=== PATIENT | male | born 1960 | race Caucasian/White ===

== ENCOUNTER 2017-01-23 11:17 | Inpatient (IN) | payer MEDICAID ==
[~2017-01-23] VITALS: Ht 175.3 cm; Wt 60.3 kg
[~2017-01-23 11:17] MED LIST: ALBU.5I NEB; AMLO10TA2 PO; HYDR2TAB PO; JEVILIQ12; LORA-373 PO; MIRT1TAB PO; NICO7DIS2 T-DERMAL; ONDA1TAB16; SENN8.6T15 PO; TRAM50TA PO
[2017-01-23 11:21] VITALS: BP 140/75; PULSE 117; RESP 13; TEMP 98.2; O2SAT 100
--- NOTE | 2017-01-23 11:25 | PD ---
Physical Exam Date Seen by Provider: Jan 23, 2017 Time Seen by Provider: 11:23 Data Data Last Documented VS Vital Signs Date Time Temp Pulse Resp B/P Pulse Ox O2 Delivery O2 Flow Rate FiO2 01/23/17 11:21 98.2 117 13 140/75 100 MDM Supervised Visit with HOLLIE: No Narrative Course 56 YO M with complaint of 8/10 right arm pain and swelling x 3 days. PCP sent with concern of DVT. Currently receiving chemo for stage IV lung CA. Vitals reviewed. Seen in triage, awaiting bed placement. Char Tucker Jan 23, 2017 11:25
--- NOTE | 2017-01-23 11:44 | PD ---
HPI Chief Complaint: Medical Clearance Time Seen by Provider: 11:30 Travel History International Travel<30 days: No Contact w/Intl Traveler<30days: No Traveled to known affect area: No History of Present Illness HPI This is a 56-year-old gentleman with unfortunate history of stage IV non-small cell lung cancer, undergoing chemotherapy, who presents here with right upper extremity swelling and redness. He was seen by his PCP today who was concerned about a blood clot and sent him here for further evaluation. The patient reports that it become red and swollen over the last 24 hours. There is no reported fevers. He does have 6 week history of right shoulder pain for which she is being worked up for. The patient is weak. He receives feeding through G -tube. is at the bedside state that he has had progressive weakness. PFSH Past Medical History Arthritis: No Asthma: No Autoimmune Disease: No Heart Rhythm Problems: No Cancer: Yes (lung) Cardiovascular Problems: Yes (HTN) High Cholesterol: No Chemotherapy: Yes Chest Pain: No Congestive Heart Failure: No COPD: No Cerebrovascular Accident: No Diabetes: No Endocrine: No GERD: No Genitourinary: No Hiatal Hernia: No Immune Disorder: No Kidney Stones: No Musculoskeletal: No Neurologic: Yes (HYDROCEPHALUS) Psychiatric: No Reproductive: No Respiratory: Yes (COPD,STAGE 4 LUNG CA) Migraines: No Renal Failure: No Seizures: No Sleep Apnea: No Thyroid Disease: No Ulcer: No Past Surgical History Abdominal Surgery: No AICD: No Cardiac Surgery: No Ear Surgery: No Endocrine Surgery: No Eye Surgery: No Genitourinary Surgery: No Gynecologic Surgery: No Joint Replacement: No Neurologic Surgery: Yes (REEL WINDER SHUNT) Oral Surgery: Yes Pacemaker: No Thoracic Surgery: No Social History Alcohol Use: Yes (2 BEERS PER DAY) Tobacco Use: Yes (1 1/2 PPD) Substance Use: No Allergies-Medications (Allergen,Severity, Reaction): Coded Allergies: Contrast Media (Verified Allergy, Severe, Hives, 01/23/17) Paraplatin (Verified Allergy, Mild, Itching, 01/23/17) Reported Meds & Prescriptions Reported Meds & Active Scripts Active Reported Mirtazapine 7.5 Mg Tab 7.5 Mg PO HS Amlodipine (Amlodipine Besylate) 10 Mg Tab 10 Mg PO DAILY Lorazepam 0.5 Mg Tab 0.5 Mg PO HS PRN Hydromorphone (Hydromorphone HCl) 2 Mg Tab 2 Mg PO Q4H PRN Albuterol Neb (Albuterol Sulfate) 2.5 Mg/0.5 Ml Neb 2.5 Mg NEB Q4HR NEB Note: The Albuterol Sulfate Inhalation Solution is concentrated and must be diluted. Read complete instructions carefully before using. Review of Systems Except as stated in HPI: all other systems reviewed are Neg General / Constitutional: No: Fever HENT: No: Headaches, Lightheadedness Cardiovascular: No: Chest Pain or Discomfort, Palpitations Respiratory: Positive: Cough, Shortness of Breath, Wheezing Gastrointestinal: No: Nausea, Vomiting, Abdominal Pain Musculoskeletal: Positive: Edema (right upper extremity), Pain (and redness of the right upper extremity), Other (patient also has shoulder pain from an injury 6 weeks.) Neurologic: Positive: Weakness, No: Headache, Change in Mentation Physical Exam Narrative GENERAL: Ill appearing gentleman in no acute respiratory distress. SKIN: Focused skin assessment warm/dry. HEAD: Atraumatic. Normocephalic. EYES: No scleral icterus. No injection or drainage. ENT: No nasal bleeding or discharge. Mucous membranes pink and dry. NECK: Trachea midline. Supple. CARDIOVASCULAR: Regular rate and rhythm. No murmur appreciated. RESPIRATORY: Breath sounds equal bilaterally. Decreased respiratory effort. GASTROINTESTINAL: Abdomen soft, thin, cachectic, non-tender, nondistended. Hepatic and splenic margins not palpable. MUSCULOSKELETAL: No obvious deformities. There is edema and redness and warmth to the right upper extremity medial. No obvious palpable cords. NEUROLOGICAL: Awake and alert. No obvious cranial nerve deficits. Motor grossly within normal limits. Normal speech. Very weak appearing. Data Data Last Documented VS Vital Signs Date Time Temp Pulse Resp B/P Pulse Ox O2 Delivery O2 Flow Rate FiO2 01/23/17 13:35 97.8 104 18 104/75 99 Room Air Orders Us Arm Venous Doppler (01/23/17 11:46) Complete Blood Count With Diff (01/23/17 11:46) Comprehensive Metabolic Panel (01/23/17 11:46) Blood Culture (01/23/17 11:46) Urinalysis - C+S If Indicated (01/23/17 11:46) Chest, Single Ap (01/23/17 11:46) Iv Access Insert/Monitor (01/23/17 11:46) Ecg Monitoring (01/23/17 11:46) Oximetry (01/23/17 11:46) Lactic Acid Sepsis Protocol (01/23/17 11:46) Ondansetron Inj (Zofran Inj) (01/23/17 12:00) Hydromorphone Pf Inj (Dilaudid Pf Inj) (01/23/17 12:00) Vancomycin Inj (Vancomycin Inj) (01/23/17 13:30) Lactic Acid (01/23/17 13:41) Admit Order (Ed Use Only) (01/23/17 14:11) Labs Laboratory Tests Test 01/23/17 01/23/17 01/23/17 11:44 13:30 13:41 White Blood Count 4.1 TH/MM3 Red Blood Count 3.32 MIL/MM3 Hemoglobin 9.8 GM/DL Hematocrit 30.5 % Mean Corpuscular Volume 91.9 FL Mean Corpuscular Hemoglobin 29.4 PG Mean Corpuscular Hemoglobin 32.0 % Concent Red Cell Distribution Width 19.0 % Platelet Count 388 TH/MM3 Mean Platelet Volume 7.1 FL Neutrophils (%) (Auto) 91.7 % Lymphocytes (%) (Auto) 3.5 % Monocytes (%) (Auto) 4.0 % Eosinophils (%) (Auto) 0.7 % Basophils (%) (Auto) 0.1 % Neutrophils # (Auto) 3.8 TH/MM3 Lymphocytes # (Auto) 0.1 TH/MM3 Monocytes # (Auto) 0.2 TH/MM3 Eosinophils # (Auto) 0.0 TH/MM3 Basophils # (Auto) 0.0 TH/MM3 CBC Comment DIFF FINAL Differential Comment Sodium Level 135 MEQ/L Potassium Level 3.9 MEQ/L Chloride Level 99 MEQ/L Carbon Dioxide Level 29.2 MEQ/L Anion Gap 7 MEQ/L Blood Urea Nitrogen 19 MG/DL Creatinine 0.63 MG/DL Estimat Glomerular Filtration 132 ML/MIN Rate Random Glucose 94 MG/DL Lactic Acid Level 2.1 mmol/L 1.0 mmol/L Calcium Level 9.1 MG/DL Total Bilirubin 0.6 MG/DL Aspartate Amino Transf 49 U/L (AST/SGOT) Alanine Aminotransferase 75 U/L (ALT/SGPT) Alkaline Phosphatase 88 U/L Total Protein 7.3 GM/DL Albumin 2.6 GM/DL Urine Color YELLOW Urine Turbidity CLEAR Urine pH 6.5 Urine Specific [place] 1.025 Urine Protein TRACE mg/dL Urine Glucose (UA) NEG mg/dL Urine Ketones NEG mg/dL Urine Occult Blood NEG Urine Nitrite NEG Urine Bilirubin NEG Urine Urobilinogen 4.0 MG/DL Urine Leukocyte Esterase NEG Urine RBC 1 /hpf Urine WBC 1 /hpf Urine Mucus FEW /lpf Microscopic Urinalysis Comment CULT NOT INDICATED MDM Medical Decision Making Medical Screen Exam Complete: Yes Emergency Medical Condition: Yes Differential Diagnosis Cellulitis versus DVT versus metabolic derangement Narrative Course 56-year-old male presents here with complaints of right upper extremity redness and warmth and swelling. He was sent here by his primary care doctor to rule out DVT. There is no evidence of DVT. The concern here is that this patient has cellulitis. He's been started on vancomycin. Given his immune compromised state and currently receiving chemotherapy, I feel he needs to be admitted. Was discussed with Dr. Diehl, senior resident working with Dr. Rodriguez, who agreed for the admission. Diagnosis Primary Impression: Right arm cellulitis Additional Impressions: Anemia stage IV lung cancer Admitting Information Admitting Physician Requests: Admit Matthew Up MD Jan 23, 2017 11:44
[2017-01-23 11:50] VITALS: RESP 18; O2SAT 100
[2017-01-23] MEDS ORDERED: ONDANSETRON HCL 4 MG/2 ML VIAL IVP ONE (12:00)
[2017-01-23] MEDS ORDERED: HYDROmorphone HCL PF 1 MG/ML VIAL IVS ONE (12:00)
[2017-01-23 12:06] LABS: AUTOMATED NEUTROPHIL # 3.8 TH/MM3 (1.8-7.7); BASOPHIL % 0.1 % (0.0-2.0); EOSINOPHIL % 0.7 % (0.0-4.0); HEMATOCRIT 30.5 % (39.0-51.0); HEMO FLAGS DIFF FINAL; LYMPH % 3.5 % (9.0-44.0); LYMPHOCYTE # 0.1 TH/MM3 (1.0-4.8); MEAN CELL VOLUME 91.9 FL (80.0-100.0); MEAN CORPUSCULAR HEMOGLOBIN 29.4 PG (27.0-34.0); NEUT % 91.7 % (16.0-70.0); PLATELET COUNT 388 TH/MM3 (150-450); RED BLOOD COUNT 3.32 MIL/MM3 (4.50-5.90); WHITE BLOOD COUNT 4.1 TH/MM3 (4.0-11.0)
[2017-01-23 12:19] LABS: ALT (GPT) 75 U/L (12-78); ANION GAP 7 MEQ/L (5-15); AST (GOT) 49 U/L (15-37); BICARBONATE 29.2 MEQ/L (21.0-32.0); BLOOD UREA NITROGEN 19 MG/DL (7-18); CHLORIDE 99 MEQ/L (98-107); GLOMERULAR FILTRATION RATE 132 ML/MIN (>89); POTASSIUM 3.9 MEQ/L (3.5-5.1); SODIUM (NA) 135 MEQ/L (136-145)
[2017-01-23 12:21] LABS: ALKALINE PHOSPHATASE 88 U/L (45-117); TOTAL BILIRUBIN ADULT 0.6 MG/DL (0.2-1.0)
--- NOTE | 2017-01-23 12:47 | RADRPT ---
EXAM DATE/TIME: 01/23/2017 12:24 [facility] COMPARISON: No previous studies available for comparison. INDICATIONS : Right arm pain and swelling. MEDICAL HISTORY : Chronic obstructive pulmonary disease. Hydrocephalus. Hypertension. Lung cancer, stage 4. Chemother apy. SURGICAL HISTORY : [employer] shunt. ENCOUNTER: Initial ACUITY: 2 day PAIN SCORE: 5/10 LOCATION: Right arm. FINDINGS: There is spontaneous flow documented in the brachial, basilic, cephalic, axillary, and subclavian vei ns. The vessels are compressible and augmentation response is documented. No filling defects are se en. The flow is phasic with respiration. Direction of flow in the jugular vein is caudal. CONCLUSION: 1. No sonographic evidence for right upper extremity DVT. Dereje Allred MD on January 23, 2017 at 12:43 Board Certified Radiologist. This report was verified electronically.
--- NOTE | 2017-01-23 12:54 | RADRPT ---
EXAM DATE/TIME: 01/23/2017 11:51 [facility] COMPARISON: CT SOFT TISSUE NECK W CONTRAST, December 28, 2014, 10:04. CT ABDOMEN & PELVIS W/O CONTRAST, May 08, 016, 21:04. CHEST SINGLE AP, July 11, 2016, 11:25. INDICATIONS : Short of breath. MEDICAL HISTORY : Carcinoma, lung. Chronic obstructive pulmonary disease. Having chemo, had radiation. SURGICAL HISTORY : None. ENCOUNTER: Initial ACUITY: 1 day PAIN SCORE: 0/10 LOCATION: Bilateral chest FINDINGS: There is a CT compatible [id number] in place from the left subclavian approach with the tip overly ing the SVC. The heart size is normal. The lungs are clear. No effusions are seen. There is a nicole e seen over the right neck and extending over the right chest towards the upper abdomen likely relate d to shunt tubing. The patient does appear to have a G-tube in place. CONCLUSION: No acute abnormality is seen. Chas Amaya MD on January 23, 2017 at 12:21 Board Certified Radiologist. This report was verified electronically.
[2017-01-23] MEDS ORDERED: VANCOMYCIN INJ 1,000 MG in SODIUM CHLOR 0.9% 250 ML INJ 250 ML IV ONE (13:30)
[2017-01-23 13:35] VITALS: BP 104/75; PULSE 104; RESP 18; TEMP 97.8; O2SAT 99
[2017-01-23 14:00] LABS: LACTIC ACID GHOST NOT REPORTABLE
[2017-01-23 14:06] LABS: BLOOD, URINE NEG (NEG); COMMENT (UR) CULT NOT INDICATED; CULTURE IF INDICATED CULT NOT INDICATED; GLUCOSE,URINE NEG (NEG); KETONE, URINE NEG (NEG); MUCUS URINE FEW /lpf (OCC); NITRITE,URINE NEG (NEG); PH, URINE 6.5 (5.0-8.5); URINE COLOR YELLOW (YELLW/STRAW)
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
[2017-01-23] MEDS ORDERED: HYDROmorphone HCL 2 MG TAB PO PRN (14:45)
[2017-01-23] MEDS ORDERED: SODIUM CHLORIDE 0.9% FLUSH 10 ML FLUSH IV FLUSH PRN (14:45)
[2017-01-23 16:00] VITALS: BP 135/72; PULSE 102; RESP 17; TEMP 97.9; O2SAT 99
[2017-01-23] MEDS: SODIUM CHLOR 0.9% 1000 ML INJ 1,000 ML IV SCH (16:48)
[2017-01-23 17:00] VITALS: BP 121/61; PULSE 106; RESP 18; TEMP 98.5; O2SAT 100
[2017-01-23] MEDS ORDERED: HYDROmorphone HCL PF 1 MG/ML VIAL IV PUSH ONE (18:15)
[2017-01-23] MEDS: SODIUM CHLORIDE 0.9% FLUSH 10 ML FLUSH IV FLUSH SCH (19:07)
[2017-01-23] MEDS: ENOXAPARIN SODIUM 40 MG/0.4 ML SYRINGE SQ SCH (19:07)
[2017-01-23 20:00] VITALS: BP 114/56; PULSE 112; RESP 18; TEMP 99.1; O2SAT 98
--- NOTE | 2017-01-23 21:21 | RADRPT ---
EXAM DATE/TIME: 01/23/2017 20:29 [facility] COMPARISON: No previous studies available for comparison. INDICATIONS : Right shoulder pain with no known trauma MEDICAL HISTORY : None. SURGICAL HISTORY : None. ENCOUNTER: Initial ACUITY: 1 day PAIN SCORE: 10/10 LOCATION: Right entire shoulder FINDINGS: 4 views of the right shoulder demonstrate no fracture or dislocation. The acromioclavicular joint is intact but demonstrates mild osteoarthritis change. The visualized soft tissues demonstrate no abnorm ality. Visualized portions of the right lung are clear. No displaced rib fracture is seen. CONCLUSION: No acute abnormality is identified. Chas Sher MD on January 23, 2017 at 21:07 Board Certified Radiologist. This report was verified electronically.
--- NOTE | 2017-01-23 21:36 | MB ---
cc: HAILEE DIEHL MD, RUBY ANNE E. M.D. DATE OF CONSULTATION 01/23/2017 DATE OF [address] Hailee Diehl CHIEF COMPLAINT Dr. Diehl requested consultation for Mr. Cohen regarding right arm cellulitis. HISTORY OF PRESENT ILLNESS Mr. Nieto is a 56-year-old man with metastatic krh-qrfqk-gger lung cancer on palliative chemotherapy with Alimta. He has had stable disease. His course was complicated by adhesive capsulitis of the right shoulder. He has a rotator cuff tear. He worsened this by recent fall. He was referred to orthopedic surgery on outpatient basis. Apparently, there are problems with the referral that has to go through to his primary care physician. He was feeling unwell 2 days prior to his presentation. The day prior to his presentation he was very ill. They noticed redness in the upper inner arm. He denies any injury. He has been unable to lift up that arm due to the shoulder capsulitis and rotator cuff injury. He went to his primary physician who then referred him to the emergency room for evaluation to rule out a deep vein thromboses. He is assessed to have a cellulitis and thus was admitted for IV antibiotic therapy. His blood cultures were obtained, that are pending. 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 He has normal white count. No neutropenia, anemia and normal platelet count. His lactic acid initially was elevated, decreased to 1. His AST is mildly elevated at 49. Mr. Nieto denies any sick contact. He was extremely nauseous. He is having a lot more pain in the right shoulder. He has progressive swelling that has worsened over the last 24 hours. The rest of his review of systems is negative. PAST MEDICAL HISTORY 1. Metastatic zrn-ahxkm-hwjq lung cancer. 2. Cancer cachexia. 3. Hoarseness. 4. Anxiety. 5. COPD/emphysema. 6. 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 7. Right shoulder capsulitis and rotator cuff tear. PAST SURGICAL HISTORY 1. Lung and neck biopsy. 2. INSURANCE CUSTOMER SERVICE SPECIALIST shunt placement. 3. Port placement. 4. Supraclavicular lymph node biopsy. 5. Cerebral aneurysm repair. ALLERGIES ALLERGIES TO CONTRAST MEDIA. MEDICATIONS Current medication include: 1. Vancomycin. 2. Remeron. 3. Hydromorphone. 4. Enoxaparin. 5. Sodium chloride. FAMILY HISTORY Mother has history of skin cancer. Father is cancer free. 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 He has 80 pack-year smoking history. Denies any alcohol or illicit drug use. PHYSICAL EXAMINATION VITAL SIGNS: Temperature 98.6, heart rate 106, respiratory rate 18, blood pressure 121/61, saturation 100%. GENERAL: Mr. Nieto is well-developed slender man who looks older than stated age. HEENT: His pupils are round, reactive to light and accommodation. Oropharynx is dry. NECK: Supple. Chronic radiation changes of the right neck. DIRECTED EXAMINATION: He has swelling and immobility of the right shoulder. He has inflammation and capsulitis. He has got a dry. skin in the right axilla. There is no obvious lesion. There is diffuse erythema of the inner aspect of the right arm and most swelling in the dependent portion. LUNGS: Lungs are clear anteriorly. CARDIOVASCULAR: Exam reveals a tachycardia. ABDOMEN: Abdomen is benign. PEG tube is in place. LOWER EXTREMITIES: lower extremities with no edema. Right arm is more swollen than the left. LABORATORY DATA Hemoglobin of 9.8, albumin 2.6. ASSESSMENT/PLAN Mr. Arroyo is a 56-year-old man with metastatic rir-foiuk-pvwn lung cancer with stable disease on Alimta. His course was complicated by a right shoulder capsulitis and is pending outpatient evaluation by orthopedic surgery. He comes in with cellulitis in the right inner arm, would suspect point of entry of bacteria from his right axilla. Blood cultures were obtained. We discussed consultation with orthopedic surgery for evaluation. He has been unable to see orthopedic surgery on outpatient basis. The pain in the right shoulder and right axilla has worsened since his last evaluation. We will continue vancomycin for now. Infectious disease consultation is deferred pending results of the cultures. Will obtain cultures through his MediPort. His MediPort otherwise functions well. The DVT prophylaxis as per primary team. We will optimize his pain medication 1 milligram of Dilaudid every 4 hours p.r.n. basis. His questions were answered to his satisfaction. La Billingsley MD RAD/EO /6:15 PM /9:21 PM
[2017-01-23] MEDS: HYDROmorphone HCL PF 1 MG/ML VIAL IV PUSH PRN (23:08)
[2017-01-23] MEDS: MIRTAZAPINE 15 MG TAB PO SCH (23:08)
--- NOTE | 2017-01-23 23:36 | MB ---
cc: MICHAELGEORGINAWAYNE DATE OF CONSULTATION 01/23/17 REASON FOR CONSULTATION Right upper extremity cellulitis. HISTORY OF PRESENT ILLNESS The patient is a 56-year-old male with past history of jrz-saksp-azyo stage IV lung cancer who is on chemotherapy, last received 01/17/2017. He developed increasing pain, swelling, redness to the right arm over the last 24 hours. He saw his primary care physician, was instructed to go to [facility]. He is admitted to the medical service and he is currently on antibiotic therapy. He does have redness and swelling of his arm. He is unable to have an MRI because he has a shunt in his brain after a bleed in 1995. He states he has been having some subjective fevers and chills as well as nausea. PAST MEDICAL HISTORY Positive for brain bleed 1995, stage IV lung cancer, COPD, pneumothorax. He has a port in his chest, brain aneurysm clip, PEG tube. ALLERGIES CONTRAST. SOCIAL HISTORY He smokes half a pack a day and has smoked since the age of 15. He has history of prior alcohol. Did not use drugs. FAMILY HISTORY Reviewed, noncontributory. MEDICATIONS Include: 1. Mirtazapine. 2. Amlodipine. 3. Lorazepam. 4. Hydromorphone. 5. Albuterol. PHYSICAL EXAMINATION GENERAL: The patient is awake, alert, lying in bed, no acute distress. HEENT: Normocephalic, atraumatic. Pupils are round. No scleral icterus. NECK: Neck is supple. LUNGS: Clear. HEART: Regular rate and rhythm. ABDOMEN: Soft, nontender. G-tube intact. EXTREMITIES: The right upper extremity does have swelling, cellulitis mostly in the region of the lower arm, elbow and proximal forearm. There is slight induration. The compartments are soft. He can flex and extend his digits. Brisk capillary refill, sensation intact. LABORATORY DATA White blood cell count 4.1, hemoglobin 9, hematocrit 30, glucose 94, creatinine 0.6. IMPRESSION A 56-year-old male, right upper extremity cellulitis, immunocompromised from chemotherapy, stage IV lung cancer. PLAN I recommend IV antibiotic therapy. He may benefit from infectious disease consultation for treatment recommendations in regards to antibiotic dosing and ideal usage. He is on vancomycin which is appropriate but he may benefit also for broad-spectrum coverage. I do not feel as though surgical intervention will be indicated at this time. MD SHEREE Olsen/CHERIE /10:19 PM /11:29 PM
[2017-01-24] VITALS: BP 123/67; PULSE 109; RESP 17; TEMP 98.5; O2SAT 100
[2017-01-24] MEDS: VANCOMYCIN INJ 1,000 MG in SODIUM CHLOR 0.9% 250 ML INJ 250 ML IV SCH ×2 (00:59→13:25)
[2017-01-24] MEDS: SODIUM CHLOR 0.9% 1000 ML INJ 1,000 ML IV SCH ×3 (02:48→22:48)
[2017-01-24 04:00] VITALS: BP 107/59; PULSE 92; RESP 17; TEMP 98.6; O2SAT 93
[2017-01-24] MEDS: HYDROmorphone HCL PF 1 MG/ML VIAL IV PUSH PRN ×4 (04:40→21:30)
[2017-01-24] MEDS: SODIUM CHLORIDE 0.9% FLUSH 10 ML FLUSH IV FLUSH SCH ×2 (08:32→21:00)
[2017-01-24 08:35] VITALS: BP 133/71; PULSE 110; RESP 18; TEMP 97.9; O2SAT 98
--- NOTE | 2017-01-24 10:44 | HHI.FPPN ---
Subjective Remarks No acute events overnight. Afebrile, tachycardic to 112. Patient states he feels approximately the same as yesterday. Has significant pain in his right upper extremity when he attempts to lift his arm. Does not have pain with palpation. Denies fever/chills. (Tatianna Karimi MD R3) Objective Vitals Vital Signs Date Time Temp Pulse Resp B/P Pulse Ox O2 Delivery O2 Flow Rate FiO2 01/24/17 08:35 97.9 110 18 133/71 98 01/24/17 06:04 16 01/24/17 04:00 98.6 92 17 107/59 93 01/24/17 00:00 98.5 109 17 123/67 100 01/23/17 20:00 99.1 112 18 114/56 98 01/23/17 19:37 16 01/23/17 17:00 98.5 106 18 121/61 100 01/23/17 16:00 97.9 102 17 135/72 99 Room Air 01/23/17 13:35 97.8 104 18 104/75 99 Room Air 01/23/17 12:29 17 01/23/17 11:50 18 100 Room Air 01/23/17 11:40 109 18 01/23/17 11:21 98.2 117 13 140/75 100 I/O 01/23/17 01/23/17 01/23/17 01/24/17 01/24/17 01/24/17 07:00 15:00 23:00 07:00 15:00 23:00 Output Total 500 ml 600 ml Balance -500 ml -600 ml Output Urine Total 500 ml 300 ml Autotransfusion 300 ml # Voids 1 # Bowel Movements 0 (Tatianna Karimi MD R3) Result Diagram: 01/23/17 1144 01/23/17 1144 Objective Remarks GENERAL: Cachectic appearing. Reading comfortably, speaking in full sentences. SKIN: Right arm with a 6-8 cm round area of erythema, nondraining, no fluctuance or induration, non-tender to palpation. Improved from yesterday. Pulses +2 radial on the same side. HEAD: Atraumatic. EYES: Pupils equal round and reactive. Extraocular motions intact. ENT: Nose without bleeding, purulent drainage or septal hematoma. Dry mucous membranes NECK: Trachea midline. No JVD or lymphadenopathy. CARDIOVASCULAR: Distant heart sounds, regular rate and rhythm, without any obvious murmurs. RESPIRATORY: Clear to auscultation. GASTROINTESTINAL: G-tube at midline, clean dry and intact, no drainage. MUSCULOSKELETAL: No edema in his lower extremities. NEUROLOGICAL: Awake and alert. Cranial nerves II through XII intact. Motor and sensory grossly within normal limits. (Tatianna Karimi MD R3) A/P Assessment and Plan 56-year-old pleasant male, with a past medical history of brain aneurysm in 1995, stage IV non-small cell lung carcinoma, and COPD, presenting with worsening right arm redness, swelling, and pain, after an injury 6 weeks prior. Currently being treated for cellulitis with IV vancomycin. (Tatianna Karimi MD R3) Attending Attestation Patient seen and examined with the resident team. Case reviewed and discussed Agree with plan of care as discussed with me and documented in the resident note. (Tonya Rodriguez MD) Problem List: (1) Cellulitis Status: Acute Plan: Right arm redness, swelling, suggestive of a cellulitis. Will treat with vancomycin 1 g every 12 hours. Given patient's immunosuppression, consult infectious disease CT scan ordered to rule out abscess or soft tissue infection (2) Right shoulder pain Status: Acute Plan: Patient with right shoulder pain likely to be secondary to his cellulitis. Orthopedic surgery consulted, recommended infectious disease consult. No surgical interventions at this time. Treatment as above. (3) COPD (chronic obstructive pulmonary disease) Status: Acute Plan: Reading comfortably on room air. Continue albuterol nebulizers every 4 hours when necessary shortness of breath. (4) Malignant cachexia Status: Acute Plan: Severe cachexia on exam, dietary consulted for PEG tube feedings, nursing bedside swallow eval prior to regular diet, continue mirtazapine for appetite enhancement, consider ensure shakes. Continue patient's home regimen of Jevity 3 cans in the morning and 2 cans in the evening via feeding tube (5) Non-small cell lung cancer (NSCLC) Status: Chronic Plan: Patient with a history of stage IV non-small cell lung cancer, being treated by Dr. Billingsley. We appreciate her assistance. We will consult her to follow along during the hospitalization. He is next due for chemotherapy on 02/07. (6) Tobacco abuse Status: Acute Plan: Nicotine patches when necessary. (7) Nutrition, metabolism, and development symptoms Status: Acute Plan: DVT: Lovenox 40 units sq q 24 hrs. Nutrition: Reg diet after swallow eval, Jevity as above IVF: Maintenance at 75 ml / hr (Tatianna Karimi MD R3) Tatianna Karimi MD R3 Jan 24, 2017 10:43 Tonya Rodriguez MD Jan 28, 2017 13:11
--- NOTE | 2017-01-24 12:44 | PD.ONC.PN ---
Subjective Subjective Remarks Afebrile overnight. "My arm still hurts but the pain medicine helps" Denies chills or Chest pain Endorses occasional SOB "I have COPD, breathing treatments have helped before" Objective Data Date Time Temp Pulse Resp B/P Pulse Ox O2 Delivery O2 Flow Rate FiO2 01/24/17 08:35 97.9 110 18 133/71 98 01/24/17 06:04 16 01/24/17 04:00 98.6 92 17 107/59 93 01/24/17 00:00 98.5 109 17 123/67 100 01/23/17 20:00 99.1 112 18 114/56 98 01/23/17 19:37 16 01/23/17 17:00 98.5 106 18 121/61 100 01/23/17 16:00 97.9 102 17 135/72 99 Room Air 01/23/17 13:35 97.8 104 18 104/75 99 Room Air Result Diagram: 01/23/17 1144 01/23/17 1144 Laboratory Results Laboratory Tests Test 01/23/17 01/23/17 01/23/17 13:30 13:41 20:10 Urine Color YELLOW Urine Turbidity CLEAR Urine pH 6.5 Urine Specific [place] 1.025 Urine Protein TRACE mg/dL Urine Glucose (UA) NEG mg/dL Urine Ketones NEG mg/dL Urine Occult Blood NEG Urine Nitrite NEG Urine Bilirubin NEG Urine Urobilinogen 4.0 MG/DL Urine Leukocyte Esterase NEG Urine RBC 1 /hpf Urine WBC 1 /hpf Urine Mucus FEW /lpf Microscopic Urinalysis Comment CULT NOT INDICATED Lactic Acid Level 1.0 mmol/L 1.2 mmol/L Culture Results Microbiology Date/Time Procedure Status Source Growth 01/23/17 11:44 Aerobic Blood Culture - Preliminary Resulted Blood Peripheral NO GROWTH IN 1 DAY 01/23/17 11:44 Anaerobic Blood Culture - Preliminary Resulted Blood Peripheral NO GROWTH IN 1 DAY 01/23/17 11:55 Aerobic Blood Culture - Preliminary Resulted Blood Peripheral NO GROWTH IN 1 DAY 01/23/17 11:55 Anaerobic Blood Culture - Preliminary Resulted Blood Peripheral NO GROWTH IN 1 DAY 01/23/17 20:00 Aerobic Blood Culture - Preliminary Resulted Blood Line NO GROWTH IN 1 DAY 01/23/17 20:00 Anaerobic Blood Culture - Preliminary Resulted Blood Line NO GROWTH IN 1 DAY 01/23/17 20:11 Aerobic Blood Culture - Preliminary Resulted Blood Line NO GROWTH IN 1 DAY 01/23/17 20:11 Anaerobic Blood Culture - Preliminary Resulted Blood Line NO GROWTH IN 1 DAY Administered Medications Medications (Trade) Dose Ordered Sig/Franny Route PRN Reason Start Time Stop Time Status Last Admin Dose Admin Mirtazapine (Remeron) 7.5 mg HS PO 01/23/17 21:00 01/23/17 23:08 Sodium Chloride 2 ml 2 ml BID IV FLUSH 01/23/17 21:00 01/23/17 19:07 Vancomycin HCl/ Sodium Chloride (Vancomycin Inj/ NS 250 ml Inj) 250 ml @ 250 mls/hr Q12H IV 01/24/17 01:00 01/24/17 00:59 Enoxaparin Sodium (Lovenox Inj) 40 mg Q24H SQ 01/23/17 18:00 01/23/17 19:07 Hydromorphone HCl (Dilaudid Pf Inj) 1 mg Q4H PRN IV PUSH PAIN, SEVERE 5-10 ON SCALE 01/23/17 18:15 01/24/17 08:42 Objective Remarks GENERAL: Older male, lying in bed with R arm propped up on a pillow in no distress. SKIN: Warm and dry. Erythema to RUE. HEAD: Normocephalic. EYES: No injection or drainage. NECK: Supple, trachea midline. CARDIOVASCULAR: +S1/S2. RESPIRATORY: Clear, diminished anteriorly. GASTROINTESTINAL: Abdomen soft, non-tender, nondistended. EXTREMITIES: No cyanosis, or edema. NEUROLOGICAL: Normal speech, moving all extremities. Assessment/Plan Problem List: (1) Cellulitis Status: Acute Plan: -- R upper arm erythema -- Current BC show no growth x 1 day -- On Vancomycin -- ID consult ordered. (2) Non-small cell lung cancer (NSCLC) Status: Chronic Plan: -- Currently on palliative chemotherapy with Alimta as outpatient -- Stable disease Assessment 56 y/o male with non small cell lung ca admitted with cellulitis of the R arm Plan 1. Will start pt on Neupogen once daily as his white count dropped 2. Await ID consult and recommendations 3. Will add on duonebs prn for occasional SOB 4. Will continue palliative chemo with Alimta as outpatient once acute issues are resolved Attending Statement The exam, history, and the medical decision-making described in the above note were completed with the assistance of the mid-level provider. I reviewed and agree with the findings presented. I attest that I had a [id number]-[id number] encounter with the patient on the same day, and personally performed and documented my assessment and findings in the medical record. Discussed with ID, cultures negative so far. Support continue with GCSF. Chemo will be on hold until resolution of infection. Pending ortho evaluation of R shoulder. Kanchan Kc Jan 24, 2017 12:43 La Billingsley MD Jan 24, 2017 17:00
[2017-01-24 12:49] LABS: HEMATOCRIT 23.1 % (39.0-51.0); MEAN CORPUSCULAR HEMOGLOBIN 30.4 PG (27.0-34.0); MEAN CORPUSCULAR HGB CONC 32.7 % (32.0-36.0); PLATELET COUNT 241 TH/MM3 (150-450); RED BLOOD COUNT 2.49 MIL/MM3 (4.50-5.90); RED CELL DISTRIBUTION WIDTH 18.9 % (11.6-17.2); WHITE BLOOD COUNT 1.5 TH/MM3 (4.0-11.0)
[2017-01-24 12:54] VITALS: BP 123/57; PULSE 102; RESP 18; TEMP 98.2; O2SAT 99
[2017-01-24 13:01] LABS: HEMO FLAGS AUTO DIFF
[2017-01-24 14:10] LABS: BICARBONATE 25.4 MEQ/L (21.0-32.0)
[2017-01-24 14:14] LABS: BANDS 5 % (0-6); BASOPHILS 1 % (0-2); EOSINOPHILS 4 % (0-4); NEUTROPHIL # MANUAL DIFF 1.2 TH/MM3 (1.8-7.7); PLATELET ESTIMATE SMEAR NORMAL (NORMAL); PLATELET MORPHOLOGY NORMAL (NORMAL); POLYS (SEG NEUTROPHILS) 74 % (16-70); SCAN/DIFF FINAL DIFF MANUAL; WBC DIFF SAMPLE 100
--- NOTE | 2017-01-24 14:35 | RADRPT ---
EXAM DATE/TIME: 01/24/2017 13:47 [facility] COMPARISON: No previous studies available for comparison. INDICATIONS : Right arm pain, possible cellulitis. RADIATION DOSE: 39.44 CTDIvol (mGy) MEDICAL HISTORY : Hypertension. Carcinoma, lung. SURGICAL HISTORY : None. ENCOUNTER: Initial ACUITY: 1 day PAIN SCALE: 10/10 LOCATION: Right upper extremity TECHNIQUE: Volumetric scanning of the humerus was performed. Using automated exposure control and adjustment of the mA and/or kV according to patient size, radiation dose was kept as low as reasonably achievable to obtain optimal diagnostic quality images. FINDINGS: There is extensive subcutaneous edema in the right arm, especially distally extending over the extens or surface of the elbow. No loculated fluid is seen to suggest a focal abscess collection. No bony de structive changes are identified. No acute fracture or dislocation. CONCLUSION: 1. Extensive cellulitis of the arm especially the distal arm and extending over the extensor surface of the elbow into the proximal forearm without loculated fluid to suggest discrete or drainable absce ss. Deep Gtz MD on January 24, 2017 at 14:26 Board Certified Radiologist. This report was verified electronically.
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
[2017-01-24] MEDS: CEFEPIME INJ 2,000 MG in SODIUM CHLORIDE 0.9% INJ 100 ML IV SCH ×2 (15:15→21:26)
[2017-01-24] MEDS ORDERED: RESP: ALBUTEROL 2.5 MG/IPRATROPIUM 0.5 MG NEB (PRN) NEB (16:30)
[2017-01-24 16:32] VITALS: BP 121/59; PULSE 105; RESP 18; TEMP 98.5; O2SAT 99
[2017-01-24] MEDS: FILGRASTIM 300 MCG/ML VIAL SQ SCH (17:37)
[2017-01-24] MEDS: ENOXAPARIN SODIUM 40 MG/0.4 ML SYRINGE SQ SCH (17:37)
[2017-01-24 20:00] VITALS: BP 118/58; PULSE 117; RESP 18; TEMP 99.7; O2SAT 98
[2017-01-24] MEDS: MIRTAZAPINE 15 MG TAB PO SCH (21:08)
[2017-01-25] VITALS (8 sets, daily range): BP systolic 96–114; BP diastolic 52–62; PULSE 107–113; RESP 17–18; TEMP 98.3–99.8; O2SAT 93–100
[2017-01-25] MEDS: SODIUM CHLOR 0.9% 1000 ML INJ 1,000 ML IV SCH ×2 (00:41→18:19)
[2017-01-25] MEDS: VANCOMYCIN INJ 1,000 MG in SODIUM CHLOR 0.9% 250 ML INJ 250 ML IV SCH ×2 (00:41→13:25)
[2017-01-25] MEDS: CEFEPIME INJ 2,000 MG in SODIUM CHLORIDE 0.9% INJ 100 ML IV SCH ×3 (05:47→21:24)
[2017-01-25] MEDS: HYDROmorphone HCL PF 1 MG/ML VIAL IV PUSH PRN ×5 (05:47→22:33)
[2017-01-25 06:24] LABS: HEMATOCRIT 22.8 % (39.0-51.0); MEAN CELL VOLUME 92.6 FL (80.0-100.0); MEAN CORPUSCULAR HEMOGLOBIN 30.4 PG (27.0-34.0); MEAN CORPUSCULAR HGB CONC 32.9 % (32.0-36.0); PLATELET COUNT 221 TH/MM3 (150-450); RED BLOOD COUNT 2.46 MIL/MM3 (4.50-5.90); RED CELL DISTRIBUTION WIDTH 18.3 % (11.6-17.2); WHITE BLOOD COUNT 3.5 TH/MM3 (4.0-11.0)
[2017-01-25 06:26] LABS: HEMO FLAGS AUTO DIFF
[2017-01-25 06:31] LABS: BICARBONATE 23.9 MEQ/L (21.0-32.0); POTASSIUM 3.5 MEQ/L (3.5-5.1)
[2017-01-25 08:08] LABS: BANDS 7 % (0-6); CORRECTED NUCLEATED RBC 1 /100 WBC (0-0); EOSINOPHILS 1 % (0-4); NEUTROPHIL # MANUAL DIFF 2.9 TH/MM3 (1.8-7.7); POLYS (SEG NEUTROPHILS) 77 % (16-70); WBC DIFF SAMPLE 100
[2017-01-25 08:09] LABS: PLATELET ESTIMATE SMEAR NORMAL (NORMAL); PLATELET MORPHOLOGY NORMAL (NORMAL); SCAN/DIFF FINAL DIFF MANUAL
[2017-01-25] MEDS: SODIUM CHLORIDE 0.9% FLUSH 10 ML FLUSH IV FLUSH SCH ×2 (08:22→21:00)
--- NOTE | 2017-01-25 09:19 | HHI.FPPN ---
Subjective Remarks Patient still with persistent right arm pain, not much improved since yesterday. Pain is reported as 6 out of 10. Has noticed some reduced redness and swelling. Breathing at his baseline, reports not getting any DuoNeb's. Denies any fevers or chills over the past 24 hours. Tolerating by mouth diet, and Jevity feeds without nausea or vomiting. (Jacques Diehl MD R2) Objective Vitals Vital Signs Date Time Temp Pulse Resp B/P Pulse Ox O2 Delivery O2 Flow Rate FiO2 01/25/17 08:00 98.6 109 18 114/57 98 01/25/17 06:17 18 01/25/17 04:00 98.8 110 17 100/62 100 01/25/17 00:00 99.8 113 17 96/55 99 01/24/17 20:00 99.7 117 18 118/58 98 01/24/17 16:32 98.5 105 18 121/59 99 01/24/17 12:54 98.2 102 18 123/57 99 I/O 01/24/17 01/24/17 01/24/17 01/25/17 01/25/17 01/25/17 07:00 15:00 23:00 07:00 15:00 23:00 Intake Total 1575 ml 1080 ml 2266 ml Output Total 600 ml 450 ml 300 ml 790 ml Balance -600 ml 1125 ml 780 ml 1476 ml Intake Oral 600 ml 480 ml 240 ml IV Total 975 ml 2026 ml Tube Feeding 480 ml Other 120 ml Output Urine Total 300 ml 450 ml 300 ml 790 ml Autotransfusion 300 ml (Jacques Diehl MD R2) Result Diagram: 01/25/17 0555 01/25/17 0555 Objective Remarks GENERAL: Cachectic appearing. Reading comfortably, speaking in full sentences. SKIN: Right arm with a 6-8 cm round area of erythema, nondraining, no fluctuance or induration, non-tender to palpation. Improved from yesterday. Pulses +2 radial on the same side. HEAD: Atraumatic. EYES: Pupils equal round and reactive. Extraocular motions intact. ENT: Nose without bleeding, purulent drainage or septal hematoma. Dry mucous membranes NECK: Trachea midline. No JVD or lymphadenopathy. CARDIOVASCULAR: Distant heart sounds, regular rate and rhythm, without any obvious murmurs. RESPIRATORY: Clear to auscultation. GASTROINTESTINAL: G-tube at midline, clean dry and intact, no drainage. MUSCULOSKELETAL: No edema in his lower extremities. NEUROLOGICAL: Awake and alert. Cranial nerves II through XII intact. Motor and sensory grossly within normal limits. (Jacques Diehl MD R2) A/P Assessment and Plan 56-year-old pleasant male, with a past medical history of brain aneurysm in 1995, stage IV non-small cell lung carcinoma, and COPD, presenting with worsening right arm redness, swelling, and pain, after an injury 6 weeks prior. Currently being treated for cellulitis with IV vancomycin. (Jacques Diehl MD R2) Attending Attestation Patient seen and examined with the resident team. Case reviewed and discussed Agree with plan of care as discussed with me and documented in the resident note. (Tonya Rodriguez MD) Problem List: (1) Cellulitis Status: Acute Plan: Right arm redness, swelling, suggestive of a cellulitis. CT scan did not show any drainable abscess, but was consistent with a cellulitis. Will treat with vancomycin 1 g every 12 hours. Infectious disease added cefepime (01/24) given his neutropenia. Cultures have been negative 24 HRS days. Left-sided port, clean dry and intact. No surrounding erythema or drainage. Appreciate recommendations on transition to by mouth medications, when clinically improved. We appreciate their recommendations. (2) Right shoulder pain Status: Acute Plan: Patient with right shoulder pain likely to be secondary to his cellulitis. Orthopedic surgery consulted -- No surgical interventions at this time. Treatment as above. (3) COPD (chronic obstructive pulmonary disease) Status: Acute Plan: Reading comfortably on room air. Continue albuterol nebulizers every 4 hours. (4) Malignant cachexia Status: Acute Plan: Severe cachexia on exam, dietary consulted for PEG tube feedings, nursing bedside swallow eval prior to regular diet, continue mirtazapine for appetite enhancement, consider ensure shakes. Continue patient's home regimen of Jevity 3 cans in the morning and 2 cans in the evening via feeding tube (5) Non-small cell lung cancer (NSCLC) Status: Chronic Plan: Patient with a history of stage IV non-small cell lung cancer, being treated by Dr. Billingsley. We appreciate her assistance. We will consult her to follow along during the hospitalization. He is next due for chemotherapy on 7/6 /2017. (6) Tobacco abuse Status: Acute Plan: Nicotine patches when necessary. (7) Nutrition, metabolism, and development symptoms Status: Acute Plan: DVT: Lovenox 40 units sq q 24 hrs. Nutrition: Reg diet after swallow eval, Jevity as above IVF: Maintenance at 75 ml / hr Disposition: Pending resolution of right arm cellulitis and pain control. (Jacques Diehl MD R2) Jacques Diehl MD R2 Jan 25, 2017 09:19 Tonya Rodriguez MD Jan 28, 2017 13:13
[2017-01-25] MEDS: RESP: ALBUTEROL 2.5 MG/IPRATROPIUM 0.5 MG NEB (SCH) NEB ×3 (10:00→20:21)
--- NOTE | 2017-01-25 11:21 | PD.ONC.PN ---
Subjective Subjective Remarks Tmax 99.8 overnight. Still with significant pain in right elbow/arm. Otherwise feeling okay. With two female friends at bedside. In good spirits. Objective Data Date Time Temp Pulse Resp B/P Pulse Ox O2 Delivery O2 Flow Rate FiO2 01/25/17 10:58 100 01/25/17 08:00 98.6 109 18 114/57 98 01/25/17 06:17 18 01/25/17 04:00 98.8 110 17 100/62 100 01/25/17 00:00 99.8 113 17 96/55 99 01/24/17 20:00 99.7 117 18 118/58 98 01/24/17 16:32 98.5 105 18 121/59 99 01/24/17 12:54 98.2 102 18 123/57 99 01/25/17 01/25/17 01/25/17 06:59 14:59 22:59 Intake Total 2266 ml Output Total 790 ml 200 ml Balance 1476 ml -200 ml Result Diagram: 01/25/17 0555 01/25/17 0555 Laboratory Results Laboratory Tests Test 01/24/17 01/25/17 12:10 05:55 White Blood Count 1.5 TH/MM3 3.5 TH/MM3 Red Blood Count 2.49 MIL/MM3 2.46 MIL/MM3 Hemoglobin 7.6 GM/DL 7.5 GM/DL Hematocrit 23.1 % 22.8 % Mean Corpuscular Volume 93.0 FL 92.6 FL Mean Corpuscular Hemoglobin 30.4 PG 30.4 PG Mean Corpuscular Hemoglobin 32.7 % 32.9 % Concent Red Cell Distribution Width 18.9 % 18.3 % Platelet Count 241 TH/MM3 221 TH/MM3 Mean Platelet Volume 6.8 FL 7.2 FL Neutrophils (%) (Auto) % % Lymphocytes (%) (Auto) % % Monocytes (%) (Auto) % % Eosinophils (%) (Auto) % % Basophils (%) (Auto) % % Neutrophils # (Auto) TH/MM3 TH/MM3 Lymphocytes # (Auto) TH/MM3 TH/MM3 Monocytes # (Auto) TH/MM3 TH/MM3 Eosinophils # (Auto) TH/MM3 TH/MM3 Basophils # (Auto) TH/MM3 TH/MM3 CBC Comment AUTO DIFF AUTO DIFF Differential Total Cells 100 100 Counted Neutrophils % (Manual) 74 % 77 % Band Neutrophils % 5 % 7 % Lymphocytes % 7 % 7 % Monocytes % 9 % 8 % Eosinophils % 4 % 1 % Basophils % 1 % Neutrophils # (Manual) 1.2 TH/MM3 2.9 TH/MM3 Differential Comment FINAL DIFF FINAL DIFF MANUAL MANUAL Platelet Estimate NORMAL NORMAL Platelet Morphology Comment NORMAL NORMAL Hematology Comments Sodium Level 138 MEQ/L 139 MEQ/L Potassium Level 4.0 MEQ/L 3.5 MEQ/L Chloride Level 104 MEQ/L 107 MEQ/L Carbon Dioxide Level 25.4 MEQ/L 23.9 MEQ/L Anion Gap 9 MEQ/L 8 MEQ/L Blood Urea Nitrogen 14 MG/DL 11 MG/DL Creatinine 0.39 MG/DL 0.44 MG/DL Estimat Glomerular Filtration 229 ML/MIN 199 ML/MIN Rate Random Glucose 81 MG/DL 89 MG/DL Calcium Level 8.3 MG/DL 8.2 MG/DL Nucleated Red Blood Cells 1 /100 WBC Culture Results Microbiology Date/Time Procedure Status Source Growth 01/23/17 11:44 Aerobic Blood Culture - Preliminary Resulted Blood Peripheral NO GROWTH IN 2 DAYS 01/23/17 11:44 Anaerobic Blood Culture - Preliminary Resulted Blood Peripheral NO GROWTH IN 2 DAYS 01/23/17 11:55 Aerobic Blood Culture - Preliminary Resulted Blood Peripheral NO GROWTH IN 2 DAYS 01/23/17 11:55 Anaerobic Blood Culture - Preliminary Resulted Blood Peripheral NO GROWTH IN 2 DAYS 01/23/17 20:00 Aerobic Blood Culture - Preliminary Resulted Blood Line NO GROWTH IN 2 DAYS 01/23/17 20:00 Anaerobic Blood Culture - Preliminary Resulted Blood Line NO GROWTH IN 2 DAYS 01/23/17 20:11 Aerobic Blood Culture - Preliminary Resulted Blood Line NO GROWTH IN 2 DAYS 01/23/17 20:11 Anaerobic Blood Culture - Preliminary Resulted Blood Line NO GROWTH IN 2 DAYS Imaging Studies Last Impressions Upper Extremity CT 01/24/17 0000 Signed Impressions: Service Date/Time: January 13:47 - CONCLUSION: 1. Extensive cellulitis of the arm especially the distal arm and extending over the extensor surface of the elbow into the proximal forearm without loculated fluid to suggest discrete or drainable abscess. Deep Gtz MD Upper Extremity Ultrasound 01/23/17 1146 Signed Impressions: Service Date/Time: Monday, January 23, 2017 12:24 - CONCLUSION: 1. No sonographic evidence for right upper extremity DVT. Dereje Allred MD Chest X-Ray 01/23/17 1146 Signed Impressions: Service Date/Time: Monday, January 23, 2017 11:51 - CONCLUSION: No acute abnormality is seen. Chas Amaya MD Shoulder X-Ray 01/23/17 0000 Signed Impressions: Service Date/Time: Monday, January 23, 2017 20:29 - CONCLUSION: No acute abnormality is identified. Chas Sher MD Administered Medications Medications (Trade) Dose Ordered Sig/Franny Route PRN Reason Start Time Stop Time Status Last Admin Dose Admin Mirtazapine (Remeron) 7.5 mg HS PO 01/23/17 21:00 01/24/17 21:08 Sodium Chloride 2 ml 2 ml BID IV FLUSH 01/23/17 21:00 01/23/17 19:07 Vancomycin HCl/ Sodium Chloride (Vancomycin Inj/ NS 250 ml Inj) 250 ml @ 250 mls/hr Q12H IV 01/24/17 01:00 01/25/17 00:41 Enoxaparin Sodium 40 mg 40 mg Q24H SQ 01/23/17 18:00 01/24/17 17:37 Sodium Chloride (NS 1000 ml Inj) 1,000 ml @ 100 mls/hr Q10H IV 01/23/17 16:48 01/25/17 00:41 Hydromorphone HCl 1 mg 1 mg Q4H PRN IV PUSH PAIN, SEVERE 5-10 ON SCALE 01/23/17 18:15 01/25/17 09:58 Cefepime HCl/ Sodium Chloride (Maxipime Inj/NS Inj) 100 ml @ 200 mls/hr Q8H IV 01/24/17 14:00 01/25/17 05:47 Filgrastim (Neupogen Inj) 300 mcg DAILY@14 SQ 01/24/17 16:30 01/28/17 16:29 01/24/17 17:37 Objective Remarks GENERAL: Middle aged male, upright in bed in nad. SKIN: Warm and dry. HEAD: Normocephalic. EYES: No injection or drainage. NECK: Supple, trachea midline. CARDIOVASCULAR: Regular rate and rhythm RESPIRATORY: diminished at bases. anterior nguyen with occasional rhonchi. GASTROINTESTINAL: Abdomen soft, non-tender, nondistended. EXTREMITIES: No cyanosis. RUE is significantly swollen with erythema along the medial portion. tender to palpation. MUSCULOSKELETAL: Adequate muscle tone. NEUROLOGICAL: No obvious focal deficit. Awake, alert, and oriented x3. Assessment/Plan Problem List: (1) Cellulitis Status: Acute Plan: -- R upper arm erythema -- Current BC show no growth x 2 days -- On Vancomycin -- ID following (2) Non-small cell lung cancer (NSCLC) Status: Chronic Plan: -- Currently on palliative chemotherapy with Alimta as outpatient -- Stable disease (3) Neutropenia Status: Acute Plan: --on Neupogen Assessment 56 y/o male with non small cell lung ca admitted with cellulitis of the R arm Plan 1. continue Neupogen 2. continue antibiotics per ID recommendations 3. monitor blood cultures 4. consult physical therapy Attending Statement The exam, history, and the medical decision-making described in the above note were completed with the assistance of the mid-level provider. I reviewed and agree with the findings presented. I attest that I had a gawg-[id number] encounter with the patient on the same day, and personally performed and documented my assessment and findings in the medical record. No longer neutropenic. Noted swelling in the dependent portion of R arm. Still unable to abduct R arm. Discussed w/ Dr. No, best recommendation for physical therapy to stretch and mobilize the shoulder capsulitis. Physical therapy consulted. Abx per ID. Problem Qualifiers (1) Neutropenia: Qualified Code: D70.1 - Chemotherapy-induced neutropenia Oly Maldonado Jan 25, 2017 11:21 La Billingsley MD Jan 25, 2017 20:18
[2017-01-25] MEDS: FILGRASTIM 300 MCG/ML VIAL SQ SCH (14:25)
--- NOTE | 2017-01-25 14:57 | HHI.IDPN ---
Note Infectious Disease Note Patient notes pain 4/10 in r. arm. Feels okay otherwise. Afebrile. No chills. Blood cultures have no growth. PAST MEDICAL HISTORY 1. Lung cancer stage IV [id number]. 2. COPD. 3. Pneumothorax July 2016. 4. INSURANCE EXAMINER shunt for AV malformation. 5. Port placement 6. cerebral aneurysm repair. ALLERGIES CONTRAST MEDIA PARAPLATIN MEDICINE. MEDICATIONS 1. Vancomycin. 2. Cefepime. SOCIAL HISTORY Smokes a pack and half of cigarettes a day. No alcohol use. No illicit drugs. OBJECTIVE: Vital Signs Date Time Temp Pulse Resp B/P Pulse Ox O2 Delivery O2 Flow Rate FiO2 01/25/17 12:00 98.3 107 18 102/52 98 01/25/17 10:58 100 01/25/17 08:00 98.6 109 18 114/57 98 01/25/17 06:17 18 01/25/17 04:00 98.8 110 17 100/62 100 01/25/17 00:00 99.8 113 17 96/55 99 01/24/17 20:00 99.7 117 18 118/58 98 01/24/17 16:32 98.5 105 18 121/59 99 01/24/17 01/24/17 01/25/17 15:00 23:00 07:00 Intake Total 1575 ml 1080 ml 2266 ml Output Total 450 ml 300 ml 790 ml Balance 1125 ml 780 ml 1476 ml Intake Oral 600 ml 480 ml 240 ml IV Total 975 ml 2026 ml Tube Feeding 480 ml Other 120 ml Output Urine Total 450 ml 300 ml 790 ml Laboratory Tests Test 01/24/17 01/25/17 12:10 05:55 White Blood Count 1.5 TH/MM3 3.5 TH/MM3 Red Blood Count 2.49 MIL/MM3 2.46 MIL/MM3 Hemoglobin 7.6 GM/DL 7.5 GM/DL Hematocrit 23.1 % 22.8 % Mean Corpuscular Volume 93.0 FL 92.6 FL Mean Corpuscular Hemoglobin 30.4 PG 30.4 PG Mean Corpuscular Hemoglobin 32.7 % 32.9 % Concent Red Cell Distribution Width 18.9 % 18.3 % Platelet Count 241 TH/MM3 221 TH/MM3 Mean Platelet Volume 6.8 FL 7.2 FL Neutrophils (%) (Auto) % % Lymphocytes (%) (Auto) % % Monocytes (%) (Auto) % % Eosinophils (%) (Auto) % % Basophils (%) (Auto) % % Neutrophils # (Auto) TH/MM3 TH/MM3 Lymphocytes # (Auto) TH/MM3 TH/MM3 Monocytes # (Auto) TH/MM3 TH/MM3 Eosinophils # (Auto) TH/MM3 TH/MM3 Basophils # (Auto) TH/MM3 TH/MM3 CBC Comment AUTO DIFF AUTO DIFF Differential Total Cells 100 100 Counted Neutrophils % (Manual) 74 % 77 % Band Neutrophils % 5 % 7 % Lymphocytes % 7 % 7 % Monocytes % 9 % 8 % Eosinophils % 4 % 1 % Basophils % 1 % Neutrophils # (Manual) 1.2 TH/MM3 2.9 TH/MM3 Differential Comment FINAL DIFF FINAL DIFF MANUAL MANUAL Platelet Estimate NORMAL NORMAL Platelet Morphology Comment NORMAL NORMAL Hematology Comments Nucleated Red Blood Cells 1 /100 WBC Laboratory Tests Test 01/23/17 01/24/17 01/25/17 20:10 12:10 05:55 Lactic Acid Level 1.2 mmol/L Sodium Level 138 MEQ/L 139 MEQ/L Potassium Level 4.0 MEQ/L 3.5 MEQ/L Chloride Level 104 MEQ/L 107 MEQ/L Carbon Dioxide Level 25.4 MEQ/L 23.9 MEQ/L Anion Gap 9 MEQ/L 8 MEQ/L Blood Urea Nitrogen 14 MG/DL 11 MG/DL Creatinine 0.39 MG/DL 0.44 MG/DL Estimat Glomerular Filtration 229 ML/MIN 199 ML/MIN Rate Random Glucose 81 MG/DL 89 MG/DL Calcium Level 8.3 MG/DL 8.2 MG/DL Microbiology Date/Time Procedure Status Source Growth 01/23/17 11:44 Aerobic Blood Culture - Preliminary Resulted Blood Peripheral NO GROWTH IN 2 DAYS 01/23/17 11:44 Anaerobic Blood Culture - Preliminary Resulted Blood Peripheral NO GROWTH IN 2 DAYS 01/23/17 11:55 Aerobic Blood Culture - Preliminary Resulted Blood Peripheral NO GROWTH IN 2 DAYS 01/23/17 11:55 Anaerobic Blood Culture - Preliminary Resulted Blood Peripheral NO GROWTH IN 2 DAYS 01/23/17 20:00 Aerobic Blood Culture - Preliminary Resulted Blood Line NO GROWTH IN 2 DAYS 01/23/17 20:00 Anaerobic Blood Culture - Preliminary Resulted Blood Line NO GROWTH IN 2 DAYS 01/23/17 20:11 Aerobic Blood Culture - Preliminary Resulted Blood Line NO GROWTH IN 2 DAYS 01/23/17 20:11 Anaerobic Blood Culture - Preliminary Resulted Blood Line NO GROWTH IN 2 DAYS PHYSICAL EXAMINATION IN GENERAL: No acute distress. He is awake and alert. HEAD, EARS, EYES, NOSE, AND THROAT Head is atraumatic. Extraocular movements grossly intact, pupils reactive to light. No icterus. Oropharynx no visible lesions. Moist mucosa. No thrush. NECK: Supple without adenopathy. LUNGS: Clear. HEART: Regular rate and rhythm. No murmurs, rubs or gallops. EXTREMITIES: No clubbing or cyanosis. The right upper extremity edema at the elbow and approximately 6 inches above and below the elbow and there is less erythema. The area is warm. No visible blisters. The rest of the Extremities, have no clubbing, cyanosis or edema. NEUROLOGIC: Neurological nonfocal. EXTREMITIES: The extremities have no clubbing or cyanosis or edema. NEUROLOGIC: Nonfocal. SKIN: No diffuse rash. IMPRESSION Cellulitis over the right upper extremity. Neutropenia. Improved. History of small-cell lung cancer. RECOMMENDATIONS 1. Continue Cefepime. 2. Continue Vancomycin 3. Monitor white blood cell count. If he remains afebrile the antibiotics can be tapered in a couple of days. Juan Pablo Maurice MD Jan 25, 2017 14:57
--- NOTE | 2017-01-25 16:14 | PD.ORT.PN ---
Subjective Subjective Remarks pain in R arm improving. Objective Vitals Vital Signs Date Time Temp Pulse Resp B/P Pulse Ox O2 Delivery O2 Flow Rate FiO2 01/25/17 12:00 98.3 107 18 102/52 98 01/25/17 10:58 100 01/25/17 08:00 98.6 109 18 114/57 98 01/25/17 06:17 18 01/25/17 04:00 98.8 110 17 100/62 100 01/25/17 00:00 99.8 113 17 96/55 99 01/24/17 20:00 99.7 117 18 118/58 98 01/24/17 16:32 98.5 105 18 121/59 99 I/O 01/24/17 01/24/17 01/24/17 01/25/17 01/25/17 01/25/17 07:00 15:00 23:00 07:00 15:00 23:00 Intake Total 1575 ml 1080 ml 2266 ml 1057 ml Output Total 600 ml 450 ml 300 ml 790 ml 450 ml Balance -600 ml 1125 ml 780 ml 1476 ml 607 ml Intake Oral 600 ml 480 ml 240 ml IV Total 975 ml 2026 ml 1057 ml Tube Feeding 480 ml Other 120 ml Output Urine Total 300 ml 450 ml 300 ml 790 ml 450 ml Autotransfusion 300 ml Result Diagram: 01/25/17 0555 01/25/17 0555 Objective Remarks R arm skin intact erythema improving. 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
[2017-01-25] MEDS: ENOXAPARIN SODIUM 40 MG/0.4 ML SYRINGE SQ SCH (18:19)
[2017-01-25] MEDS: MIRTAZAPINE 15 MG TAB PO SCH (21:23)
[2017-01-26] VITALS (8 sets, daily range): BP systolic 93–137; BP diastolic 51–63; PULSE 99–118; RESP 16–18; TEMP 96.8–99; O2SAT 96–99
[2017-01-26] MEDS: VANCOMYCIN INJ 1,000 MG in SODIUM CHLOR 0.9% 250 ML INJ 250 ML IV SCH ×2 (01:10→13:24)
[2017-01-26] MEDS: RESP: ALBUTEROL 2.5 MG/IPRATROPIUM 0.5 MG NEB (SCH) NEB ×4 (02:25→20:49)
[2017-01-26] MEDS: HYDROmorphone HCL PF 1 MG/ML VIAL IV PUSH PRN ×7 (02:28→23:33)
[2017-01-26] MEDS: SODIUM CHLOR 0.9% 1000 ML INJ 1,000 ML IV SCH ×3 (04:48→22:43)
[2017-01-26] MEDS: CEFEPIME INJ 2,000 MG in SODIUM CHLORIDE 0.9% INJ 100 ML IV SCH ×3 (06:27→22:43)
[2017-01-26 07:15] LABS: HEMATOCRIT 21.3 % (39.0-51.0); MEAN CELL VOLUME 92.6 FL (80.0-100.0); MEAN CORPUSCULAR HGB CONC 33.5 % (32.0-36.0); PLATELET COUNT 201 TH/MM3 (150-450); RED CELL DISTRIBUTION WIDTH 18.6 % (11.6-17.2); WHITE BLOOD COUNT 10.2 TH/MM3 (4.0-11.0)
[2017-01-26 07:16] LABS: BICARBONATE 24.3 MEQ/L (21.0-32.0); POTASSIUM 3.5 MEQ/L (3.5-5.1)
[2017-01-26 07:24] LABS: HEMO FLAGS AUTO DIFF
--- NOTE | 2017-01-26 07:40 | HHI.FPPN ---
Subjective Remarks Patient feeling well, no fevers overnight. Pain is a 4 / 10 with pain medications, but the medication is wearing off after 3 hours, and having 7-8 / 10 pain. Keeping arm propped on pillow. He reports increased swelling, but reduced redness. (Jacques Diehl MD R2) Objective Vitals Vital Signs Date Time Temp Pulse Resp B/P Pulse Ox O2 Delivery O2 Flow Rate FiO2 01/26/17 04:00 98.9 110 17 100/58 98 01/26/17 03:01 16 01/26/17 00:00 98.3 118 16 100/52 98 01/25/17 20:21 93 21 01/25/17 20:00 99.6 113 17 102/56 97 01/25/17 16:00 99.8 109 18 101/52 99 01/25/17 12:00 98.3 107 18 102/52 98 01/25/17 10:58 100 01/25/17 08:00 98.6 109 18 114/57 98 I/O 01/25/17 01/25/17 01/25/17 01/26/17 01/26/17 01/26/17 07:00 15:00 23:00 07:00 15:00 23:00 Intake Total 2266 ml 1777 ml 1721 ml 1133 ml Output Total 790 ml 800 ml 720 ml 1060 ml Balance 1476 ml 977 ml 1001 ml 73 ml Intake Oral 240 ml 720 ml 480 ml 240 ml IV Total 2026 ml 1057 ml 821 ml 893 ml Tube Feeding 300 ml Other 120 ml Output Urine Total 790 ml 800 ml 720 ml 1060 ml (Jacques Diehl MD R2) Result Diagram: 01/26/1737 01/26/1737 Objective Remarks GENERAL: Cachectic appearing. Reading comfortably, speaking in full sentences. SKIN: Right arm with a 6-8 cm round area of erythema, nondraining, no fluctuance or induration, tender to palpation. Improved from yesterday. Pulses +2 radial on the same side. HEAD: Atraumatic. EYES: Pupils equal round and reactive. Extraocular motions intact. ENT: Nose without bleeding, purulent drainage or septal hematoma. Dry mucous membranes NECK: Trachea midline. No JVD or lymphadenopathy. CARDIOVASCULAR: Distant heart sounds, regular rate and rhythm, without any obvious murmurs. RESPIRATORY: Clear to auscultation. GASTROINTESTINAL: G-tube at midline, clean dry and intact, no drainage. MUSCULOSKELETAL: No edema in his lower extremities. NEUROLOGICAL: Awake and alert. Cranial nerves II through XII intact. Motor and sensory grossly within normal limits. (Jacques Diehl MD R2) A/P Assessment and Plan 56-year-old pleasant male, with a past medical history of brain aneurysm in 1995, stage IV non-small cell lung carcinoma, and COPD, presenting with worsening right arm redness, swelling, and pain, after an injury 6 weeks prior. Currently being treated for cellulitis with IV vancomycin. (Jacques Diehl MD R2) Attending Attestation Patient seen and examined with the resident team. Case reviewed and discussed Agree with plan of care as discussed with me and documented in the resident note. (Tonya Rodriguez MD) Problem List: (1) Cellulitis Status: Acute Plan: Right arm redness, swelling, suggestive of a cellulitis. CT scan did not show any drainable abscess, but was consistent with a cellulitis. Will treat with vancomycin 1 g every 12 hours. Infectious disease added cefepime (01/24) given his neutropenia. Clinically improving today 01/26. Cultures have been negative 48 hrs. Left-sided port, clean dry and intact. No surrounding erythema or drainage. Per ID, would benefit from a couple of more days of IV antibiotics to help resolution of cellulitis. (2) Right shoulder pain Status: Acute Plan: Patient with right shoulder pain likely to be secondary to his cellulitis. Orthopedic surgery consulted -- No surgical interventions at this time. Physical therapy. (3) COPD (chronic obstructive pulmonary disease) Status: Acute Plan: Resting comfortably on room air. Continue albuterol nebulizers every 4 hours. (4) Malignant cachexia Status: Acute Plan: Severe cachexia on exam, dietary consulted for PEG tube feedings, nursing bedside swallow eval prior to regular diet, continue mirtazapine for appetite enhancement, consider ensure shakes. Continue patient's home regimen of Jevity 3 cans in the morning and 2 cans in the evening via feeding tube (5) Non-small cell lung cancer (NSCLC) Status: Chronic Plan: Patient with a history of stage IV non-small cell lung cancer, being treated by Dr. Billingsley. We appreciate her assistance. We will consult her to follow along during the hospitalization. He is next due for chemotherapy on 02/07. (6) Tobacco abuse Status: Acute Plan: Nicotine patches when necessary. (7) Nutrition, metabolism, and development symptoms Status: Acute Plan: DVT: Lovenox 40 units sq q 24 hrs. Nutrition: Reg diet after swallow eval, Jevity as above IVF: Maintenance at 75 ml / hr Disposition: Pending resolution of right arm cellulitis and pain control. (Jacques Diehl MD R2) Jacques Diehl MD R2 Jan 26, 2017 07:40 Tonya Rodriguez MD Jan 28, 2017 13:13
[2017-01-26] MEDS ORDERED: ACETAMINOPHEN 325 MG TAB PO PRN (08:00)
[2017-01-26] MEDS ORDERED: SODIUM CHLOR 0.9% 250 ML INJ 250 ML IV ONE (08:00)
[2017-01-26] MEDS ORDERED: diphenhydrAMINE HCL 25 MG CAP PO PRN (08:00)
[2017-01-26] MEDS: SODIUM CHLORIDE 0.9% FLUSH 10 ML FLUSH IV FLUSH SCH ×2 (08:33→20:36)
[2017-01-26 09:06] LABS: BANDS 7 % (0-6); DOHLE BODIES PRESENT (NONE SEEN); NEUTROPHIL # MANUAL DIFF 9.2 TH/MM3 (1.8-7.7); POLYS (SEG NEUTROPHILS) 83 % (16-70); TOXIC GRANULATION 2+ (NORMAL); WBC DIFF SAMPLE 100
[2017-01-26 09:07] LABS: SCAN/DIFF FINAL DIFF MANUAL
--- NOTE | 2017-01-26 09:36 | PD.ONC.PN ---
Subjective Subjective Remarks Afebrile overnight. "I feel better today." He states his right arm still hurts, but he feels better overall. He is in good spirits. Tolerating tube feeds. Objective Data Date Time Temp Pulse Resp B/P Pulse Ox O2 Delivery O2 Flow Rate FiO2 01/26/17 08:00 99.0 106 18 103/53 96 01/26/17 06:58 18 01/26/17 04:00 98.9 110 17 100/58 98 01/26/17 00:00 98.3 118 16 100/52 98 01/25/17 20:21 93 21 01/25/17 20:00 99.6 113 17 102/56 97 01/25/17 16:00 99.8 109 18 101/52 99 01/25/17 12:00 98.3 107 18 102/52 98 01/25/17 10:58 100 01/26/17 01/26/17 01/26/17 07:00 15:00 23:00 Intake Total 1133 ml Output Total 1060 ml Balance 73 ml Result Diagram: 01/26/17 0637 01/26/17 0637 Laboratory Results Laboratory Tests Test 01/26/17 06:37 White Blood Count 10.2 TH/MM3 Red Blood Count 2.30 MIL/MM3 Hemoglobin 7.1 GM/DL Hematocrit 21.3 % Mean Corpuscular Volume 92.6 FL Mean Corpuscular Hemoglobin 31.0 PG Mean Corpuscular Hemoglobin 33.5 % Concent Red Cell Distribution Width 18.6 % Platelet Count 201 TH/MM3 Mean Platelet Volume 7.2 FL Neutrophils (%) (Auto) % Lymphocytes (%) (Auto) % Monocytes (%) (Auto) % Eosinophils (%) (Auto) % Basophils (%) (Auto) % Neutrophils # (Auto) TH/MM3 Lymphocytes # (Auto) TH/MM3 Monocytes # (Auto) TH/MM3 Eosinophils # (Auto) TH/MM3 Basophils # (Auto) TH/MM3 CBC Comment AUTO DIFF Differential Total Cells 100 Counted Neutrophils % (Manual) 83 % Band Neutrophils % 7 % Monocytes % 10 % Neutrophils # (Manual) 9.2 TH/MM3 Differential Comment FINAL DIFF MANUAL Toxic Granulation 2+ Dohle Bodies PRESENT Sodium Level 141 MEQ/L Potassium Level 3.5 MEQ/L Chloride Level 107 MEQ/L Carbon Dioxide Level 24.3 MEQ/L Anion Gap 10 MEQ/L Blood Urea Nitrogen 10 MG/DL Creatinine 0.45 MG/DL Estimat Glomerular Filtration 194 ML/MIN Rate Random Glucose 91 MG/DL Calcium Level 8.1 MG/DL Culture Results Microbiology Date/Time Procedure Status Source Growth 01/23/17 11:44 Aerobic Blood Culture - Preliminary Resulted Blood Peripheral NO GROWTH IN 2 DAYS 01/23/17 11:44 Anaerobic Blood Culture - Preliminary Resulted Blood Peripheral NO GROWTH IN 2 DAYS 01/23/17 11:55 Aerobic Blood Culture - Preliminary Resulted Blood Peripheral NO GROWTH IN 2 DAYS 01/23/17 11:55 Anaerobic Blood Culture - Preliminary Resulted Blood Peripheral NO GROWTH IN 2 DAYS 01/23/17 20:00 Aerobic Blood Culture - Preliminary Resulted Blood Line NO GROWTH IN 2 DAYS 01/23/17 20:00 Anaerobic Blood Culture - Preliminary Resulted Blood Line NO GROWTH IN 2 DAYS 01/23/17 20:11 Aerobic Blood Culture - Preliminary Resulted Blood Line NO GROWTH IN 2 DAYS 01/23/17 20:11 Anaerobic Blood Culture - Preliminary Resulted Blood Line NO GROWTH IN 2 DAYS Administered Medications Medications (Trade) Dose Ordered Sig/Franny Route PRN Reason Start Time Stop Time Status Last Admin Dose Admin Mirtazapine (Remeron) 7.5 mg HS PO 01/23/17 21:00 01/25/17 21:23 Sodium Chloride 2 ml 2 ml BID IV FLUSH 01/23/17 21:00 01/23/17 19:07 Vancomycin HCl/ Sodium Chloride (Vancomycin Inj/ NS 250 ml Inj) 250 ml @ 250 mls/hr Q12H IV 01/24/17 01:00 01/26/17 01:10 Enoxaparin Sodium 40 mg 40 mg Q24H SQ 01/23/17 18:00 01/25/17 18:19 Sodium Chloride 1,000 ml @ 100 mls/hr Q10H IV 01/23/17 16:48 01/26/17 06:28 Cefepime HCl/ Sodium Chloride (Maxipime Inj/NS Inj) 100 ml @ 200 mls/hr Q8H IV 01/24/17 14:00 01/26/17 06:27 Objective Remarks GENERAL: chronically ill appearing male, upright in bed in nad. SKIN: Warm and dry. HEAD: Normocephalic. EYES:No injection or drainage. NECK: trachea midline. LYMPHATIC: No adenopathy. GASTROINTESTINAL: Abdomen soft, non-tender, nondistended. PEG tube in place, receiving bolus tube feeds. EXTREMITIES: No cyanosis MUSCULOSKELETAL: Adequate muscle tone. NEUROLOGICAL: No obvious focal deficit. Awake, alert, and oriented x3. Assessment/Plan Problem List: (1) Cellulitis Status: Acute Plan: -- R upper arm erythema -- Current BC show no growth x 2 days -- On Vancomycin + Cefepime -- ID following (2) Non-small cell lung cancer (NSCLC) Status: Chronic Plan: -- Currently on palliative chemotherapy with Alimta as outpatient -- Stable disease Assessment 56 y/o male with non small cell lung ca admitted with cellulitis of the R arm Plan 1. stop Neupogen 2. continue antibiotics per ID recommendations 3. monitor blood cultures Attending Statement The exam, history, and the medical decision-making described in the above note were completed with the assistance of the mid-level provider. I reviewed and agree with the findings presented. I attest that I had a [id number] encounter with the patient on the same day, and personally performed and documented my assessment and findings in the medical record. Working w/ PT. Still has arm swelling, positional, plans to elevate R arm. Noted h/o XRT to R neck possibly contribute to stasis, no DVT. Abx per ID, no fever. Pain better controlled Q3H Dilaudid. Transfuse 1UPRBC for anemia. Oly Maldonado Jan 26, 2017 09:36 La Billingsley MD Jan 26, 2017 14:05
--- NOTE | 2017-01-26 10:07 | PD.ORT.PN ---
Subjective Subjective Remarks Patient is resting comfortably in bed in NAD. Patient reports decreased pain to the right upper extremity. Patient denies fevers, chills, nausea, or vomiting. Objective Vitals Vital Signs Date Time Temp Pulse Resp B/P Pulse Ox O2 Delivery O2 Flow Rate FiO2 01/26/17 08:00 99.0 106 18 103/53 96 01/26/17 06:58 18 01/26/17 04:00 98.9 110 17 100/58 98 01/26/17 00:00 98.3 118 16 100/52 98 01/25/17 20:21 93 21 01/25/17 20:00 99.6 113 17 102/56 97 01/25/17 16:00 99.8 109 18 101/52 99 01/25/17 12:00 98.3 107 18 102/52 98 01/25/17 10:58 100 I/O 01/25/17 01/25/17 01/25/17 01/26/17 01/26/17 01/26/17 07:00 15:00 23:00 07:00 15:00 23:00 Intake Total 2266 ml 1777 ml 1721 ml 1133 ml Output Total 790 ml 800 ml 720 ml 1060 ml Balance 1476 ml 977 ml 1001 ml 73 ml Intake Oral 240 ml 720 ml 480 ml 240 ml IV Total 2026 ml 1057 ml 821 ml 893 ml Tube Feeding 300 ml Other 120 ml Output Urine Total 790 ml 800 ml 720 ml 1060 ml Result Diagram: 01/26/17 0637 01/26/17 0637 Objective Remarks R arm skin intact erythema improving. 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 Assessment & Plan Assessment and Plan R arm cellulitis continuing to improve lung cancer, received chemo cont iv abx per ID stable per ortho for discharge once cleared medically and by ID. Ortho signing off continue with conservative management. CT results confirm cellulitis with no drainable abscess. patient is anemic and has been advised by medical that he will require a transfusion. Aditya Barcenas Jan 26, 2017 10:07
[2017-01-26] MEDS: DOCUSATE SODIUM 50 MG/SENNA 8.6 MG TAB PO SCH ×2 (11:09→20:36)
[2017-01-26] MEDS: ENOXAPARIN SODIUM 40 MG/0.4 ML SYRINGE SQ SCH (17:40)
[2017-01-26] MEDS: MIRTAZAPINE 15 MG TAB PO SCH (20:37)
[2017-01-27] VITALS: BP 130/65; PULSE 101; RESP 16; TEMP 98.4; O2SAT 98
[2017-01-27] MEDS: VANCOMYCIN INJ 1,000 MG in SODIUM CHLOR 0.9% 250 ML INJ 250 ML IV SCH ×2 (01:31→11:42)
[2017-01-27] MEDS: HYDROmorphone HCL PF 1 MG/ML VIAL IV PUSH PRN ×5 (02:20→22:19)
[2017-01-27] MEDS: RESP: ALBUTEROL 2.5 MG/IPRATROPIUM 0.5 MG NEB (SCH) NEB ×4 (03:34→20:12)
[2017-01-27 04:00] VITALS: BP 108/59; PULSE 107; RESP 17; TEMP 98.4; O2SAT 97
[2017-01-27] MEDS: CEFEPIME INJ 2,000 MG in SODIUM CHLORIDE 0.9% INJ 100 ML IV SCH ×3 (05:18→22:19)
[2017-01-27 06:59] LABS: HEMATOCRIT 24.5 % (39.0-51.0); MEAN CELL VOLUME 90.5 FL (80.0-100.0); MEAN CORPUSCULAR HEMOGLOBIN 30.4 PG (27.0-34.0); MEAN CORPUSCULAR HGB CONC 33.6 % (32.0-36.0); PLATELET COUNT 202 TH/MM3 (150-450); RED BLOOD COUNT 2.71 MIL/MM3 (4.50-5.90); RED CELL DISTRIBUTION WIDTH 18.9 % (11.6-17.2); WHITE BLOOD COUNT 9.9 TH/MM3 (4.0-11.0)
[2017-01-27 07:24] LABS: HEMO FLAGS AUTO DIFF
[2017-01-27 08:00] VITALS: BP 109/55; PULSE 107; RESP 18; TEMP 98.9; O2SAT 98
[2017-01-27] MEDS: DOCUSATE SODIUM 50 MG/SENNA 8.6 MG TAB PO SCH ×2 (08:19→20:26)
[2017-01-27] MEDS: SODIUM CHLORIDE 0.9% FLUSH 10 ML FLUSH IV FLUSH SCH ×2 (08:20→20:28)
[2017-01-27 08:21] LABS: BANDS 1 % (0-6); BASOPHILS 1 % (0-2); METAMYELOCYTES 2 % (0-1); MYELOCYTES 1 % (0-0); NEUTROPHIL # MANUAL DIFF 9.4 TH/MM3 (1.8-7.7); POLYS (SEG NEUTROPHILS) 91 % (16-70); WBC DIFF SAMPLE 100
[2017-01-27 08:22] LABS: HYPERSEGMENTED POLYS 1+ (NORMAL); PLATELET ESTIMATE SMEAR NORMAL (NORMAL); PLATELET MORPHOLOGY NORMAL (NORMAL); SCAN/DIFF FINAL DIFF MANUAL
--- NOTE | 2017-01-27 08:49 | HHI.FPPN ---
Subjective Remarks More tired than baseline this AM. Did not get good nights sleep. Redness in arm decreasing per patient but still feels swollen. He reports working with PT yesterday and that it went well. More movement in right shoulder. Pain is better tolerated with Dilaudid IV q 3 hours. Eating minimal amounts and taking in chocolate milk. No problems with urinating , BMs, or N/V/D. Since getting unit of blood, still feels the same as far as energy. (Jacques Diehl MD R2) Objective Vitals Vital Signs Date Time Temp Pulse Resp B/P Pulse Ox O2 Delivery O2 Flow Rate FiO2 01/27/17 08:00 98.9 107 18 109/55 98 01/27/17 04:00 98.4 107 17 108/59 97 01/27/17 00:00 98.4 101 16 130/65 98 01/26/17 20:00 98.7 99 17 112/63 98 01/26/17 17:30 96.8 103 137/62 98 01/26/17 16:06 98.7 101 16 93/51 99 01/26/17 15:46 98.4 102 16 93/52 01/26/17 12:00 97.8 110 18 111/57 98 I/O 01/26/17 01/26/17 01/26/17 01/27/17 01/27/17 01/27/17 07:00 15:00 23:00 07:00 15:00 23:00 Intake Total 1133 ml 960 ml 480 ml 480 ml Output Total 1060 ml 200 ml 450 ml 1200 ml Balance 73 ml 760 ml 30 ml -720 ml Intake Oral 240 ml 960 ml 480 ml 480 ml IV Total 893 ml Output Urine Total 1060 ml 200 ml 450 ml 1200 ml (Jacques Diehl MD R2) Result Diagram: 01/27/17 0520 01/26/17 0637 Objective Remarks GENERAL: Cachectic appearing. Reading comfortably, speaking in full sentences. SKIN: Right arm with a 6-8 cm round area of erythema, nondraining, no fluctuance or induration, tender to palpation. Improved from yesterday. Pulses +2 radial on the same side. HEAD: Atraumatic. EYES: Pupils equal round and reactive. Extraocular motions intact. ENT: Nose without bleeding, purulent drainage or septal hematoma. Dry mucous membranes NECK: Trachea midline. No JVD or lymphadenopathy. CARDIOVASCULAR: Distant heart sounds, regular rate and rhythm, without any obvious murmurs. RESPIRATORY: Clear to auscultation. GASTROINTESTINAL: G-tube at midline, clean dry and intact, no drainage. MUSCULOSKELETAL: No edema in his lower extremities. NEUROLOGICAL: Awake and alert. Cranial nerves II through XII intact. Motor and sensory grossly within normal limits. (Jacques Diehl MD R2) A/P Assessment and Plan 56-year-old pleasant male, with a past medical history of brain aneurysm in 1995, stage IV non-small cell lung carcinoma, and COPD, presenting with worsening right arm redness, swelling, and pain, after an injury 6 weeks prior. Currently being treated for cellulitis with IV vancomycin. (Jacques Diehl MD R2) Attending Attestation Patient seen and examined. Case reviewed and discussed Agree with plan of care as discussed with me and documented in the resident note. (Tonya Rodriguez MD) Problem List: (1) Cellulitis Status: Acute Plan: Right arm redness, swelling, suggestive of a cellulitis. CT scan did not show any drainable abscess, but was consistent with a cellulitis. Will treat with vancomycin 1 g every 12 hours. Infectious disease added cefepime (01/24) given his neutropenia. Clinically improving today 01/27. Blood cultures have been negative 72 hrs. Left-sided port, clean dry and intact. No surrounding erythema or drainage. Per ID, would benefit from a couple of more days of IV antibiotics to help resolution of cellulitis. Appreciate recs. (2) Anemia Status: Acute Plan: Hgb on admission 9.8 --> 7.1 on 01/26. Persistent tachycardia to 110. Received 1 units of packed rbcs. Hgb corrected to 8.2. Cont with daily H&H. (3) Right shoulder pain Status: Acute Plan: Patient with right shoulder pain likely to be secondary to his cellulitis. Orthopedic surgery consulted -- No surgical interventions at this time. Physical therapy going well per patient. Decrease IV Dilaudid to PO 2 mg pain 1-5, 4 mg pain 6-10, with IV for breakthrough. (4) COPD (chronic obstructive pulmonary disease) Status: Acute Plan: Resting comfortably on room air. Continue albuterol nebulizers every 4 hours. (5) Malignant cachexia Status: Acute Plan: Severe cachexia on exam, dietary consulted for PEG tube feedings, nursing bedside swallow eval prior to regular diet, continue mirtazapine for appetite enhancement, consider ensure shakes. Continue patient's home regimen of Jevity 3 cans in the morning and 2 cans in the evening via feeding tube (6) Non-small cell lung cancer (NSCLC) Status: Chronic Plan: Patient with a history of stage IV non-small cell lung cancer, being treated by Dr. Billingsley. We appreciate her assistance. We will consult her to follow along during the hospitalization. He is next due for chemotherapy on 02/07. (7) Tobacco abuse Status: Acute Plan: Nicotine patches when necessary. (8) Nutrition, metabolism, and development symptoms Status: Acute Plan: DVT: Lovenox 40 units sq q 24 hrs. Nutrition: Reg diet after swallow eval, Jevity as above IVF: Stop IV fluids. Disposition: Pending resolution of right arm cellulitis and pain control. (Jacques Diehl MD R2) Jacques Diehl MD R2 Jan 27, 2017 08:49 Tonya Rodriguez MD Jan 28, 2017 13:12
[2017-01-27] MEDS ORDERED: HYDROmorphone HCL 2 MG TAB PO PRN (09:30)
--- NOTE | 2017-01-27 09:52 | PD.ONC.PN ---
Subjective Subjective Remarks Afebrile overnight. Some increased range of motion in right elbow/right arm and right shoulder. States pain is improving. Had a hard time sleeping last night. Objective Data Date Time Temp Pulse Resp B/P Pulse Ox O2 Delivery O2 Flow Rate FiO2 01/27/17 08:00 98.9 107 18 109/55 98 01/27/17 04:00 98.4 107 17 108/59 97 01/27/17 00:00 98.4 101 16 130/65 98 01/26/17 20:00 98.7 99 17 112/63 98 01/26/17 17:30 96.8 103 137/62 98 01/26/17 16:06 98.7 101 16 93/51 99 01/26/17 15:46 98.4 102 16 93/52 01/26/17 12:00 97.8 110 18 111/57 98 01/27/17 01/27/17 01/27/17 07:00 15:00 23:00 Intake Total 480 ml Output Total 1200 ml Balance -720 ml Result Diagram: 01/27/17 0520 01/26/17 0637 Laboratory Results Laboratory Tests Test 01/27/17 05:20 White Blood Count 9.9 TH/MM3 Red Blood Count 2.71 MIL/MM3 Hemoglobin 8.2 GM/DL Hematocrit 24.5 % Mean Corpuscular Volume 90.5 FL Mean Corpuscular Hemoglobin 30.4 PG Mean Corpuscular Hemoglobin 33.6 % Concent Red Cell Distribution Width 18.9 % Platelet Count 202 TH/MM3 Mean Platelet Volume 7.5 FL Neutrophils (%) (Auto) % Lymphocytes (%) (Auto) % Monocytes (%) (Auto) % Eosinophils (%) (Auto) % Basophils (%) (Auto) % Neutrophils # (Auto) TH/MM3 Lymphocytes # (Auto) TH/MM3 Monocytes # (Auto) TH/MM3 Eosinophils # (Auto) TH/MM3 Basophils # (Auto) TH/MM3 CBC Comment AUTO DIFF Differential Total Cells 100 Counted Neutrophils % (Manual) 91 % Band Neutrophils % 1 % Lymphocytes % 1 % Monocytes % 3 % Basophils % 1 % Neutrophils # (Manual) 9.4 TH/MM3 Metamyelocytes 2 % Myelocytes 1 % Differential Comment FINAL DIFF MANUAL Hypersegmented Polys 1+ Platelet Estimate NORMAL Platelet Morphology Comment NORMAL Administered Medications Medications (Trade) Dose Ordered Sig/Franny Route PRN Reason Start Time Stop Time Status Last Admin Dose Admin Mirtazapine (Remeron) 7.5 mg HS PO 01/23/17 21:00 01/26/17 20:37 Sodium Chloride 2 ml 2 ml BID IV FLUSH 01/23/17 21:00 01/27/17 08:20 Vancomycin HCl/ Sodium Chloride (Vancomycin Inj/ NS 250 ml Inj) 250 ml @ 250 mls/hr Q12H IV 01/24/17 01:00 01/27/17 01:31 Enoxaparin Sodium 40 mg 40 mg Q24H SQ 01/23/17 18:00 01/26/17 17:40 Sodium Chloride 1,000 ml @ 100 mls/hr Q10H IV 01/23/17 16:48 Hold 01/26/17 22:43 Cefepime HCl/ Sodium Chloride (Maxipime Inj/NS Inj) 100 ml @ 200 mls/hr Q8H IV 01/24/17 14:00 01/27/17 05:18 Senna/Docusate Sodium (Alma-Colace) 1 tab BID PO 01/26/17 09:00 01/27/17 08:19 Hydromorphone HCl (Dilaudid Pf Inj) 1 mg Q3HR PRN IV PUSH BREAKTHROUGH PAIN 01/26/17 11:00 01/27/17 08:19 Objective Remarks GENERAL: chronically ill appearing male, lying in bed in nad. SKIN: Warm and dry. HEAD: Normocephalic. EYES:No injection or drainage. NECK: trachea midline. LYMPHATIC: No adenopathy. GASTROINTESTINAL: Abdomen soft, non-tender, nondistended. PEG tube clamped EXTREMITIES: No cyanosis MUSCULOSKELETAL: Adequate muscle tone. NEUROLOGICAL: awake and alert, normal speech Assessment/Plan Problem List: (1) Cellulitis Status: Acute Plan: -- R upper arm erythema -- Current BC show no growth x 3 days -- On Vancomycin + Cefepime -- ID following (2) Non-small cell lung cancer (NSCLC) Status: Chronic Plan: -- Currently on palliative chemotherapy with Alimta as outpatient -- Stable disease Assessment 56 y/o male with non small cell lung ca admitted with cellulitis of the R arm Plan 1. continue antibiotics 2. continue physical therapy 3. monitor improvement of cellulitis Attending Statement The exam, history, and the medical decision-making described in the above note were completed with the assistance of the mid-level provider. I reviewed and agree with the findings presented. I attest that I had a [id number] encounter with the patient on the same day, and personally performed and documented my assessment and findings in the medical record. Pt seen and examined. Better movement of R elbow, still limited ROM R shoulder, pain in R shoulder. Primary team titrating pain meds, plan to switch to oral regimen, discussed possible refer to rehab for R shoulder. Abx per ID. Chemo on hold until resolution and completion Abx for infection. R arm swelling in dependent area unchanged. Oly Maldonado Jan 27, 2017 09:52 La Billingsley MD Jan 27, 2017 13:42
[2017-01-27] MEDS: HYDROmorphone HCL 4 MG TAB PO PRN ×3 (11:43→20:28)
[2017-01-27 12:00] VITALS: BP 118/56; PULSE 102; RESP 18; TEMP 97.8; O2SAT 97
[2017-01-27 16:00] VITALS: BP 114/55; PULSE 100; RESP 18; TEMP 98.4; O2SAT 98
[2017-01-27] MEDS: ENOXAPARIN SODIUM 40 MG/0.4 ML SYRINGE SQ SCH (17:04)
[2017-01-27 20:00] VITALS: BP 135/66; PULSE 104; RESP 17; TEMP 98; O2SAT 98
[2017-01-27] MEDS: MIRTAZAPINE 15 MG TAB PO SCH (20:26)
[2017-01-28] VITALS (7 sets, daily range): BP systolic 115–135; BP diastolic 56–73; PULSE 97–109; RESP 16–18; TEMP 97.2–99.9; O2SAT 96–99
[2017-01-28] MEDS: VANCOMYCIN INJ 1,000 MG in SODIUM CHLOR 0.9% 250 ML INJ 250 ML IV SCH ×2 (00:59→13:08)
[2017-01-28] MEDS: HYDROmorphone HCL 4 MG TAB PO PRN ×6 (00:59→23:53)
[2017-01-28] MEDS: RESP: ALBUTEROL 2.5 MG/IPRATROPIUM 0.5 MG NEB (SCH) NEB ×4 (03:04→21:59)
[2017-01-28] MEDS: CEFEPIME INJ 2,000 MG in SODIUM CHLORIDE 0.9% INJ 100 ML IV SCH (05:11)
[2017-01-28 06:34] LABS: HEMATOCRIT 25.5 % (39.0-51.0); MEAN CELL VOLUME 90.8 FL (80.0-100.0); MEAN CORPUSCULAR HEMOGLOBIN 30.5 PG (27.0-34.0); MEAN CORPUSCULAR HGB CONC 33.6 % (32.0-36.0); PLATELET COUNT 203 TH/MM3 (150-450); RED BLOOD COUNT 2.81 MIL/MM3 (4.50-5.90); RED CELL DISTRIBUTION WIDTH 18.8 % (11.6-17.2); WHITE BLOOD COUNT 6.9 TH/MM3 (4.0-11.0)
[2017-01-28 06:39] LABS: HEMO FLAGS AUTO DIFF
[2017-01-28] MEDS: DOCUSATE SODIUM 50 MG/SENNA 8.6 MG TAB PO SCH ×2 (08:03→21:15)
[2017-01-28] MEDS: SODIUM CHLORIDE 0.9% FLUSH 10 ML FLUSH IV FLUSH SCH ×2 (08:03→21:00)
[2017-01-28 08:28] LABS: BANDS 8 % (0-6); MYELOCYTES 5 % (0-0); POLYS (SEG NEUTROPHILS) 74 % (16-70); WBC DIFF SAMPLE 100
[2017-01-28 08:33] LABS: PLATELET ESTIMATE SMEAR NORMAL (NORMAL); PLATELET MORPHOLOGY NORMAL (NORMAL); SCAN/DIFF FINAL DIFF MANUAL
--- NOTE | 2017-01-28 12:25 | PD.ONC.PN ---
Subjective Subjective Remarks Afebrile overnight. Patient states right arm pain continuing to improve, as well as range of motion. Resting comfortably. eager to know about rehab. Objective Data Date Time Temp Pulse Resp B/P Pulse Ox O2 Delivery O2 Flow Rate FiO2 01/28/17 09:33 99 01/28/17 08:00 97.2 97 18 117/67 98 01/28/17 04:00 97.4 108 17 115/58 97 01/28/17 00:00 98.2 107 18 129/56 98 01/27/17 20:00 98.0 104 17 135/66 98 01/27/17 16:00 98.4 100 18 114/55 98 01/28/17 01/28/17 01/28/17 07:00 15:00 23:00 Output Total 600 ml 400 ml Balance -600 ml -400 ml Result Diagram: 01/28/17 0512 01/26/17 0637 Laboratory Results Laboratory Tests Test 01/28/17 05:12 White Blood Count 6.9 TH/MM3 Red Blood Count 2.81 MIL/MM3 Hemoglobin 8.6 GM/DL Hematocrit 25.5 % Mean Corpuscular Volume 90.8 FL Mean Corpuscular Hemoglobin 30.5 PG Mean Corpuscular Hemoglobin 33.6 % Concent Red Cell Distribution Width 18.8 % Platelet Count 203 TH/MM3 Mean Platelet Volume 7.5 FL Neutrophils (%) (Auto) % Lymphocytes (%) (Auto) % Monocytes (%) (Auto) % Eosinophils (%) (Auto) % Basophils (%) (Auto) % Neutrophils # (Auto) TH/MM3 Lymphocytes # (Auto) TH/MM3 Monocytes # (Auto) TH/MM3 Eosinophils # (Auto) TH/MM3 Basophils # (Auto) TH/MM3 CBC Comment AUTO DIFF Differential Total Cells 100 Counted Neutrophils % (Manual) 74 % Band Neutrophils % 8 % Lymphocytes % 7 % Monocytes % 6 % Neutrophils # (Manual) 6.0 TH/MM3 Myelocytes 5 % Differential Comment FINAL DIFF MANUAL Platelet Estimate NORMAL Platelet Morphology Comment NORMAL Administered Medications Medications (Trade) Dose Ordered Sig/Franny Route PRN Reason Start Time Stop Time Status Last Admin Dose Admin Mirtazapine (Remeron) 7.5 mg HS PO 01/23/17 21:00 01/27/17 20:26 Sodium Chloride 2 ml 2 ml BID IV FLUSH 01/23/17 21:00 01/27/17 08:20 Vancomycin HCl/ Sodium Chloride (Vancomycin Inj/ NS 250 ml Inj) 250 ml @ 250 mls/hr Q12H IV 01/24/17 01:00 01/28/17 00:59 Enoxaparin Sodium 40 mg 40 mg Q24H SQ 01/23/17 18:00 01/27/17 17:04 Sodium Chloride 1,000 ml @ 100 mls/hr Q10H IV 01/23/17 16:48 Hold 01/26/17 22:43 Cefepime HCl/ Sodium Chloride (Maxipime Inj/NS Inj) 100 ml @ 200 mls/hr Q8H IV 01/24/17 14:00 01/28/17 05:11 Senna/Docusate Sodium (Alma-Colace) 1 tab BID PO 01/26/17 09:00 01/28/17 08:03 Hydromorphone HCl (Dilaudid Pf Inj) 1 mg Q3HR PRN IV PUSH BREAKTHROUGH PAIN 01/26/17 11:00 01/27/17 22:19 Hydromorphone HCl (Dilaudid) 4 mg Q4H PRN PO PAIN 5-10 01/27/17 09:30 01/28/17 10:00 Objective Remarks GENERAL: Pleasant male, upright in bed in nad. SKIN: Warm and dry. HEAD: Normocephalic. EYES:No injection or drainage. NECK: trachea midline. LYMPHATIC: No adenopathy. GASTROINTESTINAL: Abdomen soft, non-tender, nondistended. PEG tube clamped EXTREMITIES: No cyanosis MUSCULOSKELETAL: Adequate muscle tone. NEUROLOGICAL: awake and alert, normal speech. moving all extremities. Assessment/Plan Problem List: (1) Cellulitis Status: Acute Plan: -- R upper arm erythema -- Current BC show no growth x 5 days -- On Vancomycin + Cefepime -- ID following (2) Non-small cell lung cancer (NSCLC) Status: Chronic Plan: -- Currently on palliative chemotherapy with Alimta as outpatient -- Stable disease Assessment 56 y/o male with non small cell lung ca admitted with cellulitis of the R arm Plan 1. continue antibiotics 2. consult case management to ask about inpatient rehab--hopeful for donald 3. supportive care Attending Statement The exam, history, and the medical decision-making described in the above note were completed with the assistance of the mid-level provider. I reviewed and agree with the findings presented. I attest that I had a [id number] encounter with the patient on the same day, and personally performed and documented my assessment and findings in the medical record. Pt seen in AM, some difficulty finding words. Discussed exploring benefits for rehab. He has approval for out patient ortho consults. Swelling R arms unchanged but erythema improved. ABx per ID. Chemo on hold. Oly Maldonado Jan 28, 2017 12:25 La Billingsley MD Jan 28, 2017 23:07
--- NOTE | 2017-01-28 13:06 | HHI.FPPN ---
Subjective Remarks No acute events overnight. Afebrile, vital signs stable. Patient continues to complain of right shoulder pain secondary to adhesive capsulitis. States his arm is feeling better. (Tatianna Karimi MD R3) Objective Vitals Vital Signs Date Time Temp Pulse Resp B/P Pulse Ox O2 Delivery O2 Flow Rate FiO2 01/28/17 09:33 99 01/28/17 08:00 97.2 97 18 117/67 98 01/28/17 04:00 97.4 108 17 115/58 97 01/28/17 00:00 98.2 107 18 129/56 98 01/27/17 20:00 98.0 104 17 135/66 98 01/27/17 16:00 98.4 100 18 114/55 98 I/O 01/27/17 01/27/17 01/27/17 01/28/17 01/28/17 01/28/17 07:00 15:00 23:00 07:00 15:00 23:00 Intake Total 480 ml 720 ml 480 ml Output Total 1200 ml 1925 ml 1400 ml 600 ml 400 ml Balance -720 ml -1205 ml -920 ml -600 ml -400 ml Intake Oral 480 ml 720 ml 480 ml Output Urine Total 1200 ml 1925 ml 1400 ml 600 ml 400 ml # Bowel Movements 0 (Tatianna Karimi MD R3) Result Diagram: 01/28/17 0512 01/26/17 0637 Objective Remarks GENERAL: Cachectic appearing. Reading comfortably, speaking in full sentences. SKIN: Right arm with a 6-8 cm round area of erythema, nondraining, no fluctuance or induration, tender to palpation. Improved from yesterday. Pulses +2 radial on the same side. HEAD: Atraumatic. EYES: Pupils equal round and reactive. Extraocular motions intact. ENT: Nose without bleeding, purulent drainage or septal hematoma. Dry mucous membranes NECK: Trachea midline. No JVD or lymphadenopathy. CARDIOVASCULAR: Distant heart sounds, regular rate and rhythm, without any obvious murmurs. RESPIRATORY: Clear to auscultation. GASTROINTESTINAL: G-tube at midline, clean dry and intact, no drainage. MUSCULOSKELETAL: No edema in his lower extremities. NEUROLOGICAL: Awake and alert. Cranial nerves II through XII intact. Motor and sensory grossly within normal limits. (Tatianna Karimi MD R3) A/P Assessment and Plan 56-year-old pleasant male, with a past medical history of brain aneurysm in 1995, stage IV non-small cell lung carcinoma, and COPD, presenting with worsening right arm redness, swelling, and pain, after an injury 6 weeks prior. Currently being treated for cellulitis with IV vancomycin and cefepime. Discharge Planning Patient will likely need rehabilitation after stepdown of his antibiotics ( Tatianna Karimi MD R3) Attending Attestation Patient seen and examined with the resident team. Case reviewed and discussed Agree with plan of care as discussed with me and documented in the resident note. Clinically improving. Hgb improved today as well PT to work with patient on adhesive capsulitis (Tonya Rodriguez MD) Problem List: (1) Cellulitis Status: Acute Plan: Right arm redness, swelling, suggestive of a cellulitis. CT scan did not show any drainable abscess, but was consistent with a cellulitis. Will treat with vancomycin 1 g every 12 hours. Infectious disease added cefepime (01/24) given his neutropenia. Per infectious disease loss, antibiotics will hopefully be tapered soon. Blood cultures have been negative 5 days left-sided port, clean dry and intact. No surrounding erythema or drainage. (2) Anemia Status: Acute Plan: Improving, hemoglobin 8.6 today. Continue to monitor. (3) Right shoulder pain Status: Acute Plan: Likely secondary to adhesive capsulitis. Physical therapy ordered. Patient will need discharge with PT. (4) COPD (chronic obstructive pulmonary disease) Status: Acute Plan: Resting comfortably on room air. Continue albuterol nebulizers every 4 hours. (5) Malignant cachexia Status: Acute Plan: Continue patient's home regimen of Jevity 3 cans in the morning and 2 cans in the evening via feeding tube (6) Non-small cell lung cancer (NSCLC) Status: Chronic Plan: Patient with a history of stage IV non-small cell lung cancer, being treated by Dr. Billingsley. We appreciate her assistance. We will consult her to follow along during the hospitalization. He is next due for chemotherapy on 02/07. (7) Tobacco abuse Status: Acute Plan: Nicotine patches when necessary. (8) Nutrition, metabolism, and development symptoms Status: Acute Plan: DVT: Lovenox 40 units sq q 24 hrs. Nutrition: Reg diet, Jevity as above IVF: Hep-Lock IV (Tatianna Karimi MD R3) Tatianna Karimi MD R3 Jan 28, 2017 13:06 Tonya Rodriguez MD Jan 28, 2017 13:11
--- NOTE | 2017-01-28 14:10 | HHI.IDPN ---
Note Infectious Disease Note Patient without complaints. Occasional pain in r. arm. Afebrile. No chills. PAST MEDICAL HISTORY 1. Lung cancer stage IV [id number]. 2. COPD. 3. Pneumothorax July 2016. 4. [employer] shunt for AV malformation. 5. Port placement 6. cerebral aneurysm repair. ALLERGIES CONTRAST MEDIA PARAPLATIN MEDICINE. MEDICATIONS 1. Vancomycin. 2. Cefepime. SOCIAL HISTORY Smokes a pack and half of cigarettes a day. No alcohol use. No illicit drugs. OBJECTIVE: Vital Signs Date Time Temp Pulse Resp B/P Pulse Ox O2 Delivery O2 Flow Rate FiO2 01/28/17 12:00 97.9 100 16 124/66 96 01/28/17 09:33 99 01/28/17 08:00 97.2 97 18 117/67 98 01/28/17 04:00 97.4 108 17 115/58 97 01/28/17 00:00 98.2 107 18 129/56 98 01/27/17 20:00 98.0 104 17 135/66 98 01/27/17 16:00 98.4 100 18 114/55 98 01/27/17 01/27/17 01/28/17 15:00 23:00 07:00 Intake Total 720 ml 480 ml Output Total 1925 ml 1400 ml 600 ml Balance -1205 ml -920 ml -600 ml Intake Oral 720 ml 480 ml Output Urine Total 1925 ml 1400 ml 600 ml # Bowel Movements 0 Laboratory Tests Test 01/27/17 01/28/17 05:20 05:12 White Blood Count 9.9 TH/MM3 6.9 TH/MM3 Red Blood Count 2.71 MIL/MM3 2.81 MIL/MM3 Hemoglobin 8.2 GM/DL 8.6 GM/DL Hematocrit 24.5 % 25.5 % Mean Corpuscular Volume 90.5 FL 90.8 FL Mean Corpuscular Hemoglobin 30.4 PG 30.5 PG Mean Corpuscular Hemoglobin 33.6 % 33.6 % Concent Red Cell Distribution Width 18.9 % 18.8 % Platelet Count 202 TH/MM3 203 TH/MM3 Mean Platelet Volume 7.5 FL 7.5 FL Neutrophils (%) (Auto) % % Lymphocytes (%) (Auto) % % Monocytes (%) (Auto) % % Eosinophils (%) (Auto) % % Basophils (%) (Auto) % % Neutrophils # (Auto) TH/MM3 TH/MM3 Lymphocytes # (Auto) TH/MM3 TH/MM3 Monocytes # (Auto) TH/MM3 TH/MM3 Eosinophils # (Auto) TH/MM3 TH/MM3 Basophils # (Auto) TH/MM3 TH/MM3 CBC Comment AUTO DIFF AUTO DIFF Differential Total Cells 100 100 Counted Neutrophils % (Manual) 91 % 74 % Band Neutrophils % 1 % 8 % Lymphocytes % 1 % 7 % Monocytes % 3 % 6 % Basophils % 1 % Neutrophils # (Manual) 9.4 TH/MM3 6.0 TH/MM3 Metamyelocytes 2 % Myelocytes 1 % 5 % Differential Comment FINAL DIFF FINAL DIFF MANUAL MANUAL Hypersegmented Polys 1+ Platelet Estimate NORMAL NORMAL Platelet Morphology Comment NORMAL NORMAL PHYSICAL EXAMINATION IN GENERAL: No acute distress. He is awake and alert. HEENT: No icterus. Oropharynx no visible lesions. Moist mucosa. No thrush. NECK: Supple without adenopathy. LUNGS: Clear. HEART: Regular rate and rhythm. No murmurs, rubs or gallops. EXTREMITIES: No clubbing or cyanosis. The right upper extremity edema at the elbow is decreased. erythema has dissipated. Motion at the RUE is improved. Able to flex at the elbow and raise shoulder more. Extremities, have no clubbing, cyanosis or edema. NEUROLOGIC: Neurological nonfocal. NEUROLOGIC: Nonfocal. SKIN: No diffuse rash. IMPRESSION Cellulitis over the right upper extremity. Resolved. Neutropenia. Improved. History of small-cell lung cancer. RECOMMENDATIONS 1. Stop Cefepime. 2. Stop Vancomycin. Monitor without antibiotics. Elevation of the RUE. I will sign off now. Juan Pablo Maurice MD Jan 28, 2017 14:10
[2017-01-28] MEDS: ENOXAPARIN SODIUM 40 MG/0.4 ML SYRINGE SQ SCH (17:25)
[2017-01-28] MEDS: MIRTAZAPINE 15 MG TAB PO SCH (21:16)
[2017-01-29] VITALS: BP 113/60; PULSE 112; RESP 17; TEMP 98.4; O2SAT 94
[2017-01-29] MEDS: RESP: ALBUTEROL 2.5 MG/IPRATROPIUM 0.5 MG NEB (SCH) NEB ×2 (03:33→09:36)
[2017-01-29 03:35] VITALS: O2SAT 97
[2017-01-29] MEDS: HYDROmorphone HCL 4 MG TAB PO PRN ×2 (03:50→08:18)
[2017-01-29 06:00] VITALS: BP 111/55; PULSE 109; RESP 17; TEMP 97.5; O2SAT 95
[2017-01-29 06:26] LABS: HEMATOCRIT 27.2 % (39.0-51.0); MEAN CELL VOLUME 91.4 FL (80.0-100.0); MEAN CORPUSCULAR HGB CONC 32.8 % (32.0-36.0); PLATELET COUNT 213 TH/MM3 (150-450); RED BLOOD COUNT 2.98 MIL/MM3 (4.50-5.90); RED CELL DISTRIBUTION WIDTH 18.8 % (11.6-17.2); WHITE BLOOD COUNT 8.7 TH/MM3 (4.0-11.0)
[2017-01-29 06:31] LABS: HEMO FLAGS AUTO DIFF
[2017-01-29 06:49] LABS: BICARBONATE 27.6 MEQ/L (21.0-32.0); POTASSIUM 4.1 MEQ/L (3.5-5.1)
[2017-01-29 07:26] LABS: BANDS 21 % (0-6); METAMYELOCYTES 6 % (0-1); MYELOCYTES 3 % (0-0); NEUTROPHIL # MANUAL DIFF 7.8 TH/MM3 (1.8-7.7); POLYS (SEG NEUTROPHILS) 59 % (16-70); PROMYELOCYTES 1 % (0-0); WBC DIFF SAMPLE 100
[2017-01-29 07:27] LABS: PLATELET ESTIMATE SMEAR NORMAL (NORMAL); PLATELET MORPHOLOGY NORMAL (NORMAL); SCAN/DIFF FINAL DIFF MANUAL
[2017-01-29 08:00] VITALS: BP 119/73; PULSE 102; RESP 16; TEMP 97.2; O2SAT 97
[2017-01-29] MEDS: SODIUM CHLORIDE 0.9% FLUSH 10 ML FLUSH IV FLUSH SCH (08:18)
[2017-01-29] MEDS: DOCUSATE SODIUM 50 MG/SENNA 8.6 MG TAB PO SCH (08:18)
--- NOTE | 2017-01-29 08:24 | HHI.FF ---
Face to Face Verification Diagnosis: (1) Right arm cellulitis (2) Non-small cell lung cancer (NSCLC) Home Health Nursing Order: Medical education Signs/symptoms of disease process Nursing assessment with vital signs I have seen patient Uvaldo Nieto on 01/29/17. My clinical findings support the need for the requested home health care services because: he needs additional support at home given his disease process Deconditioned w/ increased weakness High risk of falls Infection w/ risk of complications I certify that my clinical findings support that this patient is homebound because: he has no transportation Unsafe to leave home unassisted Tatianna Karimi MD R3 Jan 29, 2017 08:24
--- NOTE | 2017-01-29 08:30 | HHI.FPPN ---
Subjective Remarks No acute events overnight. Afebrile, vital signs stable. Patient states he is ready to go home. Continues to complain of limited motion in his right shoulder , likely secondary to adhesive capsulitis. Right arm with full range of motion at the elbow, much improved. Patient with no complaints at this time. Objective Vitals Vital Signs Date Time Temp Pulse Resp B/P Pulse Ox O2 Delivery O2 Flow Rate FiO2 01/29/17 06:00 97.5 109 17 111/55 95 01/29/17 04:50 18 01/29/17 03:35 97 21 01/29/17 00:00 98.4 112 17 113/60 94 01/28/17 20:00 99.9 109 18 120/68 96 01/28/17 16:00 97.8 107 16 135/73 96 01/28/17 12:00 97.9 100 16 124/66 96 01/28/17 09:33 99 I/O 01/28/17 01/28/17 01/28/17 01/29/17 01/29/17 01/29/17 07:00 15:00 23:00 07:00 15:00 23:00 Intake Total 1670 ml Output Total 600 ml 1600 ml 2000 ml 200 ml Balance -600 ml 70 ml -2000 ml -200 ml Intake Oral 720 ml IV Total 950 ml Output Urine Total 600 ml 1600 ml 2000 ml 200 ml Result Diagram: 01/29/17 0402 01/29/17 0402 Objective Remarks GENERAL: Cachectic appearing. Reading comfortably, speaking in full sentences. SKIN: Right arm with a 4 cm round area of erythema, nondraining, no fluctuance or induration, tender to palpation. Continues to improve. Pulses +2 radial on the same side. HEAD: Atraumatic. EYES: Pupils equal round and reactive. Extraocular motions intact. ENT: Nose without bleeding, purulent drainage or septal hematoma. Dry mucous membranes NECK: Trachea midline. No JVD or lymphadenopathy. CARDIOVASCULAR: Distant heart sounds, regular rate and rhythm, without any obvious murmurs. RESPIRATORY: Clear to auscultation. GASTROINTESTINAL: G-tube at midline, clean dry and intact, no drainage. MUSCULOSKELETAL: No edema in his lower extremities. NEUROLOGICAL: Awake and alert. Cranial nerves II through XII intact. Motor and sensory grossly within normal limits. A/P Assessment and Plan 56-year-old pleasant male, with a past medical history of brain aneurysm in 1995, stage IV non-small cell lung carcinoma, and COPD, presenting with worsening right arm redness, swelling, and pain, after an injury 6 weeks prior. Status post treatment with IV vancomycin and cefepime. Discharge Planning Patient will likely need rehabilitation after stepdown of his antibiotics Problem List: (1) Cellulitis Status: Acute Plan: Right arm redness, swelling, suggestive of a cellulitis. CT scan did not show any drainable abscess, but was consistent with a cellulitis. Patient treated with vancomycin and cefepime given his neutropenia. Infectious disease consulted, appreciate their assistance. Blood cultures negative 5 days. Patient's antibiotics were stopped yesterday without new leukocytosis or fevers. He'll be discharged home without antibiotics. (2) Anemia Status: Acute Plan: Stable (3) Right shoulder pain Status: Acute Plan: Likely secondary to adhesive capsulitis. Physical therapy ordered. Patient will do outpatient physical therapy upon discharge. (4) COPD (chronic obstructive pulmonary disease) Status: Acute Plan: Resting comfortably on room air. Continue albuterol nebulizers every 4 hours. (5) Malignant cachexia Status: Acute Plan: Continue patient's home regimen of Jevity 3 cans in the morning and 2 cans in the evening via feeding tube (6) Non-small cell lung cancer (NSCLC) Status: Chronic Plan: Patient with a history of stage IV non-small cell lung cancer, being treated by Dr. Billingsley. We appreciate her assistance. We will consult her to follow along during the hospitalization. He is next due for chemotherapy on 02/07. (7) Tobacco abuse Status: Acute Plan: Nicotine patches when necessary. (8) Nutrition, metabolism, and development symptoms Status: Acute Plan: DVT: Lovenox 40 units sq q 24 hrs. Nutrition: Reg diet, Jevity as above IVF: Hep-Lock IV Tatianna Karimi MD R3 Jan 29, 2017 08:30
--- NOTE | 2017-01-29 08:33 | HHI.DS ---
Discharge Summary Admission Date Jan 23, 2017 at 14:14 Discharge Date: Jan 29, 2017 Admitting Diagnosis Right upper ext cellulitis, anemia, dehydration, stage 4 lung cancer (1) Cellulitis Diagnosis: Principal Plan: Right arm redness, swelling, suggestive of a cellulitis. CT scan did not show any drainable abscess, but was consistent with a cellulitis. Patient treated with vancomycin and cefepime given his neutropenia. Infectious disease consulted, appreciate their assistance. Blood cultures negative 5 days. Patient's antibiotics were stopped yesterday without new leukocytosis or fevers. He'll be discharged home without antibiotics. (2) Anemia Diagnosis: Secondary Plan: Stable (3) Right shoulder pain Diagnosis: Secondary Plan: Likely secondary to adhesive capsulitis. Physical therapy ordered. Patient will do outpatient physical therapy upon discharge. (4) COPD (chronic obstructive pulmonary disease) Diagnosis: Secondary Plan: Resting comfortably on room air. Continue albuterol nebulizers every 4 hours. (5) Malignant cachexia Diagnosis: Secondary Plan: Continue patient's home regimen of Jevity 3 cans in the morning and 2 cans in the evening via feeding tube (6) Non-small cell lung cancer (NSCLC) Diagnosis: Secondary Plan: Patient with a history of stage IV non-small cell lung cancer, being treated by Dr. Billingsley. We appreciate her assistance. We will consult her to follow along during the hospitalization. He is next due for chemotherapy on 02/07. (7) Tobacco abuse Diagnosis: Secondary Plan: Nicotine patches when necessary. Consultants Oncology Infectious disease Brief History CC: Right arm pain. HPI: Mr. Emilia harp is a pleasant 56-year-old male, with past medical history of non-small cell lung cancer stage IV, who last received chemotherapy on 01/17, and has developed worsening Right arm pain, redness, and swelling over the past 24 hours. He denies being bit on that arm or hitting the arm. Approximately 6 weeks ago, his power steering went out on his car, and he pulled a muscle in his shoulder. A CT scan of the shoulder did not "show much" per mother at bedside. He cannot have an MRI because of a shunt in his brain after a bleeding in 1995. He has been trying to see an orthopedic surgeon, but this was unsuccessful. His pain is worse with movement and localized to the axilla region and distally into the elbow. It is described as a dull and aching pain. Relived by po Dilaudid. He required in iron transfusion on 01/18 for chronic anemia. He has been getting chemotherapy every 3 weeks, and is scheduled for chemotherapy on February 07. ROS: He has been having subjective fevers and chills. He also has been having nausea, after peg tube feedings. This is occurring more over the past couple of days. +vomiting 2 days ago with "black particles" +SOB at his baseline without change. no diarrhea, Chest pain, chest pressure, headaches, blurry vision, difficulty urinating. CBC/BMP: 01/29/17 0402 01/29/17 0402 Significant Findings Laboratory Tests Test 01/27/17 01/28/17 01/29/17 05:20 05:12 04:02 Red Blood Count 2.71 MIL/MM3 2.81 MIL/MM3 2.98 MIL/MM3 (4.50-5.90) (4.50-5.90) (4.50-5.90) Hemoglobin 8.2 GM/DL 8.6 GM/DL 8.9 GM/DL (13.0-17.0) (13.0-17.0) (13.0-17.0) Hematocrit 24.5 % 25.5 % 27.2 % (39.0-51.0) (39.0-51.0) (39.0-51.0) Red Cell Distribution Width 18.9 % 18.8 % 18.8 % (11.6-17.2) (11.6-17.2) (11.6-17.2) Neutrophils % (Manual) 91 % (16-70) 74 % (16-70) Lymphocytes % 1 % (9-44) 7 % (9-44) 2 % (9-44) Neutrophils # (Manual) 9.4 TH/MM3 7.8 TH/MM3 (1.8-7.7) (1.8-7.7) Metamyelocytes 2 % (0-1) 6 % (0-1) Myelocytes 1 % (0-0) 5 % (0-0) 3 % (0-0) Hypersegmented Polys 1+ (NORMAL) Band Neutrophils % 8 % (0-6) 21 % (0-6) Promyelocytes 1 % (0-0) Creatinine 0.50 MG/DL (0.60-1.30) Imaging Last Impressions Upper Extremity CT 01/24/17 0000 Signed Impressions: Service Date/Time: January 13:47 - CONCLUSION: 1. Extensive cellulitis of the arm especially the distal arm and extending over the extensor surface of the elbow into the proximal forearm without loculated fluid to suggest discrete or drainable abscess. Deep Gtz MD Upper Extremity Ultrasound 01/23/17 1146 Signed Impressions: Service Date/Time: Monday, January 23, 2017 12:24 - CONCLUSION: 1. No sonographic evidence for right upper extremity DVT. Dereje Allred MD Chest X-Ray 01/23/17 1146 Signed Impressions: Service Date/Time: Monday, January 23, 2017 11:51 - CONCLUSION: No acute abnormality is seen. Chas Amaya MD Shoulder X-Ray 01/23/17 0000 Signed Impressions: Service Date/Time: Monday, January 23, 2017 20:29 - CONCLUSION: No acute abnormality is identified. Chas Sher MD PE at Discharge GENERAL: Cachectic appearing. Reading comfortably, speaking in full sentences. SKIN: Right arm with a 4 cm round area of erythema, nondraining, no fluctuance or induration, tender to palpation. Continues to improve. Pulses +2 radial on the same side. HEAD: Atraumatic. EYES: Pupils equal round and reactive. Extraocular motions intact. ENT: Nose without bleeding, purulent drainage or septal hematoma. Dry mucous membranes NECK: Trachea midline. No JVD or lymphadenopathy. CARDIOVASCULAR: Distant heart sounds, regular rate and rhythm, without any obvious murmurs. RESPIRATORY: Clear to auscultation. GASTROINTESTINAL: G-tube at midline, clean dry and intact, no drainage. MUSCULOSKELETAL: No edema in his lower extremities. NEUROLOGICAL: Awake and alert. Cranial nerves II through XII intact. Motor and sensory grossly within normal limits. Hospital Course He is admitted for right upper extremity cellulitis which improved with vancomycin and cefepime. He was followed during this hospitalization by infectious disease who discontinued his antibiotics after 5 days of IV antibiotic therapy during his hospital stay, the patient continued to complain of right shoulder pain which is consistent with adhesive capsulitis. He will need outpatient physical therapy and occupational therapy in addition to home health care. The patient's cellulitis improved and he was stable upon discharge. Pt Condition on Discharge: Stable Discharge Disposition: Disch w/ Home Health Serv Discharge Instructions DIET: Follow Instructions for: As Tolerated, No Restrictions Activities you can perform: Regular-No Restrictions Follow up Referrals: PCP Follow-up - 1 Week New Orders: Occupational Therapy - 1 Week Physical Therapy - 1 Week Continued Medications: Albuterol Neb (Albuterol Neb) 2.5 Mg/0.5 Ml Neb 2.5 MG NEB Q4HR NEB Note: The Albuterol Sulfate Inhalation Solution is concentrated and must be diluted. Read complete instructions carefully before using. EA Amlodipine (Amlodipine) 10 Mg Tab 10 MG PO DAILY Blood Pressure Management #30 Ref 0 TAB Hydromorphone (Hydromorphone) 2 Mg Tab 2 MG PO Q4H PRN PAIN Ref 0 TAB Lorazepam (Lorazepam) 0.5 Mg Tab 0.5 MG PO HS PRN ANXIETY AND/OR INSOMNIA Ref 0 TAB Mirtazapine (Mirtazapine) 7.5 Mg Tab 7.5 MG PO HS Depression Control #30 Ref 0 TAB Tatianna Karimi MD R3 Jan 29, 2017 08:33
== END 2017-01-29 10:26 | disposition home health service (06) | DRG 603 ==
LOC: NEPC 11:17 → NEDA 14:14 → HOCA 17:01
PROVIDERS: ADMIT Family Medicine; ATTEND Family Medicine
PROC: 30233N1 Transfusion of Nonautologous Red Blood Cells into Peripheral Vein, Percutaneous Approach (ICD-10-PCS; principal; 2017-01-26)
DX: L03.113 Cellulitis of right upper limb (principal); R64 Cachexia; Z68.1 Body mass index [BMI] 19.9 or less, adult; J44.1 Chronic obstructive pulmonary disease with (acute) exacerbation; C34.90 Malignant neoplasm of unspecified part of unspecified bronchus or lung; I10 Essential (primary) hypertension; D70.1 Agranulocytosis secondary to cancer chemotherapy; E86.0 Dehydration; M75.01 Adhesive capsulitis of right shoulder; F41.9 Anxiety disorder, unspecified; F17.210 Nicotine dependence, cigarettes, uncomplicated; D64.9 Anemia, unspecified; Z92.21 Personal history of antineoplastic chemotherapy; Z98.2 Presence of cerebrospinal fluid drainage device; Z92.3 Personal history of irradiation; Z93.1 Gastrostomy status
CPT/HCPCS: 36430; 71010; 73030; 73200; 80048; 80053; 81001; 83605; 85007; 85025; 85027; 86850; 86900; 86901; 86920; 87040; 93971; 94640; 94664; 96365; 96375; J0692; J1170; J1442; J1650; J2405; J3370; J7030; J7050; P9016

== ENCOUNTER 2017-02-14 10:20 | Inpatient (IN) | payer MEDICAID ==
[2017-02-14] VITALS (7 sets, daily range): BP systolic 100–129; BP diastolic 61–79; PULSE 71–122; RESP 16–20; TEMP 98–98.4; O2SAT 97–99
[~2017-02-14] VITALS: Ht 175.3 cm; Wt 60.0 kg
[~2017-02-14 10:20] MED LIST changes: -JEVILIQ12; -NICO7DIS2 T-DERMAL; -ONDA1TAB16; -SENN8.6T15 PO; -TRAM50TA PO
[2017-02-14] MEDS ORDERED: IPRA17I INH (11:01)
[2017-02-14] MEDS ORDERED: ONDANSETRON HCL 4 MG/2 ML VIAL IV ONE (11:45)
[2017-02-14] MEDS ORDERED: SODIUM CHLOR 0.9% 1000 ML INJ 1,000 ML IV ONE (11:45)
[2017-02-14] MEDS ORDERED: VANCOMYCIN INJ 1,000 MG in SODIUM CHLOR 0.9% 250 ML INJ 250 ML IV STA (11:58)
[2017-02-14] MEDS ORDERED: PIPERACIL-TAZO 4.5 GM PREMIX 100 ML IV STA (11:58)
[2017-02-14] MEDS ORDERED: HYDROmorphone HCL PF 1 MG/ML VIAL IVS ONE (12:00)
--- NOTE | 2017-02-14 12:08 | PD ---
HPI Chief Complaint: Skin Problem Time Seen by Provider: 11:30 Travel History International Travel<30 days: No Contact w/Intl Traveler<30days: No Traveled to known affect area: No History of Present Illness HPI Patient is a 56-year-old male presenting to him or for evaluation of right upper arm redness and swelling. Patient states it started yesterday, he had this same problem approximately 2-1/2 weeks ago. At that time he was admitted on IV antibiotics. Patient is currently on palliative chemotherapy for metastatic non-small cell lung cancer. Patient is status post right neck and shoulder radiation. Patient also has a reddened area to the right upper chest wall adjacent to the axilla. He reports his pain is 9 out of 10, he took his normal home dose of Dilaudid orally this morning with no relief of symptoms. He denies any fevers, vomiting, chest pain, shortness of breath, headaches. He does state he has felt nauseated. He did tolerate his tube feeding this morning. PFSH Past Medical History Anemia: Yes Arthritis: No Asthma: No Autoimmune Disease: No Anxiety: Yes Depression: Yes Heart Rhythm Problems: No Cancer: Yes (LUNG) Cardiovascular Problems: Yes (HTN) High Cholesterol: No Chemotherapy: Yes Chest Pain: No Congestive Heart Failure: No COPD: Yes Cerebrovascular Accident: No Diabetes: No Diminished Hearing: No Endocrine: No GERD: No Genitourinary: No Hiatal Hernia: No Hypertension: Yes Immune Disorder: No Kidney Stones: No Musculoskeletal: No Neurologic: Yes (HYDROCEPHALUS) Psychiatric: No Reproductive: No Respiratory: Yes (COPD,STAGE 4 LUNG CA) Migraines: No Renal Failure: No Seizures: No Sleep Apnea: No Thyroid Disease: No Ulcer: No Past Surgical History Abdominal Surgery: No AICD: No Cardiac Surgery: No Ear Surgery: No Endocrine Surgery: No Eye Surgery: No Genitourinary Surgery: No Gynecologic Surgery: No Joint Replacement: No Neurologic Surgery: Yes (ANEURYSM REPAIR) Oral Surgery: Yes Pacemaker: No Thoracic Surgery: No Social History Alcohol Use: No Tobacco Use: Yes Substance Use: No Allergies-Medications (Allergen,Severity, Reaction): Coded Allergies: Contrast Media (Verified Allergy, Severe, Hives, 02/14/17) Paraplatin (Verified Allergy, Mild, Itching, 02/14/17) Reported Meds & Prescriptions Reported Meds & Active Scripts Active Reported Atrovent HFA 12.9 GM Inh (Ipratropium [place]) 17 Mcg/Act Aer 2 Puff INH BID Mirtazapine 7.5 Mg Tab 7.5 Mg PO HS Lorazepam 0.5 Mg Tab 0.5 Mg PO HS PRN Hydromorphone (Hydromorphone HCl) 2 Mg Tab 2 Mg PO Q4H PRN Albuterol Neb (Albuterol Sulfate) 2.5 Mg/0.5 Ml Neb 2.5 Mg NEB Q4HR NEB Note: The Albuterol Sulfate Inhalation Solution is concentrated and must be diluted. Read complete instructions carefully before using. Review of Systems Except as stated in HPI: all other systems reviewed are Neg General / Constitutional: No: Fever, Chills HENT: No: Headaches Cardiovascular: No: Chest Pain or Discomfort Respiratory: No: Shortness of Breath Gastrointestinal: Positive: Nausea, No: Vomiting, Abdominal Pain Musculoskeletal: Positive: Myalgias, Edema, Pain Skin: Positive Change in Pigmentation Physical Exam Narrative GENERAL: Cachectic, chronically ill-appearing male SKIN: Warm and dry. Significant edema and erythema to the right upper extremity just distal to the shoulder extending to the mid forearm. There is also area of erythema and firmness to the right upper chest wall, adjacent to the axilla HEAD: Atraumatic. Normocephalic. EYES: Pupils equal and round. No scleral icterus. No injection or drainage. ENT: No nasal bleeding or discharge. Mucous membranes pink and moist. NECK: Trachea midline. No JVD. CARDIOVASCULAR: Tachycardic. RESPIRATORY: No accessory muscle use. Diminished bilaterally. GASTROINTESTINAL: Abdomen soft, non-tender, nondistended. Hepatic and splenic margins not palpable. G-tube MUSCULOSKELETAL: Extremities without clubbing, cyanosis. No obvious deformities. 2+ radial pulse on the right, brisk less than 3 second capillary refill. NEUROLOGICAL: Awake and alert. No obvious cranial nerve deficits. Motor grossly within normal limits. Five out of 5 muscle strength in the arms and legs. Normal speech. PSYCHIATRIC: Flat mood and affect; insight and judgment normal. Data Data Last Documented VS Vital Signs Date Time Temp Pulse Resp B/P Pulse Ox O2 Delivery O2 Flow Rate FiO2 02/14/17 12:00 98 Room Air 02/14/17 11:34 98.0 109 20 129/63 Orders Complete Blood Count With Diff (02/14/17 11:39) Comprehensive Metabolic Panel (02/14/17 11:39) Prothrombin Time / Inr (Pt) (02/14/17 11:39) Act Partial Throm Time (Ptt) (02/14/17 11:39) Lactic Acid Sepsis Protocol (02/14/17 11:39) Magnesium (Mg) (02/14/17 11:39) Lipase (02/14/17 11:39) Ckmb (Isoenzyme) Profile (02/14/17 11:39) Troponin I (02/14/17 11:39) Urinalysis - C+S If Indicated (02/14/17 11:39) Blood Culture (02/14/17 11:39) Chest, Single Ap (02/14/17 11:39) Blood Glucose (02/14/17 11:39) Ecg Monitoring (02/14/17 11:39) Iv Access Insert/Monitor (02/14/17 11:39) Oximetry (02/14/17 11:39) Oxygen Administration (02/14/17 11:39) Ondansetron Inj (Zofran Inj) (02/14/17 11:45) Us Arm Venous Doppler (02/14/17 ) Sodium Chlor 0.9% 1000 Ml Inj (Ns 1000 M (02/14/17 11:45) Hydromorphone Pf Inj (Dilaudid Pf Inj) (02/14/17 12:00) Piperacil-Tazo 4.5 Gm Premix (Zosyn 4.5 (02/14/17 11:58) Vancomycin Inj (Vancomycin Inj) (02/14/17 11:58) Precautions (02/14/17 12:21) Admit Order (Ed Use Only) (02/14/17 15:24) Labs Laboratory Tests Test 02/14/17 02/14/17 11:40 14:00 White Blood Count 3.1 TH/MM3 Red Blood Count 2.80 MIL/MM3 Hemoglobin 8.4 GM/DL Hematocrit 25.5 % Mean Corpuscular Volume 90.9 FL Mean Corpuscular Hemoglobin 30.1 PG Mean Corpuscular Hemoglobin 33.1 % Concent Red Cell Distribution Width 18.7 % Platelet Count 286 TH/MM3 Mean Platelet Volume 7.2 FL Neutrophils (%) (Auto) % Lymphocytes (%) (Auto) % Monocytes (%) (Auto) % Eosinophils (%) (Auto) % Basophils (%) (Auto) % Neutrophils # (Auto) TH/MM3 Lymphocytes # (Auto) TH/MM3 Monocytes # (Auto) TH/MM3 Eosinophils # (Auto) TH/MM3 Basophils # (Auto) TH/MM3 CBC Comment AUTO DIFF Differential Total Cells 100 Counted Neutrophils % (Manual) 80 % Band Neutrophils % 5 % Lymphocytes % 6 % Monocytes % 6 % Eosinophils % 1 % Neutrophils # (Manual) 2.7 TH/MM3 Metamyelocytes 2 % Nucleated Red Blood Cells 1 /100 WBC Differential Comment FINAL DIFF MANUAL Prothrombin Time 12.3 SEC Prothromb Time International 1.1 RATIO Ratio Activated Partial 35.0 SEC Thromboplast Time Sodium Level 136 MEQ/L Potassium Level 3.4 MEQ/L Chloride Level 98 MEQ/L Carbon Dioxide Level 27.5 MEQ/L Anion Gap 11 MEQ/L Blood Urea Nitrogen 19 MG/DL Creatinine 0.59 MG/DL Estimat Glomerular Filtration 142 ML/MIN Rate Random Glucose 171 MG/DL Lactic Acid Level 1.9 mmol/L Calcium Level 8.1 MG/DL Magnesium Level 1.8 MG/DL Total Bilirubin 0.5 MG/DL Aspartate Amino Transf 20 U/L (AST/SGOT) Alanine Aminotransferase 32 U/L (ALT/SGPT) Alkaline Phosphatase 86 U/L Total Creatine Kinase 10 U/L Troponin I LESS THAN 0.02 NG/ML Total Protein 6.5 GM/DL Albumin 1.9 GM/DL Lipase 102 U/L Urine Color YELLOW Urine Turbidity CLEAR Urine pH 6.0 Urine Specific [place] 1.029 Urine Protein 30 mg/dL Urine Glucose (UA) NEG mg/dL Urine Ketones NEG mg/dL Urine Occult Blood NEG Urine Nitrite NEG Urine Bilirubin NEG Urine Urobilinogen 4.0 MG/DL Urine Leukocyte Esterase NEG Urine RBC LESS THAN 1 /hpf Urine WBC 2 /hpf Urine Squamous Epithelial <1 /hpf Cells Urine Mucus FEW /lpf Microscopic Urinalysis Comment CATH-CULT NOT IND MDM Medical Decision Making Medical Screen Exam Complete: Yes Emergency Medical Condition: Yes Medical Record Reviewed: Yes Interpretation(s) Last Impressions Chest X-Ray 02/14/17 1139 Signed Impressions: Service Date/Time: February 12:37 - CONCLUSION: No acute cardiopulmonary disease. Melanie Garrett MD Upper Extremity Ultrasound 02/14/17 0000 Signed Impressions: Service Date/Time: February 11:43 - CONCLUSION: Normal examination. Melanie Garrett MD Laboratory Tests Test 02/14/17 02/14/17 11:40 14:00 White Blood Count 3.1 TH/MM3 Red Blood Count 2.80 MIL/MM3 Hemoglobin 8.4 GM/DL Hematocrit 25.5 % Mean Corpuscular Volume 90.9 FL Mean Corpuscular Hemoglobin 30.1 PG Mean Corpuscular Hemoglobin 33.1 % Concent Red Cell Distribution Width 18.7 % Platelet Count 286 TH/MM3 Mean Platelet Volume 7.2 FL Neutrophils (%) (Auto) % Lymphocytes (%) (Auto) % Monocytes (%) (Auto) % Eosinophils (%) (Auto) % Basophils (%) (Auto) % Neutrophils # (Auto) TH/MM3 Lymphocytes # (Auto) TH/MM3 Monocytes # (Auto) TH/MM3 Eosinophils # (Auto) TH/MM3 Basophils # (Auto) TH/MM3 CBC Comment AUTO DIFF Differential Total Cells 100 Counted Neutrophils % (Manual) 80 % Band Neutrophils % 5 % Lymphocytes % 6 % Monocytes % 6 % Eosinophils % 1 % Neutrophils # (Manual) 2.7 TH/MM3 Metamyelocytes 2 % Nucleated Red Blood Cells 1 /100 WBC Differential Comment FINAL DIFF MANUAL Prothrombin Time 12.3 SEC Prothromb Time International 1.1 RATIO Ratio Activated Partial 35.0 SEC Thromboplast Time Sodium Level 136 MEQ/L Potassium Level 3.4 MEQ/L Chloride Level 98 MEQ/L Carbon Dioxide Level 27.5 MEQ/L Anion Gap 11 MEQ/L Blood Urea Nitrogen 19 MG/DL Creatinine 0.59 MG/DL Estimat Glomerular Filtration 142 ML/MIN Rate Random Glucose 171 MG/DL Lactic Acid Level 1.9 mmol/L Calcium Level 8.1 MG/DL Magnesium Level 1.8 MG/DL Total Bilirubin 0.5 MG/DL Aspartate Amino Transf 20 U/L (AST/SGOT) Alanine Aminotransferase 32 U/L (ALT/SGPT) Alkaline Phosphatase 86 U/L Total Creatine Kinase 10 U/L Troponin I LESS THAN 0.02 NG/ML Total Protein 6.5 GM/DL Albumin 1.9 GM/DL Lipase 102 U/L Urine Color YELLOW Urine Turbidity CLEAR Urine pH 6.0 Urine Specific [place] 1.029 Urine Protein 30 mg/dL Urine Glucose (UA) NEG mg/dL Urine Ketones NEG mg/dL Urine Occult Blood NEG Urine Nitrite NEG Urine Bilirubin NEG Urine Urobilinogen 4.0 MG/DL Urine Leukocyte Esterase NEG Urine RBC LESS THAN 1 /hpf Urine WBC 2 /hpf Urine Squamous Epithelial <1 /hpf Cells Urine Mucus FEW /lpf Microscopic Urinalysis Comment CATH-CULT NOT IND Vital Signs Date Time Temp Pulse Resp B/P Pulse Ox O2 Delivery O2 Flow Rate FiO2 02/14/17 12:00 98 Room Air 02/14/17 11:59 98 Room Air 02/14/17 11:34 98.0 109 20 129/63 98 Room Air 02/14/17 10:23 98.2 122 16 122/70 99 Room Air Differential Diagnosis Sepsis versus DVT versus cellulitis versus electrolyte abnormality versus other Narrative Course Patient is a 56-year-old male that presented evaluation of redness and swelling to his right arm. History of cellulitis, he was recently discharged for the same. Labs and imaging ordered and pending. Patient's vital signs are stable, family at bedside. CBC with white count of 3.1, hemoglobin is stable Potassium 3.4, Troponin is negative Urinalysis is unremarkable Upper extremity ultrasound is negative for DVT, chest x-ray shows no acute disease. Patient was given ankle and Zosyn in the emergency department. Residents paged for admission. Orders placed under Dr. Darden Diagnosis Primary Impression: Right arm cellulitis Additional Impressions: Neutropenia Qualified Code: D70.9 - Neutropenia, unspecified type Hypokalemia Admitting Information Admitting Physician Requests: Admit Condition: Stable Holly Shin Feb 14, 2017 12:08 Holly Shin Feb 14, 2017 12:08
[2017-02-14 12:11] LABS: HEMATOCRIT 25.5 % (39.0-51.0); MEAN CELL VOLUME 90.9 FL (80.0-100.0); MEAN CORPUSCULAR HEMOGLOBIN 30.1 PG (27.0-34.0); MEAN CORPUSCULAR HGB CONC 33.1 % (32.0-36.0); PLATELET COUNT 286 TH/MM3 (150-450); RED CELL DISTRIBUTION WIDTH 18.7 % (11.6-17.2); WHITE BLOOD COUNT 3.1 TH/MM3 (4.0-11.0)
[2017-02-14 12:12] LABS: HEMO FLAGS AUTO DIFF
[2017-02-14 12:23] LABS: INTERNATIONAL NORMALIZED RATIO 1.1 RATIO; PROTHROMBIN TIME - PATIENT 12.3 SEC (9.8-11.6)
--- NOTE | 2017-02-14 12:23 | RADRPT ---
EXAM DATE/TIME: 02/14/2017 11:43 [facility] COMPARISON: No previous studies available for comparison. INDICATIONS : Right arm swelling and redness. MEDICAL HISTORY : Chronic obstructive pulmonary disease. Hydrocephalus. Hypertension. Stage 4 lung cancer. Depression . Anxiety. Chemotherapy. SURGICAL HISTORY : Oral surgery. Aneurysm repair. ENCOUNTER: Initial ACUITY: 1 day PAIN SCORE: 8/10 LOCATION: Right arm. FINDINGS: There is spontaneous flow documented in the brachial, basilic, cephalic, axillary, and subclavian vei ns. The vessels are compressible and augmentation response is documented. No filling defects are se en. The flow is phasic with respiration. Direction of flow in the jugular vein is caudal. CONCLUSION: Normal examination. Melanie Garrett MD on February 14, 2017 at 12:21 Board Certified Radiologist. This report was verified electronically.
[2017-02-14 12:51] LABS: BANDS 5 % (0-6); CORRECTED NUCLEATED RBC 1 /100 WBC (0-0); EOSINOPHILS 1 % (0-4); METAMYELOCYTES 2 % (0-1); NEUTROPHIL # MANUAL DIFF 2.7 TH/MM3 (1.8-7.7); POLYS (SEG NEUTROPHILS) 80 % (16-70); WBC DIFF SAMPLE 100
[2017-02-14 12:52] LABS: SCAN/DIFF FINAL DIFF MANUAL
[2017-02-14 13:24] LABS: BLOOD UREA NITROGEN 19 MG/DL (7-18)
--- NOTE | 2017-02-14 13:24 | RADRPT ---
EXAM DATE/TIME: 02/14/2017 12:37 [facility] COMPARISON: CHEST SINGLE AP, January 23, 2017, 11:51. INDICATIONS : Swelling, fever, short of breath. MEDICAL HISTORY : None. SURGICAL HISTORY : None. ENCOUNTER: Initial ACUITY: 3 days PAIN SCORE: 0/10 LOCATION: Bilateral chest FINDINGS: The lungs are clear without infiltrate, nodule, or mass. There is no appreciable pleural effusion fo r technique. Heart and mediastinum are unremarkable. Left subclavian [id number] is present with t ip overlapping the expected region of the SVC. CONCLUSION: No acute cardiopulmonary disease. Melanie Garrett MD on February 14, 2017 at 13:22 Board Certified Radiologist. This report was verified electronically.
[2017-02-14 13:25] LABS: ALKALINE PHOSPHATASE 86 U/L (45-117); ALT (GPT) 32 U/L (12-78); ANION GAP 11 MEQ/L (5-15); AST (GOT) 20 U/L (15-37); BICARBONATE 27.5 MEQ/L (21.0-32.0); CHLORIDE 98 MEQ/L (98-107); CREATINE KINASE 10 U/L (39-308); GLOMERULAR FILTRATION RATE 142 ML/MIN (>89); MAGNESIUM 1.8 MG/DL (1.5-2.5); POTASSIUM 3.4 MEQ/L (3.5-5.1); SODIUM (NA) 136 MEQ/L (136-145); TOTAL BILIRUBIN ADULT 0.5 MG/DL (0.2-1.0)
[2017-02-14 14:29] LABS: BLOOD, URINE NEG (NEG); GLUCOSE,URINE NEG (NEG); KETONE, URINE NEG (NEG); MUCUS URINE FEW /lpf (OCC); NITRITE,URINE NEG (NEG); SQUAMOUS EPITHELIAL CELL URINE <1 /hpf (0-5); URINE COLOR YELLOW (YELLW/STRAW)
[2017-02-14 14:32] LABS: COMMENT (UR) CATH-CULT NOT IND; CULTURE IF INDICATED CATH CULTURE NOT IND
--- NOTE | 2017-02-14 15:55 | HHI.HP ---
[facility] Primary Care Physician Non-Staff Admission Diagnosis CELLULITIS Diagnoses: International Travel<30 Days: No Contact w/Intl Traveler<30days: No Known Affected Area: No History of Present Illness Patient is a 56-year-old man with a history of metastatic lung cancer on palliative chemotherapy who presents with unbearable right arm pain, most likely cellulitis. 3 weeks ago, the patient came in to the [facility] emergency department with right arm pain. He was treated with IV antibiotics for 5 days, which seemed to help, and then was diagnosed with adhesive capsulitis and rotator cuff tear, so antibiotics were stopped. The pain has not totally stopped since his last admission. About two days ago, the pain became intolerable. Yesterday, his right arm swelled up and became very red and hot. He was taking home medication of Dilaudid, which was helping. Right now, his pain is a dull ache that becomes a sharp stabbing pain with movement. Severity is 7.5-8 out of 10. Pain is constant and not getting any better. He reports palliative chemotherapy treatment through his left chest port for 30- 45 minutes every 3 weeks. His last treatment was last week. His next treatment is planned for February 27. Pt denies knowledge of his medical conditions and medications and says that his mother keeps track of his medications and makes his appointments. His cancer doctor is Dr. Billingsley. Pt reports he does not fully know his treatment plan. Patient reports that that he does have a PEG tube through which he gets Jevity 3 cans qam and 1-2 qhs. Review of Systems Constitutional: DENIES: Fever, Chills, Change in appetite Endocrine: DENIES: Polydipsia, Polyuria Eyes: DENIES: Blurred vision, Diplopia, Vision loss, Double Vision Ears, nose, mouth, throat: DENIES: Hearing loss, Throat pain, Ear Pain, Running Nose, Sinus Pain, Toothache Respiratory: COMPLAINS OF: Cough (little dry cough that has always been there) , Shortness of breath (all the time) Cardiovascular: COMPLAINS OF: Dyspnea on Exertion (all the time), DENIES: Chest pain (pain with coughing), Lower Extremity Edema Gastrointestinal: COMPLAINS OF: Nausea (every once in a while), Vomiting ( every once in a while), DENIES: Abdominal pain, Black stools, Bloody stools, Constipation, Diarrhea Genitourinary: DENIES: Dysuria Musculoskeletal: COMPLAINS OF: Back pain (little, not unusual), Neck pain ( little, not unusual) Integumentary: COMPLAINS OF: Rash (not besides arm) Hematologic/lymphatic: DENIES: Bruising, Lymphadenopathy Neurologic: DENIES: Headache Psychiatric: DENIES: Mood changes, Depression, Suicidal Ideation Past Family Social History Past Medical History He was last admitted for right upper extremity cellulitis which improved with vancomycin and cefepime. He was followed during this hospitalization by infectious disease who discontinued his antibiotics after 5 days of IV antibiotic therapy during his hospital stay, the patient continued to complain of right shoulder pain which is consistent with adhesive capsulitis. He will need outpatient physical therapy and occupational therapy in addition to home health care. The patient's cellulitis improved and he was stable upon discharge. 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 anxiety COPD/emphysema Pneuomothorax in July 2016 Port placed on left chest Past Surgical History Clip in brain for cerebral aneurysm repair EXPORT FREIGHT CLERK shunt for AVM Lung and neck biopsy Port placement supraclavicular LN bx PEG tube Reported Medications Reported Meds & Active Scripts Active Reported Atrovent HFA 12.9 GM Inh (Ipratropium [place]) 17 Mcg/Act Aer 2 Puff INH BID Mirtazapine 7.5 Mg Tab 7.5 Mg PO HS Lorazepam 0.5 Mg Tab 0.5 Mg PO HS PRN Hydromorphone (Hydromorphone HCl) 2 Mg Tab 2 Mg PO Q4H PRN Albuterol Neb (Albuterol Sulfate) 2.5 Mg/0.5 Ml Neb 2.5 Mg NEB Q4HR NEB Note: The Albuterol Sulfate Inhalation Solution is concentrated and must be diluted. Read complete instructions carefully before using. Allergies: Coded Allergies: Contrast Media (Verified Allergy, Severe, Hives, 02/14/17) Paraplatin (Verified Allergy, Mild, Itching, 02/14/17) Family History Mother - healthy Father - healthy Sister - healthy Social History Smoking cigarettes - 1/2 ppd, started smoking at the age of 15 EtOH - used to, but not recently No other drugs Physical Exam Vital Signs Vital Signs Date Time Temp Pulse Resp B/P Pulse Ox O2 Delivery O2 Flow Rate FiO2 02/14/17 12:00 98 Room Air 02/14/17 11:59 98 Room Air 02/14/17 11:34 98.0 109 20 129/63 98 Room Air 02/14/17 10:23 98.2 122 16 122/70 99 Room Air Physical Exam GENERAL: This is a cachectic male patient, uncomfortable but in no acute distress. SKIN: No rashes, ecchymoses or lesions. Cool and dry. HEAD: Atraumatic. Normocephalic. EYES: Pupils equal round and reactive. Extraocular motions intact. No scleral icterus. No injection or drainage. ENT: Nose without bleeding, purulent drainage or septal hematoma. Throat without erythema, tonsillar hypertrophy or exudate. Uvula midline. Airway patent. NECK: Trachea midline. No JVD or lymphadenopathy. Supple, nontender, no meningeal signs. CHEST: Port in left upper chest with no signs of erythema, tenderness, purulence. CARDIOVASCULAR: Tachycardic rate and regular rhythm without murmurs, gallops, or rubs. RESPIRATORY: Clear to auscultation. Breath sounds equal bilaterally. No wheezes , rales, or rhonchi. GASTROINTESTINAL: PEG tube in place with no surrounding erythema, tenderness, purulence. Abdomen soft, non-tender, nondistended. No hepato-splenomegaly, or palpable masses. No guarding. MUSCULOSKELETAL: Patient's right arm is swollen and erythematous from the middle of the upper arm to the middle of the lower arm. He has circumferential erythema of his right arm extending 15 cm distal and 15 cm proximal from the antecubital fossa. He also has erythema anterior to his right axilla that measures about 13 cm x 11 cm. Other extremities without clubbing, cyanosis, or edema. No calf tenderness. No lower extremity edema. NEUROLOGICAL: Awake and alert. Cranial nerves II through XII grossly intact. Motor and sensory grossly within normal limits. Normal speech. Laboratory Laboratory Tests Test 02/14/17 02/14/17 11:40 14:00 White Blood Count 3.1 Red Blood Count 2.80 Hemoglobin 8.4 Hematocrit 25.5 Mean Corpuscular Volume 90.9 Mean Corpuscular Hemoglobin 30.1 Mean Corpuscular Hemoglobin 33.1 Concent Red Cell Distribution Width 18.7 Platelet Count 286 Mean Platelet Volume 7.2 Neutrophils (%) (Auto) Lymphocytes (%) (Auto) Monocytes (%) (Auto) Eosinophils (%) (Auto) Basophils (%) (Auto) Neutrophils # (Auto) Lymphocytes # (Auto) Monocytes # (Auto) Eosinophils # (Auto) Basophils # (Auto) CBC Comment AUTO DIFF Differential Total Cells 100 Counted Neutrophils % (Manual) 80 Band Neutrophils % 5 Lymphocytes % 6 Monocytes % 6 Eosinophils % 1 Neutrophils # (Manual) 2.7 Metamyelocytes 2 Nucleated Red Blood Cells 1 Differential Comment FINAL DIFF MANUAL Prothrombin Time 12.3 Prothromb Time International 1.1 Ratio Activated Partial 35.0 Thromboplast Time Sodium Level 136 Potassium Level 3.4 Chloride Level 98 Carbon Dioxide Level 27.5 Anion Gap 11 Blood Urea Nitrogen 19 Creatinine 0.59 Estimat Glomerular Filtration 142 Rate Random Glucose 171 Lactic Acid Level 1.9 Calcium Level 8.1 Magnesium Level 1.8 Total Bilirubin 0.5 Aspartate Amino Transf 20 (AST/SGOT) Alanine Aminotransferase 32 (ALT/SGPT) Alkaline Phosphatase 86 Total Creatine Kinase 10 Troponin I LESS THAN 0.02 Total Protein 6.5 Albumin 1.9 Lipase 102 Urine Color YELLOW Urine Turbidity CLEAR Urine pH 6.0 Urine Specific [place] 1.029 Urine Protein 30 Urine Glucose (UA) NEG Urine Ketones NEG Urine Occult Blood NEG Urine Nitrite NEG Urine Bilirubin NEG Urine Urobilinogen 4.0 Urine Leukocyte Esterase NEG Urine RBC LESS THAN 1 Urine WBC 2 Urine Squamous Epithelial <1 Cells Urine Mucus FEW Microscopic Urinalysis Comment CATH-CULT NOT IND Date/Time Procedure Status Source Growth 02/14/17 11:40 Aerobic Blood Culture Received Blood Peripheral Pending 02/14/17 11:40 Anaerobic Blood Culture Received Blood Peripheral Pending Result Diagram: 02/14/17 1140 02/14/17 1140 Imaging Last Impressions Chest X-Ray 02/14/17 1139 Signed Impressions: Service Date/Time: February 12:37 - CONCLUSION: No acute cardiopulmonary disease. Melanie Garrett MD Upper Extremity Ultrasound 02/14/17 0000 Signed Impressions: Service Date/Time: , February 14, 2017 11:43 - CONCLUSION: Normal examination. Melanie Garrett MD Course In the emergency department, patient had normal saline IV bolus, ultrasound of the arm, Zofran 4 mg IV, chest x-ray, blood culture, UA, troponin, CK-MB, lipase , magnesium, lactic acid, a PTT, PT/INR, CMP, CBC, Dilaudid 1 mg IV, vancomycin IV, Zosyn IV, admission order. Assessment and Plan Assessment and Plan Patient is a 56-year-old man with a history of metastatic lung cancer on palliative chemotherapy who presents with right arm and axilla cellulitis. Plan to admit for IV antibiotics given extensive right arm cellulitis and comorbidities. Patient is not currently neutropenic with an ANC of 2635. Code Status Full code Discussed Condition With Patient seen and discussed with Dr. Darden. Problem List: (1) Cellulitis Status: Acute Plan: Patient is a 56-year-old man with a history of metastatic lung cancer on palliative chemotherapy who presents with right arm and axilla cellulitis. Plan to admit for IV antibiotics given extensive right arm cellulitis and comorbidities. Patient is not currently neutropenic with an ANC of 2635. Patient received vancomycin and Zosyn in emergency department. Last hospital admission, patient was on incomplete course of vancomycin and cefepime. Plan to continue these antibiotics as below. Vancomycin 1 g IV every 12 hours Cefepime 2 g IV every 8 Tylenol for pain 1-2 Percocet 5-325 mg 1 tab by mouth every 6 hours when necessary for pain 3-5 or Dilaudid 0.5 mg IV every 3 hours when necessary for pain 3-5 Percocet 10-325 mg one tab by mouth every 6 hours when necessary for pain 6-10 or Dilaudid 1 mg IV every 3 hours when necessary for pain 6-10 Dilaudid 1 mg IV every 3 hours when necessary for breakthrough pain Alma-Colace one tab by mouth twice a day scheduled and many anticonstipation medications as needed Zofran as needed for nausea and vomiting Blood culture Monitor vital signs Monitor intake and output PT consult Consider infectious disease consult Consider hematology/oncology consult (2) COPD (chronic obstructive pulmonary disease) Status: Acute Plan: Patient with a history of COPD well-controlled on medications. Continue home medication of albuterol neb Continue home medication of Atrovent DuoNeb every 4 hours when necessary for shortness of breath (3) Nutrition, metabolism, and development symptoms Status: Acute Plan: Fluids: By mouth and tube feeds Electrolytes: Monitor and replete Nutrition: Tube feeds with tray DVT prophylaxis: Lovenox 40 mg subcutaneous every 12 hours GI prophylaxis: Not currently indicated Chronic medical conditions: COPD as above Continue mirtazapine for depression Hold home Dilaudid because of pain control as above Continue lorazepam for anxiety Physician Certification 2 Midnight Certification Type: Admission for Inpatient Services Order for Inpatient Services The services are ordered in accordance with Medicare regulations or non- Medicare payer requirements, as applicable. In the case of services not specified as inpatient-only, they are appropriately provided as inpatient services in accordance with the 2-midnight benchmark. Estimated LOS (days): 2 2 days is the estimated time the patient will need to remain in the hospital, assuming treatment plan goals are met and no additional complications. Post-Hospital Plan: Home Juan Hernández MD R1 Feb 14, 2017 15:55
[2017-02-14] MEDS ORDERED: HYDROmorphone HCL PF 1 MG/ML VIAL IV PRN (17:15)
[2017-02-14] MEDS ORDERED: ACETAMINOPHEN 325 MG TAB PO PRN ×2 (17:15)
[2017-02-14] MEDS ORDERED: SENNOSIDES 8.6 MG TAB PO PRN (17:15)
[2017-02-14] MEDS ORDERED: LACTULOSE SYRUP 20 GM/30 ML CUP PO PRN (17:15)
[2017-02-14] MEDS ORDERED: SODIUM CHLORIDE 0.9% FLUSH 10 ML FLUSH IV FLUSH PRN (17:15)
[2017-02-14] MEDS ORDERED: ZOLPIDEM TARTRATE 5 MG TAB PO PRN (17:15)
[2017-02-14] MEDS ORDERED: ONDANSETRON HCL 4 MG/2 ML VIAL IVP PRN (17:15)
[2017-02-14] MEDS ORDERED: MAGNESIUM HYDROXIDE SUSP 30 ML CUP PO PRN (17:15)
[2017-02-14] MEDS ORDERED: Vancomycin Consult Pharmacy 1 EA OTHER SCH (17:15)
[2017-02-14] MEDS ORDERED: NALOXONE HCL 0.4 MG/ML AMP IV PRN ×2 (17:15)
[2017-02-14] MEDS ORDERED: oxyCODONE/ACETAMINOPHEN 5 MG/325 MG TAB PO PRN (17:15)
[2017-02-14] MEDS ORDERED: BISACODYL 10 MG SUPP RECTAL PRN (17:15)
[2017-02-14] MEDS: ENOXAPARIN SODIUM 40 MG/0.4 ML SYRINGE SQ SCH (18:30)
[2017-02-14] MEDS: CEFEPIME INJ 2,000 MG in SODIUM CHLORIDE 0.9% INJ 100 ML IV SCH (18:39)
[2017-02-14] MEDS: SODIUM CHLORIDE 0.9% FLUSH 10 ML FLUSH IV FLUSH SCH (21:00)
[2017-02-14] MEDS: DOCUSATE SODIUM 50 MG/SENNA 8.6 MG TAB PO SCH (21:00)
--- NOTE | 2017-02-14 21:37 | HHI.PR ---
Addendum to Inpatient Note Addendum Reason: Additional Documentation Additional Information Attending note: Patient seen and examined, discussed with resident team. I agree with assessment and management as documented and discussed with me. The patient has been seen and examined. The chart and all resident notes have been reviewed. I agree that inpatient care is appropriate and that a two midnight stay is expected for the reasons documented in the resident history and physical. I have discussed this with the resident and certify the resident s order for inpatient admission. Uvaldo Nieto is a 56yo gentleman with h/o nonsmall cell lung CA receiving palliative treatments admitted for right upper extremity cellulitis. He was recently hospitalized for similar symptoms 01/2017. Pt reports that after his recent hospitalization, his arm improved somewhat but he still had swelling, redness, pain and increased warmth. However, for the last two days, his swelling and pain dramatically worsened, prompting him to seek emergent attention. Diagnoses: Right upper extremity cellulitis: Start antibiotics as ordered (vancomycin and cefepime). Right upper extremity US negative for DVT. Neutropenia: ANC 2635. Secondary to chemotherapy. Neutropenic precautions not indicated at this time. Anemia: Secondary to chemotherapy / malignancy. No obvious active bleeding. Will monitor H/H. Metastatic Non-small cell lung cancer: Followed by Dr. Billingsley. Pt reports next treatment is due 02/27/17. Hypokalemia: Mild. Asymptomatic. Replete. COPD: Maintaining O2 sats. Continue home medications. Tsering Darden MD Feb 14, 2017 21:37
[2017-02-14] MEDS: oxyCODONE/ACETAMINOPHEN 10 MG/325 MG TAB PO PRN (22:00)
[2017-02-14] MEDS ORDERED: POTASSIUM CHLORIDE 10 MEQ CONTROLLED RELEASE TAB PO ONE (23:45)
[2017-02-15] VITALS (9 sets, daily range): BP systolic 99–110; BP diastolic 57–69; PULSE 103–114; RESP 16–20; TEMP 97.3–99.3; O2SAT 96–99
[2017-02-15] MEDS: VANCOMYCIN INJ 1,000 MG in SODIUM CHLOR 0.9% 250 ML INJ 250 ML IV SCH ×2 (00:06→12:13)
[2017-02-15] MEDS ORDERED: LORazepam 0.5 MG TAB PO PRN (00:15)
[2017-02-15] MEDS ORDERED: PILL SPLITTER OTHER PRN (00:30)
[2017-02-15] MEDS: HYDROmorphone HCL PF 1 MG/ML VIAL IV PRN ×7 (00:36→22:50)
[2017-02-15] MEDS: CEFEPIME INJ 2,000 MG in SODIUM CHLORIDE 0.9% INJ 100 ML IV SCH ×3 (01:53→17:05)
[2017-02-15] MEDS: RESP: ALBUTEROL CONC 2.5 MG/0.5 ML NEB NEB SCH ×5 (08:00→23:47)
[2017-02-15] MEDS: SODIUM CHLORIDE 0.9% FLUSH 10 ML FLUSH IV FLUSH SCH ×2 (08:13→19:41)
[2017-02-15] MEDS: DOCUSATE SODIUM 50 MG/SENNA 8.6 MG TAB PO SCH ×2 (08:17→19:41)
[2017-02-15] MEDS: RESP: ALBUTEROL 2.5 MG/IPRATROPIUM 0.5 MG NEB (PRN) NEB ×2 (08:30→11:18)
[2017-02-15] MEDS: TIOTROPIUM BROMIDE 18 MCG INH INH SCH (08:51)
[2017-02-15 09:59] LABS: HEMATOCRIT 25.1 % (39.0-51.0); MEAN CELL VOLUME 91.6 FL (80.0-100.0); MEAN CORPUSCULAR HEMOGLOBIN 29.4 PG (27.0-34.0); MEAN CORPUSCULAR HGB CONC 32.1 % (32.0-36.0); PLATELET COUNT 268 TH/MM3 (150-450); RED BLOOD COUNT 2.74 MIL/MM3 (4.50-5.90); RED CELL DISTRIBUTION WIDTH 18.7 % (11.6-17.2); WHITE BLOOD COUNT 2.9 TH/MM3 (4.0-11.0)
[2017-02-15 10:03] LABS: HEMO FLAGS AUTO DIFF
[2017-02-15 10:12] LABS: BICARBONATE 26.1 MEQ/L (21.0-32.0); POTASSIUM 3.9 MEQ/L (3.5-5.1)
[2017-02-15] MEDS: NICOTINE 14 MG/24 HR PATCH T-DERMAL SCH (11:04)
[2017-02-15 11:13] LABS: BANDS 1 % (0-6); EOSINOPHILS 1 % (0-4); MYELOCYTES 1 % (0-0); NEUTROPHIL # MANUAL DIFF 2.6 TH/MM3 (1.8-7.7); PLATELET ESTIMATE SMEAR NORMAL (NORMAL); PLATELET MORPHOLOGY NORMAL (NORMAL); POLYS (SEG NEUTROPHILS) 88 % (16-70); SCAN/DIFF FINAL DIFF MANUAL; WBC DIFF SAMPLE 100
--- NOTE | 2017-02-15 14:06 | HHI.FPPN ---
Subjective Remarks No acute events overnight. Patient states that his pain has continued since yesterday. No new complaints. Is at his baseline. (Beatrice Pastor MD R1) Objective Vitals Vital Signs Date Time Temp Pulse Resp B/P Pulse Ox O2 Delivery O2 Flow Rate FiO2 02/15/17 12:00 97.3 114 20 102/59 98 02/15/17 08:46 108 100/66 02/15/17 08:40 98 02/15/17 08:00 99.3 112 20 99/63 97 02/15/17 05:16 20 02/15/17 04:00 97.9 103 16 101/69 99 02/15/17 01:08 20 02/15/17 00:30 20 02/15/17 00:00 97.7 109 18 110/57 96 02/14/17 22:30 98.4 71 16 126/79 97 02/14/17 20:13 98 02/14/17 19:12 104 18 02/14/17 19:10 104 18 100/61 98 Room Air 02/14/17 17:57 98 21 I/O 02/14/17 02/14/17 02/14/17 02/15/17 02/15/17 02/15/17 06:59 14:59 22:59 06:59 14:59 22:59 Intake Total 1058 ml Output Total 500 ml 250 ml Balance 558 ml -250 ml Intake Oral 100 ml IV Total 958 ml Output Urine Total 500 ml 250 ml # Bowel Movements 0 (Beatrice Pastor MD R1) Result Diagram: 02/15/17 0745 02/15/17 0745 Objective Remarks GENERAL: This is a cachectic male patient, uncomfortable but in no acute distress. SKIN: No rashes, ecchymoses or lesions. Cool and dry. HEAD: Atraumatic. Normocephalic. EYES: Pupils equal round and reactive. Extraocular motions intact. No scleral icterus. No injection or drainage. ENT: Throat without erythema, tonsillar hypertrophy or exudate. Uvula midline. Airway patent. CHEST: Port in left upper chest with no signs of erythema, tenderness, purulence. CARDIOVASCULAR: Tachycardic rate and regular rhythm without murmurs, gallops, or rubs. RESPIRATORY: Clear to auscultation. Breath sounds equal bilaterally. No wheezes , rales, or rhonchi. GASTROINTESTINAL: PEG tube in place with no surrounding erythema, tenderness, purulence. Abdomen firm on the right side, hepatomegaly palpated. No tenderness to palpation. MUSCULOSKELETAL: Patient's right arm is swollen and erythematous from the middle of the upper arm to the middle of the lower arm. Erythema of his axillary region and along his upper arm appears to have regressed around 1.5 in. Other extremities without clubbing, cyanosis, or edema. NEUROLOGICAL: Awake and alert. No focal deficits. Normal speech. (Beatrice Pastor MD R1) A/P Assessment and Plan Patient is a 56-year-old man with a history of metastatic lung cancer on palliative chemotherapy who presented with right arm and axilla cellulitis. Admitted for work-up and treatment. Discharge Planning Due to patient's immunosuppression from palliative chemo, will continue Vanc and cefepime (Day#2) and monitor for improvement in the next few days. (Beatrice Pastor MD R1) Attending Attestation Patient seen, examined, and discussed with resident team. I agree with assessment and management as documented and discussed with me. Cellulitis looks improved today. Continue IV antibiotics. Pt reports walking with PT in the halls today. (Tsering Darden MD) Problem List: (1) Cellulitis Status: Acute Plan: Patient is a 56-year-old man with a history of metastatic lung cancer on palliative chemotherapy who presents with right arm and axilla cellulitis. Plan to admit for IV antibiotics given extensive right arm cellulitis and comorbidities. Patient is not currently neutropenic with an ANC of 2635. Patient received vancomycin and Zosyn in emergency department. Last hospital admission, patient was on incomplete course of vancomycin and cefepime. Plan to continue these antibiotics as below. Vancomycin 1 g IV every 12 hours Cefepime 2 g IV every 8 Tylenol for pain 1-2 Percocet 5-325 mg 1 tab by mouth every 6 hours when necessary for pain 3-5 or Dilaudid 0.5 mg IV every 3 hours when necessary for pain 3-5 Percocet 10-325 mg one tab by mouth every 6 hours when necessary for pain 6-10 or Dilaudid 1 mg IV every 3 hours when necessary for pain 6-10 Dilaudid 1 mg IV every 3 hours when necessary for breakthrough pain Blood culture - no growth in one day Monitor vital signs Monitor intake and output (2) COPD (chronic obstructive pulmonary disease) Status: Chronic Plan: Patient with a history of COPD well-controlled on medications. Continue home medication of albuterol neb Continue home medication of Atrovent DuoNeb every 4 hours when necessary for shortness of breath (3) Non-small cell lung cancer (NSCLC) Status: Chronic Plan: Undergoing palliative chemo - Following with Dr. Billingsley - last treatment last week. 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 Plan: - Hgb 8 - Will continue to monitor - If Hgb<7, will type and crossmatch and transfuse 2 PRBC units (5) Lymphocytopenia Status: Chronic Plan: WBC 2.9, related to palliative chemo - not neutropenic, ANC of 2581 cells/microL - Will continue to monitor (6) Nutrition, metabolism, and development symptoms Status: Acute Plan: Fluids: By mouth and tube feeds Electrolytes: Monitor and replete Nutrition: Tube feeds with tray DVT prophylaxis: Lovenox 40 mg subcutaneous every 12 hours GI prophylaxis: Not currently indicated Chronic medical conditions: COPD as above Continue mirtazapine for depression Hold home Dilaudid because of pain control as above Continue lorazepam for anxiety (Beatrice Pastor MD R1) Beatrice Pastor MD R1 Feb 15, 2017 14:06 Tsering Darden MD Feb 15, 2017 15:10
[2017-02-15] MEDS: ENOXAPARIN SODIUM 40 MG/0.4 ML SYRINGE SQ SCH (17:06)
[2017-02-15] MEDS: oxyCODONE/ACETAMINOPHEN 10 MG/325 MG TAB PO PRN (18:33)
[2017-02-15] MEDS: REMOVE OLD PATCH T-DERMAL SCH (21:00)
[2017-02-15] MEDS: MIRTAZAPINE 15 MG TAB PO SCH (21:27)
[2017-02-16] VITALS (9 sets, daily range): BP systolic 92–122; BP diastolic 62–73; PULSE 90–109; RESP 16–20; TEMP 97–99.5; O2SAT 97–99
[2017-02-16] MEDS: oxyCODONE/ACETAMINOPHEN 10 MG/325 MG TAB PO PRN ×2 (00:51→07:47)
[2017-02-16] MEDS: VANCOMYCIN INJ 1,000 MG in SODIUM CHLOR 0.9% 250 ML INJ 250 ML IV SCH ×2 (00:52→13:10)
[2017-02-16] MEDS: HYDROmorphone HCL PF 1 MG/ML VIAL IV PRN ×3 (02:18→13:09)
[2017-02-16] MEDS: CEFEPIME INJ 2,000 MG in SODIUM CHLORIDE 0.9% INJ 100 ML IV SCH ×3 (02:20→18:45)
[2017-02-16] MEDS: RESP: ALBUTEROL 2.5 MG/IPRATROPIUM 0.5 MG NEB (PRN) NEB (03:12)
[2017-02-16 05:00] LABS: HEMATOCRIT 22.3 % (39.0-51.0); MEAN CELL VOLUME 92.2 FL (80.0-100.0); MEAN CORPUSCULAR HEMOGLOBIN 31.1 PG (27.0-34.0); MEAN CORPUSCULAR HGB CONC 33.7 % (32.0-36.0); PLATELET COUNT 209 TH/MM3 (150-450); RED BLOOD COUNT 2.42 MIL/MM3 (4.50-5.90); RED CELL DISTRIBUTION WIDTH 18.5 % (11.6-17.2); REVIEW FLAG FINAL; WHITE BLOOD COUNT 3.5 TH/MM3 (4.0-11.0)
[2017-02-16 05:13] LABS: BICARBONATE 26.6 MEQ/L (21.0-32.0); POTASSIUM 3.7 MEQ/L (3.5-5.1)
[2017-02-16] MEDS: RESP: ALBUTEROL CONC 2.5 MG/0.5 ML NEB NEB SCH ×4 (08:00→19:22)
[2017-02-16] MEDS: DOCUSATE SODIUM 50 MG/SENNA 8.6 MG TAB PO SCH ×3 (09:33→21:00)
[2017-02-16] MEDS: NICOTINE 14 MG/24 HR PATCH T-DERMAL SCH (09:34)
[2017-02-16] MEDS: TIOTROPIUM BROMIDE 18 MCG INH INH SCH (09:35)
[2017-02-16] MEDS: SODIUM CHLORIDE 0.9% FLUSH 10 ML FLUSH IV FLUSH SCH ×2 (09:35→21:00)
--- NOTE | 2017-02-16 10:48 | HHI.FPPN ---
Subjective Remarks No acute events overnight. Except for one episode of low blood pressure as low as 92/62 and some tachycardia as high as 107, patient is afebrile vital signs stable. Patient reports 1 episode of vomiting this morning, after which she felt much better. We also discussed his pain control at length. Patient reports that his pain is currently a 7 or 8 out of 10, but he attributes that to the fact that he has been moving his arm a lot, which exacerbates the pain. Otherwise, he does feel that the pain medications are effective at decreasing the pain, but his pain is still higher than he would like it to be. (Juan Hernández MD R1) Objective Vitals Vital Signs Date Time Temp Pulse Resp B/P Pulse Ox O2 Delivery O2 Flow Rate FiO2 02/16/17 08:34 98 21 02/16/17 08:00 97.7 102 20 122/73 99 02/16/17 06:47 20 02/16/17 04:00 98.2 100 16 92/62 99 02/16/17 02:00 19 02/16/17 00:00 97.8 107 16 111/66 99 02/15/17 20:00 98.1 107 17 105/59 97 02/15/17 19:17 97 02/15/17 16:00 97.8 107 16 99/64 98 02/15/17 12:00 97.3 114 20 102/59 98 I/O 02/15/17 02/15/17 02/15/17 02/16/17 02/16/17 02/16/17 06:59 14:59 22:59 06:59 14:59 22:59 Intake Total 1058 ml 480 ml 480 ml 480 ml Output Total 500 ml 550 ml 600 ml Balance 558 ml -70 ml 480 ml -120 ml Intake Oral 100 ml 480 ml 480 ml 480 ml IV Total 958 ml Output Urine Total 500 ml 550 ml 600 ml # Voids 3 3 # Bowel Movements 0 (Juan Hernández MD R1) Result Diagram: 02/16/1721602/16/17216 Imaging Last Impressions Chest X-Ray 02/14/17 1139 Signed Impressions: Service Date/Time: February 12:37 - CONCLUSION: No acute cardiopulmonary disease. Melanie Garrett MD Upper Extremity Ultrasound 02/14/17 0000 Signed Impressions: Service Date/Time: February 11:43 - CONCLUSION: Normal examination. Melanie Garrett MD Objective Remarks GENERAL: This is a cachectic male patient, uncomfortable but in no acute distress. SKIN: No rashes, ecchymoses or lesions. Cool and dry. HEAD: Atraumatic. Normocephalic. EYES: Pupils equal round and reactive. Extraocular motions intact. No scleral icterus. No injection or drainage. ENT: Throat without erythema, tonsillar hypertrophy or exudate. Uvula midline. Airway patent. CHEST: Port in left upper chest with no signs of erythema, tenderness, purulence. CARDIOVASCULAR: Tachycardic rate and regular rhythm without murmurs, gallops, or rubs. RESPIRATORY: Clear to auscultation. Breath sounds equal bilaterally. No wheezes , rales, or rhonchi. GASTROINTESTINAL: PEG tube in place with no surrounding erythema, tenderness, purulence. Abdomen firm on the right side, hepatomegaly palpated. No tenderness to palpation. MUSCULOSKELETAL: Patient's right arm is swollen and erythematous from the middle of the upper arm to the middle of the lower arm. There appears to be less erythema and swelling relative to yesterday. The area is still warm. Erythema of his axillary region and along his upper arm appears to have regressed around 1.5 in. Other extremities without clubbing, cyanosis, or edema. NEUROLOGICAL: Awake and alert. No focal deficits. Normal speech. (Juan Hernández MD R1) A/P Assessment and Plan Patient is a 56-year-old man with a history of metastatic lung cancer on palliative chemotherapy who presented with right arm cellulitis. Admitted for work-up and treatment. Discharge Planning Due to patient's immunosuppression from palliative chemo, will continue Vanc and cefepime (Day#3; started on 02/14/17) and monitor for improvement in the next few days. (Juan Hernández MD R1) Attending Attestation Patient seen and examined, discussed with Dr. Hernández. I agree with assessment and management as documented and discussed with me. Pt reports continued pain in right arm. He feels it looks less red. He requests that I speak to his mother, and a call was placed / discussion held with mother in patient's room. Pt and mother expressed appreciation for medical update and for the communication. (Tsering Darden MD) Problem List: (1) Cellulitis Status: Acute Plan: Patient is a 56-year-old man with a history of metastatic lung cancer on palliative chemotherapy who presents with right arm and axilla cellulitis. Plan to admit for IV antibiotics given extensive right arm cellulitis and comorbidities. Patient is not neutropenic on admission with an ANC of 2635. Patient received vancomycin and Zosyn in emergency department. Last hospital admission, patient was on incomplete course of vancomycin and cefepime. Plan to continue these antibiotics as below. Vancomycin 1 g IV every 12 hours Cefepime 2 g IV every 8 Continue patient's home medication of Dilaudid 2 mg by mouth every 4 hours scheduled Tylenol for pain 1-2 Dilaudid 0.5 mg IV every 3 hours when necessary for pain 3-5 Dilaudid 1 mg IV every 3 hours when necessary for pain 6-10 Dilaudid 1 mg IV every 3 hours when necessary for breakthrough pain Blood culture - no growth in one day Monitor vital signs Monitor intake and output (2) COPD (chronic obstructive pulmonary disease) Status: Chronic Plan: Patient with a history of COPD well-controlled on medications. Continue home medication of albuterol neb Continue home medication of Atrovent DuoNeb every 4 hours when necessary for shortness of breath (3) Non-small cell lung cancer (NSCLC) Status: Chronic Plan: Undergoing palliative chemo - Following with Dr. Billingsley - last treatment last week. 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 Plan: - Hgb 8 - Will continue to monitor - If Hgb<7, will type and crossmatch and transfuse 2 PRBC units (5) Lymphocytopenia Status: Chronic Plan: WBC 3.5, related to palliative chemo - not neutropenic, lst ANC of 2581 cells/microL - Will continue to monitor (6) Nutrition, metabolism, and development symptoms Status: Acute Plan: Fluids: By mouth and tube feeds Electrolytes: Monitor and replete Nutrition: Tube feeds with tray DVT prophylaxis: Lovenox 40 mg subcutaneous every 12 hours GI prophylaxis: Not currently indicated Chronic medical conditions: COPD as above Continue mirtazapine for depression Continue home Dilaudid for pain control as above Continue lorazepam for anxiety (Juan Hernández MD R1) Juan Hernández MD R1 Feb 16, 2017 10:48 Tsering Darden MD Feb 16, 2017 20:25
[2017-02-16] MEDS: LACTOBACILLUS ACIDOPHILUS TAB PO SCH ×2 (11:26→21:00)
[2017-02-16] MEDS: HYDROmorphone HCL 2 MG TAB PO SCH ×4 (11:26→22:00)
[2017-02-16] MEDS ORDERED: PHARMACY ORDERED LAB ONE (12:45)
[2017-02-16] MEDS: ENOXAPARIN SODIUM 40 MG/0.4 ML SYRINGE SQ SCH (18:00)
[2017-02-16] MEDS: MIRTAZAPINE 15 MG TAB PO SCH (20:34)
[2017-02-16] MEDS ORDERED: HYDROmorphone HCL PCA 6 MG/30 ML IV SCH (20:45)
[2017-02-16] MEDS ORDERED: NALOXONE HCL 0.4 MG/ML AMP IV PRN (20:45)
[2017-02-16] MEDS ORDERED: diphenhydrAMINE HCL 25 MG CAP PO PRN (20:45)
[2017-02-16] MEDS ORDERED: IBUPROFEN 400 MG TAB PO PRN (20:45)
[2017-02-16] MEDS ORDERED: ACETAMINOPHEN 1000 MG/100 ML VIAL IV SCH (21:00)
[2017-02-16] MEDS: REMOVE OLD PATCH T-DERMAL SCH (21:00)
[2017-02-17] VITALS (9 sets, daily range): BP systolic 90–125; BP diastolic 51–66; PULSE 101–120; RESP 16–20; TEMP 96.6–99.6; O2SAT 94–98
[2017-02-17] MEDS: RESP: ALBUTEROL CONC 2.5 MG/0.5 ML NEB NEB SCH ×6 (00:20→20:19)
[2017-02-17] MEDS: VANCOMYCIN INJ 1,000 MG in SODIUM CHLOR 0.9% 250 ML INJ 250 ML IV SCH ×2 (01:00→13:36)
[2017-02-17] MEDS: HYDROmorphone HCL 2 MG TAB PO SCH ×6 (02:00→22:06)
[2017-02-17] MEDS: CEFEPIME INJ 2,000 MG in SODIUM CHLORIDE 0.9% INJ 100 ML IV SCH ×3 (02:00→18:22)
[2017-02-17 07:37] LABS: HEMATOCRIT 23.4 % (39.0-51.0); MEAN CELL VOLUME 93.2 FL (80.0-100.0); MEAN CORPUSCULAR HEMOGLOBIN 29.9 PG (27.0-34.0); MEAN CORPUSCULAR HGB CONC 32.1 % (32.0-36.0); PLATELET COUNT 237 TH/MM3 (150-450); RED BLOOD COUNT 2.51 MIL/MM3 (4.50-5.90); RED CELL DISTRIBUTION WIDTH 19.1 % (11.6-17.2); WHITE BLOOD COUNT 5.1 TH/MM3 (4.0-11.0)
[2017-02-17 07:47] LABS: HEMO FLAGS AUTO DIFF
[2017-02-17] MEDS: NICOTINE 14 MG/24 HR PATCH T-DERMAL SCH (07:55)
[2017-02-17] MEDS: SODIUM CHLORIDE 0.9% FLUSH 10 ML FLUSH IV FLUSH SCH ×2 (07:56→21:00)
[2017-02-17] MEDS: DOCUSATE SODIUM 50 MG/SENNA 8.6 MG TAB PO SCH ×3 (07:56→22:05)
[2017-02-17] MEDS: LACTOBACILLUS ACIDOPHILUS TAB PO SCH ×2 (07:56→22:05)
[2017-02-17] MEDS: TIOTROPIUM BROMIDE 18 MCG INH INH SCH (07:57)
[2017-02-17 08:40] LABS: METAMYELOCYTES 1 % (0-1); MYELOCYTES 4 % (0-0); NEUTROPHIL # MANUAL DIFF 4.2 TH/MM3 (1.8-7.7); POLYS (SEG NEUTROPHILS) 77 % (16-70); WBC DIFF SAMPLE 100
[2017-02-17 08:43] LABS: SCAN/DIFF FINAL DIFF MANUAL
--- NOTE | 2017-02-17 11:54 | HHI.FPPN ---
Subjective Remarks No acute events overnight except that Mr. Nieto continues to complain of right arm pain. He has remained tachycardic throughout this hospital admission, and has remained AFVSS. He reports decreased pain in his right arm. He reports that elevating it with pillows helped most with his pain. He also reports itching of the right arm. He continues to note improvement in right arm appearance. He also has questions about his diet. (Juan Hernández MD R1) Objective Vitals Vital Signs Date Time Temp Pulse Resp B/P Pulse Ox O2 Delivery O2 Flow Rate FiO2 02/17/17 11:20 97 21 02/17/17 08:00 99.2 109 18 111/65 95 02/17/17 07:55 20 02/17/17 07:47 98 21 02/17/17 04:00 99.6 114 16 106/55 96 02/17/17 00:00 96.6 120 16 125/66 96 02/16/17 20:00 99.5 109 17 104/66 98 02/16/17 19:26 97 21 02/16/17 16:00 97.5 101 18 112/68 99 02/16/17 15:27 98 21 02/16/17 12:00 97.0 90 18 115/69 98 I/O 02/16/17 02/16/17 02/16/17 02/17/17 02/17/17 02/17/17 07:00 15:00 23:00 07:00 15:00 23:00 Intake Total 480 ml 720 ml 720 ml 480 ml Output Total 600 ml 500 ml 950 ml 950 ml Balance -120 ml 220 ml -230 ml -470 ml Intake Oral 480 ml 720 ml 720 ml 480 ml Output Urine Total 600 ml 500 ml 950 ml 950 ml # Voids 1 (Juan Hernández MD R1) Result Diagram: 02/17/17 0620 02/16/17 0217 Imaging Last Impressions Chest X-Ray 02/14/17 1139 Signed Impressions: Service Date/Time: February 12:37 - CONCLUSION: No acute cardiopulmonary disease. Melanie Garrett MD Upper Extremity Ultrasound 02/14/17 0000 Signed Impressions: Service Date/Time: February 11:43 - CONCLUSION: Normal examination. Melanie Garrett MD Objective Remarks GENERAL: This is a cachectic male patient, uncomfortable but in no acute distress. SKIN: No rashes, ecchymoses or lesions. Cool and dry. HEAD: Atraumatic. Normocephalic. EYES: Pupils equal round and reactive. Extraocular motions intact. No scleral icterus. No injection or drainage. ENT: Edentulous. Airway patent. CHEST: Port in left upper chest with no signs of erythema, tenderness, purulence. CARDIOVASCULAR: Tachycardic rate and regular rhythm without murmurs, gallops, or rubs. RESPIRATORY: Clear to auscultation. Breath sounds equal bilaterally. No wheezes , rales, or rhonchi. GASTROINTESTINAL: PEG tube in place with no surrounding erythema, tenderness, purulence. Abdomen firm on the right side, hepatomegaly palpated. No tenderness to palpation. MUSCULOSKELETAL: Patient's right arm is swollen and erythematous from the middle of the upper arm to the middle of the lower arm. There appears to be less erythema and swelling relative to yesterday. The area is still warm. Erythema of his axillary region and along his upper arm appears to have regressed. Other extremities without clubbing, cyanosis, or edema. NEUROLOGICAL: Awake and alert. No focal deficits. Normal speech. (Juan Hernández MD R1) A/P Assessment and Plan Patient is a 56-year-old man with a history of metastatic lung cancer on palliative chemotherapy who presented with right arm cellulitis. Admitted for work-up and treatment. Discharge Planning Due to patient's immunosuppression from palliative chemo, will continue Vanc and cefepime (Day#4; started on 02/14/17) and monitor for improvement in the next few days. (Juan Hernández MD R1) Attending Attestation Patient seen and examined, discussed with resident team. I agree with assessment and management as documented and discussed with me. Pt reports Right arm pain. He is excited to try [employer]IE[employer] GUIDE pump. Nurse reports that she has been trying to elevate R arm, but patient continues to adjust pillows. Discussed with patient the importance of keeping R arm elevated. Continue IV antibiotics. (Tsering Darden MD) Problem List: (1) Cellulitis Status: Acute Plan: Patient is a 56-year-old man with a history of metastatic lung cancer on palliative chemotherapy who presents with right arm and axilla cellulitis. Plan to admit for IV antibiotics given extensive right arm cellulitis and comorbidities. Patient is not neutropenic on admission with an ANC of 2635. Patient received vancomycin and Zosyn in emergency department. Last hospital admission, patient was on incomplete course of vancomycin and cefepime. Plan to continue these antibiotics as below. Abx started 02/14/17. Currently on day 4 of abx. Vancomycin 1 g IV every 12 hours Cefepime 2 g IV every 8 Continue patient's home medication of Dilaudid 2 mg by mouth every 4 hours scheduled Dilaudid CH[employer] GUIDE Blood culture - no growth in 3 days Monitor vital signs Monitor intake and output (2) COPD (chronic obstructive pulmonary disease) Status: Chronic Plan: Patient with a history of COPD well-controlled on medications. Continue home medication of albuterol neb Continue home medication of Atrovent DuoNeb every 4 hours when necessary for shortness of breath (3) Non-small cell lung cancer (NSCLC) Status: Chronic Plan: Undergoing palliative chemo - Following with Dr. Billingsely - last treatment last week. 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 Plan: - Hgb 7.5 - Will continue to monitor - If Hgb<7, will type and crossmatch and transfuse 2 PRBC units (5) Lymphocytopenia Status: Chronic Plan: WBC 5.1, related to palliative chemo - not neutropenic, 1st ANC of 2581 cells/microL, has improved since then - Will continue to monitor (6) Nutrition, metabolism, and development symptoms Status: Acute Plan: Fluids: By mouth and tube feeds Electrolytes: Monitor and replete Nutrition: Tube feeds with tray DVT prophylaxis: Lovenox 40 mg subcutaneous every 12 hours GI prophylaxis: Not currently indicated Chronic medical conditions: COPD as above Continue mirtazapine for depression Continue home Dilaudid for pain control as above Continue lorazepam for anxiety (Juan Hernández MD R1) Juan Hernández MD R1 Feb 17, 2017 11:54 Tsering Darden MD Feb 17, 2017 14:04
[2017-02-17] MEDS ORDERED: SODIUM CHLOR 0.9% 1000 ML INJ 1,000 ML IV SCH (13:00)
[2017-02-17] MEDS: PCA - TOTAL MG DILAUDID DELIVERED PER SHIFT OTHER SCH ×2 (14:00→22:00)
[2017-02-17] MEDS: ENOXAPARIN SODIUM 40 MG/0.4 ML SYRINGE SQ SCH (18:22)
[2017-02-17] MEDS: REMOVE OLD PATCH T-DERMAL SCH (21:00)
[2017-02-17] MEDS: MIRTAZAPINE 15 MG TAB PO SCH (22:05)
[2017-02-18] VITALS (7 sets, daily range): BP systolic 91–101; BP diastolic 53–66; PULSE 101–107; RESP 16–18; TEMP 97.3–99; O2SAT 95–99
[2017-02-18] MEDS: RESP: ALBUTEROL CONC 2.5 MG/0.5 ML NEB NEB SCH ×6 (00:19→20:40)
[2017-02-18] MEDS: VANCOMYCIN INJ 1,000 MG in SODIUM CHLOR 0.9% 250 ML INJ 250 ML IV SCH ×2 (00:23→13:23)
[2017-02-18] MEDS: HYDROmorphone HCL 2 MG TAB PO SCH ×6 (01:52→21:49)
[2017-02-18] MEDS: CEFEPIME INJ 2,000 MG in SODIUM CHLORIDE 0.9% INJ 100 ML IV SCH ×3 (01:53→18:29)
[2017-02-18] MEDS: PCA - TOTAL MG DILAUDID DELIVERED PER SHIFT OTHER SCH ×3 (05:01→21:51)
[2017-02-18 05:49] LABS: HEMATOCRIT 21.9 % (39.0-51.0); MEAN CELL VOLUME 93.1 FL (80.0-100.0); MEAN CORPUSCULAR HGB CONC 33.3 % (32.0-36.0); PLATELET COUNT 224 TH/MM3 (150-450); RED BLOOD COUNT 2.35 MIL/MM3 (4.50-5.90); RED CELL DISTRIBUTION WIDTH 19.4 % (11.6-17.2); REVIEW FLAG FINAL; WHITE BLOOD COUNT 5.2 TH/MM3 (4.0-11.0)
[2017-02-18 06:16] LABS: BICARBONATE 25.3 MEQ/L (21.0-32.0); POTASSIUM 4.4 MEQ/L (3.5-5.1)
[2017-02-18] MEDS: HYDROmorphone HCL PCA 6 MG/30 ML IV SCH (08:14)
[2017-02-18] MEDS: DOCUSATE SODIUM 50 MG/SENNA 8.6 MG TAB PO SCH ×2 (09:19→21:00)
[2017-02-18] MEDS: LACTOBACILLUS ACIDOPHILUS TAB PO SCH ×2 (09:20→21:49)
[2017-02-18] MEDS: NICOTINE 14 MG/24 HR PATCH T-DERMAL SCH (09:20)
--- NOTE | 2017-02-18 09:23 | HHI.FPPN ---
Subjective Remarks Patient is a 56-year-old man with a history of metastatic lung cancer on palliative chemotherapy who presented with right arm and axilla cellulitis. Admitted for treatment and pain control. No acute events overnight. Patient states pain was controlled over the weekend, but this morning, endorses 7/10 pain in his right arm. Has been receiving scheduled dilaudid and used the dilaudid SPOOLER RUBBER STRAND pump twice this morning since 5 am. Denies chest pain, abdominal pain, constipation/diarrhea. States he has some mild shortness of breath. (Beatrice Pastor MD R1) Objective Vitals Vital Signs Date Time Temp Pulse Resp B/P Pulse Ox O2 Delivery O2 Flow Rate FiO2 02/18/17 08:42 99.0 101 18 100/65 96 02/18/17 08:15 95 02/18/17 05:01 16 02/18/17 04:00 98.9 101 16 99/59 98 02/18/17 00:00 97.3 104 17 100/65 99 02/17/17 22:00 16 02/17/17 20:19 94 21 02/17/17 20:00 97.5 101 16 101/59 97 02/17/17 16:00 98.6 101 20 97/60 98 115/58 02/17/17 14:00 16 02/17/17 12:00 98.9 105 16 90/54 96 100/51 02/17/17 11:20 97 21 I/O 02/17/17 02/17/17 02/17/17 02/18/17 02/18/17 02/18/17 07:00 15:00 23:00 07:00 15:00 23:00 Intake Total 480 ml 2769 ml 480 ml Output Total 950 ml 1600 ml 1500 ml Balance -470 ml 1169 ml -1020 ml Intake Oral 480 ml 1800 ml 480 ml IV Total 969 ml Output Urine Total 950 ml 1600 ml 1500 ml (Beatrice Pastor MD R1) Result Diagram: 02/18/1752902/18/17529 Objective Remarks GENERAL: This is a cachectic male patient, uncomfortable but in no acute distress. SKIN: No rashes, ecchymoses or lesions. Cool and dry. HEAD: Atraumatic. Normocephalic. EYES: Pupils equal round and reactive. Extraocular motions intact. No scleral icterus. No injection or drainage. ENT: Edentulous. Airway patent. CHEST: Port in left upper chest with no signs of erythema, tenderness, purulence. CARDIOVASCULAR: Tachycardic rate and regular rhythm without murmurs, gallops, or rubs. RESPIRATORY: Clear to auscultation. Crackles heard in the lower base of the left lung. Diminished lung sounds in the right lower lobe. GASTROINTESTINAL: PEG tube in place with no surrounding erythema, tenderness, purulence. Abdomen firm on the right side, hepatomegaly palpated. No tenderness to palpation. MUSCULOSKELETAL: Patient's right arm is swollen and erythematous from the middle of the upper arm to the middle of the lower arm. There appears to be less erythema and swelling relative to yesterday. No calor. Erythema of his axillary region and along his upper arm appears to have regressed. Other extremities without clubbing, cyanosis, or edema. NEUROLOGICAL: Awake and alert. No focal deficits. Normal speech. (Beatrice Pastor MD R1) A/P Assessment and Plan Patient is a 56-year-old man with a history of metastatic lung cancer on palliative chemotherapy who presented with right arm cellulitis. Admitted for treatment and pain control. Patient has been undergoing treatment with Vanc and Cefepime, and right arm erythema from cellulitis appears to have regressed significantly. However, patient continues to struggle with pain control. Received scheduled dilaudid and also has access to dilaudid SPOOLER RUBBER STRAND pump, yet endorsed pain this morning. Will have to assess whether patient is using pump correctly or whether he will need it to be scheduled as well. Discharge Planning Due to patient's immunosuppression from palliative chemo, will continue Vanc and cefepime (Day#5; started on 02/14/17) and obtain better pain control. Possible d/c tomorrow. (Beatrice Pastor MD R1) Attending Attestation Patient seen and examined, discussed with resident team. I agree with assessment and management as documented and discussed with me. Pt complains of nausea today. He has not requested zofran yet - nurse informed to provide this medication. Pt complains of right arm pain, he has not been pushing is SPOOLER RUBBER STRAND button. Educated patient about use of SPOOLER RUBBER STRAND. Continue IV antibiotics, Day #5. (Tsering Darden MD) Problem List: (1) Abnormal lung sounds Status: Acute Plan: Poor lung sounds heard on physical exam today: decreased breath sounds in the right lower lobe, crackles on the left side - satting well on room air, no change in vitals since admission - incentive spirometry - If no improvement on physical tomorrow, CXR (2) Cellulitis Status: Acute Plan: Patient is a 56-year-old man with a history of metastatic lung cancer on palliative chemotherapy who presents with right arm and axilla cellulitis. Plan to admit for IV antibiotics given extensive right arm cellulitis and comorbidities. Patient is not neutropenic on admission with an ANC of 2635. Patient received vancomycin and Zosyn in emergency department. Last hospital admission, patient was on incomplete course of vancomycin and cefepime. Plan to continue these antibiotics as below. Abx started 02/14/17. Currently on day # 5 of abx. Vancomycin 1 g IV every 12 hours Cefepime 2 g IV every 8 home medication of Dilaudid 2 mg by mouth every 4 hours scheduled & Dilaudid SPOOLER RUBBER STRAND blood cx show no growth Monitor vital signs Monitor intake and output (3) COPD (chronic obstructive pulmonary disease) Status: Chronic Plan: Patient with a history of COPD well-controlled on medications. Continue home medication of albuterol neb Continue home medication of Atrovent DuoNeb every 4 hours when necessary for shortness of breath (4) Non-small cell lung cancer (NSCLC) Status: Chronic Plan: Undergoing palliative chemo - Following with Dr. Billingsley - last treatment last week. 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 Plan: Hgb 7.3, asymptomatic Diff: likely due to palliative chemo v bleed v dilutional - 8.4 on admission - stool hemoccult ordered - Ordered type and crossmatch - Daily CBC and BMP, will assess tomorrow - If Hgb<7, will type and crossmatch and transfuse 2 PRBC units (6) Lymphocytopenia Status: Resolved Plan: WBC 5.2, related to palliative chemo - not neutropenic, 1st ANC of 2581 cells/microL, has improved since then - Will continue to monitor (7) Depression Status: Chronic Plan: - con't home med mirtazapine (8) Anxiety Status: Chronic Plan: con't home med lorazepam (9) Nutrition, metabolism, and development symptoms Status: Chronic Plan: Fluids: By mouth and tube feeds Electrolytes: Monitor and replete Nutrition: Tube feeds with tray DVT prophylaxis: Lovenox 40 mg subcutaneous every 12 hours GI prophylaxis: Not currently indicated (Beatrice Pastor MD R1) Beatrice Pastor MD R1 Feb 18, 2017 09:23 Tsering Darden MD Feb 18, 2017 16:02
[2017-02-18] MEDS: SODIUM CHLORIDE 0.9% FLUSH 10 ML FLUSH IV FLUSH SCH ×2 (12:04→21:00)
[2017-02-18] MEDS ORDERED: PHARMACY ORDERED LAB ONE (12:45)
[2017-02-18] MEDS: ENOXAPARIN SODIUM 40 MG/0.4 ML SYRINGE SQ SCH (18:28)
[2017-02-18] MEDS: TIOTROPIUM BROMIDE 18 MCG INH INH SCH (18:33)
[2017-02-18] MEDS: REMOVE OLD PATCH T-DERMAL SCH (21:00)
[2017-02-18] MEDS: MIRTAZAPINE 15 MG TAB PO SCH (21:49)
[2017-02-19] VITALS (9 sets, daily range): BP systolic 96–143; BP diastolic 52–70; PULSE 79–109; RESP 16–20; TEMP 96.2–99; O2SAT 96–100
[2017-02-19] MEDS: RESP: ALBUTEROL CONC 2.5 MG/0.5 ML NEB NEB SCH ×6 (00:12→23:05)
[2017-02-19] MEDS: VANCOMYCIN INJ 1,250 MG in SODIUM CHLOR 0.9% 250 ML INJ 250 ML IV SCH ×2 (01:07→13:26)
[2017-02-19] MEDS: CEFEPIME INJ 2,000 MG in SODIUM CHLORIDE 0.9% INJ 100 ML IV SCH ×3 (01:08→17:46)
[2017-02-19] MEDS: HYDROmorphone HCL 2 MG TAB PO SCH ×2 (01:08→05:10)
[2017-02-19] MEDS: PCA - TOTAL MG DILAUDID DELIVERED PER SHIFT OTHER SCH (05:10)
[2017-02-19 05:50] LABS: HEMATOCRIT 22.6 % (39.0-51.0); MEAN CELL VOLUME 93.1 FL (80.0-100.0); MEAN CORPUSCULAR HEMOGLOBIN 31.3 PG (27.0-34.0); MEAN CORPUSCULAR HGB CONC 33.6 % (32.0-36.0); PLATELET COUNT 240 TH/MM3 (150-450); RED BLOOD COUNT 2.43 MIL/MM3 (4.50-5.90); RED CELL DISTRIBUTION WIDTH 19.3 % (11.6-17.2); REVIEW FLAG FINAL
[2017-02-19 06:09] LABS: BICARBONATE 24.8 MEQ/L (21.0-32.0); POTASSIUM 4.2 MEQ/L (3.5-5.1)
[2017-02-19] MEDS: HYDROmorphone HCL PCA 6 MG/30 ML IV SCH (08:35)
[2017-02-19] MEDS: NICOTINE 14 MG/24 HR PATCH T-DERMAL SCH (08:37)
[2017-02-19] MEDS: DOCUSATE SODIUM 50 MG/SENNA 8.6 MG TAB PO SCH ×2 (08:37→22:29)
[2017-02-19] MEDS: LACTOBACILLUS ACIDOPHILUS TAB PO SCH ×2 (08:38→22:29)
[2017-02-19] MEDS: SODIUM CHLORIDE 0.9% FLUSH 10 ML FLUSH IV FLUSH SCH ×2 (08:39→22:34)
[2017-02-19] MEDS: TIOTROPIUM BROMIDE 18 MCG INH INH SCH (08:39)
[2017-02-19] MEDS ORDERED: MORPHINE SULFATE 30 MG CONTROLLED RELEASE TAB PO SCH (10:45)
[2017-02-19] MEDS: MORPHINE SULFATE 30 MG CONTROLLED RELEASE TAB PO SCH ×2 (13:27→22:30)
--- NOTE | 2017-02-19 13:57 | HHI.FPPN ---
Subjective Remarks No acute events, patient states pain is improved. 01/12 today. Denies constipation, abdominal pain, fevers/chills. Looking forward to leaving hospital soon. (Beatrice Patsor MD R1) Objective Vitals Vital Signs Date Time Temp Pulse Resp B/P Pulse Ox O2 Delivery O2 Flow Rate FiO2 02/19/17 11:30 96.4 109 20 128/70 97 02/19/17 09:10 96 02/19/17 07:55 97.7 108 20 109/61 96 02/19/17 05:37 98.3 97 18 108/56 100 02/19/17 05:10 16 02/19/17 00:57 99.0 105 18 97/52 98 02/19/17 00:16 99 02/18/17 21:51 16 02/18/17 21:37 98.8 101 18 92/53 99 02/18/17 16:00 97.3 107 18 91/60 97 97/63 02/18/17 14:00 18 I/O 02/18/17 02/18/17 02/18/17 02/19/17 02/19/17 02/19/17 07:00 15:00 23:00 07:00 15:00 23:00 Intake Total 480 ml 720 ml 1635 ml Output Total 1500 ml 975 ml 900 ml 400 ml Balance -1020 ml -255 ml 735 ml -400 ml Intake Oral 480 ml 720 ml IV Total 1635 ml Output Urine Total 1500 ml 975 ml 900 ml 400 ml (Beatrice Pastor MD R1) Result Diagram: 02/19/17 0530 02/19/17 0530 Objective Remarks GENERAL: This is a cachectic male patient, uncomfortable but in no acute distress. SKIN: No rashes, ecchymoses or lesions. Cool and dry. HEAD: Atraumatic. Normocephalic. EYES: Pupils equal round and reactive. Extraocular motions intact. No scleral icterus. No injection or drainage. ENT: Edentulous. Airway patent. CHEST: Port in left upper chest with no signs of erythema, tenderness, purulence. CARDIOVASCULAR: Tachycardic rate and regular rhythm without murmurs, gallops, or rubs. RESPIRATORY: Clear to auscultation bilaterally. GASTROINTESTINAL: PEG tube in place with no surrounding erythema, tenderness, purulence. Abdomen firm on the right side, hepatomegaly palpated. No tenderness to palpation. MUSCULOSKELETAL: Patient's right arm is swollen and erythematous from the middle of the upper arm to the middle of the lower arm. There appears to be less erythema and swelling of the right arm and axillary region relative to yesterday. No calor. Other extremities without clubbing, cyanosis, or edema. NEUROLOGICAL: Awake and alert. No focal deficits. Normal speech. Medications and IVs Current Medications Medications (Trade) Dose Ordered Sig/Franny Route Start Time Stop Time Status Last Admin (NS Flush) 2 ml UNSCH PRN IV FLUSH 02/14/17 17:15 (NS Flush) 2 ml BID IV FLUSH 02/14/17 21:00 02/18/17 12:04 (Tylenol) 650 mg Q4H PRN PO 02/14/17 17:15 (Zofran Inj) 4 mg Q6H PRN IVP 02/14/17 17:15 02/18/17 12:00 (Ambien) 5 mg HS PRN PO 02/14/17 17:15 (Lovenox Inj) 40 mg Q24H SQ 02/14/17 18:00 02/18/17 18:28 (Milk Of Magnesia Liq) 30 ml Q12H PRN PO 02/14/17 17:15 (Senokot) 17.2 mg Q12H PRN PO 02/14/17 17:15 (Dulcolax Supp) 10 mg DAILY PRN RECTAL 02/14/17 17:15 Lactulose 30 ml 30 ml DAILY PRN PO 02/14/17 17:15 Cefepime HCl 2000 mg/Sodium Chloride 100 ml @ 200 mls/hr Q8H IV 02/14/17 18:00 02/19/17 08:38 (Vancomycin Consult Pharmacy) 0 ml @ 0 mls/hr UNSCH OTHER 02/14/17 17:15 (Spiriva Inh) 18 mcg DAILY INH 02/15/17 09:00 02/19/17 08:39 (Ativan) 0.5 mg HS PRN PO 02/15/17 00:15 (Remeron) 7.5 mg HS PO 02/15/17 21:00 02/18/17 21:49 (Pill Splitter) 1 ea UNSCH PRN OTHER 02/15/17 00:30 (Habitrol 14 Mg Patch.24 Hr) 1 patch DAILY T-DERMAL 02/15/17 10:15 02/19/17 08:37 Miscellaneous Information 1 HS T-DERMAL 02/15/17 21:00 02/18/17 21:00 (Lactinex) 2 tab Q12HR PO 02/16/17 10:30 02/19/17 08:38 (Narcan Inj) 0.4 mg UNSCH PRN IV 02/16/17 20:45 (Benadryl) 25 mg Q6H PRN PO 02/16/17 20:45 02/17/17 11:04 Senna/Docusate Sodium 2 tab 2 tab BID PO 02/16/17 21:00 02/19/17 08:37 (Vancomycin Inj/ NS 250 ml Inj) 262.5 ml @ 250 mls/hr Q12H IV 02/19/17 01:00 02/19/17 13:26 Miscellaneous Information SPECIFIC LAB TO BE ALONSO... ONCE ONCE .XX 02/20/17 12:45 02/20/17 12:46 (Dilaudid) 2 mg Q4H PRN PO 02/19/17 14:00 (Oramorph Sr) 30 mg Q8HR PO 02/19/17 14:00 02/19/17 13:27 (Beatrice Pastor MD R1) A/P Assessment and Plan Patient is a 56-year-old man with a history of metastatic lung cancer on palliative chemotherapy who presented with right arm cellulitis. Admitted for treatment and pain control. Patient has been undergoing treatment with Vanc and Cefepime, and right arm erythema from cellulitis has improved. Will assess for proper pain control today, plan for D/C tomorrow Discharge Planning Due to patient's immunosuppression from palliative chemo, will continue Vanc and cefepime (Day#6; started on 02/14/17) and obtain better pain control. D/c tomorrow. (Beatrice Pastor MD R1) Attending Attestation Patient seen, examined, and discussed with resident team. I agree with assessment and management as documented and discussed with me. Pt reports that he kept forgetting to push button for TOMATO GRADER. Willing to change to oral medications. Anticipate discharge home tomorrow on oral medications. (Tsering Darden MD) Problem List: (1) Cellulitis Status: Acute Plan: Patient is a 56-year-old man with a history of metastatic lung cancer on palliative chemotherapy who presents with right arm and axilla cellulitis. Plan to admit for IV antibiotics given extensive right arm cellulitis and comorbidities. Patient is not neutropenic on admission with an ANC of 2635. Patient received vancomycin and Zosyn in emergency department. Plan to continue these antibiotics as below. Abx started 02/14/17. Currently on day # 6 of abx. - improved, erythema of the arm and axillary region has regressed Vancomycin 1 g IV every 12 hours Cefepime 2 g IV every 8 With regard to pain control, will stop TOMATO GRADER pump and transition patient to oral meds to prep for d/c. Start 30 mg morphine PO TID w/ home dilaudid (2mg PO Q4H PRN) for breakthrough pain Monitor vital signs and I/Os (2) COPD (chronic obstructive pulmonary disease) Status: Chronic Plan: Patient with a history of COPD well-controlled on medications. Continue home medication of albuterol neb Continue home medication of Atrovent DuoNeb every 4 hours when necessary for shortness of breath (3) Non-small cell lung cancer (NSCLC) Status: Chronic Plan: Undergoing palliative chemo - Following with Dr. Billingsley - last treatment last week. Next treatment on February 27 - patient has a left chest port - will continue to monitor CBC and BMP (4) Anemia due to antineoplastic chemotherapy Status: Resolved Plan: Improved, Hgb 7.6 today, asymptomatic Diff: likely due to palliative chemo v bleed v dilutional - 8.4 on admission - stool hemoccult ordered - If Hgb<7, transfuse 2 PRBC units (type and cross match ordered yesterday) (5) Depression Status: Chronic Plan: - con't home med mirtazapine (6) Anxiety Status: Chronic Plan: con't home med lorazepam (7) Nutrition, metabolism, and development symptoms Status: Chronic Plan: Fluids: By mouth and tube feeds Electrolytes: Monitor and replete Nutrition: Tube feeds with tray DVT prophylaxis: Lovenox 40 mg subcutaneous every 12 hours GI prophylaxis: Not currently indicated (Beatrice Pastor MD R1) Problem Qualifiers (1) Cellulitis: Beatrice Pastor MD R1 Feb 19, 2017 13:57 Tsering Darden MD Feb 19, 2017 20:39
[2017-02-19] MEDS ORDERED: HYDROmorphone HCL 2 MG TAB PO PRN (14:00)
[2017-02-19] MEDS: HYDROmorphone HCL 2 MG TAB PO PRN ×2 (17:45→22:29)
[2017-02-19] MEDS: ENOXAPARIN SODIUM 40 MG/0.4 ML SYRINGE SQ SCH (17:46)
[2017-02-19] MEDS: REMOVE OLD PATCH T-DERMAL SCH (21:00)
[2017-02-19] MEDS: MIRTAZAPINE 15 MG TAB PO SCH (22:29)
[2017-02-20] VITALS: BP 93/63; PULSE 97; RESP 16; TEMP 98.5; O2SAT 98
[2017-02-20] MEDS: VANCOMYCIN INJ 1,250 MG in SODIUM CHLOR 0.9% 250 ML INJ 250 ML IV SCH (01:11)
[2017-02-20] MEDS: RESP: ALBUTEROL CONC 2.5 MG/0.5 ML NEB NEB SCH ×3 (02:47→07:58)
[2017-02-20] MEDS: HYDROmorphone HCL 2 MG TAB PO PRN (02:49)
[2017-02-20] MEDS: CEFEPIME INJ 2,000 MG in SODIUM CHLORIDE 0.9% INJ 100 ML IV SCH (02:51)
[2017-02-20 03:21] VITALS: BP 99/58; PULSE 100
[2017-02-20 04:00] VITALS: BP 86/50; PULSE 101; RESP 16; TEMP 98.9; O2SAT 94
[2017-02-20 05:52] VITALS: BP 91/56
[2017-02-20] MEDS: MORPHINE SULFATE 30 MG CONTROLLED RELEASE TAB PO SCH (06:00)
[2017-02-20 07:08] LABS: HEMATOCRIT 21.7 % (39.0-51.0); MEAN CELL VOLUME 94.1 FL (80.0-100.0); MEAN CORPUSCULAR HEMOGLOBIN 30.5 PG (27.0-34.0); MEAN CORPUSCULAR HGB CONC 32.4 % (32.0-36.0); PLATELET COUNT 252 TH/MM3 (150-450); RED CELL DISTRIBUTION WIDTH 19.4 % (11.6-17.2); REVIEW FLAG FINAL; WHITE BLOOD COUNT 7.1 TH/MM3 (4.0-11.0)
[2017-02-20] MEDS: LACTOBACILLUS ACIDOPHILUS TAB PO SCH (07:23)
[2017-02-20] MEDS: DOCUSATE SODIUM 50 MG/SENNA 8.6 MG TAB PO SCH (07:24)
[2017-02-20] MEDS: TIOTROPIUM BROMIDE 18 MCG INH INH SCH (07:27)
[2017-02-20] MEDS: NICOTINE 14 MG/24 HR PATCH T-DERMAL SCH (07:27)
[2017-02-20] MEDS: SODIUM CHLORIDE 0.9% FLUSH 10 ML FLUSH IV FLUSH SCH (07:27)
[2017-02-20 07:50] VITALS: BP 95/57; PULSE 103; RESP 20; TEMP 98; O2SAT 97
[2017-02-20] MEDS ORDERED: MORP1TAB25 PO (08:01)
[2017-02-20] MEDS ORDERED: DILA2TAB2 PO (08:01)
[2017-02-20] MEDS ORDERED: CLIN1CAP6 PO (08:01)
[2017-02-20] MEDS ORDERED: SULF1TAB23 PO (08:01)
[2017-02-20] MEDS ORDERED: SENN1TAB PO (08:49)
--- NOTE | 2017-02-20 08:50 | HHI.DCPOC ---
Discharge Care Plan Diagnosis: (1) Cellulitis (2) Right arm cellulitis Goals to Promote Your Health * To prevent worsening of your condition and complications, please take antibiotics as prescribed: Clindamycin four times per day and Bactrim twice per day for 9 days. Please repeat CBC within the next week. If hgb < 7, please return to the hospital for a blood transfusion. * To maintain your health at the optimal level, please follow up with Dr. Billingsley on 02/28. Directions to Meet Your Goals Take your medications as prescribed Follow your dietary instruction Follow activity as directed Keep your appointments as scheduled Take your immunizations and boosters as scheduled If your symptoms worsen call your PCP, if no PCP go to Urgent Care Center or Emergency Room Smoking is Dangerous to Your Health. Avoid second hand smoke Call the 24-hour hour crisis hotline for domestic abuse at Juan Hernández MD R1 Feb 20, 2017 08:50
--- NOTE | 2017-02-20 10:09 | HHI.FPPN ---
Subjective Remarks No acute events overnight. Except for some mild tachycardia and some mildly low blood pressure, patient has remained afebrile with vital signs stable. Patient reports feeling much better today. Patient reports that his arm doesn't feel bad , feels pretty good. He reports that he is ready to go home. He does endorse some constipation. He otherwise denies any chest pain, shortness of breath, fever, chills. He reports urinating normally. He does report dyspnea on exertion , but this is a chronic problem for him. He has much better range of motion of his right arm now. (Juan Hernández MD R1) Objective Vitals Vital Signs Date Time Temp Pulse Resp B/P Pulse Ox O2 Delivery O2 Flow Rate FiO2 02/20/17 07:50 98.0 103 20 95/57 97 02/20/17 05:52 91/56 02/20/17 04:00 98.9 101 16 86/50 94 02/20/17 03:21 100 99/58 02/20/17 00:00 98.5 97 16 93/63 98 02/19/17 23:06 96 02/19/17 20:00 96.9 97 16 96/67 97 02/19/17 15:50 97.0 98 20 107/61 97 02/19/17 15:50 96.2 79 20 143/69 02/19/17 11:30 96.4 109 20 128/70 97 I/O 02/19/17 02/19/17 02/19/17 02/20/17 02/20/17 02/20/17 07:00 15:00 23:00 07:00 15:00 23:00 Intake Total 2820 ml 450 ml 400 ml Output Total 400 ml 700 ml 1075 ml 500 ml Balance -400 ml 2120 ml -625 ml -100 ml Intake Oral 480 ml 450 ml 400 ml IV Total 1240 ml Tube Feeding 700 ml Other 400 ml Output Urine Total 400 ml 700 ml 1075 ml 500 ml # Bowel Movements 0 0 0 (Juan Hernández MD R1) Result Diagram: 02/20/17 0448 02/19/17 0530 Objective Remarks GENERAL: This is a cachectic male patient, uncomfortable but in no acute distress. SKIN: No rashes, ecchymoses or lesions. Cool and dry. HEAD: Atraumatic. Normocephalic. EYES: Pupils equal round and reactive. Extraocular motions intact. No scleral icterus. No injection or drainage. ENT: Edentulous. Airway patent. CHEST: Port in left upper chest with no signs of erythema, tenderness, purulence. CARDIOVASCULAR: Borderline Tachycardic rate and regular rhythm without murmurs, gallops, or rubs. RESPIRATORY: Clear to auscultation bilaterally. GASTROINTESTINAL: PEG tube in place with no surrounding erythema, tenderness, purulence. Abdomen firm on the right side, hepatomegaly palpated. No tenderness to palpation. MUSCULOSKELETAL: Patient's right arm is swollen and erythematous from the middle of the upper arm to the middle of the lower arm. There appears to be markedly less erythema and swelling of the right arm and axillary region relative to yesterday. Minimal calor. Patient reports pain with 90 of elbow flexion and pain with external rotation of the arm. Fingers with clubbing. NEUROLOGICAL: Awake and alert. No focal deficits. Normal speech. (Juan Hernández MD R1) A/P Assessment and Plan Patient is a 56-year-old man with a history of metastatic lung cancer on palliative chemotherapy who presented with right arm cellulitis. Admitted for treatment and pain control. Patient has been undergoing treatment with Vanc and Cefepime, and right arm erythema from cellulitis has improved. Will assess for proper pain control today, plan for D/C today Discharge Planning Due to patient's immunosuppression from palliative chemo, will continue Vanc and cefepime (Day#6-7; started on 02/14/17) and obtain better pain control. D/c today on 9 more days of abx for a total of 14 days of abx tx. (Juan Hernández MD R1) Attending Attestation Patient seen and examined, discussed with Dr. Hernández. I agree with assessment and management as documented and discussed with me. Pt feels arm is much improved today. Pain is under control. Discharge home today, with 14 day total course of abx. (Tsering Darden MD) Problem List: (1) Cellulitis Status: Acute Plan: Patient is a 56-year-old man with a history of metastatic lung cancer on palliative chemotherapy who presents with right arm and axilla cellulitis. Plan to admit for IV antibiotics given extensive right arm cellulitis and comorbidities. Patient is not neutropenic on admission with an ANC of 2635. Patient received vancomycin and Zosyn in emergency department. Plan to continue these antibiotics as below. Abx started 02/14/17. Currently on day # 6- 7 of abx. - improved, erythema of the arm and axillary region has regressed Vancomycin 1 g IV every 12 hours Cefepime 2 g IV every 8 30 mg morphine PO TID w/ home dilaudid (4mg PO Q4H PRN) for breakthrough pain Monitor vital signs and I/Os - discharge on Clinda q6h and Bactrim DS q12 hours for 9 more days, for a total of at least 14 days of abx. (2) COPD (chronic obstructive pulmonary disease) Status: Chronic Plan: Patient with a history of COPD well-controlled on medications. Continue home medication of albuterol neb Continue home medication of Atrovent DuoNeb every 4 hours when necessary for shortness of breath (3) Non-small cell lung cancer (NSCLC) Status: Chronic Plan: Undergoing palliative chemo - Following with Dr. Billingsley - last treatment last week. Next treatment on February 27 - patient has a left chest port - will continue to monitor CBC and BMP (4) Anemia due to antineoplastic chemotherapy Status: Resolved Plan: asymptomatic except for some chronic MARCUS Diff: likely due to palliative chemo v bleed v dilutional - 8.4 on admission - stool hemoccult ordered - If Hgb<7, transfuse 2 PRBC units (type and cross match ordered yesterday) - f/u CBC in 2-3 days (5) Depression Status: Chronic Plan: - con't home med mirtazapine (6) Anxiety Status: Chronic Plan: con't home med lorazepam (7) Nutrition, metabolism, and development symptoms Status: Chronic Plan: Fluids: By mouth and tube feeds Electrolytes: Monitor and replete Nutrition: Tube feeds with tray DVT prophylaxis: Lovenox 40 mg subcutaneous every 12 hours GI prophylaxis: Not currently indicated (Juan Hernández MD R1) Problem Qualifiers (1) Cellulitis: Juan Hernández MD R1 Feb 20, 2017 10:09 Tsering Darden MD Feb 20, 2017 20:21
[2017-02-20 10:27] VITALS: O2SAT 97
[2017-02-20] MEDS ORDERED: PHARMACY ORDERED LAB ONE (12:45)
== END 2017-02-20 11:54 | disposition home or self-care (01) | DRG 603 ==
LOC: NEPC 10:20 → NEDA 15:27 → HOCA 22:57
PROVIDERS: ADMIT Family Medicine; ATTEND Family Medicine
DX: L03.113 Cellulitis of right upper limb (principal); R64 Cachexia; D64.81 Anemia due to antineoplastic chemotherapy; C34.90 Malignant neoplasm of unspecified part of unspecified bronchus or lung; I10 Essential (primary) hypertension; D72.810 Lymphocytopenia; Z68.1 Body mass index [BMI] 19.9 or less, adult; J44.9 Chronic obstructive pulmonary disease, unspecified; T45.1X5A Adverse effect of antineoplastic and immunosuppressive drugs, initial encounter; E87.6 Hypokalemia; R00.0 Tachycardia, unspecified; M75.00 Adhesive capsulitis of unspecified shoulder; M75.101 Unspecified rotator cuff tear or rupture of right shoulder, not specified as traumatic; K59.00 Constipation, unspecified; F32.9 Major depressive disorder, single episode, unspecified; F41.9 Anxiety disorder, unspecified; Z72.0 Tobacco use; Z91.041 Radiographic dye allergy status; Z92.3 Personal history of irradiation; Z93.1 Gastrostomy status; Z98.2 Presence of cerebrospinal fluid drainage device
CPT/HCPCS: 71010; 80048; 80053; 80202; 81001; 82550; 83605; 83690; 83735; 84484; 85007; 85027; 85610; 85730; 86850; 86900; 86901; 87040; 93971; 94640; 94664; 96361; 96365; 96367; 96375; J0692; J1170; J1650; J2405; J2543; J3370; J7030; J7050; J7611

== ENCOUNTER 2017-03-20 12:03 | Inpatient (IN) | payer MEDICAID ==
[~2017-03-20] VITALS: Ht 175.3 cm; Wt 69.9 kg
[~2017-03-20 12:03] MED LIST changes: -AMLO10TA2 PO; +CLIN1CAP6 PO; +DILA2TAB2 PO; +IPRA17I INH; +MORP1TAB25 PO; +SENN1TAB PO; +SULF1TAB23 PO
[2017-03-20 17:00] VITALS: BP 153/80; PULSE 102; RESP 18; TEMP 97.6; O2SAT 98
[2017-03-20] MEDS ORDERED: MAGNESIUM HYDROXIDE SUSP 30 ML CUP PO PRN (17:45)
[2017-03-20] MEDS ORDERED: BISACODYL 10 MG SUPP RECTAL PRN (17:45)
[2017-03-20] MEDS ORDERED: LACTULOSE SYRUP 20 GM/30 ML CUP PO PRN (17:45)
[2017-03-20] MEDS ORDERED: SODIUM CHLORIDE 0.9% FLUSH 10 ML FLUSH IV FLUSH PRN (17:45)
[2017-03-20] MEDS ORDERED: LORazepam 0.5 MG TAB PO PRN (17:45)
[2017-03-20] MEDS ORDERED: ONDANSETRON HCL 4 MG/2 ML VIAL IVP PRN (17:45)
[2017-03-20] MEDS ORDERED: SENNOSIDES 8.6 MG TAB PO PRN (17:45)
[2017-03-20] MEDS ORDERED: HYDROmorphone HCL 2 MG TAB PO PRN (17:45)
[2017-03-20] MEDS ORDERED: NALOXONE HCL 0.4 MG/ML AMP IV PRN (17:45)
[2017-03-20] MEDS ORDERED: PILL SPLITTER OTHER PRN (18:00)
[2017-03-20] MEDS ORDERED: CLINDAMYCIN 150 MG CAP PO SCH (18:00)
--- NOTE | 2017-03-20 18:02 | HHI.HP ---
[facility]Staff Admission Diagnosis Diagnoses: Chief Complaint: Sent from Dr. Dr. Billingsley office, right arm with cellulitis and shingles Travel History International Travel<30 Days: No Contact w/Intl Traveler <30 Da: No Traveled to Known Affected Are: No History of Present Illness This is an unfortunate 56-year-old male with significant history of metastatic non-small cell lung cancer under the care of Dr. Billingsley. He was previously on palliative chemotherapy with Alimta. Unfortunately the patient developed enlarging lymphadenopathy to the right axilla while on chemotherapy. He was referred to with radiation oncology and has completed 10 treatments of radiation, his last one was Saturday. Patient's right arm continues with swelling and is very painful to movement, he is on fentanyl patch as well as Dilaudid for pain management. He was recently admitted on February 14, 2017 for right arm cellulitis and was treated with antibiotics. Patient went into see Dr. Dr. Billingsley today to start chemotherapy, however he's noted with lesions to the right anterior shoulder that appear to be zoster and recurrent cellulitis. Request was made to admit the patient to the hospital to treat with acyclovir, he has received the first dose in the office. Patient denies any fever, no chills. He takes most of his nutrition through a PEG tube and uses Jevity. He denies any changes in bowel movement, no diarrhea. States he has very little appetite.He is able to eat some soft foods and mostly liquids. Has a chronic cough and very little sputum, continues to smoke 1 pack a day every 3 days. Denies any chest pain, no shortness of breath. Patient is admitted for further evaluation and treatment. Review of Systems Constitutional: COMPLAINS OF: Weight loss ("lousy"), Chills, DENIES: Diaphoretic episodes, Fatigue, Fever, Weight gain, Dizziness, Change in appetite , Night Sweats Endocrine: DENIES: Heat/cold intolerance, Polydipsia, Polyuria, Polyphagia Eyes: DENIES: Blurred vision, Diplopia, Eye inflammation, Eye pain, Vision loss , Photosensitivity, Double Vision Ears, nose, mouth, throat: DENIES: Tinnitus, Hearing loss, Vertigo, Nasal discharge, Oral lesions, Throat pain, Hoarseness, Ear Pain, Running Nose, Epistaxis, Sinus Pain, Toothache, Odynophagia Respiratory: COMPLAINS OF: Cough, Wheezing, Sputum production, Shortness of breath, DENIES: Apneas, Snoring, Hemoptysis Cardiovascular: DENIES: Chest pain, Palpitations, Syncope, Dyspnea on Exertion , PND, Lower Extremity Edema, Orthopnea, Claudication Gastrointestinal: DENIES: Abdominal pain, Black stools, Bloody stools, Constipation, Diarrhea, Nausea, Vomiting, Difficulty Swallowing, Anorexia Genitourinary: DENIES: Sexual dysfunction, Urinary frequency, Urinary incontinence, Urgency, Hematuria, Dysuria, Nocturia, Penile Discharge, Testicular Pain, Testicular Swelling Musculoskeletal: COMPLAINS OF: Joint pain (right arm pain, swelling ) Integumentary: COMPLAINS OF: Rash (lesions to right anterior shoulder, very painful), DENIES: Abnormal pigmentation, Nail changes, Pruritus Hematologic/lymphatic: COMPLAINS OF: Lymphadenopathy (right arm swelling), DENIES: Bruising Immunologic/allergic: DENIES: Eczema, Urticaria Neurologic: DENIES: Abnormal gait, Headache, Localized weakness, Paresthesias, Seizures, Speech Problems, Tremor, Poor Balance Psychiatric: DENIES: Anxiety, Confusion, Mood changes, Depression, Hallucinations, Agitation, Suicidal Ideation, Homicidal Ideation, Delusions Past Family Social History Past Medical History right arm cellulitis, last admitted 02/14/2017 right shoulder adhesive capsulitis and rotator cuff tear Brain bleed in [id number] metatstatic [id number] Lung Cancer Stage 4 NSC Carcinoma on palliative chemotherapy with Alimta cancer cachexia hoarseness anxiety COPD/emphysema Pneuomothorax in July 2016 Port placed on left chest Past Surgical History Clip in brain for cerebral aneurysm repair BIT TAPPER shunt for AVM Lung and neck biopsy Port placement supraclavicular LN bx PEG tube Reported Medications Reported Meds & Active Scripts Active Senna Plus 8.6-50 mg (Sennosides-Docusate Sodium) 1 Tab Tab 2 Tab PO BID Sulfamethoxazole-Trimethoprim 800-160 Mg Tab 1 Tab PO BID Clindamycin (Clindamycin HCl) 300 Mg Cap 300 Mg PO Q6H Morphine ER (Morphine Sulfate) 30 Mg Tab 30 Mg PO Q8HR Dilaudid (Hydromorphone HCl) 2 Mg Tab 4 Mg PO Q4H PRN Reported Atrovent HFA 12.9 GM Inh (Ipratropium Rosalia) 17 Mcg/Act Aer 2 Puff INH BID Mirtazapine 7.5 Mg Tab 7.5 Mg PO HS Lorazepam 0.5 Mg Tab 0.5 Mg PO HS PRN Hydromorphone (Hydromorphone HCl) 2 Mg Tab 2 Mg PO Q4H PRN Albuterol Neb (Albuterol Sulfate) 2.5 Mg/0.5 Ml Neb 2.5 Mg NEB Q4HR NEB Note: The Albuterol Sulfate Inhalation Solution is concentrated and must be diluted. Read complete instructions carefully before using. Allergies: Coded Allergies: diatrizoate meglumine (Unverified Allergy, Severe, Hives, 03/19/17) gadobenic acid (Unverified Allergy, Severe, Hives, 03/19/17) gadodiamide (Unverified Allergy, Severe, Hives, 03/19/17) gadoteridol (Unverified Allergy, Severe, Hives, 03/19/17) iodixanol (Unverified Allergy, Severe, Hives, 03/19/17) iohexol (Unverified Allergy, Severe, Hives, 03/19/17) carboplatin (Unverified Allergy, Mild, Itching, 03/19/17) Active Ordered Medications Inpatient Medications Albuterol Sulfate (Albuterol Concentrated Neb) 2.5 mg Q4HR NEB NEB ; Start at 20:00; Status UNV Bisacodyl (Dulcolax Supp) 10 mg DAILY PRN RECTAL SEVERE CONSITIPATION; Start at 17:45 Clindamycin HCl (Cleocin) 300 mg Q6HR PO ; Start 03/20/17 at 18:00 Hydromorphone HCl (Dilaudid) 4 mg Q4H PRN PO pain 1-10; Start 03/20/17 at 17:45 ; Status UNV Ipratropium Rosalia (Atrovent Hfa Inh) 2 puff BID INH ; Start 03/20/17 at 21:00 ; Status UNV Lactulose (Lactulose Liq) 30 ml DAILY PRN PO SEVERE CONSITIPATION; Start at 17:45; Status UNV Lorazepam (Ativan) 0.5 mg HS PRN PO ANXIETY AND/OR INSOMNIA; Start 03/20/17 at 17:45; Status UNV Magnesium Hydroxide (Milk Of Magnesia Liq) 30 ml Q12H PRN PO MILD - MODERATE CONSTIPATION; Start 03/20/17 at 17:45; Status UNV Mirtazapine (Remeron) 7.5 mg HS PO ; Start 03/20/17 at 21:00; Status UNV Morphine Sulfate (Oramorph Sr) 30 mg Q8HR PO ; Start 03/20/17 at 22:00; Status UNV Naloxone HCl (Narcan Inj) 0.4 mg UNSCH PRN IV SEE LABEL COMMENTS; Start at 17:45; Status UNV Ondansetron HCl (Zofran Inj) 4 mg Q6H PRN IVP NAUSEA OR VOMITING; Start at 17:45; Status UNV Senna/Docusate Sodium (Alma-Colace) 2 tab BID PO ; Start 03/20/17 at 21:00 Sennosides (Senokot) 17.2 mg Q12H PRN PO MODERATE - SEVERE CONSTIPATION; Start 03/20/17 at 17:45; Status UNV Sodium Chloride (NS Flush) 2 ml BID IV FLUSH ; Start 03/20/17 at 21:00; Status UNV Trimethoprim/ Sulfamethoxazole (Bactrim Ds 800-160 Mg) 1 tab BID PO ; Start at 21:00; Status UNV Family History Both parents are alive remarkable for esophageal cancer in father Social History Lives with parents, not smokes 1 pack every 3 days no ETOH no substance abuse Physical Exam Vital Signs Vital Signs Date Time Temp Pulse Resp B/P Pulse Ox O2 Delivery O2 Flow Rate FiO2 03/20/17 17:00 97.6 102 18 153/80 98 Physical Exam GENERAL: This is a malnourished, chronically ill-appearing male. Appears older than stated age. SKIN: No rashes, ecchymoses or lesions. Cool and dry. HEAD: Atraumatic. Normocephalic. No temporal or scalp tenderness. EYES: Pupils equal round and reactive. Extraocular motions intact. No scleral icterus. No injection or drainage. ENT: Nose without bleeding, purulent drainage or septal hematoma. Throat without erythema, tonsillar hypertrophy or exudate. Uvula midline. Airway patent. NECK: Trachea midline. No JVD or lymphadenopathy. Supple, nontender, no meningeal signs. CARDIOVASCULAR: Regular rate and rhythm without murmurs, gallops, or rubs. RESPIRATORY: Clear to auscultation. Breath sounds equal bilaterally. No wheezes , rales, or rhonchi. GASTROINTESTINAL: Abdomen soft, non-tender, nondistended. No hepato-splenomegaly , or palpable masses. No guarding. MUSCULOSKELETAL: Bilateral lower extremities without any clubbing, no cyanosis no edema, pedal pulses 2+ bilaterally. Right upper extremity is noted with coarse appearing skin. Hiren color skin. Arm is edematous, tender to palpation and with limitation in range of motion due to pain. NEUROLOGICAL: Awake and alert. Cranial nerves II through XII intact. Motor and sensory grossly within normal limits. Five out of 5 muscle strength in all muscle groups. Normal speech. Assessment and Plan Problem List: (1) Lymphadenopathy, axillary (2) Right arm cellulitis (3) Shingles (4) Non-small cell lung cancer (NSCLC) (5) HTN (hypertension) (6) Malignant cachexia (7) Depression (8) Tobacco abuse (9) COPD (chronic obstructive pulmonary disease) (10) Anxiety (11) Underweight Assessment and Plan Admit to Dr. Patel 56-year-old male with history of metastatic non-small cell lung cancer who has developed enlarging lymphadenopathy to the right axilla, treated with radiation. Recently treated for cellulitis, now presents with ongoing swelling and tenderness, as well as findings of zoster lesions to the right anterior shoulder. Recurrent cellulitis with shingles Right arm it lymphadenopathy, status post radiation -Consult infectious disease for assistance -Patient has been started on Bactrim by mouth, clindamycin -We'll start acyclovir -Continue with current pain management -Wound care has been consulted Metastatic non-small cell carcinoma, was supposed to start chemotherapy today Hematology is consulted COPD Tobacco abuse DuoNeb's as needed for wheezing Tobacco abuse counseling Malnourished, cachectic Has PEG tube Diet as tolerated We will start Jevity 1.5 at 30 an hour Dietary consultation Anxiety Depression Continue with Remeron 7.5 mg by mouth daily at bedtime Home medications reviewed, initiated as indicated Heparin for DVT prophylaxis CBC and BMP have been ordered, we will follow up on results Plan of care has been discussed with the patient, attending and registered nurse. Further management of the patient will be dependent on the hospital course Patient's condition is guarded This patient was seen by myself and Dr. Patel, this H&P is written on his behalf Physician Certification 2 Midnight Certification Type: Admission for Inpatient Services Order for Inpatient Services The services are ordered in accordance with Medicare regulations or non- Medicare payer requirements, as applicable. In the case of services not specified as inpatient-only, they are appropriately provided as inpatient services in accordance with the 2-midnight benchmark. Estimated LOS (days): 2 2 days is the estimated time the patient will need to remain in the hospital, assuming treatment plan goals are met and no additional complications. Post-Hospital Plan: Home Health Problem Qualifiers (1) Shingles: Qualified Code: B02.8 - Herpes zoster with other complication (2) Non-small cell lung cancer (NSCLC): Qualified Code: C34.91 - Non-small cell cancer of right lung (3) HTN (hypertension): Qualified Code: I10 - Essential hypertension (4) Depression: Qualified Code: F32.9 - Depression, unspecified depression type (5) COPD (chronic obstructive pulmonary disease): Qualified Code: J44.9 - Chronic obstructive pulmonary disease, unspecified COPD type Beatrice Monreal Mar 20, 2017 18:02
[2017-03-20] MEDS: HYDROmorphone HCL 2 MG TAB PO PRN (19:33)
[2017-03-20 20:00] VITALS: BP 134/79; PULSE 104; RESP 16; TEMP 97.9; O2SAT 99
[2017-03-20] MEDS ORDERED: SULFAMETHOX IV SCH ×2 (20:00)
[2017-03-20] MEDS ORDERED: WATER IV SCH ×2 (20:00)
[2017-03-20] MEDS ORDERED: TRIMETHOPRIM IV SCH ×2 (20:00)
[2017-03-20] MEDS ORDERED: DEXTROSE 5% IV SCH ×2 (20:00)
--- NOTE | 2017-03-20 20:23 | RADRPT ---
EXAM DATE/TIME: 03/20/2017 20:06 [facility] COMPARISON: CHEST SINGLE AP, January 23, 2017, 11:51. CHEST SINGLE AP, July 11, 2016, 11:25. CHEST SINGLE AP, February 14, 2017, 12:37. INDICATIONS : Short of breath. MEDICAL HISTORY : Chronic obstructive pulmonary disease. Carcinoma, lung. SURGICAL HISTORY : None. ENCOUNTER: Initial ACUITY: 1 day PAIN SCORE: 0/10 LOCATION: Bilateral chest FINDINGS: There is a CT compatible [id number] in place from the left subclavian approach with the tip overly ing the SVC. There is a G-tube in place. There is a wire overlying the right neck and right chest. Th e heart size is normal. The lungs are grossly clear. No effusion is seen. CONCLUSION: No acute disease. Chas Amaya MD on March 20, 2017 at 20:20 Board Certified Radiologist. This report was verified electronically.
[2017-03-20 20:30] VITALS: O2SAT 98
[2017-03-20] MEDS: RESP: ALBUTEROL 2.5 MG/3 ML NEB (SCH) NEB (20:30)
[2017-03-20] MEDS ORDERED: SULFAMETHOXAZOLE-TRIMETHOPRIM DS 800-160 MG TAB PO SCH (21:00)
[2017-03-20] MEDS: REMOVE OLD PATCH T-DERMAL SCH (21:00)
[2017-03-20] MEDS ORDERED: DOCUSATE SODIUM 50 MG/SENNA 8.6 MG TAB PO SCH (21:00)
[2017-03-20] MEDS ORDERED: IPRATROPIUM BROMIDE 17 MCG/ACT 12.9 GM INHALER INH SCH (21:00)
[2017-03-20] MEDS: MORPHINE SULFATE 30 MG CONTROLLED RELEASE TAB PO SCH (21:40)
[2017-03-20] MEDS: DOCUSATE SODIUM 50 MG/SENNA 8.6 MG TAB PO SCH (21:40)
[2017-03-20] MEDS: MIRTAZAPINE 15 MG TAB PO SCH (21:40)
[2017-03-20] MEDS: SODIUM CHLORIDE 0.9% FLUSH 10 ML FLUSH IV FLUSH SCH (21:41)
[2017-03-20] MEDS: HEPARIN SODIUM - SQ 10,000 UNITS/ML VIAL SQ SCH (21:41)
[2017-03-20] MEDS: SODIUM CHLORIDE 0.9% IV SCH (21:42)
[2017-03-20] MEDS: ACYCLOVIR IV SCH (21:42)
[2017-03-20] MEDS: CLINDAMYCIN INJ 300 MG in SODIUM CHLORIDE 0.9% INJ 100 ML IV SCH (22:39)
[2017-03-21] VITALS (10 sets, daily range): BP systolic 95–142; BP diastolic 49–86; PULSE 88–113; RESP 17–20; TEMP 96.3–98.5; O2SAT 90–98
[2017-03-21] MEDS: NICOTINE 21 MG/24 HR PATCH T-DERMAL SCH ×2 (00:11→08:56)
[2017-03-21] MEDS: TRIMETHOPRIM IV SCH ×6 (00:12→13:50)
[2017-03-21] MEDS: DEXTROSE 5% IV SCH ×6 (00:12→13:50)
[2017-03-21] MEDS: WATE IV SCH ×6 (00:12→13:50)
[2017-03-21] MEDS: SULFAMETHOX IV SCH ×6 (00:12→13:50)
[2017-03-21] MEDS: HYDROmorphone HCL 2 MG TAB PO PRN ×3 (00:13→16:24)
[2017-03-21] MEDS: RESP: ALBUTEROL 2.5 MG/3 ML NEB (SCH) NEB ×7 (00:30→23:38)
[2017-03-21] MEDS: CLINDAMYCIN INJ 300 MG in SODIUM CHLORIDE 0.9% INJ 100 ML IV SCH ×2 (03:31→08:55)
[2017-03-21] MEDS: ACYCLOVIR IV SCH ×2 (04:48→12:23)
[2017-03-21] MEDS: SODIUM CHLORIDE 0.9% IV SCH ×2 (04:48→12:23)
[2017-03-21] MEDS: MORPHINE SULFATE 30 MG CONTROLLED RELEASE TAB PO SCH ×3 (05:32→22:17)
[2017-03-21 05:34] LABS: AUTOMATED NEUTROPHIL # 8.7 TH/MM3 (1.8-7.7); BASOPHIL % 0.2 % (0.0-2.0); EOSINOPHIL % 0.1 % (0.0-4.0); HEMATOCRIT 24.7 % (39.0-51.0); HEMO FLAGS DIFF FINAL; LYMPH % 2.7 % (9.0-44.0); LYMPHOCYTE # 0.3 TH/MM3 (1.0-4.8); MEAN CELL VOLUME 88.1 FL (80.0-100.0); MEAN CORPUSCULAR HEMOGLOBIN 28.4 PG (27.0-34.0); MEAN CORPUSCULAR HGB CONC 32.3 % (32.0-36.0); MONO % 7.3 % (0.0-8.0); NEUT % 89.7 % (16.0-70.0); PLATELET COUNT 410 TH/MM3 (150-450); RED CELL DISTRIBUTION WIDTH 19.7 % (11.6-17.2); WHITE BLOOD COUNT 9.7 TH/MM3 (4.0-11.0)
[2017-03-21 06:12] LABS: BICARBONATE 29.9 MEQ/L (21.0-32.0); POTASSIUM 3.4 MEQ/L (3.5-5.1)
--- NOTE | 2017-03-21 08:37 | MB ---
cc: AISHA FUCHS M.D. DATE OF CONSULTATION March 21, [address] Ptael REASON FOR CONSULTATION Oncology consult to render opinion regarding patient with metastatic lung cancer admitted with increased pain of the right upper extremities and swelling. HISTORY OF PRESENT ILLNESS The patient is a very pleasant 56-year-old male with a history of metastatic non-small cell lung cancer admitted to the hospital yesterday with increased pain in the right shoulder with increased swelling. He has been seeing Dr. Billingsley and receiving palliative Alimta for the metastatic cancer and reportedly he has good control of the disease. Recently he was found to have increased right axillary lymphadenopathy. He was referred to Dr. Garcia and received palliative radiation to the right axillary area which he completed this past Saturday. The patient was admitted to the hospital in the middle of February with right arm cellulitis and was treated with antibiotic. However, he stated that about three weeks ago he started having increased swelling and tenderness. It is up to the point that he could partly move his right arm. There was also a question that he may have shingles involving his right arm. He denies any fever or chills. He has some tenderness in the right chest wall but no chest pressure, palpitation. He has baseline mild shortness of breath. He denies any cough or hemoptysis. Denies nausea, vomiting, abdominal pain. Denies any diarrhea. Denies any pain anywhere. He denies any headache. He denies any focal numbness or weakness. PAST MEDICAL HISTORY 1. Metastatic non-small cell lung carcinoma. 2. Right arm cellulitis. 3. Right shoulder rotator cuff tear. 4. 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 5. Cachexia. 6. Anxiety. 7. Chronic obstructive pulmonary disease. 8. Pneumothorax. PAST SURGICAL HISTORY 1. PEG tube placement. 2. Port placement. 3. Cerebral aneurysm clipping. 4. 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 FAMILY HISTORY Noncontributory. SOCIAL HISTORY He is positive for tobacco use; has cut down to one pack every three days. Denies any alcohol use. ALLERGIES None documented on his medical record. MEDICATIONS 1. Morphine sulfate. 2. Bactrim. 3. Remeron. 4. Atrovent. 5. Alma-Colace. 6. Heparin. 7. Clindamycin. 8. Nicotine patch. 9. Albuterol. 10. Acyclovir. REVIEW OF SYSTEMS CONSTITUTIONAL: As above. EYES: Denies any blurry vision, double vision. ENT: No mouth sores or voice changes. CARDIOVASCULAR: No chest pressure or palpitation. RESPIRATORY: As above. GI: Denies nausea, vomiting, diarrhea or abdominal pain. : No dysuria or hematuria. MUSCULOSKELETAL: As above. HEMATOLOGY: Negative. ENDOCRINE: Negative. DERMATOLOGY: As above. NEUROLOGIC: Negative. PHYSICAL EXAMINATION VITAL SIGNS: Temperature 97, blood pressure 142/86, O2 saturation 97% on room air. GENERAL: He is alert and oriented x 3, in no acute distress. HEENT: Atraumatic, normocephalic. Pupils equal, round and reactive to light. Extraocular muscles intact. No scleral icterus. Oropharynx - dry mucosa. No lesion or thrush. NECK: No thyromegaly. No palpable masses. LYMPHATICS: No palpable cervical, left axillary or inguinal lymph node. CARDIOVASCULAR: Regular S1-S2. No murmur. LUGNS: Clear to auscultation anteriorly. ABDOMEN: Soft, nontender. I could not palpate liver or spleen. EXTREMITIES: The right upper extremity has significant edema, is very tender. He is edematous from the shoulder all the way down to the fingers. He can only wiggle fingers and has significant tenderness with movement. There is hyperpigmentation in his upper arm. There are a few blister-like lesions noted. SKIN: As above. NEUROLOGIC: Exam nonfocal. LABORATORY DATA Reviewed. ASSESSMENT 1. Right upper extremity edema and pain. The patient says it has been getting worse in the last three weeks. He recently was found to have progression of disease in right axillary lymph node and received palliative radiation which he completed this past Saturday. He was admitted to the hospital in the middle of February for cellulitis of the right arm and treated with antibiotic. Patient states it did not improve and over the last three weeks he has increased pain and swelling. He also has a few small blister-like lesions in the right upper arm and there is a question whether he has shingles. He was started on acyclovir. He had an ultrasound during his last visit which did not show any deep venous thrombosis. I would recommend repeating an ultrasound just to make sure he has not developed a deep venous thrombosis as he is not really moving the arm. Also, I am going to get an MRI of the shoulder and axillary areas to see he if he had developed brachial plexopathy due to invasion of his cancer. I will also get a CT of the chest to see if there is any progression of disease. The swelling in part could also be due to lymphedema. He has been started on antibiotics and pending Infectious Disease evaluation. 2. Metastatic non-small cell lung cancer. He was first diagnosed in 2014. He recently was on palliative Alimta and reportedly disease was controlled until he developed the progression of disease in the right axillary lymph node. He just completed radiation this past Saturday. We will get a CT scan for further evaluation. 3. History of brain hemorrhage due to aneurysm status post clipping. 4. Cachexia. 5. Anxiety. 6. Anemia likely due to anemia of chronic disease. 7. Chronic obstructive pulmonary disease. PLAN 1. Get an MRI of the right shoulder and axillary area. 1. CT of the chest. 2. Ultrasound right upper extremity. 3. Continue antibiotic per primary team and Infectious Disease. 4. Hold chemotherapy for now. Thank you Dr. Patel for asking me to see this patient. MD SAHIL Vaz/IDRIS /7:56 AM /8:18 AM DIAZ
[2017-03-21] MEDS: DOCUSATE SODIUM 50 MG/SENNA 8.6 MG TAB PO SCH ×2 (08:55→22:16)
[2017-03-21] MEDS: REMOVE OLD NICOTINE PATCH T-DERMAL SCH (09:00)
[2017-03-21] MEDS: SODIUM CHLORIDE 0.9% FLUSH 10 ML FLUSH IV FLUSH SCH ×2 (09:00→22:17)
[2017-03-21] MEDS: HEPARIN SODIUM - SQ 10,000 UNITS/ML VIAL SQ SCH ×2 (09:01→22:17)
[2017-03-21] MEDS: TIOTROPIUM BROMIDE 18 MCG INH INH SCH (12:22)
--- NOTE | 2017-03-21 12:32 | RADRPT ---
EXAM DATE/TIME: 03/21/2017 11:31 [facility] COMPARISON: US ARM RIGHT VENOUS DOPPLER, February 14, 2017, 11:43. INDICATIONS : Right arm edema. MEDICAL HISTORY : Carcinoma, lung. Hydrocephalus. HTN. COPD. Dyspnea. Anemia. SURGICAL HISTORY : Aneurysm repair. Chemotherapy. Radiation therapy. ENCOUNTER: Subsequent ACUITY: 3 months PAIN SCORE: 5/10 LOCATION: Right arm. FINDINGS: There is spontaneous flow documented in the brachial, basilic, cephalic, axillary, and subclavian vei ns. The vessels are compressible and augmentation response is documented. No filling defects are se en. The flow is phasic with respiration. Direction of flow in the jugular vein is caudal. There is a hypoechoic mass/collection adjacent to the subclavian vasculature measuring 7.8 x 1.9 x 3.4 cm whic h is indeterminate. CONCLUSION: 1. No evidence of deep venous thrombosis within the right upper extremity. 2. Hypoechoic mass/collection adjacent to the right subclavian vasculature measuring 7.8 x 1.9 x 3.4 cm which is indeterminate. Chaparro Hawkins MD on March 21, 2017 at 12:28 Board Certified Radiologist. This report was verified electronically.
--- NOTE | 2017-03-21 13:56 | PD.ID.CON ---
History of Present Illness Service ID Consult Requested By Dr Ventura Reason for Consult RUE cellulitis Primary Care Physician Non-Staff Diagnoses: History of Present Illness This is a 56-year-old male with significant history of metastatic non-small cell lung cancer under the care of Dr. Billingsley. on palliative chemotherapy with Alimta. He was initially diagnosed with lung cancer 2 yrs ago andf it was inoperable Apparently after initial chemo he improved but then is disaese recurre in the neck , chest wall and axilla He developped pain, swelling and redness x 1.5 mos and it got progressively worse. He just completed 10 cycles of XRT he took some oral abx but it did not really helped hi He presetned with worsening local smx over last week (pain, swelling and redness ), biut has no fever and no leukocytosis Hypoechoic mass/collection adjacent to the right subclavian vasculature measuring 7.8 x 1.9 x 3.4 cm which is indeterminate. [id number] on IV clinda and Bactrim Review of Systems Except as stated in HPI: all other systems reviewed are Neg Past Family Social History Allergies: Coded Allergies: diatrizoate meglumine (Unverified Allergy, Severe, Hives, 03/19/17) gadobenic acid (Unverified Allergy, Severe, Hives, 03/19/17) gadodiamide (Unverified Allergy, Severe, Hives, 03/19/17) gadoteridol (Unverified Allergy, Severe, Hives, 03/19/17) iodixanol (Unverified Allergy, Severe, Hives, 03/19/17) iohexol (Unverified Allergy, Severe, Hives, 03/19/17) carboplatin (Unverified Allergy, Mild, Itching, 03/19/17) MRI PRECAUTION (Verified Adverse Reaction, Severe, Shunt & aneurysm clip no info [employer] [facility] L[facility] 03/21/17, 03/21/17) Past Medical History right arm cellulitis, last admitted 02/14/2017 right shoulder adhesive capsulitis and rotator cuff tear Brain bleed in [id number] metatstatic [id number] Lung Cancer Stage 4 NSC Carcinoma on palliative chemotherapy with Alimta cancer cachexia hoarseness anxiety COPD/emphysema Pneuomothorax in July 2016 Port placed on left chest h/o chickenpox - remote Past Surgical History Clip in brain for cerebral aneurysm repair 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 DOMESTIC shunt for AVM Lung and neck biopsy Port placement supraclavicular LN bx PEG tube Active Ordered Medications Medications where reviewed in EMR Antibiotics Include: acyclovir clindamycin trim-sulfa Family History Both parents are alive remarkable for esophageal cancer in father Social History Lives with parents, not smokes 1 pack every 3 days no ETOH no substance abuse Physical Exam Vital Signs Vital Signs Date Time Temp Pulse Resp B/P Pulse Ox O2 Delivery O2 Flow Rate FiO2 03/21/17 12:00 98.0 103 18 103/56 96 03/21/17 08:45 97 21 03/21/17 08:00 97.2 103 20 95/52 97 03/21/17 06:41 16 03/21/17 04:00 97.0 88 17 142/86 97 03/21/17 03:58 98 03/21/17 01:39 16 03/21/17 00:33 98 03/21/17 00:00 96.3 92 17 101/73 98 03/20/17 20:30 98 21 03/20/17 20:00 97.9 104 16 134/79 99 03/20/17 17:00 97.6 102 18 153/80 98 Physical Exam CONSTITUTIONAL/GENERAL: This is an adequately nourished patient, in no apparent distress. TUBES/LINES/DRAINS: SKIN: No jaundice or rashes, or lesions. Skin temperature appropriate. Not diaphoretic. HEAD: Atraumatic. Normocephalic. EYES: Pupils equal and round and reactive. Extraocular motions intact. No scleral icterus. No injection or drainage. Fundi not examined. ENT: Hearing grossly normal. Nose without bleeding or purulent drainage. Throat without visible erythema, exudates, masses, or lesions. Edentulous NECK: Trachea midline. Supple, nontender. CARDIOVASCULAR: Regular rate and rhythm without murmurs, gallops, or rubs. No JVD. Peripheral pulses symmetric. RESPIRATORY/CHEST: Symmetric, unlabored respirations. Clear to auscultation. Breath sounds equal bilaterally. No wheezes, rales, or rhonchi. GASTROINTESTINAL: Abdomen soft, non-tender, nondistended. No hepato-splenomegaly , or palpable masses. No guarding. Bowel sounds present. GENITOURINARY: Without palpable bladder distension. Prince catheter in place. MUSCULOSKELETAL: Extremities without cyanosis, or BLE/LUE edema. No joint tenderness or effusion noted. No calf tenderness. + prominent nail.clubbing, STATIS LOCALIS: R Axilla and R chest area is indurated with post XRT changes RUE is edematous (2-2.5 X bigger than contralateral, but not tight, skin with erythema evende above elbow and lichenification, prominent papillae on the skin in diffuse pattern No vesicles or crusted lesions noted The lesions observed are grouped in diffuse, but not linear pattern LYMPHATICS: No palpable cervical or supraclavicular adenopathy. NEUROLOGICAL: Awake and alert. Motor and sensory grossly within normal limits. Follows commands. Clear speech . Moves all extremities. PSYCHIATRIC: No obvious anxiety/depression. no apparent hallucinations or other psychotic thought process. Laboratory Laboratory Tests Test 03/21/17 03/21/17 05:00 05:08 White Blood Count 9.7 Red Blood Count 2.80 Hemoglobin 8.0 Hematocrit 24.7 Mean Corpuscular Volume 88.1 Mean Corpuscular Hemoglobin 28.4 Mean Corpuscular Hemoglobin 32.3 Concent Red Cell Distribution Width 19.7 Platelet Count 410 Mean Platelet Volume 6.7 Neutrophils (%) (Auto) 89.7 Lymphocytes (%) (Auto) 2.7 Monocytes (%) (Auto) 7.3 Eosinophils (%) (Auto) 0.1 Basophils (%) (Auto) 0.2 Neutrophils # (Auto) 8.7 Lymphocytes # (Auto) 0.3 Monocytes # (Auto) 0.7 Eosinophils # (Auto) 0.0 Basophils # (Auto) 0.0 CBC Comment DIFF FINAL Differential Comment Sodium Level 135 Potassium Level 3.4 Chloride Level 98 Carbon Dioxide Level 29.9 Anion Gap 7 Blood Urea Nitrogen 17 Creatinine 0.51 Estimat Glomerular Filtration 168 Rate Random Glucose 95 Calcium Level 7.9 Result Diagram: 03/21/17 0500 03/21/17 0508 Imaging Last Impressions Upper Extremity Ultrasound 03/21/17 0000 Signed Impressions: Service Date/Time: March 11:31 - CONCLUSION: 1. No evidence of deep venous thrombosis within the right upper extremity. 2. Hypoechoic mass/collection adjacent to the right subclavian vasculature measuring 7.8 x 1.9 x 3.4 cm which is indeterminate. Chaparro Hawkins MD Chest X-Ray 03/20/17 0000 Signed Impressions: Service Date/Time: Monday, March 20, 2017 20:06 - CONCLUSION: No acute disease. Chas Amaya MD Assessment and Plan Assessment and Plan Metastatic lung CA R axilla mass RUE chronic lymphedema (axilla mass 2/2 lymph nodes mets and XRT are contributing factors) Chronic/recurrent RUE cellulitis in the settings of unresolving/worsening lymphedema Clinically no e/o shingles rec;s: - cont clindamycin - start cefazoline - dc bactrim dc acycloovir dc airbnorn isolation Discussed Condition With Kelsea Burrell MD Mar 21, 2017 13:56
--- NOTE | 2017-03-21 15:22 | HHI.PR ---
Subjective Remarks Resting in bed Visitor , talking with patient and given supportive care Right arm 4+ edema with minimal elevation Mild tachycardia pulse 103 (Lenka Pollock) Objective Objective Results - Vital Signs Date Time Temp Pulse Resp B/P Pulse Ox O2 Delivery O2 Flow Rate FiO2 03/21/17 12:00 98.0 103 18 103/56 96 03/21/17 08:45 97 21 03/21/17 08:00 97.2 103 20 95/52 97 03/21/17 06:41 16 03/21/17 04:00 97.0 88 17 142/86 97 03/21/17 03:58 98 03/21/17 01:39 16 03/21/17 00:33 98 03/21/17 00:00 96.3 92 17 101/73 98 03/20/17 20:30 98 21 03/20/17 20:00 97.9 104 16 134/79 99 03/20/17 17:00 97.6 102 18 153/80 98 I/O 03/20/17 03/20/17 03/20/17 03/21/17 03/21/17 03/21/17 06:59 14:59 22:59 06:59 14:59 22:59 Intake Total 840 ml Output Total 1500 ml Balance -1500 ml 840 ml Intake Oral 840 ml Output Urine Total 1500 ml # Voids 4 # Bowel Movements 0 (Lenka Pollock) Result Diagram: 03/21/17 0500 03/21/17 0508 ROS General: Fatigue, Weakness, Other (10 point ROS done positives noted) Neuro/MS: Other (right arm lymphedema elevated mildly, shingles right shoulder) Skin: Other (pain management) (Lenka Pollock) Physical Exam Physical Exam PHYSICAL EXAMINATION GENERAL: This is a slim male resting in the bed He is alert and awake, holding very still for his left arm pain management and comfort HEAD: Normocephalic Facial features appear symmetric. OROPHARYNGEAL: Oropharynx carries NECK: Supple. Trachea midline without deviation. CARDIAC: Regular rhythm, regular rate, S1 and S2 are heard. mild tachycardia 103 LUNGS: Diminished to auscultation. Volumes low to normal No use of accessory muscles on inspiration or expiration. ABDOMEN: Flat, Soft, nontender, Bowel sounds are heard in all four quadrants. EXTREMITIES: Lymphedema right arm NEUROLOGICAL: Patient mood and affect appropriate. SKIN:Warm and dry (Lenka Pollock) A/P Assessment and Plan Vital signs reviewed, pulse mildly tachycardic 103 afebrile, BP noted 142/86, but having pain off and on requiring pain management Labs reviewed anemia, stable for now hemoglobin 8 Right upper extremity edema and pain. She states progression of disease in right axillary lymph node received palliative radiation. Lymphedema continues 3-4+ with extreme pain Appreciate ID consult and plan a care, currently patient's on IV clindamycin Possible shingles, placed on acyclovir Metastatic non-small cell lung cancer. Appreciate oncology plan a care and consult History of brain hemorrhage due to aneurysm status post clipping. ` Patient is alert and understands process, we'll monitor his mental status, medical management Cachexia. Encourage food, liquids of his choice encouraged to eat Anxiety and acute on chronic pain Pain and medical management Anemia likely due to anemia of chronic disease. Hemoglobin 8 we'll continue to monitor labs Chronic obstructive pulmonary disease. Encouraged to cough and deep breathe, incentive spirometry at bedside ordered Discussed with patient Discussed with Dr. Patel, seen on his behalf (Lenka Pollock) Assessment and Plan seen, examined by myself, Dr Patel, today Discussed with patient Discussed with infectious disease, herpes zoster unlikely per infectious disease Acyclovir discontinued, Bactrim discontinued, elevate left upper extremity on a pole if tolerated Discussed with mid level provider The exam, history, and the medical decision-making described in the above note were completed with the assistance of the mid-level provider. I reviewed the findings presented. I attest that I had a [id number] encounter with the patient on the same day, and personally performed and documented my assessment and findings in the medical record. (Uriel Patel MD) Lenka Pollock Mar 21, 2017 15:22 Uriel Patel MD Mar 21, 2017 19:16
--- NOTE | 2017-03-21 15:27 | HHI.PR ---
Subjective Remarks Resting in bed Visitor , talking with patient and given supportive care Right arm 4+ edema with minimal elevation Mild tachycardia pulse 103 Objective Objective Results - Vital Signs Date Time Temp Pulse Resp B/P Pulse Ox O2 Delivery O2 Flow Rate FiO2 03/21/17 12:00 98.0 103 18 103/56 96 03/21/17 08:45 97 21 03/21/17 08:00 97.2 103 20 95/52 97 03/21/17 06:41 16 03/21/17 04:00 97.0 88 17 142/86 97 03/21/17 03:58 98 03/21/17 01:39 16 03/21/17 00:33 98 03/21/17 00:00 96.3 92 17 101/73 98 03/20/17 20:30 98 21 03/20/17 20:00 97.9 104 16 134/79 99 03/20/17 17:00 97.6 102 18 153/80 98 I/O 03/20/17 03/20/17 03/20/17 03/21/17 03/21/17 03/21/17 06:59 14:59 22:59 06:59 14:59 22:59 Intake Total 840 ml Output Total 1500 ml Balance -1500 ml 840 ml Intake Oral 840 ml Output Urine Total 1500 ml # Voids 4 # Bowel Movements 0 Result Diagram: 03/21/17 0500 03/21/17 0508 Physical Exam Physical Exam PHYSICAL EXAMINATION GENERAL: This is a well-developed, well-nourished male who appears to be in no acute distress. He is alert and awake, []. HEAD: Normocephalic without any lesion or mass noted. Facial features appear symmetric. OROPHARYNGEAL: Oropharynx without erythema or edema. NECK: Supple. No nuchal rigidity or lymphadenopathy. Trachea midline without deviation. CARDIAC: Regular rhythm, regular rate, S1 and S2 are heard. Murmur []; no gallops or rubs. LUNGS: Clear to auscultation bilaterally. [] wheeze, [] rhonchi or [] rale. No use of accessory muscles on inspiration or expiration. ABDOMEN: Soft, nontender, no organomegaly or masses. Bowel sounds are heard in all four quadrants. No rebound. No guarding. EXTREMITIES: [] edema. Pulses equal bilateral. [] cyanosis. NEUROLOGICAL: Patient mood and affect appropriate. No focal deficit SKIN:Warm and moist A/P Assessment and Plan Vital signs reviewed, pulse mildly tachycardic 103 afebrile, BP noted 142/86, but having pain off and on requiring pain management Labs reviewed anemia, stable for now hemoglobin 8 Right upper extremity edema and pain. She states progression of disease in right axillary lymph node received palliative radiation. Lymphedema continues 3-4+ with extreme pain Appreciate ID consult and plan a care, currently patient's on IV clindamycin Possible shingles, placed on acyclovir Metastatic non-small cell lung cancer. Appreciate oncology plan a care and consult History of brain hemorrhage due to aneurysm status post clipping. ` Patient is alert and understands process, we'll monitor his mental status, medical management Cachexia. Encourage food, liquids of his choice encouraged to eat Anxiety. Pain and medical management Anemia likely due to anemia of chronic disease. Hemoglobin 8 we'll continue to monitor labs Chronic obstructive pulmonary disease. Encouraged to cough and deep breathe, incentive spirometry at bedside ordered Lenka Pollock Mar 21, 2017 15:27
--- NOTE | 2017-03-21 16:22 | PD.WCN.NOT ---
Wound Consult Description: R arm edematous with closed dry non draining lesions Communicated with: ANNA Vargas call placed to Doctor Jorge Recommendation: Please leave R arm open to air and elevate with pillows Additional Information: Patient seen on for evaluation of R arm wound management. R arm presents with edema that is pitting, erythema and with dry intact non draining lesions. No open wounds or lesions noted at this time. Left R arm open to air and elevated on pillow. Gemma Mattson [facility] Mar 21, 2017 16:22
[2017-03-21] MEDS: ceFAZolin 2 GM PREMIX 50 ML IV SCH ×2 (16:23→23:33)
[2017-03-21] MEDS ORDERED: CLINDAMYCIN INJ 600 MG in SODIUM CHLORIDE 0.9% INJ 100 ML IV SCH (21:00)
[2017-03-21] MEDS: REMOVE OLD PATCH T-DERMAL SCH (21:00)
[2017-03-21] MEDS ORDERED: POTASSIUM CHLORIDE 25 MEQ EFFERVESCENT TAB G-TUBE SCH (21:00)
[2017-03-21] MEDS: MIRTAZAPINE 15 MG TAB PO SCH (22:16)
--- NOTE | 2017-03-21 23:23 | RADRPT ---
EXAM DATE/TIME: 03/21/2017 22:27 [place] COMPARISON: CT SIMULATION, March 01, 2017, 10:13. INDICATIONS : Shortness of breath. Leia;iate mass and edema. RADIATION DOSE: 5.23 CTDIvol (mGy) MEDICAL HISTORY : Hypertension. Carcinoma, lung. SURGICAL HISTORY : None. ENCOUNTER: Initial ACUITY: 1 day PAIN SCALE: 0/10 LOCATION: chest TECHNIQUE: Volumetric scanning of the chest was performed. Using automated exposure control and adjustment of t he mA and/or kV according to patient size, radiation dose was kept as low as reasonably achievable to obtain optimal diagnostic quality images. DICOM format image data is available electronically for r eview and comparison. Follow-up recommendations for detected pulmonary nodules are based at a minimum on nodule size and pa tient risk factors according to Fleischner Society Guidelines. FINDINGS: Comparison a CT simulation from March 01. Previous mass near left costophrenic angle now has the appea marcelino of an area of dense consolidation with a small right-sided pleural effusion. There is also dens e consolidation in left lower lobe and some groundglass opacity in both upper lobes. There is underly ing moderate emphysema. Small left effusion also present. No significant pericardial effusion. Modera te coronary calcifications. Gastrostomy present. Stomach is dilated. No acute findings in the upper abdomen. CONCLUSION: 1. Dense consolidation in both lower lobes with likely postradiation changes on the right. The appear ance on the left could be compatible with aspiration or pneumonia. There is underlying moderate emphy sema. Bilateral effusions, right greater than left. 2. Dilated esophagus characteristic of esophageal motility disorder. 3. 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 Moderate coronary calcifications. Deep Gtz MD on March 21, 2017 at 23:17 Board Certified Radiologist. This report was verified electronically.
[2017-03-22] VITALS (18 sets, daily range): BP systolic 69–131; BP diastolic 39–81; PULSE 92–122; RESP 13–22; TEMP 98.6–100.4; O2SAT 90–99
[2017-03-22] MEDS: RESP: ALBUTEROL 2.5 MG/3 ML NEB (SCH) NEB ×3 (02:59→16:37)
[2017-03-22] MEDS ORDERED: SODIUM CHLORID 0.9% 500 ML INJ 500 ML IV ONE (05:30)
[2017-03-22] MEDS ORDERED: ACETAMINOPHEN 325 MG TAB PO PRN (05:30)
[2017-03-22] MEDS: CLINDAMYCIN INJ 600 MG in SODIUM CHLORIDE 0.9% INJ 100 ML IV SCH ×4 (05:34→23:26)
[2017-03-22] MEDS: SODIUM CHLOR 0.9% 1000 ML INJ 1,000 ML IV SCH ×3 (05:35→23:26)
[2017-03-22] MEDS: MORPHINE SULFATE 30 MG CONTROLLED RELEASE TAB PO SCH ×3 (06:00→21:14)
--- NOTE | 2017-03-22 07:27 | PD.CONS ---
[facility] Critical Care Medicine Consult Requested By Dr. Patel Reason for Consult Hypotension Primary Care Physician Non-Staff History of Present Illness 56-year-old male. Date of admission 03/21/2017. Date of consultation 03/22/2017. Past medical history includes headache non-small cell lung cancer, right subclavian lymph node causing chronic right upper extremity lymphedema, hypertension, depression, chronic pain syndrome and benzodiazepine use. Patient received presented to [facility] on 03/21 with cough, worsening pain in right upper extremity. Seen in consultation by Dr Webster hematology along with infectious disease. Noted anabolic changed to cefazolin and clindamycin. Acyclovir discontinued as not his thought to have shingles. No signs of DVT over the right upper extremity. CT chest revealed radiation pneumonitis/possible aspiration left lobe with bilateral pleural effusions. Coronary calcifications. This A.m., patient became hypotensive. Received 2 L normal saline via a left Port-A-Cath. Currently hemodynamically stable. Patient with productive cough of brown sputum. No hemoptysis. Review of Systems Constitutional: COMPLAINS OF: Fever, Weight loss, DENIES: Weight gain Endocrine: DENIES: Polydipsia, Polyuria Eyes: DENIES: Blurred vision Respiratory: COMPLAINS OF: Cough, Sputum production, DENIES: Apneas, Shortness of breath Cardiovascular: DENIES: Chest pain, Lower Extremity Edema Gastrointestinal: DENIES: Nausea, Vomiting Genitourinary: COMPLAINS OF: Urinary frequency, Urgency, DENIES: Dysuria Musculoskeletal: DENIES: Joint pain, Joint Swelling Integumentary: COMPLAINS OF: Abnormal pigmentation Hematologic/lymphatic: COMPLAINS OF: Bruising, Lymphadenopathy Immunologic/allergic: DENIES: Eczema, Urticaria Neurologic: DENIES: Headache Psychiatric: COMPLAINS OF: Confusion, DENIES: Anxiety, Depression Past Family Social History Allergies: Coded Allergies: diatrizoate meglumine (Unverified Allergy, Severe, Hives, 03/19/17) gadobenic acid (Unverified Allergy, Severe, Hives, 03/19/17) gadodiamide (Unverified Allergy, Severe, Hives, 03/19/17) gadoteridol (Unverified Allergy, Severe, Hives, 03/19/17) iodixanol (Unverified Allergy, Severe, Hives, 03/19/17) iohexol (Unverified Allergy, Severe, Hives, 03/19/17) carboplatin (Unverified Allergy, Mild, Itching, 03/19/17) MRI PRECAUTION (Verified Adverse Reaction, Severe, Shunt & aneurysm clip no info [facility] 03/21/17, 03/21/17) Past Medical History Metastatic non-small cell lung cancer Anxiety disorder NOS Right subclavian lymphadenopathy COPD Hypertension Depression Ongoing tobacco use Chronic pain syndrome Cachexia Past Surgical History Clipping cerebral aneurysm 1995 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 Left Port-A-Cath 2014 Lymph node biopsy right subclavian lymph node Lung biopsy PEG tube Reported Medications Albuterol Sulfate (Albuterol Concentrated Neb) 2.5 mg Q4HR NEB NEB ; Start at 20:00; Status UNV Bisacodyl (Dulcolax Supp) 10 mg DAILY PRN RECTAL SEVERE CONSITIPATION; Start at 17:45 Clindamycin HCl (Cleocin) 300 mg Q6HR PO ; Start 03/20/17 at 18:00 Hydromorphone HCl (Dilaudid) 4 mg Q4H PRN PO pain 1-10; Start 03/20/17 at 17:45 ; Status UNV Ipratropium [place] (Atrovent Hfa Inh) 2 puff BID INH ; Start 03/20/17 at 21:00 ; Status UNV Lactulose (Lactulose Liq) 30 ml DAILY PRN PO SEVERE CONSITIPATION; Start at 17:45; Status UNV Lorazepam (Ativan) 0.5 mg HS PRN PO ANXIETY AND/OR INSOMNIA; Start 03/20/17 at 17:45; Status UNV Magnesium Hydroxide (Milk Of Magnesia Liq) 30 ml Q12H PRN PO MILD - MODERATE CONSTIPATION; Start 03/20/17 at 17:45; Status UNV Mirtazapine (Remeron) 7.5 mg HS PO ; Start 03/20/17 at 21:00; Status UNV Morphine Sulfate (Oramorph Sr) 30 mg Q8HR PO ; Start 03/20/17 at 22:00; Status UNV Naloxone HCl (Narcan Inj) 0.4 mg UNSCH PRN IV SEE LABEL COMMENTS; Start at 17:45; Status UNV Ondansetron HCl (Zofran Inj) 4 mg Q6H PRN IVP NAUSEA OR VOMITING; Start at 17:45; Status UNV Senna/Docusate Sodium (Alma-Colace) 2 tab BID PO ; Start 03/20/17 at 21:00 Sennosides (Senokot) 17.2 mg Q12H PRN PO MODERATE - SEVERE CONSTIPATION; Start 03/20/17 at 17:45; Status UNV Sodium Chloride (NS Flush) 2 ml BID IV FLUSH ; Start 03/20/17 at 21:00; Status UNV Trimethoprim/ Sulfamethoxazole (Bactrim Ds 800-160 Mg) 1 tab BID PO ; Start at 21:00; Status UNV Active Ordered Medications Reviewed in EMR Family History Positive for esophageal cancer in father. Both parents are alive. Social History 1 pack every 3 days. No alcohol or IV drug use. Physical Exam Vital Signs Vital Signs Date Time Temp Pulse Resp B/P Pulse Ox O2 Delivery O2 Flow Rate FiO2 03/22/17 06:55 69/39 03/22/17 06:50 73/39 03/22/17 06:43 99.2 109 18 82/52 93 03/22/17 06:40 85/52 03/22/17 06:00 99.5 116 20 71/46 93 03/22/17 04:30 100.4 122 22 79/49 91 03/22/17 00:00 99.0 121 18 111/81 90 03/21/17 23:38 97 Nasal Cannula 2.00 03/21/17 23:17 16 03/21/17 20:00 98.5 113 17 109/57 90 03/21/17 16:00 97.9 106 18 100/49 97 03/21/17 12:00 98.0 103 18 103/56 96 03/21/17 08:45 97 21 03/21/17 08:00 97.2 103 20 95/52 97 Physical Exam GENERAL: 56-year-old male, resting in bed in no acute distress SKIN: R Axilla and R chest area is indurated with post radiation changes RUE is edematous and bigger than left upper extremity but not tight, skin with erythema above elbow and lichenification, prominent papillae on the skin in diffuse pattern No vesicles or crusted lesions noted HEAD: Atraumatic. Normocephalic. EYES: Pupils equal and round about 3 mm bilaterally and reactive. No scleral icterus. No injection or drainage. ENT: No nasal bleeding or discharge. Mucous membranes pink and moist. NECK: Trachea midline. No JVD. CARDIOVASCULAR: Cardiac, RRR. S1, S2 no S4 without murmur RESPIRATORY: No accessory muscle use. Clear to auscultation. Breath sounds equal bilaterally. GASTROINTESTINAL: Abdomen soft, non-tender, nondistended. Active bowel sounds are appreciated. PEG tube is clean dry intact and left upper quadrant MUSCULOSKELETAL: See skin for right upper extremity. No edema bilateral lower extremity. NEUROLOGICAL: Awake and alert. No obvious cranial nerve deficits. Motor grossly within normal limits. Five out of 5 muscle strength in the arms and legs. Normal speech. PSYCHIATRIC: Appropriate mood and affect; insight and judgment normal. Laboratory Date/Time Procedure Status Source Growth 03/22/17 06:58 Aerobic Blood Culture Received Blood Line Pending 03/22/17 06:58 Anaerobic Blood Culture Received Blood Line Pending Result Diagram: 03/21/17 0500 03/21/17 0508 Imaging Last Impressions Upper Extremity Ultrasound 03/21/17 0000 Signed Impressions: Service Date/Time: March 11:31 - CONCLUSION: 1. No evidence of deep venous thrombosis within the right upper extremity. 2. Hypoechoic mass/collection adjacent to the right subclavian vasculature measuring 7.8 x 1.9 x 3.4 cm which is indeterminate. Chaparro Hawkins MD Chest CT 03/21/17 0000 Signed Impressions: Service Date/Time: March 22:27 - CONCLUSION: 1. Dense consolidation in both lower lobes with likely postradiation changes on the right. The appearance on the left could be compatible with aspiration or pneumonia. There is underlying moderate emphysema. Bilateral effusions, right greater than left. 2. Dilated esophagus characteristic of esophageal motility disorder. 3. Left [id number] in superior vena cava. Moderate coronary calcifications. Deep Gtz MD Chest X-Ray 03/20/17 0000 Signed Impressions: Service Date/Time: Monday, March 20, 2017 20:06 - CONCLUSION: No acute disease. Chas Amaya MD Assessment and Plan Assessment and Plan Neuro/Psych: Chronic pain syndrome Depression NOS Acetaminophen for fever Currently on nicotine patch /21 mg daily. As needed lorazepam 0.5 mg at night for anxiety On hydromorphone 2 mg every hours when necessary pain On morphine sulfate extended release 30 mg twice a day Continue mirtazapine 7.5 mg by mouth at bedtime for depression CV: Resp: Possible aspiration pneumonitis/radiation pneumonitis Bilateral pleural effusions COPD Ongoing tobaccoism Nasal cannula to maintain saturations greater than equal to 92% Incentive spirometry while awake Currently on albuterol aerosols every 4 hours. Tiotropium 18 mcg daily. On ipratropium inhaler twice a day at home CT thorax 03/21 revealed bilateral lower lobe disc consolidation/possible aspiration left lobe with bilateral pleural effusions, coronary calcifications. Emphysema Tube for nicotine patch GI: Status post PEG tube Cachexia Moderate protein calorie malnutrition/chronic Jevity 1.5-240 cc 6 times daily Pantoprazole for GI prophylaxis Docusate sodium/senna twice a day for bowel regimen Dilated esophagus/dysmotility possibly secondary to radiation on CT chest : Prince catheter currently not indicated Endo: Sliding scale insulin with Accu-Cheks to maintain euglycemia Renal: Creatinine currently within normal limits Monitor urine output Accurate I's and O's Currently normal saline at 100 cc an hour Heme: Stage IV lung cancer/non-small cell Right subclavian lymph node enlargement 7.8 x 1.8 x 3.4 cm Normocytic anemia Currently being followed by Dr. Webster/oncology Status post radiation therapy with Dr. Garcia/radiation called he completed Saturday for right subclavian lymph node No indications for transfusion of blood proximally at this time ID: Currently on cefazolin 2 g IV every 8 hours/clindamycin 600 mg IV every 6 hours Blood cultures 2 pending. Influenza/urine Legionella and pneumococcal antigens/UA all pending MSK: PT evaluate and treat FEN: Hypokalemia Replace per ICU left leg protocol. Follow magnesium Access - Utilize left Port-A-Cath. Central line if indicated Prophylaxis - GI - pantoprazole - DVT - SCD/heparin subcutaneous Level III consult Code Status Full code Discussed Condition With Patient. Care plan discussed and all questions answered. Warner Brantley MD Mar 22, 2017 07:27
[2017-03-22] MEDS ORDERED: TERBUTALINE INJ 1 MG/ML AMP SQ PRN (08:30)
[2017-03-22] MEDS ORDERED: POTASSIUM CHLOR 40 MEQ PREMIX 100 ML IV PRN ×2 (09:00)
[2017-03-22] MEDS ORDERED: POTASSIUM PHOSPHATE MONOBASIC 500 MG TAB PO PRN (09:00)
[2017-03-22] MEDS ORDERED: POTASSIUM CHLORIDE 25 MEQ EFFERVESCENT TAB PO PRN (09:00)
[2017-03-22] MEDS ORDERED: MAGNESIUM SULFATE INJ 4 GM in SODIUM CHLORIDE 0.9% INJ 92 ML IV PRN (09:00)
[2017-03-22] MEDS ORDERED: POTASSIUM CHLOR 20 MEQ PREMIX 100 ML IV PRN ×2 (09:00)
[2017-03-22] MEDS ORDERED: POTASSIUM PHOSPHATE INJ 30 MMOL in SODIUM CHLOR 0.9% 250 ML INJ 250 ML IV PRN (09:00)
[2017-03-22] MEDS ORDERED: SODIUM PHOSPHATE INJ 30 MMOL in SODIUM CHLOR 0.9% 250 ML INJ 240 ML IV PRN (09:00)
[2017-03-22] MEDS: REMOVE OLD NICOTINE PATCH T-DERMAL SCH (09:00)
[2017-03-22] MEDS ORDERED: ALBUMIN HUMAN 25% 25 GM/100 ML BAGP IV ONE (09:00)
[2017-03-22] MEDS ORDERED: POTASSIUM PHOSPHATE MONOBASIC 500 MG TAB PO/TUBE PRN (09:00)
[2017-03-22] MEDS ORDERED: MAGNESIUM OXIDE 400 MG TAB PO PRN (09:00)
[2017-03-22] MEDS ORDERED: MAGNESIUM SULFATE INJ 2 GM in SODIUM CHLORIDE 0.9% INJ 96 ML IV PRN (09:00)
[2017-03-22] MEDS: HEPARIN SODIUM - SQ 10,000 UNITS/ML VIAL SQ SCH ×2 (09:17→20:16)
[2017-03-22] MEDS: NICOTINE 21 MG/24 HR PATCH T-DERMAL SCH (09:18)
[2017-03-22] MEDS: SODIUM CHLORIDE 0.9% FLUSH 10 ML FLUSH IV FLUSH SCH ×2 (09:19→20:15)
[2017-03-22] MEDS: DOCUSATE SODIUM 50 MG/SENNA 8.6 MG TAB PO SCH ×2 (09:19→20:16)
[2017-03-22] MEDS: ceFAZolin 2 GM PREMIX 50 ML IV SCH ×2 (09:19→15:20)
--- NOTE | 2017-03-22 09:37 | HHI.PR ---
Subjective Remarks Resting in the bed currently in ICU setting 1327 Patient is sipping water, encouraged to continue taking by mouth fluids and nutrition Awake and responsive Chief pain is right arm which continues to have major lymphedema (Lenka Pollock) Objective Objective Results - Vital Signs Date Time Temp Pulse Resp B/P Pulse Ox O2 Delivery O2 Flow Rate FiO2 03/22/17 07:10 112 20 79/48 93 03/22/17 06:55 69/39 03/22/17 06:50 73/39 03/22/17 06:43 99.2 109 18 82/52 93 03/22/17 06:40 85/52 03/22/17 06:00 99.5 116 20 71/46 93 03/22/17 04:30 100.4 122 22 79/49 91 03/22/17 00:00 99.0 121 18 111/81 90 03/21/17 23:38 97 Nasal Cannula 2.00 03/21/17 23:17 16 03/21/17 20:00 98.5 113 17 109/57 90 03/21/17 16:00 97.9 106 18 100/49 97 03/21/17 12:00 98.0 103 18 103/56 96 I/O 03/21/17 03/21/17 03/21/17 03/22/17 03/22/17 03/22/17 07:00 15:00 23:00 07:00 15:00 23:00 Intake Total 840 ml 802 ml Output Total 1500 ml 450 ml 500 ml Balance -1500 ml 840 ml 352 ml -500 ml Intake Oral 840 ml IV Total 802 ml Output Urine Total 1500 ml 450 ml 500 ml # Voids 4 # Bowel Movements 0 (Lenka Pollock) Result Diagram: 03/21/17 0500 03/21/17 0508 ROS General: Fatigue, Weakness, Other (10 point ROS done positives noted) Cardiac: Edema (right arm up to shoulder region, lymphedema), Other ( hypotension) Pulmonary: Cough (occasional, COPD) (Lenka Pollock) Physical Exam Physical Exam PHYSICAL EXAMINATION GENERAL: This is an ill appearing male Resting in the bed, responds to conversation HEAD: Normocephalic atraumatic OROPHARYNGEAL: Oropharynx clear but missing teeth and dental caries NECK: Supple. Trachea midline without deviation. CARDIAC: Regular rhythm, regular rate, S1 and S2 are heard. Murmur none LUNGS: Mild diminished to auscultation bilaterally. With some rhonchi No use of accessory muscles on inspiration or expiration. ABDOMEN: Flat, Soft, nontender, Bowel sounds soft sounds, taking by mouth fluids without cough EXTREMITIES: Lymphedema right arm edema. NEUROLOGICAL: Patient mood and affect appropriate, responsive denies any dizziness or chest pain, speech is clear SKIN:Warm and dry (Lenka Pollock) A/P Assessment and Plan Vital signs reviewed, grade fever 99.5 and 99.2, pulse is tachycardic 112-116 sinus tach, patient has been hypotensive since 0400 this a.m., and continues to be in the high 80s systolic. Currently in the intensive care setting been monitored Labs reviewed anemia, hypokalemia which was treated with potassium yesterday, patient has had IV boluses of normal saline this morning, Will recheck BNP level and monitor potassium level , early a.m. lactic acid level I.5 Hallicat early this a.m. due to hypotension, patient's BP was noted to be 79/49 , at 0400. Was transferred to the intensive care setting room 1327, tribal council member was consult could. Patient has had 2 liters of normal saline bolus since , normal saline currently running at 100 cc an hour. Patient is awake, responsive, assisting him to call some of his family to let them know that he has changed rooms. Denies any acute chest pain or shortness of breath, chief pain is noted to the discomfort in his 4+ edematous right arm. Elevated on pillow. Patient's clindamycin has been increased to 600 mg from 300 mg dose , ID still following patient, currently patient is not on any pressors, but according to nurse Abad-Synephrine has been discussed. Right upper extremity continues with edema and pain. progression of disease in right axillary lymph node received palliative radiation. Lymphedema continues 3-4+ with extreme pain Appreciate ID consult and plan a care, currently patient's on IV clindamycin, dose has been increased this morning after . Shingles have been ruled out, acyclovir has been DC'd Metastatic non-small cell lung cancer. Appreciate oncology plan a care and consult History of brain hemorrhage due to aneurysm status post clipping. ` Patient continues to be awake, and understands he has been moved to a different room. Understands that his blood pressure has been low Cachexia. Encourage food, liquids of his choice encouraged to eat Anxiety and acute on chronic pain Pain and medical management, limited for now due to patient's hypotension. Explained to patient Anemia likely due to anemia of chronic disease. Hemoglobin 8, Will recheck labs Chronic obstructive pulmonary disease. Encouraged to cough and deep breathe, incentive spirometry at bedside ordered , cough with some audible rhonchi heard Due to patient's current case of inoperable cancer, receiving palliative treatments only, and now hypotensive episodes with right arm lymphedema Will have palliative care talk to patient and support him through this difficult time. Discussed with patient Discussed with Dr. Patel, seen on his behalf Discussed with nurse (Lenka Pollock) Assessment and Plan seen, examined by myself, Dr Patel, today Activity transferred to ICU secondary to low blood pressure. This was improved with 2 L of normal saline bolus. Alert and verbal. Denies any change in his condition. No pain at this time except for his ongoing long-term pain right upper extremity. Evidence of a hypoechoic area in the right shoulder inferior to the subclavian vessels. Question right brachial plexus involvement CT of the chest shows suspicion of radiation pneumonitis versus pneumonia He continues on empiric antibiotics Elevate right upper extremity Both critical care and oncology following in addition to infectious disease Palliative care also following Discussed with patient Discussed with mid level provider The exam, history, and the medical decision-making described in the above note were completed with the assistance of the mid-level provider. I reviewed the findings presented. I attest that I had a [id number] encounter with the patient on the same day, and personally performed and documented my assessment and findings in the medical record. (Uriel Patel MD) Lenka Pollock Mar 22, 2017 09:37 Uriel Patel MD Mar 22, 2017 18:51
[2017-03-22 09:59] LABS: BLOOD, URINE NEG (NEG); GLUCOSE,URINE NEG (NEG); KETONE, URINE NEG (NEG); NITRITE,URINE NEG (NEG); PH, URINE 6.5 (5.0-8.5); URINE COLOR YELLOW (YELLW/STRAW)
[2017-03-22 10:12] LABS: INTERNATIONAL NORMALIZED RATIO 1.2 RATIO; PROTHROMBIN TIME - PATIENT 12.8 SEC (9.8-11.6)
[2017-03-22 10:16] LABS: COMMENT (UR) CULT NOT INDICATED; CULTURE IF INDICATED CULT NOT INDICATED
[2017-03-22 10:38] LABS: AUTOMATED NEUTROPHIL # 16.6 TH/MM3 (1.8-7.7); BASOPHIL # 0.1 TH/MM3 (0-0.2); BASOPHIL % 0.4 % (0.0-2.0); EOSINOPHIL # 0.1 TH/MM3 (0-0.4); EOSINOPHIL % 0.6 % (0.0-4.0); HEMATOCRIT 22.4 % (39.0-51.0); HEMO FLAGS DIFF FINAL; LYMPH % 0.7 % (9.0-44.0); LYMPHOCYTE # 0.1 TH/MM3 (1.0-4.8); MEAN CORPUSCULAR HEMOGLOBIN 28.3 PG (27.0-34.0); MEAN CORPUSCULAR HGB CONC 31.8 % (32.0-36.0); MONO % 2.9 % (0.0-8.0); NEUT % 95.4 % (16.0-70.0); PLATELET COUNT 383 TH/MM3 (150-450); RED BLOOD COUNT 2.51 MIL/MM3 (4.50-5.90); RED CELL DISTRIBUTION WIDTH 19.4 % (11.6-17.2); WHITE BLOOD COUNT 17.4 TH/MM3 (4.0-11.0)
[2017-03-22 10:39] LABS: BICARBONATE 25.8 MEQ/L (21.0-32.0); CALCIUM-PROTEIN CORRECTED 8.5 MG/DL (8.5-10.1); MAGNESIUM 1.9 MG/DL (1.5-2.5); POTASSIUM 4.1 MEQ/L (3.5-5.1); TOTAL BILIRUBIN ADULT 0.3 MG/DL (0.2-1.0)
[2017-03-22] MEDS: PANTOPRAZOLE SODIUM 40 MG VIAL IV PUSH SCH (10:44)
--- NOTE | 2017-03-22 11:17 | PD.CONS ---
Consult Service Palliative Care . Consult Requested By Dr. Pollock . Primary Care Physician Non-Staff . Reason for Consultation a. To assist with evaluation and management of symptoms including: pain, decreased appetite, debility b. To assist medical decision maker(s) with: better understanding of current medical conditions; weighing benefits/burdens of medical treatment options; making medical treatment decisions. . HPI History of Present Illness Patient is a 56 year old male with a past medical history that includes right arm cellulitis, right shoulder adhesive capsulitis and rotator cuff tear, brain bleed in 1994, anxiety, COPD and a history of pneumothorax in 07/2016. He is under the care of Dr. Billingsley for metastatic non-small cell lung cancer; he was previously receiving palliative chemotherapy with Alimata. He was recently found to have right axillary lymphadenopathy for which he received palliative radiation with Dr. Garcia; his last radiation treatment was on Saturday. The patient's was hospitalized in February, with right arm cellulitis and was treated with antibiotics. He reported progressively increased swelling and tenderness in his right arm at limited movement over a three-week period. His arm remains swollen and quite painful; patient is currently on a Fentanyl patch and Dilaudid for pain management. Apparently the patient went to see Dr. Billingsley on 03/20/17 to begin chemotherapy he was noted to have lesions on the right anterior shoulder that appear to be herpes zoster and recurrent cellulitis. Dr. Billingsley requested that the patient be admitted for further evaluation and medical management of herpes zoster; patient received his first dose of acyclovir while in the office. Oncology was consulted and recommendations were made for an MRI of the right shoulder/axillary area; chemotherapy was placed on hold. Chest x-ray revealed no acute disease. Heart size was normal the lungs were grossly clear and no effusion was seen. The patient had an ultrasound during his last hospitalization which was negative for DVT. Repeat ultrasound of the right upper extremity on 03/21/17 again showed no evidence of DVT; hypoechoic mass/collection adjacent to the right subclavian vasculature measuring 7.8 x 1.9 x 3.4 cm which is indeterminate. A CT of the chest revealed radiation pneumonitis/possible aspiration in the left lobe with bilateral pleural effusions; coronary calcifications; dilated esophagus characteristic of esophageal motility disorder. Infectious disease was consulted to evaluate the patient for recurrent right upper extremity cellulitis. Acyclovir was discontinued by infectious disease who felt herpes zoster was unlikely. Antibiotics were changed to cefazolin and clindamycin. Patient was halicated early this morning secondary to hypotension; his BP was noted to be 79/49. Patient was transferred to [facility], and [facility] was consulted. He received 2 L of normal saline, normal saline currently running at 100 mL per hour. Patient's chief complaint is pain, right arm with 4+ edema. Clindamycin dose has been increased. Patient is currently not on any pressors. Urinalysis normal. Nasal aspirate negative for flu antigen. Blood cultures pending. Lab work 03/22/2017: = WBC increased to 17.4, hemoglobin 7.1, hematocrit 22.4, platelets 383, neutrophils 95.4% = Sodium: 133, potassium 4.1, chloride 100, carbon dioxide 25.8, glucose 80, calcium 7.2, phosphorus 3.3, magnesium 1.9 = BUN: 17, creatinine 0.59, GFR 142 = Total bilirubin: 0.3, AST 14, ALT 8, = Alkaline phosphatase: 69 = Creatine kinase: 30 = Total protein: 4.8, albumin 1.3 Palliative Care was consulted to assist with symptom management and to discuss with the patient/family the benefits and burdens of his current illnesses and the options regarding future care. . Function/Cognitive Trajectory Patient is a 56-year-old man with metastatic non-small cell lung cancer receiving palliative chemotherapy status post palliative radiation. Patient has had increasing issues with fatigue and poor appetite. He states he is able to eat soft foods, mostly liquids. However, most of his nutritional intake is obtained artificially through PEG tube. Patient reports progressively increased weakness over the past 3 weeks with increasing pain in his right upper extremity. He states he is having more difficulty doing things around the house and maintaining his independence. . Review of Systems Constitutional: COMPLAINS OF: Fatigue, Weight loss, Dizziness, Change in appetite (poor appetite), Pain, Generalized weakness, DENIES: Diaphoretic episodes, Weight gain Ears, nose, mouth, throat: COMPLAINS OF: Hoarseness, DENIES: Epistaxis Respiratory: COMPLAINS OF: Cough, Wheezing, Sputum production, Shortness of breath, DENIES: Hemoptysis Cardiovascular: COMPLAINS OF: Dyspnea on Exertion, DENIES: Lower Extremity Edema Gastrointestinal: COMPLAINS OF: Anorexia, DENIES: Abdominal pain, Nausea, Vomiting Genitourinary: COMPLAINS OF: Urinary frequency Musculoskeletal: COMPLAINS OF: Joint pain (right arm), Joint Swelling (right arm), Decreased range of motion Integumentary: COMPLAINS OF: Rash (painful lesions on right anterior shoulder) Hematologic/Lymphatics: COMPLAINS OF: Lymphadenopathy Neurologic: COMPLAINS OF: Localized weakness, Poor Balance Psychiatric: COMPLAINS OF: Depression Past Family Social History Coded Allergies: diatrizoate meglumine (Unverified Allergy, Severe, Hives, 03/19/17) gadobenic acid (Unverified Allergy, Severe, Hives, 03/19/17) gadodiamide (Unverified Allergy, Severe, Hives, 03/19/17) gadoteridol (Unverified Allergy, Severe, Hives, 03/19/17) iodixanol (Unverified Allergy, Severe, Hives, 03/19/17) iohexol (Unverified Allergy, Severe, Hives, 03/19/17) carboplatin (Unverified Allergy, Mild, Itching, 03/19/17) MRI PRECAUTION (Verified Adverse Reaction, Severe, Shunt & aneurysm clip no info [facility] LRS 03/21/17, 03/21/17) Past Medical History Metastatic non-small cell lung cancer Anxiety COPD Brain aneurysm in 1994 Right shoulder capsulitis and rotator cuff tear HTN Right arm cellulitis . Past Surgical History Lung and neck biopsy MEDICAL STENOGRAPHER shunt placement Port placement Supraclavicular lymph node biopsy MEDICAL STENOGRAPHER shunt for AV malformation PEG tube placement . Reported Medications Atrovent HFA 12.9 GM Inh (Ipratropium [place]) 17 Mcg/Act Aer 2 Puff INH BID Mirtazapine 7.5 Mg Tab 7.5 Mg PO HS Lorazepam 0.5 Mg Tab 0.5 Mg PO HS PRN Hydromorphone (Hydromorphone HCl) 2 Mg Tab 2 Mg PO Q4H PRN Albuterol Neb (Albuterol Sulfate) 2.5 Mg/0.5 Ml Neb 2.5 Mg NEB Q4HR NEB Note: The Albuterol Sulfate Inhalation Solution is concentrated and must be diluted. Read complete instructions carefully before using . Current Medications Medications (Trade) Dose Ordered Sig/Franny Route Start Time Stop Time Status Last Admin (NS Flush) 2 ml UNSCH PRN IV FLUSH 03/20/17 17:45 (NS Flush) 2 ml BID IV FLUSH 03/20/17 21:00 03/22/17 09:19 (Zofran Inj) 4 mg Q6H PRN IVP 03/20/17 17:45 (Narcan Inj) 0.4 mg UNSCH PRN IV 03/20/17 17:45 (Milk Of Magnesia Liq) 30 ml Q12H PRN PO 03/20/17 17:45 (Senokot) 17.2 mg Q12H PRN PO 03/20/17 17:45 (Dulcolax Supp) 10 mg DAILY PRN RECTAL 03/20/17 17:45 (Lactulose Liq) 30 ml DAILY PRN PO 03/20/17 17:45 (Dilaudid) 4 mg Q4H PRN PO 03/20/17 17:45 03/21/17 16:24 (Ativan) 0.5 mg HS PRN PO 03/20/17 17:45 (Remeron) 7.5 mg HS PO 03/20/17 21:00 03/21/17 22:16 (Oramorph Sr) 30 mg Q8HR PO 03/20/17 22:00 03/21/17 22:17 (Alma-Colace) 2 tab BID PO 03/20/17 21:00 03/22/17 09:19 (Pill Splitter) 1 ea UNSCH PRN OTHER 03/20/17 18:00 (Heparin Inj) 5,000 units Q12HR SQ 03/20/17 21:00 03/22/17 09:17 (Habitrol 21 Mg Patch.24 Hr) 1 patch DAILY T-DERMAL 03/20/17 20:15 03/22/17 09:18 Miscellaneous Information 1 DAILY T-DERMAL 03/21/17 09:00 03/22/17 09:00 Miscellaneous Information 1 HS T-DERMAL 03/20/17 21:00 03/21/17 21:00 Tiotropium [place] 18 mcg 18 mcg DAILY INH 03/21/17 11:00 03/21/17 12:22 (Ancef 2 Gm Premix) 50 ml @ 150 mls/hr Q8H IV 03/21/17 16:00 03/22/17 09:19 Potassium Bicarb/ Potassium Chloride 25 meq 25 meq Q12HR G-TUBE 03/21/17 21:00 Hold 03/21/17 22:16 Clindamycin Phosphate 600 mg/ Sodium Chloride 104 ml @ 104 mls/hr Q6H IV 03/22/17 06:00 03/22/17 05:34 (NS 1000 ml Inj) 1,000 ml @ 100 mls/hr Q10H IV 03/22/17 05:30 03/22/17 05:35 Acetaminophen 650 mg 650 mg Q4H PRN PO 03/22/17 05:30 03/22/17 05:34 (Neosynephrine Inj/D5W 500 ml Inj) 500 ml @ 0 mls/hr TITRATE IV 03/22/17 08:30 (Brethine Inj) 1 mg UNSCH PRN SQ 03/22/17 08:30 Methylprednisolone Sodium Succinate 40 mg 40 mg Q12HR IV PUSH 03/22/17 10:00 Potassium Chloride 100 ml @ 50 mls/hr Q2H PRN IV 03/22/17 09:00 (KCl 20 Meq Premix Inj) 100 ml @ 50 mls/hr Q2H PRN IV 03/22/17 09:00 Potassium Bicarb/ Potassium Chloride 50 meq 50 meq UNSCH PRN PO 03/22/17 09:00 Potassium Chloride 100 ml @ 25 mls/hr UNSCH PRN IV 03/22/17 09:00 Potassium Chloride 100 ml @ 50 mls/hr Q2H PRN IV 03/22/17 09:00 (Magnesium Sulfate Inj/NS Inj) 100 ml @ 50 mls/hr UNSCH PRN IV 03/22/17 09:00 Magnesium Oxide 800 mg 800 mg UNSCH PRN PO 03/22/17 09:00 (Magnesium Sulfate Inj/NS Inj) 100 ml @ 50 mls/hr UNSCH PRN IV 03/22/17 09:00 Potassium Phosphate 2000 mg 2,000 mg Q4H PRN PO 03/22/17 09:00 (Sodium Phosphate Inj/NS 250 ml Inj) 250 ml @ 42 mls/hr UNSCH PRN IV 03/22/17 09:00 Potassium Phosphate 2000 mg 2,000 mg UNSCH PRN PO/TUBE 03/22/17 09:00 (Potassium Phosphate Inj/NS 250 ml Inj) 260 ml @ 42 mls/hr UNSCH PRN IV 03/22/17 09:00 (Protonix Inj) 40 mg Q24H IV PUSH 03/22/17 10:00 03/22/17 10:44 . Family History Mother has a history of skin cancer. Patient's father with a history of esophageal cancer. . Substance Use Tobacco: [id number] smoking history Alcohol: Patient denies Prescription med abuse: Patient denies Illicits: Patient denies . Psychosocial History Patient was born in [facility] but has lived in [place] since 1985. He states he was for approximately 4 years but is now . He has no children. 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 He enjoys going to the [email or web address] and playing poke. He currently lives in a mother- in-law suite at his parent's house. His mother is the primary caregiver; patient is supported by his family. . Spiritual/Cultural Factors Baptism tiffanie . Date completed: 03/22/2017 . Health Care Surrogate(s): Patient verbally designated his mother, Marianne Nieto, as his healthcare surrogate. Conversation was witnessed by Michelle Rose [facility] [employer] [facility]. . Documented care wishes: No documented care wishes have been completed. . Today's verbally stated goals: Patient's primary goal at this time is pain management, overall goals remain aggressive. . Family/friends goals: Pending conversation with patient's family. . Ethical and Legal Issues No known ethical or legal issues at this time. . Physical Exam Vital Signs Date Time Temp Pulse Resp B/P Pulse Ox O2 Delivery O2 Flow Rate FiO2 03/22/17 10:00 95 03/22/17 08:00 102 03/22/17 08:00 99.3 103 13 77/48 94 03/22/17 07:10 112 20 79/48 93 03/22/17 06:55 69/39 03/22/17 06:50 73/39 03/22/17 06:43 99.2 109 18 82/52 93 03/22/17 06:40 85/52 03/22/17 06:00 99.5 116 20 71/46 93 03/22/17 04:30 100.4 122 22 79/49 91 03/22/17 00:00 99.0 121 18 111/81 90 03/21/17 23:38 97 Nasal Cannula 2.00 03/21/17 23:17 16 03/21/17 20:00 98.5 113 17 109/57 90 03/21/17 16:00 97.9 106 18 100/49 97 03/21/17 12:00 98.0 103 18 103/56 96 . 03/21/17 03/22/17 19:00 07:00 Intake Total 1642 ml 0 ml Output Total 450 ml 500 ml Balance 1192 ml -500 ml Intake Oral 840 ml 0 ml IV Total 802 ml Output Urine Total 450 ml 500 ml # Voids 4 # Bowel Movements 0 . Exam CONSTITUTIONAL/GENERAL: This is a middle aged male who appears older than his stated age. TUBES/LINES/DRAINS: Implanted VAD SKIN: Lymphedema right arm edema. Right upper extremity red with lesions on anterior shoulder and upper arm, skin is warm to touch. HEAD: Atraumatic. Normocephalic. EYES: Pupils equal and round and reactive. No scleral icterus. No injection or drainage. Fundi not examined. ENT: Hearing grossly normal. Nose without bleeding or purulent drainage. NECK: Trachea midline. Supple, nontender. No palpable thyroid enlargement or nodularity. CARDIOVASCULAR: Regular rate and rhythm without murmurs, gallops, or rubs. No JVD. Peripheral pulses symmetric. RESPIRATORY/CHEST: Symmetric, unlabored respirations. Bilateral breath sounds diminished GASTROINTESTINAL: Abdomen soft, non-tender, nondistended. No guarding. Bowel sounds present. GENITOURINARY: Without palpable bladder distension. MUSCULOSKELETAL: Extremities without clubbing and cyanosis. No mottling or clubbing. LYMPHATICS: No palpable cervical or supraclavicular adenopathy. NEUROLOGICAL: Awake and alert. Follows commands. Cognitively sharp. Moves all extremities. PSYCHIATRIC: No obvious anxiety/depression. No apparent hallucinations or other psychotic thought process. . Diagnostic Tests Laboratory Laboratory Tests Test 03/21/17 03/21/17 03/22/17 03/22/17 05:00 05:08 06:58 09:30 White Blood Count 9.7 TH/MM3 17.4 TH/MM3 (4.0-11.0) (4.0-11.0) Red Blood Count 2.80 MIL/MM3 2.51 MIL/MM3 (4.50-5.90) (4.50-5.90) Hemoglobin 8.0 GM/DL 7.1 GM/DL (13.0-17.0) (13.0-17.0) Hematocrit 24.7 % 22.4 % (39.0-51.0) (39.0-51.0) Mean Corpuscular Volume 88.1 FL 89.0 FL (80.0-100.0) (80.0-100.0) Mean Corpuscular Hemoglobin 28.4 PG 28.3 PG (27.0-34.0) (27.0-34.0) Mean Corpuscular Hemoglobin 32.3 % 31.8 % Concent (32.0-36.0) (32.0-36.0) Red Cell Distribution Width 19.7 % 19.4 % (11.6-17.2) (11.6-17.2) Platelet Count 410 TH/MM3 383 TH/MM3 (150-450) (150-450) Mean Platelet Volume 6.7 FL 6.9 FL (7.0-11.0) (7.0-11.0) Neutrophils (%) (Auto) 89.7 % 95.4 % (16.0-70.0) (16.0-70.0) Lymphocytes (%) (Auto) 2.7 % 0.7 % (9.0-44.0) (9.0-44.0) Monocytes (%) (Auto) 7.3 % (0.0-8.0) 2.9 % (0.0-8.0) Eosinophils (%) (Auto) 0.1 % (0.0-4.0) 0.6 % (0.0-4.0) Basophils (%) (Auto) 0.2 % (0.0-2.0) 0.4 % (0.0-2.0) Neutrophils # (Auto) 8.7 TH/MM3 16.6 TH/MM3 (1.8-7.7) (1.8-7.7) Lymphocytes # (Auto) 0.3 TH/MM3 0.1 TH/MM3 (1.0-4.8) (1.0-4.8) Monocytes # (Auto) 0.7 TH/MM3 0.5 TH/MM3 (0-0.9) (0-0.9) Eosinophils # (Auto) 0.0 TH/MM3 0.1 TH/MM3 (0-0.4) (0-0.4) Basophils # (Auto) 0.0 TH/MM3 0.1 TH/MM3 (0-0.2) (0-0.2) CBC Comment DIFF FINAL DIFF FINAL Differential Comment Sodium Level 135 MEQ/L 133 MEQ/L (136-145) (136-145) Potassium Level 3.4 MEQ/L 4.1 MEQ/L (3.5-5.1) (3.5-5.1) Chloride Level 98 MEQ/L 100 MEQ/L (98-107) (98-107) Carbon Dioxide Level 29.9 MEQ/L 25.8 MEQ/L (21.0-32.0) (21.0-32.0) Anion Gap 7 MEQ/L (5-15) 7 MEQ/L (5-15) Blood Urea Nitrogen 17 MG/DL (7-18) 17 MG/DL (7-18) Creatinine 0.51 MG/DL 0.59 MG/DL (0.60-1.30) (0.60-1.30) Estimat Glomerular Filtration 168 ML/MIN 142 ML/MIN Rate (>89) (>89) Random Glucose 95 MG/DL 80 MG/DL (74-106) (74-106) Calcium Level 7.9 MG/DL 7.2 MG/DL (8.5-10.1) (8.5-10.1) Lactic Acid Level 1.5 mmol/L (0.4-2.0) Prothrombin Time 12.8 SEC (9.8-11.6) Prothromb Time International 1.2 RATIO Ratio Activated Partial 29.0 SEC Thromboplast Time (24.3-30.1) Fibrinogen 579 mg/dL (227-377) Urine Color YELLOW (YELLW/STRAW) Urine Turbidity CLEAR (CLEAR) Urine pH 6.5 (5.0-8.5) Urine Specific [place] 1.012 (1.002-1.035) Urine Protein NEG mg/dL (NEG-TRACE) Urine Glucose (UA) NEG mg/dL (NEG) Urine Ketones NEG mg/dL (NEG) Urine Occult Blood NEG (NEG) Urine Nitrite NEG (NEG) Urine Bilirubin NEG (NEG) Urine Urobilinogen LESS THAN 2.0 MG/DL (LESS THAN 2.0) Urine Leukocyte Esterase NEG (NEG) Urine WBC 1 /hpf (0-5) Microscopic Urinalysis Comment CULT NOT INDICATED Protein Corrected Calcium 8.5 MG/DL (8.5-10.1) Phosphorus Level 3.3 MG/DL (2.5-4.9) Magnesium Level 1.9 MG/DL (1.5-2.5) Total Bilirubin 0.3 MG/DL (0.2-1.0) Aspartate Amino Transf 14 U/L (15-37) (AST/SGOT) Alanine Aminotransferase 8 U/L (12-78) (ALT/SGPT) Alkaline Phosphatase 69 U/L (45-117) Total Creatine Kinase 30 U/L (39-308) Total Protein 4.8 GM/DL (6.4-8.2) Albumin 1.3 GM/DL (3.4-5.0) Amylase Level 31 U/L (25-115) Lipase 54 U/L (73-393) Thyroid Stimulating Hormone 3.650 uIU/ML 3rd Gen (0.358-3.740) . Result Diagram: 03/22/1792903/22/1730 Microbiology Microbiology Date/Time Procedure Status Source Growth 03/22/17 06:58 Aerobic Blood Culture Received Blood Line Pending 03/22/17 06:58 Anaerobic Blood Culture Received Blood Line Pending 03/22/17 09:30 Influenza Types A,B Antigen (ANA) - Final Complete Nasal Aspirate NEGATIVE FOR FLU A AND B ANTIGEN.... . Imaging Last 72 hours Impressions Upper Extremity Ultrasound 03/21/17 0000 Signed Impressions: Service Date/Time: March 11:31 - CONCLUSION: 1. No evidence of deep venous thrombosis within the right upper extremity. 2. Hypoechoic mass/collection adjacent to the right subclavian vasculature measuring 7.8 x 1.9 x 3.4 cm which is indeterminate. Chaparro Hawkins MD Chest CT 03/21/17 0000 Signed Impressions: Service Date/Time: March 22:27 - CONCLUSION: 1. Dense consolidation in both lower lobes with likely postradiation changes on the right. The appearance on the left could be compatible with aspiration or pneumonia. There is underlying moderate emphysema. Bilateral effusions, right greater than left. 2. Dilated esophagus characteristic of esophageal motility disorder. 3. Left [id number] in superior vena cava. Moderate coronary calcifications. Deep Gtz MD Chest X-Ray 03/20/17 0000 Signed Impressions: Service Date/Time: Monday, March 20, 2017 20:06 - CONCLUSION: No acute disease. Chas Amaya MD . Patient/Family Conference Present at Family Conference: Spoke with patient at bedside. . Family Conference Location: Bedside Issues Discussed: * Palliative care role, purpose, approach * Additional medical, psychosocial, and spiritual history * Patients general health, functional status, and cognitive changes in the months leading up to the current hospitalization * Patient/family understanding of the current medical problems * Patient/family understanding of prognosis * Patients goals of care as best understood from advance directives and/or conversations and/or values * Current medical treatment options and benefits/burdens of those options * Likely scenarios comparing ongoing aggressive care with a transition to comfort measures only * Questions answered to the best of my ability * Palliative care contact information provided . Assessment and Plan Disease Oriented Problem List: (1) Lymphadenopathy, axillary (2) Right arm cellulitis (3) Malignant cachexia (4) Shingles (5) Non-small cell lung cancer (NSCLC) (6) HTN (hypertension) (7) Depression (8) Anxiety (9) COPD (chronic obstructive pulmonary disease) Symptom Scale: (1) Debility (2) Pain (3) Decrease in appetite Pertinent Non-Medical Issues Psychosocial: Patient was born in [place] [facility] but has lived in [place] since 1985. He states he was for approximately 4 years but is now . He has no children. 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 He enjoys going to the [email or web address] and playing poke. He currently lives in a [id number] suite at his parent's house. His mother is the primary caregiver; patient is supported Spiritual: Baptism tiffanie Legal: Patient is currently capacitated to sharing his medical treatment goals. Patient verbally designated his mother, Marianne Nieto, as his healthcare surrogate. Conversation was witnessed by Michelle Rose [facility]. Ethical issues impacting care: No known ethical issues impacting care at this time. . Important Contacts Marianne Nieto, mother: [phone] or [phone] . Prognosis Patient is a 56-year-old male with metastatic non-small cell lung cancer ( diagnosed 2014). He was recently on palliative chemotherapy; he developed disease progression in the right axillary lymph node. Status post radiation completed 03/18/2017. Patient was hospitalized in February, with RUE cellulitis; no hospitalized again in March, for management of recurrent cellulitis/ lymphedema. Chemotherapy is currently on hold. Patient has experienced a decline; he reports increasing weakness, fatigue, poor appetite and weight loss. Given patient's diagnosis of inoperable metastatic carcinoma, recent hospitalizations for recurrent cellulitis and functional decline - overall prognosis is poor. . Code Status: No Code Plan * NO CODE * Decision making: Patient is currently capacitated to sharing his medical treatment goals. Patient verbally designated his mother, Marianne Nieto, as his healthcare surrogate. Conversation was witnessed by Michelle Rose [facility] [employer] [facility]. * Goals: Patient's primary goal at this time is pain management, overall goals remain aggressive. * Symptom managementpain: Patient reporting severe pain in right upper extremity that is rated 8 out of 10. Current orders MS Contin 30 mg PO q8 hours and Dilaudid 4 mg PO q4 hours PRN which is being used sparingly with 2 doses in the past [address] Billingsley started the patient on Fentanyl Duragesic patch (12.5 g per hour every 72 hours) on 02/28/2017; the patient stated it was effective in managing his pain symptoms. Of note, patient reports he still has the patch in place from 3 days ago. * Symptom management- decreased appetite: Patient reporting poor appetite and weight loss. He states he can eat some soft foods and liquids,but obtains the majority of his nutritional intake artificially via PEG tube. Albumin 1.3 BMI 20.8. Would consider dietary consult for recommendations. * Symptom management- debility: Patient reporting increasing weakness and fatigue, especially in recent weeks. Patient currently lives in a mother in law suite at his parents house. He states he is having more difficulty maintaining his independence. Consider PT consult. * Palliative care will follow this patient throughout his hospitalization to establish trust, assist with symptom management and clarification of medical treatment goals. . Thank you for the opportunity to participate in the care of Mr. Nieto. Milla Barrios Mar 22, 2017 11:17
[2017-03-22] MEDS: HYDROmorphone HCL 2 MG TAB PO PRN ×2 (11:20→20:15)
[2017-03-22] MEDS: REMOVE OLD PATCH T-DERMAL SCH (11:33)
[2017-03-22] MEDS: PHENYLEPHRINE INJ 160 MG in DEXTROSE 5% IN WATE 500 ML INJ 484 ML IV SCH ×2 (11:34)
[2017-03-22] MEDS: methylPREDNISolone SOD SUCC 40 MG/1 ML VIAL IV PUSH SCH ×2 (11:39→20:16)
--- NOTE | 2017-03-22 12:58 | PD.ONC.PN ---
Subjective Subjective Remarks Tmax 100.4 this AM. became hypotensive, was started on pressor support. 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 still with swelling and redness in right arm, unchanged. + cough. Objective Data Date Time Temp Pulse Resp B/P Pulse Ox O2 Delivery O2 Flow Rate FiO2 03/22/17 12:00 99.5 98 21 92/52 98 03/22/17 12:00 98 03/22/17 10:00 95 03/22/17 08:00 102 03/22/17 08:00 99.3 103 13 77/48 94 03/22/17 07:10 112 20 79/48 93 03/22/17 06:55 69/39 03/22/17 06:50 73/39 03/22/17 06:43 99.2 109 18 82/52 93 03/22/17 06:40 85/52 03/22/17 06:00 99.5 116 20 71/46 93 03/22/17 04:30 100.4 122 22 79/49 91 03/22/17 00:00 99.0 121 18 111/81 90 03/21/17 23:38 97 Nasal Cannula 2.00 03/21/17 23:17 16 03/21/17 20:00 98.5 113 17 109/57 90 03/21/17 16:00 97.9 106 18 100/49 97 03/22/17 03/22/17 03/22/17 06:59 14:59 22:59 Intake Total 0 ml Output Total 500 ml Balance -500 ml Result Diagram: 03/22/1730 03/22/17 0930 Laboratory Results Laboratory Tests Test 03/22/17 03/22/17 06:58 09:30 Lactic Acid Level 1.5 mmol/L White Blood Count 17.4 TH/MM3 Red Blood Count 2.51 MIL/MM3 Hemoglobin 7.1 GM/DL Hematocrit 22.4 % Mean Corpuscular Volume 89.0 FL Mean Corpuscular Hemoglobin 28.3 PG Mean Corpuscular Hemoglobin 31.8 % Concent Red Cell Distribution Width 19.4 % Platelet Count 383 TH/MM3 Mean Platelet Volume 6.9 FL Neutrophils (%) (Auto) 95.4 % Lymphocytes (%) (Auto) 0.7 % Monocytes (%) (Auto) 2.9 % Eosinophils (%) (Auto) 0.6 % Basophils (%) (Auto) 0.4 % Neutrophils # (Auto) 16.6 TH/MM3 Lymphocytes # (Auto) 0.1 TH/MM3 Monocytes # (Auto) 0.5 TH/MM3 Eosinophils # (Auto) 0.1 TH/MM3 Basophils # (Auto) 0.1 TH/MM3 CBC Comment DIFF FINAL Differential Comment Prothrombin Time 12.8 SEC Prothromb Time International 1.2 RATIO Ratio Activated Partial 29.0 SEC Thromboplast Time Fibrinogen 579 mg/dL Urine Color YELLOW Urine Turbidity CLEAR Urine pH 6.5 Urine Specific [place] 1.012 Urine Protein NEG mg/dL Urine Glucose (UA) NEG mg/dL Urine Ketones NEG mg/dL Urine Occult Blood NEG Urine Nitrite NEG Urine Bilirubin NEG Urine Urobilinogen LESS THAN 2.0 MG/DL Urine Leukocyte Esterase NEG Urine WBC 1 /hpf Microscopic Urinalysis Comment CULT NOT INDICATED Sodium Level 133 MEQ/L Potassium Level 4.1 MEQ/L Chloride Level 100 MEQ/L Carbon Dioxide Level 25.8 MEQ/L Anion Gap 7 MEQ/L Blood Urea Nitrogen 17 MG/DL Creatinine 0.59 MG/DL Estimat Glomerular Filtration 142 ML/MIN Rate Random Glucose 80 MG/DL Calcium Level 7.2 MG/DL Protein Corrected Calcium 8.5 MG/DL Phosphorus Level 3.3 MG/DL Magnesium Level 1.9 MG/DL Total Bilirubin 0.3 MG/DL Aspartate Amino Transf 14 U/L (AST/SGOT) Alanine Aminotransferase 8 U/L (ALT/SGPT) Alkaline Phosphatase 69 U/L Total Creatine Kinase 30 U/L Total Protein 4.8 GM/DL Albumin 1.3 GM/DL Amylase Level 31 U/L Lipase 54 U/L Thyroid Stimulating Hormone 3.650 uIU/ML 3rd Gen Culture Results Microbiology Date/Time Procedure Status Source Growth 03/22/17 06:58 Aerobic Blood Culture Received Blood Line Pending 03/22/17 06:58 Anaerobic Blood Culture Received Blood Line Pending 03/22/17 09:30 Influenza Types A,B Antigen (ANA) - Final Complete Nasal Aspirate NEGATIVE FOR FLU A AND B ANTIGEN.... Imaging Studies Last Impressions Upper Extremity Ultrasound 03/21/17 0000 Signed Impressions: Service Date/Time: March 11:31 - CONCLUSION: 1. No evidence of deep venous thrombosis within the right upper extremity. 2. Hypoechoic mass/collection adjacent to the right subclavian vasculature measuring 7.8 x 1.9 x 3.4 cm which is indeterminate. Chaparro Hawkins MD Chest CT 03/21/17 0000 Signed Impressions: Service Date/Time: March 22:27 - CONCLUSION: 1. Dense consolidation in both lower lobes with likely postradiation changes on the right. The appearance on the left could be compatible with aspiration or pneumonia. There is underlying moderate emphysema. Bilateral effusions, right greater than left. 2. Dilated esophagus characteristic of esophageal motility disorder. 3. Left Cvhlpd-r-Nzqs in superior vena cava. Moderate coronary calcifications. Deep Gtz MD Chest X-Ray 03/20/17 0000 Signed Impressions: Service Date/Time: Monday, March 20, 2017 20:06 - CONCLUSION: No acute disease. Chas Amaya MD Administered Medications Medications (Trade) Dose Ordered Sig/Franny Route PRN Reason Start Time Stop Time Status Last Admin Dose Admin Sodium Chloride (NS Flush) 2 ml BID IV FLUSH 03/20/17 21:00 03/22/17 09:19 Hydromorphone HCl (Dilaudid) 4 mg Q4H PRN PO pain 1-10 03/20/17 17:45 03/22/17 11:20 Mirtazapine (Remeron) 7.5 mg HS PO 03/20/17 21:00 03/21/17 22:16 Morphine Sulfate (Oramorph Sr) 30 mg Q8HR PO 03/20/17 22:00 03/21/17 22:17 Senna/Docusate Sodium (Alma-Colace) 2 tab BID PO 03/20/17 21:00 03/22/17 09:19 Heparin Sodium (Porcine) (Heparin Inj) 5,000 units Q12HR SQ 03/20/17 21:00 03/22/17 09:17 Nicotine (Habitrol 21 Mg Patch.24 Hr) 1 patch DAILY T-DERMAL 03/20/17 20:15 03/22/17 09:18 Miscellaneous Information 1 DAILY T-DERMAL 03/21/17 09:00 03/22/17 09:00 Miscellaneous Information 1 HS T-DERMAL 03/20/17 21:00 03/21/17 21:00 Tiotropium [place] 18 mcg 18 mcg DAILY INH 03/21/17 11:00 03/21/17 12:22 Cefazolin Sodium/ Dextrose (Ancef 2 Gm Premix) 50 ml @ 150 mls/hr Q8H IV 03/21/17 16:00 03/22/17 09:19 Potassium Bicarb/ Potassium Chloride 25 meq 25 meq Q12HR G-TUBE 03/21/17 21:00 Hold 03/21/17 22:16 Clindamycin Phosphate 600 mg/ Sodium Chloride 104 ml @ 104 mls/hr Q6H IV 03/22/17 06:00 03/22/17 11:39 Sodium Chloride (NS 1000 ml Inj) 1,000 ml @ 100 mls/hr Q10H IV 03/22/17 05:30 03/22/17 05:35 Acetaminophen 650 mg 650 mg Q4H PRN PO FEVER 100.5 03/22/17 05:30 03/22/17 05:34 Phenylephrine HCl/ Dextrose (Neosynephrine Inj/D5W 500 ml Inj) 500 ml @ 0 mls/hr TITRATE IV 03/22/17 08:30 03/22/17 11:34 Methylprednisolone Sodium Succinate (SoluMEDROL INJ) 40 mg Q12HR IV PUSH 03/22/17 10:00 03/22/17 11:39 Pantoprazole Sodium (Protonix Inj) 40 mg Q24H IV PUSH 03/22/17 10:00 03/22/17 10:44 Objective Remarks GENERAL: Pleasant middle aged male upright in bed on 2L O2 via NC SKIN: Warm and dry. HEAD: Normocephalic. EYES: No injection or drainage. NECK: Supple, trachea midline. CARDIOVASCULAR: Regular rate and rhythm RESPIRATORY: anterior nguyen with occasional rhonchi. GASTROINTESTINAL: Abdomen soft, non-tender, nondistended. EXTREMITIES: No cyanosis NEUROLOGICAL: awake and alert, normal speech. Assessment/Plan Problem List: (1) Right shoulder pain Status: Acute Plan: --Right upper extremity edema and pain. -- worse in the last three weeks. --recently was found to have progression of disease in right axillary lymph node and received palliative radiation which he completed this past Saturday. --was admitted to the hospital in the middle of February for cellulitis of the right arm and treated with antibiotic. --had an ultrasound during his last visit which did not show any deep venous thrombosis. --U/S RUE: no DVT + hypoechoic mass/collection adjacent to the right SC vasculature measuring 7.8x1.9x3.4 --CT chest: consolidation in both lobes with likely post-radiation changes on the right. ?brachial plexopathy due to invasion of his cancer. --swelling in part could also be due to lymphedema. (2) Metastatic lung carcinoma Status: Acute Plan: --Metastatic non-small cell lung cancer. --first diagnosed in 2014. --recently was on palliative Alimta and reportedly disease was controlled until he developed the progression of disease in the right axillary lymph node. --just completed radiation this past Saturday. (3) Pneumonia Status: Acute Plan: --on antibiotics Assessment 56y/o male with metastatic lung cancer admitted with increased pain of the right upper extremities and swelling. h/o Metastatic non-small cell lung carcinoma. Right arm cellulitis. Right shoulder rotator cuff tear. 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 Cachexia. Anxiety. Chronic obstructive pulmonary disease. Pneumothorax. PEG tube placement. Port placement. Cerebral aneurysm clipping. 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 Plan 1. continue antibiotics 2. supportive care Oly Maldonado Mar 22, 2017 12:58
[2017-03-22] MEDS: TIOTROPIUM BROMIDE 18 MCG INH INH SCH (13:08)
--- NOTE | 2017-03-22 19:58 | HHI.IDPN ---
Subjective Subjective Remarks pt was transferred to ICU 2/2 resp issues low grade fever earlier today on NC O2 CT chest showed Dense consolidation in both lower lobes with likely postradiation changes on the right. The appearance on the left could be compatible with aspiration or pneumonia Antibiotics cefazoline clinda Allergies: Coded Allergies: diatrizoate meglumine (Unverified Allergy, Severe, Hives, 03/19/17) gadobenic acid (Unverified Allergy, Severe, Hives, 03/19/17) gadodiamide (Unverified Allergy, Severe, Hives, 03/19/17) gadoteridol (Unverified Allergy, Severe, Hives, 03/19/17) iodixanol (Unverified Allergy, Severe, Hives, 03/19/17) iohexol (Unverified Allergy, Severe, Hives, 03/19/17) carboplatin (Unverified Allergy, Mild, Itching, 03/19/17) MRI PRECAUTION (Verified Adverse Reaction, Severe, Shunt & aneurysm clip no info Faheem & Ross LRS 03/21/17, 03/21/17) Objective . Vital Signs Date Time Temp Pulse Resp B/P Pulse Ox O2 Delivery O2 Flow Rate FiO2 03/22/17 18:00 101 03/22/17 16:39 96 Nasal Cannula 1.00 03/22/17 16:25 17 03/22/17 16:00 99.2 101 21 131/63 94 03/22/17 16:00 101 03/22/17 14:00 100 03/22/17 13:34 93 Nasal Cannula 3.00 03/22/17 12:20 14 03/22/17 12:00 99.5 98 21 92/52 98 03/22/17 12:00 98 03/22/17 10:00 95 03/22/17 08:00 102 03/22/17 08:00 99.3 103 13 77/48 94 03/22/17 07:10 112 20 79/48 93 03/22/17 06:55 69/39 03/22/17 06:50 73/39 03/22/17 06:43 99.2 109 18 82/52 93 03/22/17 06:40 85/52 03/22/17 06:00 99.5 116 20 71/46 93 03/22/17 04:30 100.4 122 22 79/49 91 03/22/17 00:00 99.0 121 18 111/81 90 03/21/17 23:38 97 Nasal Cannula 2.00 03/21/17 20:00 98.5 113 17 109/57 90 03/21/17 03/21/17 03/22/17 15:00 23:00 07:00 Intake Total 840 ml 802 ml 0 ml Output Total 450 ml 500 ml Balance 840 ml 352 ml -500 ml Intake Oral 840 ml 0 ml IV Total 802 ml Output Urine Total 450 ml 500 ml # Voids 4 # Bowel Movements 0 . Laboratory Tests Test 03/21/17 03/22/17 05:00 09:30 White Blood Count 9.7 TH/MM3 17.4 TH/MM3 Red Blood Count 2.80 MIL/MM3 2.51 MIL/MM3 Hemoglobin 8.0 GM/DL 7.1 GM/DL Hematocrit 24.7 % 22.4 % Mean Corpuscular Volume 88.1 FL 89.0 FL Mean Corpuscular Hemoglobin 28.4 PG 28.3 PG Mean Corpuscular Hemoglobin 32.3 % 31.8 % Concent Red Cell Distribution Width 19.7 % 19.4 % Platelet Count 410 TH/MM3 383 TH/MM3 Mean Platelet Volume 6.7 FL 6.9 FL Neutrophils (%) (Auto) 89.7 % 95.4 % Lymphocytes (%) (Auto) 2.7 % 0.7 % Monocytes (%) (Auto) 7.3 % 2.9 % Eosinophils (%) (Auto) 0.1 % 0.6 % Basophils (%) (Auto) 0.2 % 0.4 % Neutrophils # (Auto) 8.7 TH/MM3 16.6 TH/MM3 Lymphocytes # (Auto) 0.3 TH/MM3 0.1 TH/MM3 Monocytes # (Auto) 0.7 TH/MM3 0.5 TH/MM3 Eosinophils # (Auto) 0.0 TH/MM3 0.1 TH/MM3 Basophils # (Auto) 0.0 TH/MM3 0.1 TH/MM3 CBC Comment DIFF FINAL DIFF FINAL Differential Comment Laboratory Tests Test 03/21/17 03/22/17 03/22/17 05:08 06:58 09:30 Sodium Level 135 MEQ/L 133 MEQ/L Potassium Level 3.4 MEQ/L 4.1 MEQ/L Chloride Level 98 MEQ/L 100 MEQ/L Carbon Dioxide Level 29.9 MEQ/L 25.8 MEQ/L Anion Gap 7 MEQ/L 7 MEQ/L Blood Urea Nitrogen 17 MG/DL 17 MG/DL Creatinine 0.51 MG/DL 0.59 MG/DL Estimat Glomerular Filtration 168 ML/MIN 142 ML/MIN Rate Random Glucose 95 MG/DL 80 MG/DL Calcium Level 7.9 MG/DL 7.2 MG/DL Lactic Acid Level 1.5 mmol/L Protein Corrected Calcium 8.5 MG/DL Phosphorus Level 3.3 MG/DL Magnesium Level 1.9 MG/DL Total Bilirubin 0.3 MG/DL Aspartate Amino Transf 14 U/L (AST/SGOT) Alanine Aminotransferase 8 U/L (ALT/SGPT) Alkaline Phosphatase 69 U/L Total Creatine Kinase 30 U/L Total Protein 4.8 GM/DL Albumin 1.3 GM/DL Amylase Level 31 U/L Lipase 54 U/L Procalcitonin 1.18 ng/mL Thyroid Stimulating Hormone 3.650 uIU/ML 3rd Gen Microbiology Date/Time Procedure Status Source Growth 03/22/17 06:58 Aerobic Blood Culture Received Blood Line Pending 03/22/17 06:58 Anaerobic Blood Culture Received Blood Line Pending 03/22/17 09:30 Influenza Types A,B Antigen (ANA) - Final Complete Nasal Aspirate NEGATIVE FOR FLU A AND B ANTIGEN.... 03/22/17 13:14 Aerobic Blood Culture Received Blood Line Pending 03/22/17 13:14 Anaerobic Blood Culture Received Blood Line Pending Imaging Last Impressions Upper Extremity Ultrasound 03/21/17 0000 Signed Impressions: Service Date/Time: March 11:31 - CONCLUSION: 1. No evidence of deep venous thrombosis within the right upper extremity. 2. Hypoechoic mass/collection adjacent to the right subclavian vasculature measuring 7.8 x 1.9 x 3.4 cm which is indeterminate. Chaparro Hawkins MD Chest CT 03/21/17 0000 Signed Impressions: Service Date/Time: March 22:27 - CONCLUSION: 1. Dense consolidation in both lower lobes with likely postradiation changes on the right. The appearance on the left could be compatible with aspiration or pneumonia. There is underlying moderate emphysema. Bilateral effusions, right greater than left. 2. Dilated esophagus characteristic of esophageal motility disorder. 3. Left Wudffa-s-Iukp in superior vena cava. Moderate coronary calcifications. Deep Gtz MD Chest X-Ray 03/20/17 0000 Signed Impressions: Service Date/Time: Monday, March 20, 2017 20:06 - CONCLUSION: No acute disease. Chas Amaya MD Physical Exam CONSTITUTIONAL/GENERAL: This is an adequately nourished patient, in no apparent distress. TUBES/LINES/DRAINS: SKIN: No jaundice or rashes, or lesions. HEAD: Atraumatic. Normocephalic. EYES: Pupils equal and round and reactive. Extraocular motions intact. No scleral icterus. No injection or drainage. Fundi not examined. ENT: Hearing grossly normal. Nose without bleeding or purulent drainage. Edentulous CARDIOVASCULAR: Regular rate and rhythm without murmurs, gallops, or rubs. No JVD. Peripheral pulses symmetric. RESPIRATORY/CHEST: Symmetric, unlabored respirations.Rhonchi to auscultation on the right . Breath sounds equal bilaterally. No wheezes, rales, or rhonchi. GASTROINTESTINAL: Abdomen soft, non-tender, nondistended. No hepato-splenomegaly , or palpable masses. No guarding. Bowel sounds present. MUSCULOSKELETAL: Extremities without cyanosis, or BLE/LUE edema. No joint tenderness or effusion noted. No calf tenderness. + prominent nail.clubbing, STATIS LOCALIS: R Axilla and R chest area is indurated with post XRT changes RUE is edematous (2-2.5 X bigger than contralateral, but not tight, skin with erythema evende above elbow and lichenification, prominent papillae on the skin in diffuse pattern No vesicles or crusted lesions noted The lesions observed are grouped in diffuse, but not linear pattern Overall looks better: both edema and erythema improved NEUROLOGICAL: Awake and alert. Motor and sensory grossly within normal limits. Follows commands. Clear speech . Moves all extremities. PSYCHIATRIC: No obvious anxiety/depression. no apparent hallucinations or other psychotic thought process. Assessment & Plan Remarks Metastatic lung CA R axilla mass RUE chronic lymphedema (axilla mass 2/2 lymph nodes mets and XRT are contributing factors) Chronic/recurrent RUE cellulitis in the settings of unresolving/worsening lymphedema - improving cellulitis Clinically no e/o shingles Postobstructive PNA vs XRT related pneumonitis rec;s: - cont clindamycin - dc cefazoline start zosyn - chk sputm clx Kelsea Kenny MD Mar 22, 2017 19:58
[2017-03-22] MEDS: PIPERACIL-TAZO 4.5 GM PREMIX 100 ML IV SCH (20:15)
[2017-03-22] MEDS: MIRTAZAPINE 15 MG TAB PO SCH (20:16)
[2017-03-23] VITALS (16 sets, daily range): BP systolic 99–128; BP diastolic 53–67; PULSE 82–111; RESP 14–39; TEMP 98.1–98.4; O2SAT 86–95
[2017-03-23] MEDS: RESP: ALBUTEROL 2.5 MG/3 ML NEB (SCH) NEB ×6 (00:15→20:30)
[2017-03-23] MEDS: HYDROmorphone HCL 2 MG TAB PO PRN ×6 (00:18→21:57)
[2017-03-23] MEDS: PIPERACIL-TAZO 4.5 GM PREMIX 100 ML IV SCH ×4 (02:03→19:57)
[2017-03-23] MEDS: MORPHINE SULFATE 30 MG CONTROLLED RELEASE TAB PO SCH ×3 (05:41→21:57)
[2017-03-23] MEDS: PHENYLEPHRINE INJ 160 MG in DEXTROSE 5% IN WATE 500 ML INJ 484 ML IV SCH ×2 (05:41)
[2017-03-23] MEDS: CLINDAMYCIN INJ 600 MG in SODIUM CHLORIDE 0.9% INJ 100 ML IV SCH ×4 (05:41→23:58)
[2017-03-23 06:55] LABS: HEMATOCRIT 23.3 % (39.0-51.0); MEAN CELL VOLUME 89.7 FL (80.0-100.0); MEAN CORPUSCULAR HEMOGLOBIN 27.6 PG (27.0-34.0); MEAN CORPUSCULAR HGB CONC 30.8 % (32.0-36.0); PLATELET COUNT 557 TH/MM3 (150-450); RED CELL DISTRIBUTION WIDTH 19.7 % (11.6-17.2); REVIEW FLAG FINAL; WHITE BLOOD COUNT 29.4 TH/MM3 (4.0-11.0)
[2017-03-23 07:00] LABS: BICARBONATE 22.4 MEQ/L (21.0-32.0); POTASSIUM 4.2 MEQ/L (3.5-5.1)
[2017-03-23] MEDS: HEPARIN SODIUM - SQ 10,000 UNITS/ML VIAL SQ SCH ×2 (08:57→19:59)
[2017-03-23] MEDS: methylPREDNISolone SOD SUCC 40 MG/1 ML VIAL IV PUSH SCH ×2 (08:57→19:58)
[2017-03-23] MEDS: NICOTINE 21 MG/24 HR PATCH T-DERMAL SCH (08:58)
[2017-03-23] MEDS: DOCUSATE SODIUM 50 MG/SENNA 8.6 MG TAB PO SCH ×2 (08:59→19:58)
[2017-03-23] MEDS: REMOVE OLD NICOTINE PATCH T-DERMAL SCH (09:00)
[2017-03-23] MEDS: TIOTROPIUM BROMIDE 18 MCG INH INH SCH (09:00)
[2017-03-23] MEDS: SODIUM CHLORIDE 0.9% FLUSH 10 ML FLUSH IV FLUSH SCH ×2 (09:00→19:57)
--- NOTE | 2017-03-23 09:11 | HHI.CCPN ---
Subjective Remarks/Hospital Course 56-year-old male. Date of admission 03/21/2017. Date of consultation 03/22/2017. Past medical history includes headache non-small cell lung cancer, right subclavian lymph node causing chronic right upper extremity lymphedema, hypertension, depression, chronic pain syndrome and benzodiazepine use. Patient received presented to [facility] on 03/21 with cough, worsening pain in right upper extremity. Seen in consultation by Dr Webster hematology along with infectious disease. Noted anabolic changed to cefazolin and clindamycin. Acyclovir discontinued as not his thought to have shingles. No signs of DVT over the right upper extremity. CT chest revealed radiation pneumonitis/possible aspiration left lobe with bilateral pleural effusions. Coronary calcifications. This A.m., patient became hypotensive. Received 2 L normal saline via a left Port-A-Cath. Currently hemodynamically stable. Patient with productive cough of brown sputum. No hemoptysis. Subjective 03/23: Afebrile. MAXIMUM TEMPERATURE 99.4. Tachycardic. On 3 L nasal cannula. Blood cell count currently elevated 29,000. Platelets elevated. Main complaint is pain management. Requesting resumption of fentanyl patch.. Remains on Abad-Synephrine at 70 g per minute Objective Vital Signs Date Time Temp Pulse Resp B/P Pulse Ox O2 Delivery O2 Flow Rate FiO2 03/23/17 07:47 93 Nasal Cannula 3.00 03/23/17 06:00 102 03/23/17 04:00 98.4 39 109/65 03/21/17 08:45 21 Intake and Output 03/22/17 03/22/17 03/23/17 08:00 16:00 00:00 Intake Total 0 ml 3393 ml 1521 ml Output Total 200 ml 900 ml 2150 ml Balance -200 ml 2493 ml -629 ml Result Diagram: 03/23/17 0620 03/23/17 0620 Other Results Microbiology Date/Time Procedure Status Source Growth 03/22/17 13:14 Aerobic Blood Culture Received Blood Line Pending 03/22/17 13:14 Anaerobic Blood Culture Received Blood Line Pending 03/22/17 09:30 Influenza Types A,B Antigen (ANA) - Final Complete Nasal Aspirate NEGATIVE FOR FLU A AND B ANTIGEN.... Imaging Last Impressions Upper Extremity Ultrasound 03/21/17 0000 Signed Impressions: Service Date/Time: March 11:31 - CONCLUSION: 1. No evidence of deep venous thrombosis within the right upper extremity. 2. Hypoechoic mass/collection adjacent to the right subclavian vasculature measuring 7.8 x 1.9 x 3.4 cm which is indeterminate. Chaparro Hawkins MD Chest CT 03/21/17 0000 Signed Impressions: Service Date/Time: March 22:27 - CONCLUSION: 1. Dense consolidation in both lower lobes with likely postradiation changes on the right. The appearance on the left could be compatible with aspiration or pneumonia. There is underlying moderate emphysema. Bilateral effusions, right greater than left. 2. Dilated esophagus characteristic of esophageal motility disorder. 3. Left Tnxnjh-o-Ccov in superior vena cava. Moderate coronary calcifications. Deep Gtz MD Chest X-Ray 03/20/17 0000 Signed Impressions: Service Date/Time: Monday, March 20, 2017 20:06 - CONCLUSION: No acute disease. Chas Amaya MD Objective Remarks GENERAL: 56-year-old male, resting in bed in no acute distress SKIN: R Axilla and R chest area is indurated with post radiation changes RUE is edematous and bigger than left upper extremity but not tight, skin with erythema above elbow and lichenification, prominent papillae on the skin in diffuse pattern HEAD: Atraumatic. Normocephalic. EYES: Pupils equal and round about 3 mm bilaterally and reactive. No scleral icterus. No injection or drainage. ENT: No nasal bleeding or discharge. Mucous membranes pink and moist. NECK: Trachea midline. No JVD. CARDIOVASCULAR: Tachycardic, RR.. S1, S2 no S4 without murmur RESPIRATORY: No accessory muscle use. Clear to auscultation. Breath sounds equal bilaterally. GASTROINTESTINAL: Abdomen soft, non-tender, nondistended. Active bowel sounds are appreciated. PEG tube is clean dry intact and left upper quadrant MUSCULOSKELETAL: See skin for right upper extremity. No edema bilateral lower extremity. NEUROLOGICAL: Awake and alert. No obvious cranial nerve deficits. Motor grossly within normal limits. Five out of 5 muscle strength in the arms and legs. Normal speech. PSYCHIATRIC: Appropriate mood and affect; insight and judgment normal. A/P Assessment and Plan Neuro/Psych: Chronic pain syndrome Depression NOS Acetaminophen for fever Currently on nicotine patch /21 mg daily. As needed lorazepam 0.5 mg at night for anxiety On hydromorphone 2 mg every hours when necessary pain On morphine sulfate extended release 30 mg twice a day Restarted fentanyl patch at 25 g. Every 3 days Continue mirtazapine 7.5 mg by mouth at bedtime for depression CV: Severe sepsis Currently on Abad-Synephrine at 70 mg per minute. Continue with IV fluids normal saline at 100 cc an hour Status post fluid challenge yesterday albumin 25 g every 6 hours times for dosages. Resp: Possible aspiration pneumonitis/radiation pneumonitis Bilateral pleural effusions COPD Ongoing tobaccoism Nasal cannula to maintain saturations greater than equal to 92% Incentive spirometry while awake Currently on albuterol aerosols every 4 hours. Tiotropium 18 mcg daily. On ipratropium inhaler twice a day at home CT thorax 03/21 revealed bilateral lower lobe disc consolidation/possible aspiration left lobe with bilateral pleural effusions, coronary calcifications. Emphysema GI: Status post PEG tube Cachexia Moderate protein calorie malnutrition/chronic Jevity 1.5-240 cc 6 times daily Pantoprazole for GI prophylaxis Docusate sodium/senna twice a day for bowel regimen Dilated esophagus/dysmotility possibly secondary to radiation on CT chest : Prince catheter currently not indicated Endo: Sliding scale insulin with Accu-Cheks to maintain euglycemia Renal: Creatinine currently within normal limits Monitor urine output Accurate I's and O's Currently normal saline at 100 cc an hour Heme: Stage IV lung cancer/non-small cell Right subclavian lymph node enlargement 7.8 x 1.8 x 3.4 cm Normocytic anemia Leukocytosis Thrombocytosis Currently being followed by Dr. Webster/oncology Status post radiation therapy with Dr. Garcia/radiation called he completed Saturday for right subclavian lymph node No indications for transfusion of blood proximally at this time Follow-up on CBC in AM. ID: Currently on cefazolin 2 g IV every 8 hours changed to Cipro so/tazobactam 4.5 g IV every 6 hours /clindamycin 600 mg IV every 6 hours Blood cultures 2 pending. Influenza/urine Legionella and pneumococcal antigens/UA all pending Pro-calcitonin 1.12. MSK: PT evaluate and treat FEN: Hypokalemia Replace per ICU electrolyte protocol. Follow magnesium Access - Utilize left Port-A-Cath. Central line if indicated Prophylaxis - GI - pantoprazole - DVT - SCD/heparin subcutaneous Level III follow-up Warner Brantley MD Mar 23, 2017 09:11
--- NOTE | 2017-03-23 09:56 | HHI.PR ---
Subjective Remarks Resting in the bed currently in ICU setting 1327 Awake, talkative right arm pain, lymphedema unchanged Continues to need pain management Vital signs , pulse mildly tachycardic (Lenka Pollock) Objective Objective Results - Vital Signs Date Time Temp Pulse Resp B/P Pulse Ox O2 Delivery O2 Flow Rate FiO2 03/23/17 07:47 93 Nasal Cannula 3.00 03/23/17 06:00 102 03/23/17 04:00 98.4 102 39 109/65 86 03/23/17 04:00 82 03/23/17 02:00 92 03/23/17 00:17 93 Nasal Cannula 3.00 03/23/17 00:00 98.4 95 19 123/58 95 03/23/17 00:00 94 03/22/17 22:00 92 03/22/17 20:00 100 03/22/17 20:00 98.6 100 19 83/51 99 03/22/17 18:00 101 03/22/17 16:39 96 Nasal Cannula 1.00 03/22/17 16:25 17 03/22/17 16:00 99.2 101 21 131/63 94 03/22/17 16:00 101 03/22/17 14:00 100 03/22/17 13:34 93 Nasal Cannula 3.00 03/22/17 12:20 14 03/22/17 12:00 99.5 98 21 92/52 98 03/22/17 12:00 98 03/22/17 10:00 95 I/O 03/22/17 03/22/17 03/22/17 03/23/17 03/23/17 03/23/17 07:00 15:00 23:00 07:00 15:00 23:00 Intake Total 0 ml 3393 ml 1521 ml 1952 ml Output Total 500 ml 900 ml 2150 ml 1425 ml Balance -500 ml 2493 ml -629 ml 527 ml Intake Oral 0 ml 480 ml 350 ml 500 ml IV Total 2870 ml 1044 ml 1210 ml Tube Feeding 43 ml 127 ml 182 ml Other 60 ml Output Urine Total 500 ml 900 ml 2150 ml 1425 ml # Bowel Movements 0 0 0 (Lenka Pollock) Result Diagram: 03/23/17 0620 03/23/17 0620 ROS General: Fatigue, Weakness, Other (10 point ROS done positives noted) Pulmonary: Cough (course but not coughing up any sputum), Other (cancer) Neuro/MS: Other (right arm lymphedema) (Lenka Pollock) Physical Exam Physical Exam PHYSICAL EXAMINATION GENERAL: This is a well-developed, well-nourished male resting in the bed right arm pain throbbing, He is alert and awake, HEAD: Normocephalic , thin, OROPHARYNGEAL: Oropharynx NECK: Supple, thin Trachea midline without deviation. CARDIAC: Regular rhythm, tachycardic rate, S1 and S2 are heard LUNGS: Diminished to auscultation bilaterally. no wheeze, positive for rhonchi low volumes ABDOMEN: Flat, Soft, nontender, Bowel sounds are soft, audible EXTREMITIES: Right arm and shoulder lymphedema, no lower extremity edema NEUROLOGICAL: Patient mood and affect appropriate. SKIN:Warm and dry (Lenka Pollock) A/P Assessment and Plan Vital signs reviewed, no fever pulse is tachycardic mild, 102, blood pressure stable 109/65 Currently in the intensive care setting been monitored for his hypotension which has stabilized Labs reviewed anemia 7.2 has had multiple fluid boluses so patient is now diluted, leukocytosis increased to 29.4, contact isolation Patient had Halicat yesterday for hypotension on 81 9, blood pressure seems to be more stable. Major increase in white count, Zosyn initiated Right upper extremity continues with edema and pain. progression of disease in right axillary lymph node received palliative radiation. Lymphedema continues 3-4+ with extreme pain Appreciate ID consult and plan a care, currently patient's on IV clindamycin, dose was increased yesterday Shingles have been ruled out, acyclovir has been DC'd Metastatic non-small cell lung cancer. Appreciate oncology plan a care and consult History of brain hemorrhage due to aneurysm status post clipping. ` Patient continues to be awake, simple understanding of his current process. Palliative care consult done to assist in support this patient through a difficult time. CODE STATUS is DO NOT RESUSCITATE Cachexia. Continues with pain management and IV steroids, antibiotics Encourage food, liquids of his choice encouraged to eat Anxiety and acute on chronic pain Pain and medical management, limited for now due to patient's hypotension. Explained to patient Anemia likely due to anemia of chronic disease. Chronic obstructive pulmonary disease. Encouraged to cough and deep breathe, incentive spirometry at bedside ordered , cough with some audible rhonchi heard, encouraged to expectorate sputum, Due to patient's current case of inoperable cancer, receiving palliative treatments only. Palliative care will continue to follow. We will track patient's response to aggressive care Discussed with patient Discussed with Dr. Askew, seen on his behalf Discussed with nurse (Lenka Pollock) Assessment and Plan Seen and examined as above Soft previous notes reviewed Labs reviewed Radiological data reviewed Discussed with patient Discussed with COLD PRESS LOADER about plan of care Discussed with RN Condition critical prognosis guarded to overall poor looking (West Askew MD) Lenka Pollock Mar 23, 2017 09:56 West Askew MD Mar 23, 2017 15:01
--- NOTE | 2017-03-23 10:20 | PD.ONC.PN ---
Subjective Subjective Remarks Afebrile overnight. Patient resting in bed. Reports pain in right arm is about a 7 today. Slept ok overnight. Remains on pressor support. Objective Data Date Time Temp Pulse Resp B/P Pulse Ox O2 Delivery O2 Flow Rate FiO2 03/23/17 07:47 93 Nasal Cannula 3.00 03/23/17 06:00 102 03/23/17 04:00 98.4 102 39 109/65 86 03/23/17 04:00 82 03/23/17 02:00 92 03/23/17 00:17 93 Nasal Cannula 3.00 03/23/17 00:00 98.4 95 19 123/58 95 03/23/17 00:00 94 03/22/17 22:00 92 03/22/17 20:00 100 03/22/17 20:00 98.6 100 19 83/51 99 03/22/17 18:00 101 03/22/17 16:39 96 Nasal Cannula 1.00 03/22/17 16:25 17 03/22/17 16:00 99.2 101 21 131/63 94 03/22/17 16:00 101 03/22/17 14:00 100 03/22/17 13:34 93 Nasal Cannula 3.00 03/22/17 12:20 14 03/22/17 12:00 99.5 98 21 92/52 98 03/22/17 12:00 98 Result Diagram: 03/23/17 0620 03/23/17 0620 Laboratory Results Laboratory Tests Test 03/23/17 06:20 White Blood Count 29.4 TH/MM3 Red Blood Count 2.60 MIL/MM3 Hemoglobin 7.2 GM/DL Hematocrit 23.3 % Mean Corpuscular Volume 89.7 FL Mean Corpuscular Hemoglobin 27.6 PG Mean Corpuscular Hemoglobin 30.8 % Concent Red Cell Distribution Width 19.7 % Platelet Count 557 TH/MM3 Mean Platelet Volume 6.5 FL Sodium Level 138 MEQ/L Potassium Level 4.2 MEQ/L Chloride Level 104 MEQ/L Carbon Dioxide Level 22.4 MEQ/L Anion Gap 12 MEQ/L Blood Urea Nitrogen 14 MG/DL Creatinine 0.78 MG/DL Estimat Glomerular Filtration 103 ML/MIN Rate Random Glucose 160 MG/DL Calcium Level 8.2 MG/DL Culture Results Microbiology Date/Time Procedure Status Source Growth 03/22/17 06:58 Aerobic Blood Culture Received Blood Line Pending 03/22/17 06:58 Anaerobic Blood Culture Received Blood Line Pending 03/22/17 09:30 Influenza Types A,B Antigen (ANA) - Final Complete Nasal Aspirate NEGATIVE FOR FLU A AND B ANTIGEN.... 03/22/17 13:14 Aerobic Blood Culture Received Blood Line Pending 03/22/17 13:14 Anaerobic Blood Culture Received Blood Line Pending Administered Medications Medications (Trade) Dose Ordered Sig/Franny Route PRN Reason Start Time Stop Time Status Last Admin Dose Admin Sodium Chloride (NS Flush) 2 ml BID IV FLUSH 03/20/17 21:00 03/23/17 09:00 Hydromorphone HCl (Dilaudid) 4 mg Q4H PRN PO pain 1-10 03/20/17 17:45 03/23/17 09:08 Mirtazapine (Remeron) 7.5 mg HS PO 03/20/17 21:00 03/22/17 20:16 Morphine Sulfate (Oramorph Sr) 30 mg Q8HR PO 03/20/17 22:00 03/23/17 05:41 Senna/Docusate Sodium (Alma-Colace) 2 tab BID PO 03/20/17 21:00 03/23/17 08:59 Heparin Sodium (Porcine) (Heparin Inj) 5,000 units Q12HR SQ 03/20/17 21:00 03/23/17 08:57 Nicotine (Habitrol 21 Mg Patch.24 Hr) 1 patch DAILY T-DERMAL 03/20/17 20:15 03/23/17 08:58 Miscellaneous Information 1 DAILY T-DERMAL 03/21/17 09:00 03/23/17 09:00 Tiotropium Anita (Spiriva Inh) 18 mcg DAILY INH 03/21/17 11:00 03/22/17 13:08 Potassium Bicarb/ Potassium Chloride 25 meq 25 meq Q12HR G-TUBE 03/21/17 21:00 Hold 03/21/17 22:16 Clindamycin Phosphate 600 mg/ Sodium Chloride 104 ml @ 104 mls/hr Q6H IV 03/22/17 06:00 03/23/17 05:41 Sodium Chloride (NS 1000 ml Inj) 1,000 ml @ 100 mls/hr Q10H IV 03/22/17 05:30 03/22/17 23:26 Acetaminophen 650 mg 650 mg Q4H PRN PO FEVER 100.5 03/22/17 05:30 03/22/17 05:34 Phenylephrine HCl/ Dextrose (Neosynephrine Inj/D5W 500 ml Inj) 500 ml @ 0 mls/hr TITRATE IV 03/22/17 08:30 03/23/17 05:41 Methylprednisolone Sodium Succinate (SoluMEDROL INJ) 40 mg Q12HR IV PUSH 03/22/17 10:00 03/23/17 08:57 Pantoprazole Sodium 40 mg 40 mg Q24H IV PUSH 03/22/17 10:00 03/22/17 10:44 Piperacillin Sod/ Tazobactam Sod (Zosyn 4.5 Gm Premix) 100 ml @ 200 mls/hr Q6H IV 03/22/17 20:00 03/23/17 08:56 Objective Remarks GENERAL: Pleasant, chronically ill appearing, middle aged male sitting up in bed in [facility]. SKIN: Warm and dry. HEAD: Normocephalic. EYES: No injection or drainage. NECK: Supple, trachea midline. CARDIOVASCULAR: +S1/S2, tachy RESPIRATORY: anterior nguyen, scattered rhonchi. on 3L O2 via NC GASTROINTESTINAL: Abdomen soft, non-tender, nondistended. EXTREMITIES: No cyanosis. RUE with significant edema NEUROLOGICAL: awake and alert, normal speech. Assessment/Plan Problem List: (1) Right shoulder pain Status: Acute Plan: --Right upper extremity edema and pain. -- worse in the last three weeks. --recently was found to have progression of disease in right axillary lymph node and received palliative radiation which he completed this past Saturday. --was admitted to the hospital in the middle of February for cellulitis of the right arm and treated with antibiotic. --had an ultrasound during his last visit which did not show any deep venous thrombosis. --U/S RUE: no DVT + hypoechoic mass/collection adjacent to the right SC vasculature measuring 7.8x1.9x3.4 --CT chest: consolidation in both lobes with likely post-radiation changes on the right. ?brachial plexopathy due to invasion of his cancer. --swelling in part could also be due to lymphedema. (2) Metastatic lung carcinoma Status: Acute Plan: --Metastatic non-small cell lung cancer. --first diagnosed in 2014. --recently was on palliative Alimta and reportedly disease was controlled until he developed the progression of disease in the right axillary lymph node. --just completed radiation this past Saturday. (3) Pneumonia Status: Acute Plan: --Postobstructive pneumonia vs. radiation induced pneumonitis --on Zosyn + Cleocin --also on steroids. (4) Normocytic anemia Status: Acute Plan: --iron studies, B12/folate pending --some degree of dilution--patient with positive fluid balance. Assessment 56y/o male with metastatic lung cancer admitted with increased pain of the right upper extremities and swelling. h/o Metastatic non-small cell lung carcinoma. Right arm cellulitis. Right shoulder rotator cuff tear. 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 Cachexia. Anxiety. Chronic obstructive pulmonary disease. Pneumothorax. PEG tube placement. Port placement. Cerebral aneurysm clipping. AR MANAGER shunt biopsy of neck and lung. Plan 1. continue antibiotics + steroids 2. monitor CBC. 3. supportive care Attending Statement The exam, history, and the medical decision-making described in the above note were completed with the assistance of the mid-level provider. I reviewed and agree with the findings presented. I attest that I had a [id number] encounter with the patient on the same day, and personally performed and documented my assessment and findings in the medical record. remains on pressors obtain anemia studies transfuse 1 unit of pRBC d/w Oly Ham Mar 23, 2017 10:20 Jaylon Jaffe MD Mar 23, 2017 18:21
[2017-03-23] MEDS: fentaNYL 25 MCG/HR PATCH T-DERMAL SCH (10:36)
[2017-03-23] MEDS: PANTOPRAZOLE SODIUM 40 MG VIAL IV PUSH SCH (10:37)
[2017-03-23] MEDS ORDERED: SODIUM CHLOR 0.9% 250 ML INJ 250 ML IV ONE (10:45)
[2017-03-23 10:50] LABS: TRANSFERRIN IRON PROFILE 101 MG/DL (200-360)
[2017-03-23 11:15] LABS: FERRITIN 795 NG/ML (26-388); LDH SERUM 163 U/L (87-241)
[2017-03-23] MEDS: SODIUM CHLOR 0.9% 1000 ML INJ 1,000 ML IV SCH ×2 (11:30→21:30)
[2017-03-23] MEDS: ALBUMIN HUMAN 25% 25 GM/100 ML BAGP IV SCH ×3 (12:20→23:58)
[2017-03-23] MEDS: MIRTAZAPINE 15 MG TAB PO SCH (19:59)
[2017-03-24] VITALS (12 sets, daily range): BP systolic 95–147; BP diastolic 51–88; PULSE 96–107; RESP 16–22; TEMP 98.2–98.3; O2SAT 91–94
[2017-03-24] MEDS: RESP: ALBUTEROL 2.5 MG/3 ML NEB (SCH) NEB ×6 (00:20→23:48)
[2017-03-24] MEDS: PIPERACIL-TAZO 4.5 GM PREMIX 100 ML IV SCH ×4 (02:02→19:56)
[2017-03-24] MEDS: HYDROmorphone HCL 2 MG TAB PO PRN ×5 (02:02→20:21)
[2017-03-24] MEDS: ALBUMIN HUMAN 25% 25 GM/100 ML BAGP IV SCH (05:43)
[2017-03-24] MEDS: CLINDAMYCIN INJ 600 MG in SODIUM CHLORIDE 0.9% INJ 100 ML IV SCH ×4 (05:43→23:29)
[2017-03-24] MEDS: MORPHINE SULFATE 30 MG CONTROLLED RELEASE TAB PO SCH ×3 (05:43→22:28)
--- NOTE | 2017-03-24 07:35 | HHI.CCPN ---
Subjective Remarks/Hospital Course 56-year-old male. Date of admission 03/21/2017. Date of consultation 03/22/2017. Past medical history includes headache non-small cell lung cancer, right subclavian lymph node causing chronic right upper extremity lymphedema, hypertension, depression, chronic pain syndrome and benzodiazepine use. Patient received presented to [facility] on 03/21 with cough, worsening pain in right upper extremity. Seen in consultation by Dr Webster hematology along with infectious disease. Noted anabolic changed to cefazolin and clindamycin. Acyclovir discontinued as not his thought to have shingles. No signs of DVT over the right upper extremity. CT chest revealed radiation pneumonitis/possible aspiration left lobe with bilateral pleural effusions. Coronary calcifications. This A.m., patient became hypotensive. Received 2 L normal saline via a left Port-A-Cath. Currently hemodynamically stable. Patient with productive cough of brown sputum. No hemoptysis. 03/23: Afebrile. MAXIMUM TEMPERATURE 99.4. Tachycardic. On 3 L nasal cannula. Blood cell count currently elevated 29,000. Platelets elevated. Main complaint is pain management. Requesting resumption of fentanyl patch.. Remains on Abad-Synephrine at 70 g per minute Subjective 03/24: Currently off off all vasopressors. Remains on nasal cannula. Laboratories for a.m. pending. Objective Vital Signs Date Time Temp Pulse Resp B/P Pulse Ox O2 Delivery O2 Flow Rate FiO2 03/24/17 07:25 92 Nasal Cannula 3.00 03/24/17 06:00 99 03/24/17 04:00 98.2 19 95/51 03/21/17 08:45 21 Intake and Output 03/23/17 03/23/17 03/23/17 07:59 15:59 23:59 Intake Total 1952 ml 2556 ml 1352 ml Output Total 1425 ml 1200 ml 1200 ml Balance 527 ml 1356 ml 152 ml Result Diagram: 03/23/17 0620 03/23/17 06 Other Results Microbiology Date/Time Procedure Status Source Growth 03/22/17 13:14 Aerobic Blood Culture - Preliminary Resulted Blood Line NO GROWTH IN 1 DAY 03/22/17 13:14 Anaerobic Blood Culture - Preliminary Resulted Blood Line NO GROWTH IN 1 DAY 03/22/17 09:30 Influenza Types A,B Antigen (ANA) - Final Complete Nasal Aspirate NEGATIVE FOR FLU A AND B ANTIGEN.... Imaging Last Impressions Upper Extremity Ultrasound 03/21/17 0000 Signed Impressions: Service Date/Time: March 11:31 - CONCLUSION: 1. No evidence of deep venous thrombosis within the right upper extremity. 2. Hypoechoic mass/collection adjacent to the right subclavian vasculature measuring 7.8 x 1.9 x 3.4 cm which is indeterminate. Chaparro Hawkins MD Chest CT 03/21/17 0000 Signed Impressions: Service Date/Time: March 22:27 - CONCLUSION: 1. Dense consolidation in both lower lobes with likely postradiation changes on the right. The appearance on the left could be compatible with aspiration or pneumonia. There is underlying moderate emphysema. Bilateral effusions, right greater than left. 2. Dilated esophagus characteristic of esophageal motility disorder. 3. Left [id number] in superior vena cava. Moderate coronary calcifications. Deep Gtz MD Chest X-Ray 03/20/17 0000 Signed Impressions: Service Date/Time: Monday, March 20, 2017 20:06 - CONCLUSION: No acute disease. Chas Amaya MD Objective Remarks GENERAL: 56-year-old male, resting in bed in no acute distress SKIN: R Axilla and R chest area is indurated with post radiation changes RUE is edematous and bigger than left upper extremity but not tight, skin with erythema above elbow and lichenification, prominent papillae on the skin in diffuse pattern HEAD: Atraumatic. Normocephalic. EYES: Pupils equal and round about 3 mm bilaterally and reactive. No scleral icterus. No injection or drainage. ENT: No nasal bleeding or discharge. Mucous membranes pink and moist. NECK: Trachea midline. No JVD. CARDIOVASCULAR: Tachycardic, RR.. S1, S2 no S4 without murmur RESPIRATORY: No accessory muscle use. Clear to auscultation. Breath sounds equal bilaterally. GASTROINTESTINAL: Abdomen soft, non-tender, nondistended. Active bowel sounds are appreciated. PEG tube is clean dry intact and left upper quadrant MUSCULOSKELETAL: See skin for right upper extremity. No edema bilateral lower extremity. NEUROLOGICAL: Awake and alert. No obvious cranial nerve deficits. Motor grossly within normal limits. Five out of 5 muscle strength in the arms and legs. Normal speech. PSYCHIATRIC: Appropriate mood and affect; insight and judgment normal. A/P Assessment and Plan Neuro/Psych: Chronic pain syndrome Depression NOS Acetaminophen for fever Currently on nicotine patch /21 mg daily. As needed lorazepam 0.5 mg at night for anxiety On hydromorphone 2 mg every hours when necessary pain On morphine sulfate extended release 30 mg twice a day Restarted fentanyl patch at 25 g. Every 3 days Continue mirtazapine 7.5 mg by mouth at bedtime for depression CV: Severe sepsis Currently on fentanyl drip Continue with IV fluids normal saline at 100 cc an hour Status post fluid challenge yesterday albumin 25 g every 6 hours times 4 dosages. Repleted Resp: Possible aspiration pneumonitis/radiation pneumonitis Bilateral pleural effusions COPD Ongoing tobaccoism Nasal cannula to maintain saturations greater than equal to 92% Incentive spirometry while awake Currently on albuterol aerosols every 4 hours. Tiotropium 18 mcg daily. On ipratropium inhaler twice a day at home CT thorax 03/21 revealed bilateral lower lobe disc consolidation/possible aspiration left lobe with bilateral pleural effusions, coronary calcifications. Emphysema GI: Status post PEG tube Cachexia Moderate protein calorie malnutrition/chronic Jevity 1.5-240 cc 6 times daily Pantoprazole for GI prophylaxis Docusate sodium/senna twice a day for bowel regimen Dilated esophagus/dysmotility possibly secondary to radiation on CT chest : Prince catheter currently not indicated Endo: Sliding scale insulin with Accu-Cheks to maintain euglycemia Renal: Creatinine currently within normal limits Monitor urine output Accurate I's and O's Currently normal saline at 100 cc an hour Heme: Stage IV lung cancer/non-small cell Right subclavian lymph node enlargement 7.8 x 1.8 x 3.4 cm Normocytic anemia Leukocytosis Thrombocytosis Currently being followed by Dr. Webster/oncology Status post radiation therapy with Dr. Garcia/radiation called he completed Saturday for right subclavian lymph node No indications for transfusion of blood proximally at this time Follow-up on CBC in AM. ID: Currently on cefazolin 2 g IV every 8 hours changed to Cipro so/tazobactam 4.5 g IV every 6 hours /clindamycin 600 mg IV every 6 hours Blood cultures 2 pending. Influenza/urine Legionella and pneumococcal antigens/UA all pending Pro-calcitonin 1.12. MSK: PT evaluate and treat FEN: Hypokalemia Replace per ICU electrolyte protocol. Follow magnesium Access - Utilize left Port-A-Cath. Central line if indicated Prophylaxis - GI - pantoprazole - DVT - SCD/heparin subcutaneous Level III follow-up Warner Brantley MD Mar 24, 2017 07:35
[2017-03-24] MEDS: SODIUM CHLOR 0.9% 1000 ML INJ 1,000 ML IV SCH ×2 (07:38→17:25)
[2017-03-24] MEDS: TIOTROPIUM BROMIDE 18 MCG INH INH SCH (07:39)
[2017-03-24] MEDS: REMOVE OLD NICOTINE PATCH T-DERMAL SCH (07:39)
[2017-03-24] MEDS: SODIUM CHLORIDE 0.9% FLUSH 10 ML FLUSH IV FLUSH SCH ×2 (07:39→20:21)
[2017-03-24] MEDS: PANTOPRAZOLE SODIUM 40 MG VIAL IV PUSH SCH (07:40)
[2017-03-24] MEDS: NICOTINE 21 MG/24 HR PATCH T-DERMAL SCH (07:40)
[2017-03-24] MEDS: methylPREDNISolone SOD SUCC 40 MG/1 ML VIAL IV PUSH SCH ×2 (07:40→20:20)
[2017-03-24] MEDS: DOCUSATE SODIUM 50 MG/SENNA 8.6 MG TAB PO SCH ×2 (07:41→20:20)
[2017-03-24] MEDS: HEPARIN SODIUM - SQ 10,000 UNITS/ML VIAL SQ SCH ×2 (07:41→20:20)
[2017-03-24 10:47] LABS: LYMPH % 0.9 % (9.0-44.0); LYMPHOCYTE # 0.1 TH/MM3 (1.0-4.8); MEAN CELL VOLUME 87.9 FL (80.0-100.0); MEAN CORPUSCULAR HEMOGLOBIN 27.9 PG (27.0-34.0); MEAN CORPUSCULAR HGB CONC 31.7 % (32.0-36.0); MONO % 3.8 % (0.0-8.0); NEUT % 95.3 % (16.0-70.0); PLATELET COUNT 375 TH/MM3 (150-450); RED BLOOD COUNT 2.37 MIL/MM3 (4.50-5.90); RED CELL DISTRIBUTION WIDTH 20.1 % (11.6-17.2); WHITE BLOOD COUNT 13.6 TH/MM3 (4.0-11.0)
[2017-03-24 10:56] LABS: HEMATOCRIT 20.9 % (39.0-51.0); HEMO FLAGS AUTO DIFF
[2017-03-24 11:12] LABS: SCAN/DIFF AUTO DIFF CONFIRMED
[2017-03-24 11:19] LABS: ALKALINE PHOSPHATASE 85 U/L (45-117); ALT (GPT) 10 U/L (12-78); ANION GAP 8 MEQ/L (5-15); AST (GOT) 6 U/L (15-37); BICARBONATE 25.5 MEQ/L (21.0-32.0); BLOOD UREA NITROGEN 19 MG/DL (7-18); CHLORIDE 105 MEQ/L (98-107); GLOMERULAR FILTRATION RATE 137 ML/MIN (>89); MAGNESIUM 2.2 MG/DL (1.5-2.5); POTASSIUM 4.3 MEQ/L (3.5-5.1); SODIUM (NA) 138 MEQ/L (136-145); TOTAL BILIRUBIN ADULT 0.4 MG/DL (0.2-1.0)
--- NOTE | 2017-03-24 11:52 | RADRPT ---
EXAM DATE/TIME: 03/24/2017 07:37 [facility] COMPARISON: CHEST SINGLE AP, March 20, 2017, 20:06. INDICATIONS : Respiratory failure. MEDICAL HISTORY : Hypertension. Carcinoma, lung. Chronic obstructive pulmonary disease. SURGICAL HISTORY : None. ENCOUNTER: Subsequent ACUITY: 4 - 6 days PAIN SCORE: 0/10 LOCATION: Bilateral chest FINDINGS: A single view of the chest demonstrates right midlung, left retrocardiac and right lower lobe airspac e disease.. Left-sided Pzxkce-[id number]-Wvac is stable. The cardiomediastinal contours are unremarkable. Os seous structures are intact. CONCLUSION: 1. Multilobar pneumonia greater in the right lower lobe. Zenon Caldwell MD on March 24, 2017 at 8:40 Board Certified Radiologist. This report was verified electronically.
[2017-03-24] MEDS: MIRTAZAPINE 15 MG TAB PO SCH (20:20)
[2017-03-25] VITALS (14 sets, daily range): BP systolic 104–142; BP diastolic 55–81; PULSE 93–122; RESP 16–24; TEMP 98.2–98.8; O2SAT 90–95
[2017-03-25] MEDS: PIPERACIL-TAZO 4.5 GM PREMIX 100 ML IV SCH ×4 (01:41→19:47)
[2017-03-25] MEDS: SODIUM CHLOR 0.9% 1000 ML INJ 1,000 ML IV SCH ×2 (03:47→13:30)
[2017-03-25] MEDS: RESP: ALBUTEROL 2.5 MG/3 ML NEB (SCH) NEB ×5 (04:04→20:51)
[2017-03-25] MEDS: CLINDAMYCIN INJ 600 MG in SODIUM CHLORIDE 0.9% INJ 100 ML IV SCH ×3 (05:30→17:36)
[2017-03-25] MEDS: MORPHINE SULFATE 30 MG CONTROLLED RELEASE TAB PO SCH ×3 (05:31→22:02)
[2017-03-25 06:14] LABS: AUTOMATED NEUTROPHIL # 12.1 TH/MM3 (1.8-7.7); HEMATOCRIT 25.9 % (39.0-51.0); HEMO FLAGS DIFF FINAL; LYMPHOCYTE # 0.1 TH/MM3 (1.0-4.8); MEAN CELL VOLUME 88.2 FL (80.0-100.0); MEAN CORPUSCULAR HGB CONC 31.8 % (32.0-36.0); MONO % 4.9 % (0.0-8.0); NEUT % 94.1 % (16.0-70.0); PLATELET COUNT 451 TH/MM3 (150-450); RED BLOOD COUNT 2.94 MIL/MM3 (4.50-5.90); WHITE BLOOD COUNT 12.9 TH/MM3 (4.0-11.0)
[2017-03-25 07:03] LABS: BICARBONATE 26.1 MEQ/L (21.0-32.0); POTASSIUM 4.5 MEQ/L (3.5-5.1)
[2017-03-25] MEDS: REMOVE OLD NICOTINE PATCH T-DERMAL SCH (09:00)
[2017-03-25] MEDS: TIOTROPIUM BROMIDE 18 MCG INH INH SCH (09:00)
[2017-03-25] MEDS: SODIUM CHLORIDE 0.9% FLUSH 10 ML FLUSH IV FLUSH SCH ×2 (09:00→21:00)
[2017-03-25] MEDS: methylPREDNISolone SOD SUCC 40 MG/1 ML VIAL IV PUSH SCH ×2 (09:01→20:04)
[2017-03-25] MEDS: HEPARIN SODIUM - SQ 10,000 UNITS/ML VIAL SQ SCH ×2 (09:01→20:03)
[2017-03-25] MEDS: DOCUSATE SODIUM 50 MG/SENNA 8.6 MG TAB PO SCH ×2 (09:01→20:02)
[2017-03-25] MEDS: PANTOPRAZOLE SODIUM 40 MG VIAL IV PUSH SCH (09:01)
[2017-03-25] MEDS: NICOTINE 21 MG/24 HR PATCH T-DERMAL SCH (09:02)
[2017-03-25] MEDS: HYDROmorphone HCL 2 MG TAB PO PRN ×3 (10:47→20:04)
--- NOTE | 2017-03-25 11:42 | HHI.PR ---
Subjective Remarks Awake, talkative right arm pain, lymphedema unchanged Continues to need pain management Vital signs , pulse mildly tachycardic, with his pain Once information on hospice, but wants his family present for any further discussion Objective Objective Results - Vital Signs Date Time Temp Pulse Resp B/P (MAP) Pulse Ox O2 Delivery O2 Flow Rate FiO2 03/25/17 07:41 92 Nasal Cannula 4.00 03/25/17 07:00 92 Nasal Cannula 4.00 Humidified 03/25/17 06:00 122 03/25/17 04:00 98.3 98 24 121/71 (88) 90 03/25/17 04:00 98 03/25/17 02:00 100 03/25/17 00:00 100 03/25/17 00:00 98.4 100 19 115/59 (77) 95 03/24/17 22:00 100 03/24/17 20:20 94 Nasal Cannula 3.00 03/24/17 20:00 98.3 100 22 147/88 (107) 91 03/24/17 20:00 100 03/24/17 19:00 91 Nasal Cannula 3.00 03/24/17 18:00 103 03/24/17 17:22 19 03/24/17 16:00 98.3 96 16 118/71 (87) 92 03/24/17 16:00 96 03/24/17 14:00 103 I/O 03/24/17 03/24/17 03/24/17 03/25/17 03/25/17 03/25/17 07:00 15:00 23:00 07:00 15:00 23:00 Intake Total 1545 ml 1524 ml 3971 ml Output Total 975 ml 900 ml 4025 ml Balance 570 ml 624 ml -54 ml Intake Oral 240 ml 340 ml 1240 ml IV Total 823 ml 806 ml 1817 ml Tube Feeding 382 ml 378 ml 794 ml Albumin 100 ml Other 120 ml Output Urine Total 975 ml 900 ml 4025 ml # Bowel Movements 0 0 0 Result Diagram: 03/25/1751303/25/17513 Physical Exam Physical Exam PHYSICAL EXAMINATION GENERAL: This is a well-developed, well-nourished male resting in the bed right arm pain throbbing, He is alert and awake, talkative HEAD: Normocephalic , thin face, dental caries OROPHARYNGEAL: Oropharynx clean NECK: Supple, thin Trachea midline without deviation. CARDIAC: Regular rhythm, tachycardic rate, S1 and S2 are heard, some tachycardia noted with increased pain LUNGS: Diminished to auscultation bilaterally. no wheeze, positive for rhonchi low volumes, decreased breath sounds especially on the right base ABDOMEN: Flat, Soft, nontender, Bowel sounds are soft, audible EXTREMITIES: Right arm and shoulder lymphedema, no lower extremity edema NEUROLOGICAL: Patient mood and affect appropriate. SKIN:Warm and dry A/P Assessment and Plan Vital signs reviewed, no fever , pulse controlled most of the time but some tachycardia noted especially with his pain Currently in the intensive care setting been monitored for his hypotension which has stabilized, consider transfer out today contact isolation hypotension on 81 9, received multiple IV boluses blood pressure now controlled. Right lower lobe pneumonia seen on x-ray, leukocytosis improving mild, IV antibiotics initiated, O2, dual nebs Right upper extremity continues with edema and pain. progression of disease in right axillary lymph node received palliative radiation. Lymphedema continues 3-4+ with extreme pain Patient now seeing palliative care for supportive care, patient is DO NOT RESUSCITATE, today discussed information on hospice. Patient would like to speak to them for information and for the future, once his parents to be with him. Mother is and possibly father should be on their way in be here around noon time Appreciate ID consult and plan a care, currently patient's on IV clindamycin, and Zosyn Metastatic non-small cell lung cancer. Appreciate oncology plan a care and consult History of brain hemorrhage due to aneurysm status post clipping. ` Patient continues to be awake, simple understanding of his current process. Palliative care consult done to assist in support this patient through a difficult time. CODE STATUS is DO NOT RESUSCITATE, hospice consult today for information Cachexia. Continues with pain management and IV steroids, antibiotics Encourage food, liquids of his choice encouraged to eat Anxiety and acute on chronic pain Pain and medical management, continue to monitor patient's blood pressure Explained to patient Anemia likely due to anemia of chronic disease. Chronic obstructive pulmonary disease. Encouraged to cough and deep breathe, incentive spirometry at bedside ordered , cough with some audible rhonchi heard, encouraged to expectorate sputum, chest x-ray shows right lower lobe pneumonia. Currently on IV antibiotics Due to patient's current case of inoperable cancer, receiving palliative treatments only. Palliative care will continue to follow. Discussed with patient Discussed with Dr. Lombardi, seen on his behalf Discussed with nurse Lenka Pollock Mar 25, 2017 11:42
--- NOTE | 2017-03-25 12:46 | PD.ONC.PN ---
Subjective Subjective Remarks Afebrile overnight. Patient would like hospice. reports continued pain in right arm. wants to go home with hospice if possible. Objective Data Date Time Temp Pulse Resp B/P (MAP) Pulse Ox O2 Delivery O2 Flow Rate FiO2 03/25/17 10:00 93 03/25/17 08:00 98.8 103 18 104/55 (71) 92 03/25/17 08:00 103 03/25/17 07:41 92 Nasal Cannula 4.00 03/25/17 07:00 92 Nasal Cannula 4.00 Humidified 03/25/17 06:00 122 03/25/17 04:00 98.3 98 24 121/71 (88) 90 03/25/17 04:00 98 03/25/17 02:00 100 03/25/17 00:00 100 03/25/17 00:00 98.4 100 19 115/59 (77) 95 03/24/17 22:00 100 03/24/17 20:20 94 Nasal Cannula 3.00 03/24/17 20:00 98.3 100 22 147/88 (107) 91 03/24/17 20:00 100 03/24/17 19:00 91 Nasal Cannula 3.00 03/24/17 18:00 103 03/24/17 17:22 19 03/24/17 16:00 98.3 96 16 118/71 (87) 92 03/24/17 16:00 96 03/24/17 14:00 103 03/25/17 03/25/17 03/25/17 06:59 14:59 22:59 Intake Total 3971 ml Output Total 4025 ml Balance -54 ml Result Diagram: 03/25/1714 03/25/1714 Laboratory Results Laboratory Tests Test 03/25/17 05:14 White Blood Count 12.9 TH/MM3 Red Blood Count 2.94 MIL/MM3 Hemoglobin 8.2 GM/DL Hematocrit 25.9 % Mean Corpuscular Volume 88.2 FL Mean Corpuscular Hemoglobin 28.0 PG Mean Corpuscular Hemoglobin Concent 31.8 % Red Cell Distribution Width 20.0 % Platelet Count 451 TH/MM3 Mean Platelet Volume 6.9 FL Neutrophils (%) (Auto) 94.1 % Lymphocytes (%) (Auto) 1.0 % Monocytes (%) (Auto) 4.9 % Eosinophils (%) (Auto) 0.0 % Basophils (%) (Auto) 0.0 % Neutrophils # (Auto) 12.1 TH/MM3 Lymphocytes # (Auto) 0.1 TH/MM3 Monocytes # (Auto) 0.6 TH/MM3 Eosinophils # (Auto) 0.0 TH/MM3 Basophils # (Auto) 0.0 TH/MM3 CBC Comment DIFF FINAL Differential Comment Blood Urea Nitrogen 16 MG/DL Creatinine 0.57 MG/DL Random Glucose 119 MG/DL Calcium Level 8.6 MG/DL Sodium Level 141 MEQ/L Potassium Level 4.5 MEQ/L Chloride Level 104 MEQ/L Carbon Dioxide Level 26.1 MEQ/L Anion Gap 11 MEQ/L Estimat Glomerular Filtration Rate 148 ML/MIN Culture Results Microbiology Date/Time Source Procedure Growth Status 03/22/17 13:14 Blood Line Aerobic Blood Culture - Preliminary NO GROWTH IN 3 DAYS Resulted 03/22/17 13:14 Blood Line Anaerobic Blood Culture - Preliminary NO GROWTH IN 3 DAYS Resulted Administered Medications Medications (Trade) Dose Ordered Sig/Franny Route PRN Reason Start Time Stop Time Status Last Admin Dose Admin Sodium Chloride (NS Flush) 2 ml BID IV FLUSH 03/20/17 21:00 03/25/17 09:00 Magnesium Hydroxide (Milk Of Magnesia Liq) 30 ml Q12H PRN PO MILD - MODERATE CONSTIPATION 03/20/17 17:45 03/24/17 17:27 Lactulose (Lactulose Liq) 30 ml DAILY PRN PO SEVERE CONSITIPATION 03/20/17 17:45 03/25/17 09:00 Albuterol Sulfate (Albuterol Neb) 2.5 mg Q4HR NEB NEB 03/20/17 20:00 03/25/17 11:22 Hydromorphone HCl (Dilaudid) 4 mg Q4H PRN PO pain 1-10 03/20/17 17:45 03/25/17 10:47 Mirtazapine (Remeron) 7.5 mg HS PO 03/20/17 21:00 03/24/17 20:20 Morphine Sulfate (Oramorph Sr) 30 mg Q8HR PO 03/20/17 22:00 03/25/17 05:31 Senna/Docusate Sodium (Alma-Colace) 2 tab BID PO 03/20/17 21:00 03/25/17 09:01 Heparin Sodium (Porcine) (Heparin Inj) 5,000 units Q12HR SQ 03/20/17 21:00 03/25/17 09:01 Nicotine (Habitrol 21 Mg Patch.24 Hr) 1 patch DAILY T-DERMAL 03/20/17 20:15 03/25/17 09:02 Miscellaneous Information 1 DAILY T-DERMAL 03/21/17 09:00 03/25/17 09:00 Tiotropium Diggs (Spiriva Inh) 18 mcg DAILY INH 03/21/17 11:00 03/25/17 09:00 Potassium Bicarb/ Potassium Chloride (K-Lyte Cl Eff) 25 meq Q12HR G-TUBE 03/21/17 21:00 Future Hold 03/21/17 22:16 Clindamycin Phosphate 600 mg/ Sodium Chloride 104 ml @ 104 mls/hr Q6H IV 03/22/17 06:00 03/25/17 05:30 Sodium Chloride 1,000 ml @ 100 mls/hr Q10H IV 03/22/17 05:30 03/25/17 03:47 Acetaminophen (Tylenol) 650 mg Q4H PRN PO FEVER 100.5 03/22/17 05:30 03/22/17 05:34 Phenylephrine HCl 160 mg/Dextrose 500 ml @ 0 mls/hr TITRATE IV 03/22/17 08:30 03/23/17 05:41 Methylprednisolone Sodium Succinate (SoluMEDROL INJ) 40 mg Q12HR IV PUSH 03/22/17 10:00 03/25/17 09:01 Pantoprazole Sodium (Protonix Inj) 40 mg Q24H IV PUSH 03/22/17 10:00 03/25/17 09:01 Piperacillin Sod/ Tazobactam Sod 100 ml @ 200 mls/hr Q6H IV 03/22/17 20:00 03/25/17 09:01 Fentanyl (Duragesic 25 Mcg Patch.72 Hr) 1 patch Q3D T-DERMAL 03/23/17 10:00 03/23/17 10:36 Objective Remarks GENERAL: chronically ill male sitting up in bed SKIN: Warm and dry. HEAD: Normocephalic. EYES: No injection or drainage. NECK: Supple, trachea midline. CARDIOVASCULAR: Regular rate and rhythm RESPIRATORY: Breath sounds equal bilaterally. No accessory muscle use. GASTROINTESTINAL: Abdomen soft, non-tender, nondistended. EXTREMITIES: No cyanosis. RUE edema and erythema. NEUROLOGICAL: awake and alert, normal speech. Assessment/Plan Problem List: (1) Right shoulder pain ICD Codes: M25.511 - Pain in right shoulder Status: Acute Plan: --Right upper extremity edema and pain. -- worse in the last three weeks. --recently was found to have progression of disease in right axillary lymph node and received palliative radiation which he completed this past Saturday. --was admitted to the hospital in the middle of February for cellulitis of the right arm and treated with antibiotic. --had an ultrasound during his last visit which did not show any deep venous thrombosis. --U/S RUE: no DVT + hypoechoic mass/collection adjacent to the right SC vasculature measuring 7.8x1.9x3.4 --CT chest: consolidation in both lobes with likely post-radiation changes on the right. ?brachial plexopathy due to invasion of his cancer. --swelling in part could also be due to lymphedema. (2) Metastatic lung carcinoma ICD Codes: C78.00 - Metastatic lung carcinoma Status: Acute Plan: --Metastatic non-small cell lung cancer. --first diagnosed in 2014. --recently was on palliative Alimta and reportedly disease was controlled until he developed the progression of disease in the right axillary lymph node. --just completed radiation this past Saturday. (3) Pneumonia ICD Codes: J18.9 - Pneumonia, unspecified organism Status: Acute Plan: --Postobstructive pneumonia vs. radiation induced pneumonitis --on Zosyn + Cleocin --also on steroids. (4) Normocytic anemia ICD Codes: D64.9 - Anemia, unspecified Status: Acute Plan: --iron studies, B12/folate show no deficiency --some degree of dilution--patient with positive fluid balance. --transfuse as needed. Assessment 56y/o male with metastatic lung cancer admitted with increased pain of the right upper extremities and swelling. h/o Metastatic non-small cell lung carcinoma. Right arm cellulitis. Right shoulder rotator cuff tear. 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 Cachexia. Anxiety. Chronic obstructive pulmonary disease. Pneumothorax. PEG tube placement. Port placement. Cerebral aneurysm clipping. [employer] CLERK shunt biopsy of neck and lung. Plan 1. consult hospice--I called and spoke with Cathy Benedix, she will get back to me with a time she will be by to see the patient. 2. continue supportive care until decision regarding hospice has been made. patient's parents would like to speak with hospice as well as Dr. Billingsley before final decision is made. Attending Statement The exam, history, and the medical decision-making described in the above note were completed with the assistance of the mid-level provider. I reviewed and agree with the findings presented. I attest that I had a buhz-[id number] encounter with the patient on the same day, and personally performed and documented my assessment and findings in the medical record. Meeting with patient and family and hospice circulation representative. Discussed his philosophy and would like to proceed with hospice care. Anticipate DC home when hospice can arrange for safe DC to receive him home. Pt comfortable with decision proceed. Oly Maldonado Mar 25, 2017 12:46 La Billingsley MD Mar 25, 2017 19:00
--- NOTE | 2017-03-25 13:53 | HHI.CCPN ---
Subjective Remarks/Hospital Course 56-year-old male. Date of admission 03/21/2017. Date of consultation 03/22/2017. Past medical history includes headache non-small cell lung cancer, right subclavian lymph node causing chronic right upper extremity lymphedema, hypertension, depression, chronic pain syndrome and benzodiazepine use. Patient received presented to [facility] on 03/21 with cough, worsening pain in right upper extremity. Seen in consultation by Dr Webster hematology along with infectious disease. Noted anabolic changed to cefazolin and clindamycin. Acyclovir discontinued as not his thought to have shingles. No signs of DVT over the right upper extremity. CT chest revealed radiation pneumonitis/possible aspiration left lobe with bilateral pleural effusions. Coronary calcifications. This A.m., patient became hypotensive. Received 2 L normal saline via a left Port-A-Cath. Currently hemodynamically stable. Patient with productive cough of brown sputum. No hemoptysis. 03/23: Afebrile. MAXIMUM TEMPERATURE 99.4. Tachycardic. On 3 L nasal cannula. Blood cell count currently elevated 29,000. Platelets elevated. Main complaint is pain management. Requesting resumption of fentanyl patch.. Remains on Abad-Synephrine at 70 g per minute Subjective 03/24: Currently off off all vasopressors. Remains on nasal cannula. Laboratories for a.m. pending. 03/25: Patient remains off pressors. He started being 'sick all the time'. Hospice consulted by primary team Objective Vital Signs Date Time Temp Pulse Resp B/P (MAP) Pulse Ox O2 Delivery O2 Flow Rate FiO2 03/25/17 10:00 93 03/25/17 08:00 98.8 18 104/55 (71) 92 03/25/17 07:41 Nasal Cannula 4.00 03/21/17 08:45 21 Intake and Output 03/25/17 03/25/17 03/26/17 08:00 16:00 00:00 Intake Total 3971 ml Output Total 4025 ml Balance -54 ml Result Diagram: 03/25/17 0514 03/25/17 0514 Imaging Last Impressions Upper Extremity Ultrasound 03/21/17 0000 Signed Impressions: Service Date/Time: March 11:31 - CONCLUSION: 1. No evidence of deep venous thrombosis within the right upper extremity. 2. Hypoechoic mass/collection adjacent to the right subclavian vasculature measuring 7.8 x 1.9 x 3.4 cm which is indeterminate. Chaparro Hawkins MD Chest CT 03/21/17 0000 Signed Impressions: Service Date/Time: March 22:27 - CONCLUSION: 1. Dense consolidation in both lower lobes with likely postradiation changes on the right. The appearance on the left could be compatible with aspiration or pneumonia. There is underlying moderate emphysema. Bilateral effusions, right greater than left. 2. Dilated esophagus characteristic of esophageal motility disorder. 3. Left Buagvc-d-Pzyv in superior vena cava. Moderate coronary calcifications. Deep Gtz MD Chest X-Ray 03/20/17 0000 Signed Impressions: Service Date/Time: Monday, March 20, 2017 20:06 - CONCLUSION: No acute disease. Chas Amaya MD Objective Remarks GENERAL: 56-year-old male, resting in bed in no acute distress SKIN: R Axilla and R chest area is indurated with post radiation changes. RUE is edematous and bigger than left upper extremity but not tight, skin with erythema above elbow and lichenification, prominent papillae on the skin in diffuse pattern HEAD: Atraumatic. Normocephalic. EYES: Pupils equal and round about 3 mm bilaterally and reactive. No scleral icterus. No injection or drainage. ENT: No nasal bleeding or discharge. Mucous membranes pink and moist. NECK: Trachea midline. No JVD. CARDIOVASCULAR: RR.. S1, S2 no S4 without murmur RESPIRATORY: No accessory muscle use. Clear to auscultation. Breath sounds equal bilaterally. GASTROINTESTINAL: Abdomen soft, non-tender, nondistended. PEG tube is clean dry intact and left upper quadrant MUSCULOSKELETAL: See skin for right upper extremity. No edema bilateral lower extremity. NEUROLOGICAL: Awake and alert. No obvious cranial nerve deficits. Motor grossly within normal limits. Five out of 5 muscle strength in the arms and legs. Normal speech. PSYCHIATRIC: Appropriate mood and affect; insight and judgment normal. A/P Assessment and Plan Neuro/Psych: Chronic pain syndrome Depression NOS Acetaminophen for fever Currently on nicotine patch /21 mg daily. As needed lorazepam 0.5 mg at night for anxiety On hydromorphone 2 mg every hours when necessary pain On morphine sulfate extended release 30 mg twice a day Fentanyl patch at 25 g. Every 3 days Continue mirtazapine 7.5 mg by mouth at bedtime for depression CV: Severe sepsis Continue with IV fluids normal saline at 100 cc an hour Status post fluid challenge yesterday albumin 25 g every 6 hours times 4 dosages. Resp: Possible aspiration pneumonitis/radiation pneumonitis Bilateral pleural effusions COPD Ongoing tobaccoism Nasal cannula to maintain saturations greater than equal to 92% Incentive spirometry while awake Currently on albuterol aerosols every 4 hours. Tiotropium 18 mcg daily. On ipratropium inhaler twice a day at home CT thorax 03/21 revealed bilateral lower lobe disc consolidation/possible aspiration left lobe with bilateral pleural effusions, coronary calcifications. Emphysema GI: Status post PEG tube Cachexia Moderate protein calorie malnutrition/chronic Jevity 1.5-240 cc 6 times daily Pantoprazole for GI prophylaxis Docusate sodium/senna twice a day for bowel regimen Dilated esophagus/dysmotility possibly secondary to radiation on CT chest : Prince catheter currently not indicated Endo: Sliding scale insulin with Accu-Cheks to maintain euglycemia Renal: Creatinine currently within normal limits Monitor urine output Accurate I's and O's Currently normal saline at 100 cc an hour Heme: Stage IV lung cancer/non-small cell Right subclavian lymph node enlargement 7.8 x 1.8 x 3.4 cm Normocytic anemia Leukocytosis Thrombocytosis Currently being followed by Dr. Webster/oncology Status post radiation therapy with Dr. Garcia/radiation called he completed Saturday for right subclavian lymph node No indications for transfusion of blood proximally at this time Follow-up on CBC in AM. ID: Currently on cefazolin 2 g IV every 8 hours changed to Piperacillin/tazobactam 4.5 g IV every 6 hours /clindamycin 600 mg IV every 6h Blood cultures 2 neg to date Influenza/urine Legionella and pneumococcal antigens/UA all pending Pro-calcitonin 1.12. MSK: PT evaluate and treat FEN: Hypokalemia Replace per ICU electrolyte protocol. Follow magnesium Access - Utilize left Port-A-Cath. Central line if indicated Prophylaxis - GI - pantoprazole - DVT - SCD/heparin subcutaneous Level II follow-up Hospice consulted by Primary. Ok to transfer out of ICU after hospice consult completed. [facility] will sign off Leida Doherty MD Mar 25, 2017 13:52
--- NOTE | 2017-03-25 15:43 | ECHRPT ---
Indication: chf assessment CONCLUSIONS The left ventricular systolic function is low normal with an estimated ejection fraction in the rang e of 50- 55%. Normal left ventricular size. There is assymetric septal hypertrophy. No regional wall motion abnormalities are present. The right ventricular size is normal. The right ventricular systoilc function is normal. Trace mitral valve regurgitation. There is estimated moderate pulmonary hypertension present (range 50-60 mmHg). There is moderate tricuspid regurgitation. The pulmonary valve is not well visualized. BP: 121 / 71 HR: 98 Rhythm: MEASUREMENTS (Male / Female) Normal Values Technical Quality:Good 2D ECHO LV Diastolic Diameter PLAX 4.7 cm 4.2 - 5.9 / 3.9 - 5.3 cm LV Systolic Diameter PLAX 3.7 cm IVS Diastolic Thickness 1.3 cm 0.6 - 1.0 / 0.6 - 0.9 cm LVPW Diastolic Thickness 1.0 cm 0.6 - 1.0 / 0.6 - 0.9 cm LV Relative Wall Thickness 0.5 RV Internal Dim ED PLAX 3.0 cm M-MODE Aortic Root Diameter MM 3.6 cm LA Systolic Diameter MM 4.2 cm LA Ao Ratio MM 1.2 AV Cusp Separation MM 2.5 cm DOPPLER TR Peak Velocity 326.0 cm/s TR Peak Gradient 42.5 mmHg FINDINGS LEFT VENTRICLE The left ventricular systolic function is low normal with an estimated ejection fraction in the rang e of 50- 55%. Normal left ventricular size. There is assymetric septal hypertrophy. No regional wall motion abnormalities are present. RIGHT VENTRICLE The right ventricular size is normal. The right ventricular systoilc function is normal. LEFT ATRIUM The left atrial size is normal. RIGHT ATRIUM The right atrial size is normal. ATRIAL SEPTUM Normal atrial septal thickness without atrial level shunting by limited color doppler interrogation. AORTA The aortic root and proximal ascending aorta are normal in size on limited imaging. MITRAL VALVE Structurally normal mitral valve. Trace mitral valve regurgitation. AORTIC VALVE Trileaflet aortic valve. TRICUSPID VALVE There is estimated moderate pulmonary hypertension present (range 50-60 mmHg). There is moderate tricuspid regurgitation. PULMONARY VALVE The pulmonary valve is not well visualized. VESSELS The inferior vena cava is normal in size. PERICARDIUM No pericardial effusion. Adan Wynn MD (Electronically Signed) Final Date:25 March 2017 15:41
[2017-03-25] MEDS ORDERED: HYDROmorphone HCL 4 MG TAB PO ONE (16:30)
[2017-03-25] MEDS: MIRTAZAPINE 15 MG TAB PO SCH (20:03)
[2017-03-26] VITALS (9 sets, daily range): BP systolic 109–128; BP diastolic 59–73; PULSE 98–108; RESP 12–22; TEMP 98.8–99.3; O2SAT 89–92
[2017-03-26] MEDS: SODIUM CHLOR 0.9% 1000 ML INJ 1,000 ML IV SCH (00:07)
[2017-03-26] MEDS: CLINDAMYCIN INJ 600 MG in SODIUM CHLORIDE 0.9% INJ 100 ML IV SCH ×3 (00:07→14:50)
[2017-03-26] MEDS: HYDROmorphone HCL 2 MG TAB PO PRN ×4 (00:08→14:50)
[2017-03-26] MEDS: PIPERACIL-TAZO 4.5 GM PREMIX 100 ML IV SCH ×3 (02:52→14:00)
[2017-03-26] MEDS: RESP: ALBUTEROL 2.5 MG/3 ML NEB (SCH) NEB ×4 (03:28→12:02)
[2017-03-26] MEDS: MORPHINE SULFATE 30 MG CONTROLLED RELEASE TAB PO SCH ×2 (06:05→14:00)
[2017-03-26] MEDS: HEPARIN SODIUM - SQ 10,000 UNITS/ML VIAL SQ SCH (08:01)
[2017-03-26] MEDS: NICOTINE 21 MG/24 HR PATCH T-DERMAL SCH (08:02)
[2017-03-26] MEDS: methylPREDNISolone SOD SUCC 40 MG/1 ML VIAL IV PUSH SCH (08:02)
[2017-03-26] MEDS: DOCUSATE SODIUM 50 MG/SENNA 8.6 MG TAB PO SCH (08:02)
[2017-03-26] MEDS: SODIUM CHLORIDE 0.9% FLUSH 10 ML FLUSH IV FLUSH SCH (08:03)
[2017-03-26] MEDS: TIOTROPIUM BROMIDE 18 MCG INH INH SCH (08:03)
[2017-03-26] MEDS: REMOVE OLD NICOTINE PATCH T-DERMAL SCH (08:04)
[2017-03-26] MEDS ORDERED: REMOVE OLD DURAGESIC (FENTANYL) PATCH T-DERMAL SCH (10:00)
[2017-03-26] MEDS: PANTOPRAZOLE SODIUM 40 MG VIAL IV PUSH SCH (11:03)
[2017-03-26] MEDS: fentaNYL 25 MCG/HR PATCH T-DERMAL SCH (11:04)
--- NOTE | 2017-03-26 11:46 | PD.CONS ---
HPI History of Present Illness This is a 56 year old male with hx metastatic non small cell lung ca who was referred to hospital by Dr Keller for right arm cellulitis and shingles. GI has been consulted for clogged G tube. Prior pt reports no issues with TF. He had G tube placed for poor PO intake during chemo. s/p radiation for masses in neck. (Ann Steinberg) PFSH Past Medical History Metastatic non-small cell lung cancer Anxiety COPD Brain aneurysm in 1994 Right shoulder capsulitis and rotator cuff tear HTN Right arm cellulitis . Past Surgical History Lung and neck biopsy [employer] shunt placement Port placement Supraclavicular lymph node biopsy [employer] shunt for AV malformation PEG tube placement . (Ann Steinberg) Coded Allergies: diatrizoate meglumine (Unverified Allergy, Severe, Hives, 03/19/17) gadobenic acid (Unverified Allergy, Severe, Hives, 03/19/17) gadodiamide (Unverified Allergy, Severe, Hives, 03/19/17) gadoteridol (Unverified Allergy, Severe, Hives, 03/19/17) iodixanol (Unverified Allergy, Severe, Hives, 03/19/17) iohexol (Unverified Allergy, Severe, Hives, 03/19/17) carboplatin (Unverified Allergy, Mild, Itching, 03/19/17) MRI PRECAUTION (Verified Adverse Reaction, Severe, Shunt & aneurysm clip no info [employer] LRS 03/21/17, 03/21/17) Family History Mother has a history of skin cancer. Patient's father with a history of esophageal cancer. . (Ann Steinberg) Review of Systems Constitutional: COMPLAINS OF: Weight loss, Change in appetite Eyes: DENIES: Blurred vision Ears, nose, mouth, throat: DENIES: Hearing loss Respiratory: COMPLAINS OF: Wheezing Cardiovascular: DENIES: Chest pain Gastrointestinal: DENIES: Abdominal pain, Bloody stools, Vomiting, Hematemesis Genitourinary: DENIES: Hematuria Musculoskeletal: DENIES: Joint Swelling Psychiatric: DENIES: Confusion (Ann Steinberg) GI Exam Vitals I&O Vital Signs Date Time Temp Pulse Resp B/P (MAP) Pulse Ox O2 Delivery O2 Flow Rate FiO2 8/22/17 10:00 103 03/26/17 08:52 92 Nasal Cannula 4.00 03/26/17 08:00 98 03/26/17 08:00 99.0 98 17 109/59 (76) 92 03/26/17 07:00 91 Nasal Cannula 4.00 Humidified 03/26/17 06:00 104 03/26/17 04:00 98.8 104 22 121/61 (81) 89 03/26/17 04:00 104 03/26/17 02:00 102 03/26/17 00:00 98.9 108 15 121/61 (81) 92 03/26/17 00:00 104 03/25/17 22:00 104 03/25/17 20:52 92 Nasal Cannula 4.00 03/25/17 20:00 93 Nasal Cannula 4.00 Humidified 03/25/17 20:00 100 03/25/17 20:00 98.2 100 16 132/81 (98) 93 03/25/17 18:00 105 03/25/17 16:00 99 03/25/17 16:00 98.5 99 19 116/62 (80) 95 03/25/17 14:00 101 03/25/17 12:00 101 03/25/17 12:00 98.3 101 23 142/73 (96) 92 I/O 03/25/17 03/25/17 03/25/17 03/26/17 03/26/17 03/26/17 06:59 14:59 22:59 06:59 14:59 22:59 Intake Total 3971 ml 4693 ml 2172 ml 200 ml Output Total 4025 ml 5600 ml 3400 ml Balance -54 ml -907 ml -1228 ml 200 ml Intake Oral 1240 ml 2880 ml 1920 ml IV Total 1817 ml 1412 ml 100 ml 200 ml Tube Feeding 794 ml 201 ml 122 ml Other 120 ml 200 ml 30 ml Output Urine Total 4025 ml 5600 ml 3400 ml # Bowel Movements 0 0 0 Laboratory Date/Time Source Procedure Growth Status 03/22/17 13:14 Blood Line Aerobic Blood Culture - Preliminary NO GROWTH IN 4 DAYS Resulted 03/22/17 13:14 Blood Line Anaerobic Blood Culture - Preliminary NO GROWTH IN 4 DAYS Resulted 03/22/17 09:30 Nasal Aspirate Influenza Types A,B Antigen (ANA) - Final NEGATIVE FOR FLU A AND B ANTIGEN.... Complete Physical Examination HEENT: PERRL; normocephalic; atraumatic; no jaundice. CHEST: wheezes, rhonchi CARDIAC: RRR ABDOMEN: Soft, nondistended, nontender; no hepatosplenomegaly; bowel sounds are present in all four quadrants. G tube site free of purulent drainage, edema , erythema EXTREMITIES: right arm swollen and red. SKIN: Normal; no rash; no jaundice. MANAGER OF MERCHANDISING: alert and oriented, weak (Ann Steinberg) Assessment and Plan Plan ASSESSMENT - Poor PO intake - has PEG tube, was tolerating Jevity 1.5, GI consulted for clogged tube. Removed 6cc fluid from old tube balloon, removed tube, reinserted 18fr PEG tube and inflated balloon with 20cc water. Inserted with ease, pt tolerated procedure well. - non small cell lung cancer with mets - COPD, poss aspiration PNA, bilat pleural effusions per [facility] PLAN - KUB to confirm PEG tube placement - ok to resume TF after placement confirmed - supportive care THis pt seen by myself and Dr Liang and this note is written on his behalf (Ann Steinberg) Physician Comments Seen and examined, plan as above, please notify us if further help needed. (Beatrice Liang MD) Ann Steinberg Mar 26, 2017 11:46 Beatrice Liang MD Mar 26, 2017 16:28
[2017-03-26] MEDS ORDERED: CLIN1CAP6 PO (13:02)
--- NOTE | 2017-03-26 13:05 | HHI.PR ---
Subjective Subjective Remarks weak, frail + cough right arm pain stable no fever has decided to go home with hospice appreciate over care provided states he has lived a good life and prefers to be at home with family (Beatrice Monreal) History of Present Illness resting in bed pain is ok/pain meds are helping occ cough , no sputum breathing is ok appetite is so so , cant eat much by mouth tolerating tube feeding offers no other c/o hoping to go home today (Link Lombardi MD) Review of Systems Constitutional Constitutional Remarks 12 point ros completed, negative except as noted above (Beatrice Monreal) Vitals/Results Intake & Output 03/26/17 03/26/17 03/27/17 15:00 23:00 07:00 Intake Total 200 ml Balance 200 ml IV Total 200 ml Vital Signs Vital Signs Date Time Temp Pulse Resp B/P (MAP) Pulse Ox O2 Delivery O2 Flow Rate FiO2 03/26/17 12:00 99.3 105 12 128/73 (91) 91 03/26/17 12:00 105 03/26/17 10:00 103 03/26/17 08:52 92 Nasal Cannula 4.00 03/26/17 08:00 98 03/26/17 08:00 99.0 98 17 109/59 (76) 92 03/26/17 07:05 14 03/26/17 07:00 91 Nasal Cannula 4.00 Humidified 03/26/17 06:00 104 03/26/17 04:00 98.8 104 22 121/61 (81) 89 03/26/17 04:00 104 03/26/17 02:00 102 03/26/17 00:00 98.9 108 15 121/61 (81) 92 03/26/17 00:00 104 03/25/17 22:00 104 03/25/17 20:52 92 Nasal Cannula 4.00 03/25/17 20:00 93 Nasal Cannula 4.00 Humidified 03/25/17 20:00 100 03/25/17 20:00 98.2 100 16 132/81 (98) 93 03/25/17 18:00 105 03/25/17 16:00 99 03/25/17 16:00 98.5 99 19 116/62 (80) 95 03/25/17 14:00 101 (Beatrice Monreal) CBC/BMP: 03/25/17 0514 03/25/17 0514 Physical Exam General General Appearance: No Acute Distress, Comfortable, Malnourished (Beatrice Monreal) General Appearance: No Acute Distress, Comfortable, Malnourished Appearance Remarks ch ill appearing WM (Link Lombardi MD) Eyes Eye Exam: Pupils Equal, Pupils Reactive, Sclera White (Beatrice Monreal) Eye Exam: Pupils Equal, Pupils Reactive, Sclera White (Link Lombardi MD) Ears & Nose Ears & Nose Exam: Nasal Mucosa [place] (Beatrice Monreal) Ears & Nose Exam: Nasal Mucosa [place] (Link Lombardi MD) Throat Throat Exam: Oral Mucosa [place] & Moist (Beatrice Monreal) Throat Exam: Oral Mucosa [place] & Moist (Link Lombardi MD) Neck Neck Exam: Neck Supple, Trachea Midline (Beatrice Monreal) Neck Exam: Neck Supple, Trachea Midline (Link Lombardi MD) Pulmonary Resp Exam: Rhonchi, Sputum (Beatrice Monreal) Resp Exam: Breath Sounds Equal, No Distress, Rhonchi (Link Lombardi MD) Cardiology CV Exam: Regular, Normal Sinus Rhythm (Beatrice Monreal) CV Exam: Regular, Normal Sinus Rhythm (Link Lombardi MD) Gastrointestinal/Abdomen GI Exam: Soft, Non-Tender, Bowel Sounds Present, Non-Distended (Beatrice Monreal) GI Exam: Soft, Non-Tender, Bowel Sounds Present GI Remarks +ve PEG tube (Link Lombardi MD) Musculoskeletal MS Exam: Joints Intact (Beatrice Monreal) MS Remarks sig swollen entire R U Ext , no redness or warmth (Link Lombardi MD) Integumentary Skin Exam: Warm, Dry (Beatrice Monreal) Extremeties Extremities Exam: Pedal Pulses Palpable, Moderate Edema (right arm ) (Beatrice Monreal) Extremeties Remarks No pedal edema (Link Lombardi MD) Neurologic Neuro Exam: Alert, Awake, Oriented, Speech Clear, No Focal Deficits (Beatrice Monreal) Neuro Exam: Alert, Awake, Oriented, Speech Clear, Moving All Extremities (Link Lombardi MD) Psychiatric Psych Exam: Appropriate Responses (Beatrice Monreal) Psych Exam: Appropriate Responses (Link Lombardi MD) VTE Prophylaxis VTE Prophylaxis Meds: Heparin (Beatrice Monreal) Assessment/Plan Assessment/Plan s/p Possible RLL Pneumonia s/p sepsis Metastatic NSCLCa w POD involving R Axillary LN s/[ palliative XRT ch Right upper extremity lymphedema and pain. 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 Lombardi D/W pt This patient was seen by myself and Dr. Lombardi, this note is written on his behalf (Beatrice Monreal) Assessment/Plan s/p Possible RLL Pneumonia s/p sepsis Metastatic NSCLCa w POD involving R Axillary LN s/[ palliative XRT ch Right upper extremity lymphedema and pain. COPD Hx of Brain hemorrhage d/t Aneurysm s/p Clipping Anemia cachexia PLAN O2 empiricv abx , will change to po aerosol tx elevate RUExt analgesic pt is DNR - comfort care Oncology input appreciated / hospice was consulted pt & his family met w hospice , decision is made for pt to go home w Hospice per his own wishes overall prognosis is very poor 'terminally ill d/c home w hospice when arrangements are made see orders see [facility] f/u pcp d/w pt in detail (Link Lombardi MD) Beatrice Monreal Mar 26, 2017 13:05 Link Lombardi MD Mar 26, 2017 16:42
--- NOTE | 2017-03-26 13:05 | HHI.DCPOC ---
Discharge Care Plan Diagnosis: (1) Non-small cell lung cancer (NSCLC) (2) HTN (hypertension) (3) Right arm cellulitis Your Health Problems Are: Skin Breakdown Inflammation Swelling Goals to Promote Your Health * To prevent worsening of your condition and complications * To maintain your health at the optimal level Directions to Meet Your Goals Take your medications as prescribed Follow your dietary instruction Follow activity as directed Keep your appointments as scheduled Take your immunizations and boosters as scheduled If your symptoms worsen call your PCP, if no PCP go to Urgent Care Center or Emergency Room Smoking is Dangerous to Your Health. Avoid second hand smoke Call the 24-hour hour crisis hotline for domestic abuse at Beatrice Monreal [facility] Mar 26, 2017 13:05
--- NOTE | 2017-03-26 13:45 | RADRPT ---
EXAM DATE/TIME: 03/26/2017 12:52 [facility] COMPARISON: No previous studies available for comparison. INDICATIONS : Post PEG tube placement. MEDICAL HISTORY : Hypertension. Carcinoma, lung. Chronic obstructive pulmonary disease. SURGICAL HISTORY : None. ENCOUNTER: Subsequent ACUITY: 1 day PAIN SCORE: 3/10 LOCATION: abdomen FINDINGS: 2 portable supine views of the abdomen show a gastrostomy tube. Contrast is seen within the fundus of the stomach. No dilated loops of bowel. No appreciable organomegaly. Bony structures are unremarkabl e. CONCLUSION: Gastrostomy tube in good position. Kwesi Olvera Jr., MD on March 26, 2017 at 13:42 Board Certified Radiologist. This report was verified electronically.
[2017-03-26] MEDS ORDERED: PHENYLEPHRINE INJ 160 MG in DEXTROSE 5% IN WATE 500 ML INJ 484 ML IV PRN ×2 (15:00)
--- NOTE | 2017-03-27 18:13 | HHI.DS ---
Discharge Summary Admission Date Mar 20, 2017 at 17:17 Discharge Date: Mar 26, 2017 Admitting Diagnosis (1) Lymphadenopathy, axillary ICD Codes: R59.0 - Localized enlarged lymph nodes Status: Acute (2) Right arm cellulitis ICD Codes: L03.113 - Cellulitis of right upper limb Status: Acute (3) Shingles ICD Codes: B02.9 - Zoster without complications Status: Acute (4) Non-small cell lung cancer (NSCLC) ICD Codes: C34.90 - Malignant neoplasm of unspecified part of unspecified bronchus or lung Status: Chronic (5) HTN (hypertension) ICD Codes: I10 - Essential (primary) hypertension Status: Acute (6) Malignant cachexia ICD Codes: R64 - Cachexia Status: Acute (7) Depression ICD Codes: F32.9 - Major depressive disorder, single episode, unspecified Status: Chronic (8) Tobacco abuse ICD Codes: Z72.0 - Tobacco abuse Status: Acute (9) COPD (chronic obstructive pulmonary disease) ICD Codes: J44.9 - COPD (chronic obstructive pulmonary disease) Status: Chronic (10) Anxiety ICD Codes: F41.9 - Anxiety Status: Chronic (11) Underweight ICD Codes: R63.6 - Underweight Status: Acute CBC/BMP: 03/25/17 0514 03/25/17 0514 Significant Findings Laboratory Tests Test 03/25/17 05:14 White Blood Count 12.9 TH/MM3 (4.0-11.0) Red Blood Count 2.94 MIL/MM3 (4.50-5.90) Hemoglobin 8.2 GM/DL (13.0-17.0) Hematocrit 25.9 % (39.0-51.0) Mean Corpuscular Hemoglobin Concent 31.8 % (32.0-36.0) Red Cell Distribution Width 20.0 % (11.6-17.2) Platelet Count 451 TH/MM3 (150-450) Mean Platelet Volume 6.9 FL (7.0-11.0) Neutrophils (%) (Auto) 94.1 % (16.0-70.0) Lymphocytes (%) (Auto) 1.0 % (9.0-44.0) Neutrophils # (Auto) 12.1 TH/MM3 (1.8-7.7) Lymphocytes # (Auto) 0.1 TH/MM3 (1.0-4.8) Creatinine 0.57 MG/DL (0.60-1.30) Random Glucose 119 MG/DL (74-106) Imaging Last Impressions Abdomen X-Ray 03/26/17 0000 Signed Impressions: Service Date/Time: Sunday, March 26, 2017 12:52 - CONCLUSION: Gastrostomy tube in good position. Kwesi Olvera Jr., MD Chest X-Ray 03/24/17 0000 Signed Impressions: Service Date/Time: Friday, March 24, 2017 07:37 - CONCLUSION: 1. Multilobar pneumonia greater in the right lower lobe. Zenon Caldwell MD Upper Extremity Ultrasound 03/21/17 0000 Signed Impressions: Service Date/Time: March 11:31 - CONCLUSION: 1. No evidence of deep venous thrombosis within the right upper extremity. 2. Hypoechoic mass/collection adjacent to the right subclavian vasculature measuring 7.8 x 1.9 x 3.4 cm which is indeterminate. Chaparro Hawkins MD Chest CT 03/21/17 0000 Signed Impressions: Service Date/Time: March 22:27 - CONCLUSION: 1. Dense consolidation in both lower lobes with likely postradiation changes on the right. The appearance on the left could be compatible with aspiration or pneumonia. There is underlying moderate emphysema. Bilateral effusions, right greater than left. 2. Dilated esophagus characteristic of esophageal motility disorder. 3. 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 Moderate coronary calcifications. Deep Gtz MD Hospital Course This is an unfortunate 56-year-old male with significant history of metastatic non-small cell lung cancer under the care of Dr. Billingsley. He was previously on palliative chemotherapy with Alimta. Unfortunately the patient developed enlarging lymphadenopathy to the right axilla while on chemotherapy. He was referred to with radiation oncology and has completed 10 treatments of radiation, his last one was Saturday. Patient's right arm continues with swelling and is very painful to movement, he is on fentanyl patch as well as Dilaudid for pain management. He was recently admitted on February 14, 2017 for right arm cellulitis and was treated with antibiotics. Patient went into see Dr. Dr. Billingsley today to start chemotherapy, however he's noted with lesions to the right anterior shoulder that appear to be zoster and recurrent cellulitis. Request was made to admit the patient to the hospital to treat with acyclovir, he has received the first dose in the office. Patient denies any fever, no chills. He takes most of his nutrition through a PEG tube and uses Jevity. He denies any changes in bowel movement, no diarrhea. Stated he has very little appetite.He was able to eat some soft foods and mostly liquids. Had a chronic cough and very little sputum, continued to smoke 1 pack a day every 3 days. Denied any chest pain, no shortness of breath. Patient was admitted for further evaluation and treatment. (1) Lymphadenopathy, axillary (2) Right arm cellulitis (3) Shingles (4) Non-small cell lung cancer (NSCLC) (5) HTN (hypertension) (6) Malignant cachexia (7) Depression (8) Tobacco abuse (9) COPD (chronic obstructive pulmonary disease) (10) Anxiety (11) Underweight (12) Sepsis with hypotension and tachycardia During the course of the hospitalization, the following took place 56-year-old male with history of metastatic non-small cell lung cancer who has developed enlarging lymphadenopathy to the right axilla, treated with radiation. Recently treated for cellulitis, now presents with ongoing swelling and tenderness, as well as findings of zoster lesions to the right anterior shoulder. Recurrent cellulitis with shingles Right arm it lymphadenopathy, status post radiation -Patient was evaluated by infectious disease, was started on antibiotics. ID did not believe patient had shingles. Metastatic non-small cell carcinoma, was supposed to start chemotherapy today -Oncology was consulted to assist with patient management. COPD Tobacco abuse DuoNeb's as needed for wheezing Tobacco abuse counseling Malnourished, cachectic Has PEG tube -Patient developed peg malfunction, it was clogged. GI was consulted. PEG tube fixed. Anxiety Depression Continued with Remeron 7.5 mg by mouth daily at bedtime During hospitalization, patient developed tachycardia and hypotension. CT of the chest was done, showed pneumonia Patient required transfer to ICU Patient required IV fluids and Abad-Synephrine. Antibiotics were adjusted Critical care was consulted to assist with patient management Blood pressure stabilized, critical care signed off. Patient verbalized been tired about being hospitalized, he was agreeable to discussing transitioning to hospice services. Hospice was consulted. Overall patient had poor prognosis Hospice spoke to patient and his mother, arrangements were made to send patient home. He made himself a DO NOT RESUSCITATE. Patient was discharged home in fair condition with hospice services. Pt Condition on Discharge: Fair Discharge Disposition: Hospice/ Home Discharge Instructions DIET: Follow Instructions for: Full Liquid Diet, On Tube Feeding Activities you can perform: Weight Bearing as Meghana Follow up Referrals: PCP Follow-up Continued Medications: Albuterol Neb (Albuterol Neb) 2.5 Mg/0.5 Ml Neb 2.5 MG NEB Q4HR NEB, EA Note: The Albuterol Sulfate Inhalation Solution is concentrated and must be diluted. Read complete instructions carefully before using. Clindamycin (Clindamycin) 300 Mg Cap 300 MG PO Q6H for Infection, #36 CAP 0 Refills (This prescription has been renewed) Hydromorphone (Hydromorphone) 2 Mg Tab 2 MG PO Q4H PRN for PAIN, TAB 0 Refills Hydromorphone (Dilaudid) 2 Mg Tab 4 MG PO Q4H PRN for pain 1-10, #60 TAB Ipratropium HFA 12.9 GM Inh (Atrovent HFA 12.9 GM Inh) 17 Mcg/Act Aer 2 PUFF INH BID, #1 INHALER 0 Refills Lorazepam (Lorazepam) 0.5 Mg Tab 0.5 MG PO HS PRN for ANXIETY AND/OR INSOMNIA, TAB 0 Refills Mirtazapine (Mirtazapine) 7.5 Mg Tab 7.5 MG PO HS for Depression Control, #30 TAB 0 Refills Morphine ER (Morphine ER) 30 Mg Tab 30 MG PO Q8HR, #30 TAB Sennosides-Docusate Sodium (Senna Plus 8.6-50 mg) 1 Tab Tab 2 TAB PO BID, #30 TAB Discontinued Medications: Sulfamethoxazole-Trimethoprim (Sulfamethoxazole-Trimethoprim) 800-160 Mg Tab 1 TAB PO BID for Infection, #18 TAB 0 Refills Beatrice Monreal Mar 27, 2017 18:13
== END 2017-03-26 15:29 | disposition hospice, home (50) | DRG 602 ==
LOC: HOCB 17:17 → N03B 03-22 07:08
PROVIDERS: ADMIT Specialist; ATTEND Specialist
PROC: 30233N1 Transfusion of Nonautologous Red Blood Cells into Peripheral Vein, Percutaneous Approach (ICD-10-PCS; 2017-03-23)
PROC: 0D20XUZ Change Feeding Device in Upper Intestinal Tract, External Approach (ICD-10-PCS; principal; 2017-03-26)
DX: L03.113 Cellulitis of right upper limb (principal); A41.9 Sepsis, unspecified organism; R65.20 Severe sepsis without septic shock; J18.9 Pneumonia, unspecified organism; R64 Cachexia; E44.0 Moderate protein-calorie malnutrition; I95.9 Hypotension, unspecified; B02.9 Zoster without complications; J44.0 Chronic obstructive pulmonary disease with (acute) lower respiratory infection; C34.90 Malignant neoplasm of unspecified part of unspecified bronchus or lung; Z43.1 Encounter for attention to gastrostomy; Z68.22 Body mass index [BMI] 22.0-22.9, adult; Z93.1 Gastrostomy status; I10 Essential (primary) hypertension; F32.9 Major depressive disorder, single episode, unspecified; F17.210 Nicotine dependence, cigarettes, uncomplicated; F41.9 Anxiety disorder, unspecified; Z92.21 Personal history of antineoplastic chemotherapy; Z92.3 Personal history of irradiation; R00.0 Tachycardia, unspecified; Z66 Do not resuscitate; Z51.5 Encounter for palliative care; D63.8 Anemia in other chronic diseases classified elsewhere; I89.0 Lymphedema, not elsewhere classified; G89.4 Chronic pain syndrome; Z98.2 Presence of cerebrospinal fluid drainage device; E87.6 Hypokalemia; M25.511 Pain in right shoulder; K22.8 Other specified diseases of esophagus
CPT/HCPCS: 36430; 71010; 71250; 74000; 77412; 77417; 80048; 80053; 81001; 82150; 82533; 82550; 82607; 82728; 82746; 83010; 83540; 83550; 83605; 83615; 83690; 83735; 84100; 84145; 84443; 85025; 85027; 85384; 85610; 85730; 86787; 86850; 86900; 86901; 86920; 87040; 87804; 93308; 93971; 94150; 94640; 94664; 96365; 96366; 96367; 96375; 99215; C9113; G0463; J0133; J0690; J1170; J1642; J1644; J2370; J2543; J2920; J7030; J7040; J7050; J7060; J7613; P9016; P9047